=== PATIENT | female | born 1950 | race Caucasian/White ===

== ENCOUNTER 2023-06-07 11:29 | Inpatient (IN) ==
--- NOTE | 2023-06-07 12:04 | Emergency Department Note ---
History of Present Illness General Chief complaint: Hip Pain Stated complaint: FALL, R HIP PAIN Time Seen by Provider: 06/07/23 11:33 History of Present Illness 72-year-old female presents emergency department with a nonsyncopal trip and fall as she was trying to diana her cat so it would not go into her garage she fell landing on her right hip. Patient denies any loss of consciousness denies hitting her head; states that the pain is in the right hip increases with motion decreases with rest. Patient's had no prior hip injury she does follow with Dr. Aviles for back injections. Patient is not on blood thinners. Patient states the pain is moderate with motion of the hip and and decreases with rest. Patient denies any other complaints prior to his fall such as chest pain shortness of breath abdominal pain nausea vomiting. Home Medications Medication Instructions Recorded Confirmed Type alendronate 70 mg tablet (Fosamax) 70 mg PO WK 02/24/19 06/07/23 History aspirin 81 mg tablet,delayed 81 mg PO QAM 02/24/19 06/07/23 History release (Aspir-) [id number]-[id number]-[id number] 1 cap PO Q6H PRN Migraine Headache 02/24/19 06/07/23 History 50 mg-325 mg-40 mg capsule (Esgic) citalopram 40 mg tablet 40 mg PO PM 02/24/19 06/07/23 History diazepam 5 mg tablet 5 mg PO QID 02/24/19 06/07/23 History gabapentin 100 mg capsule 200 mg PO BID 02/24/19 06/07/23 History gabapentin 300 mg capsule 300 mg PO HS 02/24/19 06/07/23 History ibuprofen 800 mg tablet 800 mg PO UD PRN Pain 02/24/19 06/07/23 History primidone 50 mg tablet 100 mg PO BID 02/24/19 06/07/23 History simvastatin 40 mg tablet 40 mg PO HS 02/24/19 06/07/23 History vitamin E 268 mg (400 unit) capsule 400 unit PO PM 02/24/19 06/07/23 History primidone 50 mg tablet 150 mg PO HS 09/13/20 06/07/23 History dicyclomine 10 mg capsule 10 mg PO QID 09/25/20 06/07/23 History [facility], Cetrzn 10 mg PO QAM 01/30/21 06/07/23 History albuterol sulfate 90 mcg/actuation 1 inh inhalation UD PRN COPD 01/30/21 06/07/23 History aerosol inhaler fluticasone fur. 200 mcg-umeclid 1 inh inhalation DAILY 01/30/21 06/07/23 History 62.5 mcg-vilant 25 mcg inhalat.powder (Trelegy Ellipta) folic acid 400 mcg tablet 0.8 mg PO QAM 01/30/21 06/07/23 History topiramate 25 mg tablet (Topamax) 25 mg PO QAM 02/03/22 06/07/23 History topiramate 25 mg tablet (Topamax) 50 mg PO HS 02/03/22 06/07/23 History indomethacin 25 mg capsule 25 mg PO TID 06/07/23 06/07/23 History Allergies Allergy/AdvReac Type Severity Reaction Status Date / Time Milk Containing Products Allergy Intermediate Gastrointestinal Unverified 06/07/23 13:51 (Dairy) Upset ampicillin Allergy Mild RASH Verified 06/07/23 13:50 Bactrim Allergy Unknown UNKNOWN - Verified 10/22/15 08:03 CAN'T REMEMBER sulfamethoxazole Allergy Unknown UNKNOWN - Verified 06/07/23 13:50 CAN'T REMEMBER trimethoprim Allergy Unknown UNKNOWN - Verified 06/07/23 13:50 CAN'T REMEMBER Past Med/Surg History Medical History (Updated 06/07/23 @ 14:09 by Manish Valdovinos, ) Murmur Intertrochanteric fracture of right hip Asthma well controlled per pt, rare res inh use Depression Bilateral lumbar radiculopathy Essential tremor BILAT. HANDS History of diverticulitis Anxiety and depression History of skin cancer NOSE Unsteady gait RECENT, CANE/WALKER PRN Cirrhosis of liver COPD (chronic obstructive pulmonary disease) Sciatica Migraines Hernia Snores Spondylolisthesis, lumbar region IBS (irritable bowel syndrome) Osteoarthritis Spinal stenosis of lumbar region Chronic back pain Hypertension PT DENIES Hyperlipidemia Surgical History S/P epidural steroid injection H/O colonoscopy with polypectomy H/O oophorectomy History of arthroscopy of left knee History of endoscopy Hx of ovarian cystectomy History of cholecystectomy History of bilateral tubal ligation History of tonsillectomy Hx of cataract extraction BILAT Family History Mother Colon cancer Other Family history of diabetes mellitus No family history of adverse response to anesthesia Social History Smoking Status: Current every day smoker Tobacco Type: Cigarettes Cigarettes Per Day: 1 ppd; Second Hand Exposure: No; Do You Dip or Chew Tobacco: No; Hx Alcohol Use: No Hx Substance Use: No Preferred Language: Colombian Communication Ability: Effective Chief Cruiser Required: No Beliefs That Will Affect Care: None Current Living Situation: Alone Current Living Situation Comment: DAUGHTER AND GRANDSON Feels Safe at Home: Yes Assistive Devices: Cane, Denture - Upper, Denture - Lower, Glasses and Walker Review of Systems A total of 10 systems reviewed and were otherwise negative Musculoskeletal: + joint pain and + limited range of motion Physical Exam Vital Signs Vital Signs - 24 hr 06/07/23 12:00 06/07/23 12:01 06/07/23 12:30 Temperature 36.9 C 36.9 C Temperature Source Oral Oral Pulse Rate 97 H 79 Pulse Rate [Right Finger] 77 Pulse Rhythm Regular Pulse Rhythm [Right Finger] Regular Pulse Strength Normal Pulse Strength [Right Finger] Normal Respiratory Rate 20 20 Respiratory Effort / Characteristics Non-Labored Spontaneous Non-Labored Spontaneous Respiratory Depth Normal Normal Respiratory Pattern Regular Regular Blood Pressure 132/71 Blood Pressure [Right Arm] 132/71 Blood Pressure Mean 91 Blood Pressure Mean [Right Arm] 91 Blood Pressure Position Semi-fowlers Blood Pressure Position [Right Arm] Semi-fowlers Pulse Oximetry 98 98 Oxygen Delivery Method Room Air Room Air Sepsis Recent Fever Within 48 Hours No Sepsis New/Unexplained Change in Mental Status N/A Sepsis Action Taken by Nursing No Action Required 06/07/23 13:58 Temperature 36.8 C Temperature Source Oral Pulse Rate 79 Pulse Rate [Right Finger] Pulse Rhythm Pulse Rhythm [Right Finger] Pulse Strength Pulse Strength [Right Finger] Respiratory Rate 20 Respiratory Effort / Characteristics Respiratory Depth Respiratory Pattern Blood Pressure 145/77 H Blood Pressure [Right Arm] Blood Pressure Mean Blood Pressure Mean [Right Arm] Blood Pressure Position Blood Pressure Position [Right Arm] Pulse Oximetry 98 Oxygen Delivery Method Room Air Sepsis Recent Fever Within 48 Hours Sepsis New/Unexplained Change in Mental Status Sepsis Action Taken by Nursing GENERAL: Patient is awake alert in no acute distress patient is resting comfortably and showing no signs of anxiety EYES: The conjunctivae are clear. The pupils are round and reactive. HEAD: NC/AT EARS, NOSE, MOUTH AND THROAT: The nose is without any evidence of any deformity. Mucous membranes are moist. Tongue is midline. NECK: The neck is nontender and supple. RESPIRATORY: Normal respiratory effort is noted there is no evidence of wheezing rhonchi or rales CARDIOVASCULAR: Regular rate and rhythm noted there no murmurs rubs or gallops normal S1 normal S2. GASTROINTESTINAL: The abdomen is soft. Abdomen is nontender. PELVIS: The Pelvis is stable. Tenderness present in the right hip laterally, the right leg is to the left patient is neurovascularly intact distally BACK: No midline tenderness or or step-off noted range of motion in flexion extension as well as rotation no signs of muscle spasm noted MUSCULOSKELETAL/EXTREMITIES: Decreased range of motion of right hip with deformity present no obvious deformities to the right upper or left upper or left lower extremities SKIN: There is no obvious evidence of any rash. There are no petechiae, pallor or cyanosis noted. NEUROLOGIC: Patient is awake alert and oriented x3 strength is symmetric; GCS of 15 Course Reevaluation(s) Reevaluation #1: Patient resting in no distress on repeat examination. Patient was given IV fentanyl. Time: 14:07 Consultations Consultation #1: [facility] Time: 13:30 Administered Medications Discontinued Medications Fentanyl Citrate (Fentanyl Citrate Pf 100 Mcg/2 Ml Vial) 50 mcg IV NOW STA Stop: 06/07/23 11:41 Last Admin: 06/07/23 12:11 Dose: 50 mcg Documented By: AASHISH Ondansetron HCl (Ondansetron Inj 2 Mg/Ml 2 Ml Vial) 4 mg IV NOW STA Stop: 06/07/23 11:41 Last Admin: 06/07/23 12:11 Dose: 4 mg Documented By: AASHISH Medical Decision Making Medical Records Attestation: I reviewed the patient's medical records. Home Medications Current Medication List: was personally reviewed by me Laboratory Data Attestation: I reviewed the patient's lab results. Labs interpreted by me mild leukocytosis 06/07/23 11:50 06/07/23 11:50 Lab Results 06/07/23 06/07/23 Range/Units 11:50 13:00 WBC 13.65 H (4.8-10.8) K/ul RBC 4.48 (4.20-5.40) M/uL Hgb 12.7 (12.0-16.0) g/dl Hct 39.8 (37.0-47.0) % MCV 88.8 (80.0-100.0) fL MCH 28.3 (25.0-34.0) pg MCHC 31.9 L (32.0-36.0) g/dL RDW Std Deviation 42.9 (36.4-46.3) fL RDW Coeff of Jeannie 13.2 (11.5-14.5) % Plt Count 325 (130-400) K/uL MPV 10.7 (9.4-12.4) fL Immature Gran % (Auto) 0.4 % Neut % (Auto) 85.2 % Lymph % (Auto) 9.5 % [place] % (Auto) 4.2 % Eos % (Auto) 0.3 % Baso % (Auto) 0.4 % Neut # (Auto) 11.61 H (1.40-6.50) K/uL Lymph # (Auto) 1.30 (1.20-3.40) K/uL [place] # (Auto) 0.58 (0.11-0.59) K/uL Eos # (Auto) 0.04 (0.00-0.50) K/uL Baso # (Auto) 0.06 (0.00-0.20) K/uL Immature Gran # (Auto) 0.06 (0.01-0.20) K/uL PT 10.8 (9.0-12.0) Seconds INR 1.0 (0.9-1.1) APTT 27 (21-31) Seconds PTT Ratio 1.0 Sodium 140 (136-145) mmol/L Potassium 4.2 (3.5-5.1) mmol/L Chloride 108 H (98-107) mmol/L Carbon Dioxide 25 (21-32) mmol/L Anion Gap 7 (3-11) BUN 17 (6-23) mg/dl Creatinine 0.94 (0.6-1.2) mg/dl Est Cr Clr Drug Dosing 52.8 ml/min Est GFR ( Amer) 69.8 ml/min Est GFR (Non-Af Amer) 60.2 ml/min BUN/Creatinine Ratio 18.1 (10-20) Glucose 116 H (70-99(Fasting)) mg/dl Calcium 9.4 (8.6-10.3) mg/dl Total Bilirubin 0.4 (0.2-1.0) mg/dl AST 12 L (13-39) U/L ALT 12 (7-52) U/L Alkaline Phosphatase 44 (34-104) U/L Total Protein 6.9 (6.0-8.3) gm/dl Albumin 4.0 (3.4-5.0) gm/dl Globulin 2.9 (2.5-4.0) gm/dl Albumin/Globulin Ratio 1.4 (0.9-2) Blood Type A Positive Antibody Screen NEGATIVE Imaging Data Attestation: I personally reviewed and interpreted this imaging study as follows: My Impression: Right hip x-rays interpreted by me positive for intertrochanteric right hip fracture Radiologist's Impression: Hip X-Ray 06/07/23 11:40 RIGHT HIP 2 VIEWS CLINICAL HISTORY: Right hip injury. Pain. FINDINGS: AP and crosstable lateral views of the right hip are correlated with pelvic CT dated 06/17/2015. The skeletal structures are osteopenic. There is a comminuted and angulated intertrochanteric fracture of the right proximal femur with overlying soft tissue edema. There is medial displacement of the lesser trochanter. The visualized right hemipelvis appears intact. Mild to moderate arthritic change is noted in the right hip. Atherosclerotic calcification is seen in the right femoral artery. IMPRESSION: Intertrochanteric fracture of the right proximal femur as above. Electronically signed by: Camron Ackerman M.D. 06/07/2023 12:43 PM Chest X-Ray 06/07/23 11:42 SINGLE VIEW CHEST CLINICAL HISTORY: Fall. FINDINGS: 2 AP, portable, semierect chest radiographs are compared to chest x- ray and chest CT dated 06/17/2015. The the heart is enlarged and noting atherosclerotic calcification of the thoracic aorta. The pulmonary vasculature is noncongested. Emphysema and chronic interstitial thickening is similar to previous. Foci of scarring/atelectasis are seen throughout both lungs. No airspace consolidation or large pleural effusion is identified. There is an indeterminant nodular opacity projecting over the right lower lung. No pneumothorax is seen. The skeletal structures are osteopenic. The bony thorax is grossly intact. IMPRESSION: 1. Cardiomegaly and emphysema with no acute cardiopulmonary abnormality identified. 2. There is an indeterminate nodular opacity projecting over the right lower lung. A nonemergent chest CT is recommended and follow-up to exclude underlying pulmonary lesion. ACT 112: Positive. There are findings on this exam that require communication between the performing entity and the patient following Patient Test Result Information Act ([place] Act 112) guidelines. Electronically signed by: Camron Ackerman M.D. 06/07/2023 12:49 PM ECG Data Attestation: I personally reviewed and interpreted this ECG as follows: Additional Comments: EKG interpreted by me sinus rhythm rate of 80, first-degree AV block, poor R wave progression the precordium, no obvious ST segment elevation or depression, PVCs MDM Narrative Medical decision making differential diagnosis right hip sprain strain contusion fracture dislocation Plan is to check labs, EKG, right hip x-rays Patient was found to have a right hip fracture, patient was started on IV opiates, the [facility] I did discuss the findings with the patient the patient's family at bedside Plan is to admit for orthopedic surgical consultation Impression & Plan Closed intertrochanteric fracture of right hip Discharge Plan Visit Data Chief Complaint: Hip Pain Stated Complaint: FALL, R HIP PAIN ED Provider: Manish Valdovinos Discharge Problem: Closed intertrochanteric fracture of right hip Patient Disposition: Admitted As Inpatient Discharge Instructions Interventions: ED Discharge Assessment Last Done: 06/07/23 13:58 Forms Stand Alone Forms: My [facility] [employer] Prescriptions Prescriptions: No Action primidone 50 mg Tablet 100 mg PO BID [id number] [Esgic] 50-325-40 mg Capsule 1 cap PO Q6H PRN (Reason: Migraine Headache) citalopram 40 mg Tablet 40 mg PO PM ibuprofen 800 mg Tablet 800 mg PO UD PRN (Reason: Pain) alendronate [Fosamax] 70 mg Tablet 70 mg PO WK Rx Instructions: WEDNESDAY aspirin [Aspir-81] 81 mg Tablet,Delayed Release (Dr/Ec) 81 mg PO QAM simvastatin 40 mg Tablet 40 mg PO HS Patient Comments: PHARMACY REFILLED SIMVASTATIN , GOING TO FINISH SIMVISTATIN AND THEN START THE NEW PRESCRIPTION gabapentin 300 mg Capsule 300 mg PO HS gabapentin 100 mg Capsule 200 mg PO BID vitamin E 400 unit Capsule 400 unit PO PM Patient Comments: WITH DINNER diazepam 5 mg Tablet 5 mg PO QID Rx Instructions: FOR TREMORS primidone 50 mg Tablet 150 mg PO HS dicyclomine 10 mg Capsule 10 mg PO QID folic acid 400 mcg Tablet 0.8 mg PO QAM Patient Comments: WITH DINNER [facility] Allergy, Cetrzn 10 mg PO QAM albuterol sulfate 90 mcg/actuation Hfa Aerosol Inhaler 1 inh INHALATION UD PRN (Reason: COPD) Trelegy Ellipta 200-62.5-25 mcg Blister With Device 1 inh INHALATION DAILY topiramate [Topamax] 25 mg Tablet 25 mg PO QAM topiramate [Topamax] 25 mg Tablet 50 mg PO HS indomethacin 25 mg Capsule 25 mg PO TID Referrals Referrals: Christie Morris DO [Primary Care Provider] -
[2023-06-07 12:05] LABS: Basophils # (auto) 0.06 K/uL (0.00-0.20); Basophils % (auto) 0.4 %; Eosinophils # (auto) 0.04 K/uL (0.00-0.50); Eosinophils % (auto) 0.3 %; Hematocrit (blood only) 39.8 % (37.0-47.0); Hemoglobin 12.7 g/dl (12.0-16.0); Immature Granulocytes # (auto) 0.06 K/uL (0.01-0.20); Immature Granulocytes % (auto) 0.4 %; Lymphocytes % (auto) 9.5 %; Mean Corpuscular Hemoglobin 28.3 pg (25.0-34.0); Mean Corpuscular Hgb Conc 31.9 g/dL (32.0-36.0); Mean Corpuscular Volume 88.8 fL (80.0-100.0); Mean Platelet Volume 10.7 fL (9.4-12.4); Monocytes # (auto) 0.58 K/uL (0.11-0.59); Monocytes % (auto) 4.2 %; Neutrophils # (auto) 11.61 K/uL (1.40-6.50); Neutrophils % (auto) 85.2 %; Platelet Count 325 K/uL (130-400); RDW Coefficient of Variation 13.2 % (11.5-14.5); RDW Standard Deviation 42.9 fL (36.4-46.3); Red Blood Count 4.48 M/uL (4.20-5.40); White Blood Count 13.65 K/ul (4.8-10.8)
[2023-06-07] MEDS: fentaNYL citrate PF 100 MCG/2 ML VIAL IV STA (12:11)
[2023-06-07] MEDS: ONDANSETRON INJ 2 MG/ML 2 ML VIAL IV STA (12:11)
[2023-06-07 12:22] LABS: Albumin Globulin Ratio 1.4 (0.9-2); BUN Creatinine Ratio 18.1 (10-20); Bilirubin,Total 0.4 mg/dl (0.2-1.0); Calcium 9.4 mg/dl (8.6-10.3); Creatinine Clr Calc Pharmacy 52.8 ml/min; Est GFR (African American) 69.8 ml/min; Est GFR (Non-African American) 60.2 ml/min; Globulin 2.9 gm/dl (2.5-4.0); Potassium 4.2 mmol/L (3.5-5.1); Total Protein 6.9 gm/dl (6.0-8.3)
[2023-06-07 12:43] LABS: Partial Thromboplastin Time 27 Seconds (21-31); Prothrombin Time 10.8 Seconds (9.0-12.0)
--- NOTE | 2023-06-07 12:44 | XRay Report ---
RIGHT HIP 2 VIEWS CLINICAL HISTORY: Right hip injury. Pain. FINDINGS: AP and crosstable lateral views of the right hip are correlated with pelvic CT dated 06/17/19 16. The skeletal structures are osteopenic. There is a comminuted and angulated intertrochanteric fra cture of the right proximal femur with overlying soft tissue edema. There is medial displacement of t he lesser trochanter. The visualized right hemipelvis appears intact. Mild to moderate arthritic ledbetter ge is noted in the right hip. Atherosclerotic calcification is seen in the right femoral artery. IMPRESSION: Intertrochanteric fracture of the right proximal femur as above. Electronically signed by: Camron Ackerman M.D. 06/07/2023 12:43 PM
[2023-06-07] MEDS ORDERED: ACETAMINOPHEN 325 MG TAB PO PRN (12:47)
[2023-06-07] MEDS ORDERED: NALOXONE HCL 0.4 MG/1 ML VIAL/CARP IV PRN (12:47)
[2023-06-07] MEDS ORDERED: bisacodyL 10 MG SUPP PR PRN (12:47)
[2023-06-07] MEDS ORDERED: ALUMINUM/MAGNESIUM SUSP 30 ML UDC PO PRN (12:47)
[2023-06-07] MEDS ORDERED: ONDANSETRON INJ 2 MG/ML 2 ML VIAL IV PRN (12:47)
[2023-06-07] MEDS ORDERED: MAGNESIUM HYDROXIDE SUSP 30 ML UDC PO PRN (12:47)
--- NOTE | 2023-06-07 12:52 | XRay Report ---
SINGLE VIEW CHEST CLINICAL HISTORY: Fall. FINDINGS: 2 AP, portable, semierect chest radiographs are compared to chest x-ray and chest CT dated 06/17/2015. The the heart is enlarged and noting atherosclerotic calcification of the thoracic aorta. T he pulmonary vasculature is noncongested. Emphysema and chronic interstitial thickening is similar to previous. Foci of scarring/atelectasis are seen throughout both lungs. No airspace consolidation or large pleural effusion is identified. There is an indeterminant nodular opacity projecting over the r ight lower lung. No pneumothorax is seen. The skeletal structures are osteopenic. The bony thorax is grossly intact. IMPRESSION: 1. Cardiomegaly and emphysema with no acute cardiopulmonary abnormality identified. 2. There is an indeterminate nodular opacity projecting over the right lower lung. A nonemergent ches t CT is recommended and follow-up to exclude underlying pulmonary lesion. ACT 112: Positive. There are findings on this exam that require communication between the performing entity and the patient following Patient Test Result Information Act ([place] Act 112) guidelines. Electronically signed by: Camron Ackerman M.D. 06/07/2023 12:49 PM
--- NOTE | 2023-06-07 13:05 | History & Physical Report ---
Date of Service June 07, 2023 Assessment & Plan (1) Intertrochanteric fracture of right hip: (2) Dyslipidemia: (3) Tobacco use disorder: (4) COPD (chronic obstructive pulmonary disease): (5) Bilateral lumbar radiculopathy: (6) Murmur: Plan Ms. Cortez is a 72 year old female that presented to the ED today after experiencing a mechanical fall earlier today while she was chasing her cat out of the garage. She slipped and lost balance and she fell on her right hip in her kitchen. She was unable to sit up but was able to lean on cabinets 'eventually'. She denies LOC and states she did not hit her head. She was on the floor for approximately 2 hours from around [id number] today. She does not take any anticoagulation medications. PMH includes: COPD, spinal stenosis with radiculopathy (receives steroid injections), H/O opioid dependence, tobacco use, and HLD. Mild leukocytosis 13.65, otherwise labs unremarkable. Hgb 12.7. Normotensive and on RA. Pt denies OLVERA, fever, chills, SOB, chest pain, palpitations, N/V/D, abdominal pain or tenderness, dysuria, hematochezia, bowel or bladder changes, easy bruising, recent falls or other trauma. Patient will be admitted for further evaluation and management of her right hip fracture. Will keep NPO, order pain medications, obtain ECG and ECHO given audible cardiac murmur and ortho consult (pt requesting Delmer). Intertrochanteric fracture of right hip: Acute Loss of balance and had mechanical fall in her garage today Hip xray identified right intertrochanteric right proximal femur fracture Will keep on bedrest and n.p.o. until formal Ortho consultation (pt requesting Dr. Dowell) Leukocytosis 13.65; suspect refractory d/t fracture Does not appear toxic Will order scheduled Tylenol and as needed Oxy IR for pain control Will order ECG and echo for preop clearance Teds and SCDs for ; one dose Heparin now. Murmur: Grade III/ murmur left sternal border No ECHO as outpatient For pre-op clearance; will order ECHO ECG ordered COPD: Lung nodule: Chronic Takes Trelegy and follows with pulmonary as an outpatient Was to have repeat PFTs 2022 Most recent PFTs 07/26/2020 FEV1 1.71 CXR today: Cardiomegaly and emphysema, no acute cardiac or pulmonary infection identified. There is an indeterminate nodular opacity projecting over the right lower lung. A nonemergent chest CT is recommended and follow-up to exclude underlying pulmonary lesion. Tobacco use disorder: Chronic Smokes 1 PPD; declines Nicotine patch Recommended smoking cessation Bilateral lumbar radiculopathy: Chronic Receives lumbar steroid injections; last injection 01/2023. Takes Ibuprofen, Primidone, Topamax, Indocin for neuropathy pain Hold Ibuprofen and Indocin pre op Of note; during conversation, patient has had opioid addiction in past. No currently taking any opioids Disposition: PCP: Dr. Morris CODE STATUS: Full code VTE prophylaxis: Teds and SCDs for ; one dose Heparin now. I spent a total of 87 minutes coordinating, documenting, and providing care for this patient excluding time spent in the performance of separately billed services. All of the aforementioned completed while collaborating with the assigned attending physician for a full treatment plan. Please see their addendum for further details. History of Present Illness Chief Complaint: hip pain Primary Care Provider: Christie Morris DO Ms. Cortez is a 72 year old female that presented to the ED today after experiencing a mechanical fall earlier today while she was chasing her newly adopted cat out of the garage. She slipped and lost balance and she fell on her right hip. She was unable to sit up. She denies LOC and states she did not hit her head. She was on the floor for approximately 2 hours. She does not take any anticoagulation medications. PMH includes: COPD, spinal stenosis with radiculopathy (receives steroid injections), H/O opioid dependence, tobacco use, and HLD. Mild leukocytosis 13.65, otherwise labs unremarkable. Hgb 12.7. Normotensive and on RA. Hip Xray: Intertrochanteric fracture of the right proximal femur CXR today: Cardiomegaly and emphysema, no acute cardiac or pulmonary infection identified. There is an indeterminate nodular opacity projecting over the right lower lung. A nonemergent chest CT is recommended and follow-up to exclude underlying pulmonary lesion. Pt smokes 1 ppd tobacco. No alcohol or recreational drug use. Patient reportedly has had opioid dependence in the past. She normally lives alone and performs all of her own ADL's. S Pt denies OLVERA, fever, chills, SOB, chest pain, palpitations, N/V/D, abdominal pain or tenderness, dysuria, hematochezia, bowel or bladder changes, easy bruising, recent falls or other trauma. Patient will be admitted for further evaluation and management of her right hip fracture. Will keep NPO pending ortho consult (Dr. Limoff request), order pain medications, obtain ECG and ECHO given audible heart murmur. Allergies Allergy/AdvReac Type Severity Reaction Status Date / Time Milk Containing Products Allergy Intermediate Gastrointestinal Unverified 06/07/23 13:51 (Dairy) Upset ampicillin Allergy Mild RASH Verified 06/07/23 13:50 Bactrim Allergy Unknown UNKNOWN - Verified 10/22/15 08:03 CAN'T REMEMBER sulfamethoxazole Allergy Unknown UNKNOWN - Verified 06/07/23 13:50 CAN'T REMEMBER trimethoprim Allergy Unknown UNKNOWN - Verified 06/07/23 13:50 CAN'T REMEMBER Home Medications Medication Instructions Recorded Confirmed Type alendronate 70 mg tablet (Fosamax) 70 mg PO WK 02/24/19 06/07/23 History aspirin 81 mg tablet,delayed 81 mg PO QAM 02/24/19 06/07/23 History release (Aspir-) vbzhjvrbyw-wvfqrjzwpivum-lzdtsiwt 1 cap PO Q6H PRN Migraine Headache 02/24/19 06/07/23 History 50 mg-325 mg-40 mg capsule (Esgic) citalopram 40 mg tablet 40 mg PO PM 02/24/19 06/07/23 History diazepam 5 mg tablet 5 mg PO QID 02/24/19 06/07/23 History gabapentin 100 mg capsule 200 mg PO BID 02/24/19 06/07/23 History gabapentin 300 mg capsule 300 mg PO HS 02/24/19 06/07/23 History ibuprofen 800 mg tablet 800 mg PO UD PRN Pain 02/24/19 06/07/23 History primidone 50 mg tablet 100 mg PO BID 02/24/19 06/07/23 History simvastatin 40 mg tablet 40 mg PO HS 02/24/19 06/07/23 History vitamin E 268 mg (400 unit) capsule 400 unit PO PM 02/24/19 06/07/23 History primidone 50 mg tablet 150 mg PO HS 09/13/20 06/07/23 History dicyclomine 10 mg capsule 10 mg PO QID 09/25/20 06/07/23 History [facility] Allergy, Cetrzn 10 mg PO QAM 01/30/21 06/07/23 History albuterol sulfate 90 mcg/actuation 1 inh inhalation UD PRN COPD 01/30/21 06/07/23 History aerosol inhaler fluticasone fur. 200 mcg-umeclid 1 inh inhalation DAILY 01/30/21 06/07/23 History 62.5 mcg-vilant 25 mcg inhalat.powder (Trelegy Ellipta) folic acid 400 mcg tablet 0.8 mg PO QAM 01/30/21 06/07/23 History topiramate 25 mg tablet (Topamax) 25 mg PO QAM 02/03/22 06/07/23 History topiramate 25 mg tablet (Topamax) 50 mg PO HS 02/03/22 06/07/23 History indomethacin 25 mg capsule 25 mg PO TID 06/07/23 06/07/23 History Past Med/Surg History Medical History (Updated 06/07/23 @ 14:09 by Manish Valdovinos, DO) Murmur Intertrochanteric fracture of right hip Asthma well controlled per pt, rare res inh use Depression Bilateral lumbar radiculopathy Essential tremor BILAT. HANDS History of diverticulitis Anxiety and depression History of skin cancer NOSE Unsteady gait RECENT, CANE/WALKER PRN Cirrhosis of liver COPD (chronic obstructive pulmonary disease) Sciatica Migraines Hernia Snores Spondylolisthesis, lumbar region IBS (irritable bowel syndrome) Osteoarthritis Spinal stenosis of lumbar region Chronic back pain Hypertension PT DENIES Hyperlipidemia Surgical History S/P epidural steroid injection H/O colonoscopy with polypectomy H/O oophorectomy History of arthroscopy of left knee History of endoscopy Hx of ovarian cystectomy History of cholecystectomy History of bilateral tubal ligation History of tonsillectomy Hx of cataract extraction BILAT Family History Mother Colon cancer Other Family history of diabetes mellitus No family history of adverse response to anesthesia Social History Smoking Status: Current every day smoker Tobacco Type: Cigarettes Cigarettes Per Day: one pack per day; Second Hand Exposure: No; Do You Dip or Chew Tobacco: No; Hx Alcohol Use: No Hx Substance Use: No Preferred Language: Pashto Communication Ability: Effective [employer] Required: No Beliefs That Will Affect Care: None Current Living Situation: Alone Current Living Situation Comment: DAUGHTER AND GRANDSON Feels Safe at Home: Yes Safety Concerns: Feels Safe At This Time Assistive Devices: Cane, Denture - Upper and Denture - Lower Assistive Devices Comment: Pt uses cane when she leaves the house Review of Systems Review of Systems: Neuro: (-) Falls, trauma, slurred speech HEENT: (-) OLVERA, dizziness, dysphagia, visual or auditory changes CV: (-) CP, palpitations, swelling Resp: (-) SOB GI: (-) appetite changes, N/V/D, bowel changes : (-) urinary changes Skin: (-) rashes Psych: (-) anxiety, depression Physical Exam Physical Exam: Neuro: AAOx4, PERRLA, no aphagia, memory changes, CNII-XII grossly intact HEENT: head normocephalic, atraumatic, moist mucus membranes CV: S1/S2, Audible Murmur GIII/ left sternal border. (+) 2 bilateral lower extremity edema, cap refill < 3 seconds Resp: Lungs coarse posteriorly. On RA. GI: Abdomen S/NT/ND, Ax4 bowel sounds, (-) CVA tenderness Musculoskeletal: Normally walks independently. Skin: (-) rashes , (-) erythema. Psych: euthymic mood Results & Data Results & Data Vital Signs (Past 12 Hours) Vital Signs Temp Pulse Pulse Resp BP BP Pulse Ox 06/07/23 12:30 79 06/07/23 12:01 36.9 C 97 H 20 132/71 98 06/07/23 12:00 36.9 C 77 20 132/71 98 O2 Del Method 06/07/23 12:30 06/07/23 12:01 Room Air 06/07/23 12:00 Room Air Laboratory Results Short CBC 06/07/23 Range/Units 11:50 WBC 13.65 H (4.8-10.8) K/ul Hgb 12.7 (12.0-16.0) g/dl Hct 39.8 (37.0-47.0) % Plt Count 325 (130-400) K/uL BMP 06/07/23 11:50 Sodium 140 Potassium 4.2 Chloride 108 H Carbon Dioxide 25 BUN 17 Creatinine 0.94 Glucose 116 H Calcium 9.4 Liver Function 06/07/23 Range/Units 11:50 Total Bilirubin 0.4 (0.2-1.0) mg/dl AST 12 L (13-39) U/L ALT 12 (7-52) U/L Alkaline Phosphatase 44 (34-104) U/L Albumin 4.0 (3.4-5.0) gm/dl Diagnostic Findings Hip X-Ray 06/07/23 11:40 RIGHT HIP 2 VIEWS CLINICAL HISTORY: Right hip injury. Pain. FINDINGS: AP and crosstable lateral views of the right hip are correlated with pelvic CT dated 06/17/2015. The skeletal structures are osteopenic. There is a comminuted and angulated intertrochanteric fracture of the right proximal femur with overlying soft tissue edema. There is medial displacement of the lesser trochanter. The visualized right hemipelvis appears intact. Mild to moderate arthritic change is noted in the right hip. Atherosclerotic calcification is seen in the right femoral artery. IMPRESSION: Intertrochanteric fracture of the right proximal femur as above. Electronically signed by: Camron Ackerman M.D. 06/07/2023 12:43 PM Chest X-Ray 06/07/23 11:42 SINGLE VIEW CHEST CLINICAL HISTORY: Fall. FINDINGS: 2 AP, portable, semierect chest radiographs are compared to chest x- ray and chest CT dated 06/17/2015. The the heart is enlarged and noting atherosclerotic calcification of the thoracic aorta. The pulmonary vasculature is noncongested. Emphysema and chronic interstitial thickening is similar to previous. Foci of scarring/atelectasis are seen throughout both lungs. No airspace consolidation or large pleural effusion is identified. There is an indeterminant nodular opacity projecting over the right lower lung. No pneumothorax is seen. The skeletal structures are osteopenic. The bony thorax is grossly intact. IMPRESSION: 1. Cardiomegaly and emphysema with no acute cardiopulmonary abnormality identified. 2. There is an indeterminate nodular opacity projecting over the right lower lung. A nonemergent chest CT is recommended and follow-up to exclude underlying pulmonary lesion. ACT 112: Positive. There are findings on this exam that require communication between the performing entity and the patient following Patient Test Result Information Act ([place] Act 112) guidelines. Electronically signed by: Camron Ackerman M.D. 06/07/2023 12:49 PM Code Status & VTE Plan Code Status Full Code in the event of cardiac or respiratory arrest VTE Prophylaxis Plan VTE Prophylaxis will be ordered: Yes Supervising Physician Co-Signing Physician Notes Patient was seen and examined independently at bedside. Chart reviewed. Case discussed with Opal CHEN and agree with the documentation above. In summary, this is a 72 year old female who suffered a mechanical fall today sustaining right hip fracture. Complains of pain during my encounter. Other medical conditions stable. Independent with ADL, METS>4, no active cardiopulmonary symptoms. RCRI score of 0 with class I risk, 3.9% perioperative risk of MACE but currently optimized to go for surgery if EKG unremarkable. They would want Dr Galloway from Orthopedics to do the surgery and will be consulted. She does smoke 1 ppd but does not want nicotine patch. Will have it prn. Also discussed about pulmonary nodule in CXR and recommendation for CT chest for better evaluation and they are aware for close OP follow up with PCP. Alternatively, can get it done after surgery prior to discharge- will leave it to the rounding provider. Continue pain management, bowel regimen. PT OT eval after surgery. Rest as per the note above. On exam- General: Lying comfortably in bed, not in distress, on room air HEENT: EOMI, RORO, MMM Chest: Clear breath sounds anteriorly, no wheezes or crackles CVS: Regular rate and rhythm Abdomen: Soft, non tender, not distended, normal bowel sounds Neuro: Awake, alert, oriented, conversing well, non focal Extremities: No cyanosis, clubbing or edema
--- NOTE | 2023-06-07 14:43 | Electrocardiogram Report ---
Test Reason : Blood Pressure : / mmHG Vent. Rate : 080 BPM Atrial Rate : 080 BPM P-R Int : 210 ms QRS Dur : 068 ms QT Int : 350 ms P-R-T Axes : 077 016 074 degrees QTc Int : 403 ms Sinus rhythm with 1st degree A-V block with occasional Premature ventricular complexes Low voltage QRS Borderline ECG When compared with ECG of 17-JUN-2015 10:57, Premature ventricular complexes are now Present LA interval has increased Criteria for Anteroseptal infarct are no longer Present QT has shortened Confirmed by Brendon Church ([id number]) on 06/07/2023 2:43:41 PM Referred By: REFERRED SELF Confirmed By:Brendon Church
[2023-06-07] MEDS: ACETAMINOPHEN 1,000 MG/100 ML VIAL IV SCH (15:49)
[2023-06-07] MEDS: oxyCODONE HCL IR 5 MG TAB (IMMEDIATE RELEASE) PO PRN (16:28)
[2023-06-07] MEDS: HEPARIN SOD 5,000 UNIT/0.5 ML VIAL SQ STA (16:38)
--- NOTE | 2023-06-07 16:45 | Orthopedic Consultation ---
Date of Consultation June 07, 2023 Assessment & Plan (1) Closed intertrochanteric fracture of right hip: Patient, daughter, and I discussed imaging findings and exam findings. Patient has a closed intertrochanteric fracture of her right hip. We discussed treatment options for this including conservative measurements as well as surgical. We discussed risk and benefits of the procedure including but not limited to bleeding risk infection risk scarring, nerve and vascular damage, stiffness, wound issues, tendon or ligament injury, hardware failure, nonunion, embolism, DVT, stroke, or . Patient will be scheduled for a open reduction internal fixation right hip fracture with Dr. Iglesias on 06/08/2023. The consent was obtained. Patient and daughter had ample time to ask questions. Patient has a walker to use at home. Patient would prefer to go home when she is medically stable however if she would need to go to rehabilitation she would be open to this. Patient is inquiring if she would need to have a blood transfusion she would prefer to use her own blood. I will discuss this further with Dr. Iglesias. Patient had one-time dose of heparin. Recommend no further blood thinning/anticoagulation until after surgical intervention. Recommended she maintain nonweightbearing on the right lower extremity. Continue with pain medication per hospitalist recommendation. She may use ice to the right hip as needed. She will be n.p.o. at midnight. Antibiotic, Ancef was ordered in OR has been contacted by Korin castro. Hospitalist is ordering EKG and ECHO for medical clearance for surgery. Case will be discussed with Dr. Iglesias. Patient and daughter verbalized understanding and are in agreement plan. Present on Admission?: Yes History of Present Illness Reason for Consultation: Right hip fracture Attending Physician: Wander Dale MD History of Present Illness Patient is a 72-year-old female who was seen in [facility] and admitted by hospitalist. Consult was requested by hospitalist for a right hip fracture. Patient was seen bedside and daughter was present. Patient explains today she was at her home lives by herself in a one-story home when she was trying to avoid the cat getting out into the garage. She states she turned the wrong way and fell onto the right hip. She states she was in the kitchen and fell onto the linoleum floor. She denies hitting her head or any loss of consciousness. She states after she had fallen she was not able to get up. She states after multiple attempts were made to get up she realized that her cell phone was in reach and was able to get it and call 911. She was transported to [facility] via ambulance where she was examined and had imaging that revealed an intertrochanteric fracture of the right hip. She states she has no history of previous trauma or injury to the hip. She denies any open areas. She has pain into the hip groin on the right side and into the thigh. She denies any pain going down below the knee. She does has a history of lumbar radiculopathy and has seen Dr. Quinteros for injections. She denies any numbness in either legs. She does state she has been having an issue with retaining fluid in bilateral lower extremities. She states this has been ongoing previous to the fall. She does have a history of osteoporosis and per patient she is on Fosamax however she is not very compliant with this. She has a walker and multiple canes at home however is not using this currently. She states she takes an aspirin a day denies any other use of anticoagulation. She denies any skin infections or history of MRSA. She denies any latex allergies or metal allergies. She denies any problems with anesthesia. She has a history of COPD and a lung nodule. She does smoke approximately 1 pack of cigarettes a day. She denies any dizziness, chest pain, shortness of breath. Allergies Allergy/AdvReac Type Severity Reaction Status Date / Time Milk Containing Products Allergy Intermediate Gastrointestinal Unverified 06/07/23 13:51 (Dairy) Upset ampicillin Allergy Mild RASH Verified 06/07/23 13:50 Bactrim Allergy Unknown UNKNOWN - Verified 10/22/15 08:03 CAN'T REMEMBER sulfamethoxazole Allergy Unknown UNKNOWN - Verified 06/07/23 13:50 CAN'T REMEMBER trimethoprim Allergy Unknown UNKNOWN - Verified 06/07/23 13:50 CAN'T REMEMBER Home Medications Medication Instructions Recorded Confirmed Type alendronate 70 mg tablet (Fosamax) 70 mg PO WK 02/24/19 06/07/23 History aspirin 81 mg tablet,delayed 81 mg PO QAM 02/24/19 06/07/23 History release (Aspir-) aohzrcblfw-yrwssdbnicnfl-qxzmzgxq 1 cap PO Q6H PRN Migraine Headache 02/24/19 06/07/23 History 50 mg-325 mg-40 mg capsule (Esgic) citalopram 40 mg tablet 40 mg PO PM 02/24/19 06/07/23 History diazepam 5 mg tablet 5 mg PO QID 02/24/19 06/07/23 History gabapentin 100 mg capsule 200 mg PO BID 02/24/19 06/07/23 History gabapentin 300 mg capsule 300 mg PO HS 02/24/19 06/07/23 History ibuprofen 800 mg tablet 800 mg PO UD PRN Pain 02/24/19 06/07/23 History primidone 50 mg tablet 100 mg PO BID 02/24/19 06/07/23 History simvastatin 40 mg tablet 40 mg PO HS 02/24/19 06/07/23 History vitamin E 268 mg (400 unit) capsule 400 unit PO PM 02/24/19 06/07/23 History primidone 50 mg tablet 150 mg PO HS 09/13/20 06/07/23 History dicyclomine 10 mg capsule 10 mg PO QID 09/25/20 06/07/23 History [facility] Allergy, Cetrzn 10 mg PO QAM 01/30/21 06/07/23 History albuterol sulfate 90 mcg/actuation 1 inh inhalation UD PRN COPD 01/30/21 06/07/23 History aerosol inhaler fluticasone fur. 200 mcg-umeclid 1 inh inhalation DAILY 01/30/21 06/07/23 History 62.5 mcg-vilant 25 mcg inhalat.powder (Trelegy Ellipta) folic acid 400 mcg tablet 0.8 mg PO QAM 01/30/21 06/07/23 History topiramate 25 mg tablet (Topamax) 25 mg PO QAM 02/03/22 06/07/23 History topiramate 25 mg tablet (Topamax) 50 mg PO HS 02/03/22 06/07/23 History indomethacin 25 mg capsule 25 mg PO TID 06/07/23 06/07/23 History Patient History Medical History (Updated 06/07/23 @ 14:09 by Manish Valdovinos, ) Murmur Intertrochanteric fracture of right hip Asthma well controlled per pt, rare res inh use Depression Bilateral lumbar radiculopathy Essential tremor BILAT. HANDS History of diverticulitis Anxiety and depression History of skin cancer NOSE Unsteady gait RECENT, CANE/WALKER PRN Cirrhosis of liver COPD (chronic obstructive pulmonary disease) Sciatica Migraines Hernia Snores Spondylolisthesis, lumbar region IBS (irritable bowel syndrome) Osteoarthritis Spinal stenosis of lumbar region Chronic back pain Hypertension PT DENIES Hyperlipidemia Surgical History S/P epidural steroid injection H/O colonoscopy with polypectomy H/O oophorectomy History of arthroscopy of left knee History of endoscopy Hx of ovarian cystectomy History of cholecystectomy History of bilateral tubal ligation History of tonsillectomy Hx of cataract extraction BILAT Family History Mother Colon cancer Other Family history of diabetes mellitus No family history of adverse response to anesthesia Social History Smoking Status: Current every day smoker Tobacco Type: Cigarettes Cigarettes Per Day: one pack per day; Second Hand Exposure: No; Do You Dip or Chew Tobacco: No; Hx Alcohol Use: No Hx Substance Use: No Preferred Language: Ukrainian Communication Ability: Effective Liability Analyst Required: No Beliefs That Will Affect Care: None Current Living Situation: Alone Current Living Situation Comment: DAUGHTER AND GRANDSON Feels Safe at Home: Yes Safety Concerns: Feels Safe At This Time Assistive Devices: Cane, Denture - Upper and Denture - Lower Assistive Devices Comment: Pt uses cane when she leaves the house Review of Systems Review of Systems: Please refer to HPI Physical Exam Physical Exam: Exam was focused on right lower extremity. General: Patient is alert and oriented x 3 no acute distress lying supine. She is answering questions correctly. Integumentary/muscle skeletal: Right lower extremity is in normal position negative for any gross deformity. Negative for any ecchymosis or abrasions on the right lower extremity. Left lower extremity has erythematous area in a circular pattern that the size of a quarter over the hairston per patient this that this has been there for a few days. She has edema bilateral lower extremities nonpitting. She is able to actively dorsiflex and plantarflex bilateral ankles. She is limited with knee and hip range of motion on the right due to pain in the hip. She has pain with logroll on right lower extremity. She is unable to tolerate passive range of motion to the hip and knee on the right due to pain. She is unable to do a straight leg raise on the right. She tolerates hip range of motion and knee range of motion on the left lower extremity without any difficulty. Sensation is intact over all 4 L5 and S1 on the right. Dorsal pedis pulse is 1. Results & Data Vital Signs (Past 12 Hours) Vital Signs Temp Pulse Pulse Resp BP BP Pulse Ox 06/07/23 15:55 37.0 C 81 16 109/67 95 06/07/23 13:58 36.8 C 79 20 145/77 H 98 06/07/23 12:30 79 06/07/23 12:01 36.9 C 97 H 20 132/71 98 06/07/23 12:00 36.9 C 77 20 132/71 98 O2 Del Method 06/07/23 15:55 Room Air 06/07/23 13:58 Room Air 06/07/23 12:30 06/07/23 12:01 Room Air 06/07/23 12:00 Room Air Laboratory Results 06/07/23 06/07/23 Range/Units 13:00 11:50 WBC 13.65 H (4.8-10.8) K/ul RBC 4.48 (4.20-5.40) M/uL Hgb 12.7 (12.0-16.0) g/dl Hct 39.8 (37.0-47.0) % MCV 88.8 (80.0-100.0) fL MCH 28.3 (25.0-34.0) pg MCHC 31.9 L (32.0-36.0) g/dL RDW Std Deviation 42.9 (36.4-46.3) fL RDW Coeff of Jeannie 13.2 (11.5-14.5) % Plt Count 325 (130-400) K/uL MPV 10.7 (9.4-12.4) fL Immature Gran % (Auto) 0.4 % Neut % (Auto) 85.2 % Lymph % (Auto) 9.5 % [place] % (Auto) 4.2 % Eos % (Auto) 0.3 % Baso % (Auto) 0.4 % Neut # (Auto) 11.61 H (1.40-6.50) K/uL Lymph # (Auto) 1.30 (1.20-3.40) K/uL [place] # (Auto) 0.58 (0.11-0.59) K/uL Eos # (Auto) 0.04 (0.00-0.50) K/uL Baso # (Auto) 0.06 (0.00-0.20) K/uL Immature Gran # (Auto) 0.06 (0.01-0.20) K/uL PT 10.8 (9.0-12.0) Seconds INR 1.0 (0.9-1.1) APTT 27 (21-31) Seconds PTT Ratio 1.0 Sodium 140 (136-145) mmol/L Potassium 4.2 (3.5-5.1) mmol/L Chloride 108 H (98-107) mmol/L Carbon Dioxide 25 (21-32) mmol/L Anion Gap 7 (3-11) BUN 17 (6-23) mg/dl Creatinine 0.94 (0.6-1.2) mg/dl Est Cr Clr Drug Dosing 52.8 ml/min Est GFR ( Amer) 69.8 ml/min Est GFR (Non-Af Amer) 60.2 ml/min BUN/Creatinine Ratio 18.1 (10-20) Glucose 116 H (70-99(Fasting)) mg/dl Calcium 9.4 (8.6-10.3) mg/dl Total Bilirubin 0.4 (0.2-1.0) mg/dl AST 12 L (13-39) U/L ALT 12 (7-52) U/L Alkaline Phosphatase 44 (34-104) U/L Total Protein 6.9 (6.0-8.3) gm/dl Albumin 4.0 (3.4-5.0) gm/dl Globulin 2.9 (2.5-4.0) gm/dl Albumin/Globulin Ratio 1.4 (0.9-2) Blood Type A Positive Antibody Screen NEGATIVE Diagnostic Findings Hip X-Ray 06/07/23 11:40 RIGHT HIP 2 VIEWS CLINICAL HISTORY: Right hip injury. Pain. FINDINGS: AP and crosstable lateral views of the right hip are correlated with pelvic CT dated 06/17/2015. The skeletal structures are osteopenic. There is a comminuted and angulated intertrochanteric fracture of the right proximal femur with overlying soft tissue edema. There is medial displacement of the lesser trochanter. The visualized right hemipelvis appears intact. Mild to moderate arthritic change is noted in the right hip. Atherosclerotic calcification is seen in the right femoral artery. IMPRESSION: Intertrochanteric fracture of the right proximal femur as above. Electronically signed by: Camron Ackerman M.D. 06/07/2023 12:43 PM Chest X-Ray 06/07/23 11:42 SINGLE VIEW CHEST CLINICAL HISTORY: Fall. FINDINGS: 2 AP, portable, semierect chest radiographs are compared to chest x- ray and chest CT dated 06/17/2015. The the heart is enlarged and noting atherosclerotic calcification of the thoracic aorta. The pulmonary vasculature is noncongested. Emphysema and chronic interstitial thickening is similar to previous. Foci of scarring/atelectasis are seen throughout both lungs. No airspace consolidation or large pleural effusion is identified. There is an indeterminant nodular opacity projecting over the right lower lung. No pneumothorax is seen. The skeletal structures are osteopenic. The bony thorax is grossly intact. IMPRESSION: 1. Cardiomegaly and emphysema with no acute cardiopulmonary abnormality identified. 2. There is an indeterminate nodular opacity projecting over the right lower lung. A nonemergent chest CT is recommended and follow-up to exclude underlying pulmonary lesion. ACT 112: Positive. There are findings on this exam that require communication between the performing entity and the patient following Patient Test Result Information Act ([place] Act 112) guidelines. Electronically signed by: Camron Ackerman M.D. 06/07/2023 12:49 PM
[2023-06-07 17:29] LABS: Appearance Urine Clear (Clear); Bilirubin Urine Negative (Negative); Blood Urine Negative (Negative); Color Urine Yellow; Glucose Urine UA Negative (Negative); Ketones Urine 1+ (Negative); Leukocyte Esterase Urine Negative (Negative); Nitrite Urine Negative (Negative); Protein Urine Negative (Negative); Specific Gravity Urine 1.021 (1.000-1.030); Urobilinogen Urine Negative (Negative)
[2023-06-07] MEDS: diazePAM 5 MG TABLET PO SCH (17:52)
[2023-06-07] MEDS: DICYCLOMINE HCL 10 MG CAP PO SCH (17:52)
[2023-06-07] MEDS: PRIMIDONE 50 MG TAB PO SCH ×2 (21:46→21:48)
[2023-06-07] MEDS: GABAPENTIN 100 MG CAP PO SCH (21:46)
[2023-06-07] MEDS: GABAPENTIN 300 MG CAP PO SCH (21:47)
[2023-06-07] MEDS: CITALOPRAM 40 MG TAB PO SCH (21:47)
[2023-06-07] MEDS: TOPIRAMATE 50 MG TAB PO SCH (21:47)
[2023-06-07] MEDS: SIMVASTATIN 40 MG TAB PO SCH (21:47)
[2023-06-07] MEDS: ACETAMINOPHEN 500 MG TAB PO SCH (21:53)
[2023-06-08 06:47] LABS: Hematocrit (blood only) 38.7 % (37.0-47.0); Hemoglobin 12.6 g/dl (12.0-16.0); Mean Corpuscular Hemoglobin 28.7 pg (25.0-34.0); Mean Corpuscular Hgb Conc 32.6 g/dL (32.0-36.0); Mean Corpuscular Volume 88.2 fL (80.0-100.0); Mean Platelet Volume 10.7 fL (9.4-12.4); Platelet Count 263 K/uL (130-400); RDW Coefficient of Variation 13.2 % (11.5-14.5); RDW Standard Deviation 42.8 fL (36.4-46.3); Red Blood Count 4.39 M/uL (4.20-5.40); White Blood Count 9.56 K/ul (4.8-10.8)
[2023-06-08 07:35] LABS: Albumin Level 3.8 gm/dl (3.4-5.0); Bilirubin,Total 0.4 mg/dl (0.2-1.0); Calcium 9.3 mg/dl (8.6-10.3); Potassium 3.8 mmol/L (3.5-5.1)
[2023-06-08 07:41] LABS: Albumin Globulin Ratio 1.3 (0.9-2); BUN Creatinine Ratio 24.1 (10-20); Creatinine Clr Calc Pharmacy 62.8 ml/min; Est GFR (African American) 86.1 ml/min; Est GFR (Non-African American) 74.3 ml/min; Globulin 2.9 gm/dl (2.5-4.0); Total Protein 6.7 gm/dl (6.0-8.3)
[2023-06-08] MEDS ORDERED: NON-FORMULARY MEDICATION (Fluticasone-Umeclidin-Vilanter [Trelegy Ellipta] 200-62.5-25 mcg INH SCH (09:00)
[2023-06-08] MEDS ORDERED: MIDAZOLAM HCL 1 MG/ML 2ML VIAL ONE (09:16)
[2023-06-08] MEDS ORDERED: PROPOFOL IV EMULSION 10 MG/ML 20 ML VIAL IV ONE (09:16)
[2023-06-08] MEDS ORDERED: fentaNYL citrate PF 100 MCG/2 ML VIAL ONE ×2 (09:16→11:36)
--- NOTE | 2023-06-08 09:34 | Anesthesiology Consultation ---
Date of Service June 08, 2023 Assessment & Plan Chart Review Chart Review: Acceptable Risk for Surgery and Patient NOT seen in Pre Admission Testing History Surgery Operation Date: 06/08/23 07:00 Proposed Procedures p Right Hip Trochanteric Nail - Arnold Iglesias MD Height/Weight Height: 5 ft 5 in Weight: 71.3 kg Allergies Allergy/AdvReac Type Severity Reaction Status Date / Time Milk Containing Products Allergy Intermediate Gastrointestinal Unverified 06/07/23 13:51 (Dairy) Upset ampicillin Allergy Mild RASH Verified 06/07/23 13:50 Bactrim Allergy Unknown UNKNOWN - Verified 10/22/15 08:03 CAN'T REMEMBER sulfamethoxazole Allergy Unknown UNKNOWN - Verified 06/07/23 13:50 CAN'T REMEMBER trimethoprim Allergy Unknown UNKNOWN - Verified 06/07/23 13:50 CAN'T REMEMBER Medications Home Medications Medication Instructions Recorded Confirmed Last Taken alendronate 70 mg tablet (Fosamax) 70 mg PO WK 02/24/19 06/07/23 02/10/22 aspirin 81 mg tablet,delayed 81 mg PO QAM 02/24/19 06/07/23 02/04/22 release (Aspir-) kxyvzprgpf-lzvtejclinuzn-cfacklua 1 cap PO Q6H PRN Migraine Headache 02/24/19 06/07/23 09/24/20 50 mg-325 mg-40 mg capsule (Esgic) citalopram 40 mg tablet 40 mg PO PM 02/24/19 06/07/23 02/10/22 diazepam 5 mg tablet 5 mg PO QID 02/24/19 06/07/23 02/10/22 gabapentin 100 mg capsule 200 mg PO BID 02/24/19 06/07/23 02/10/22 gabapentin 300 mg capsule 300 mg PO HS 02/24/19 06/07/23 02/10/22 ibuprofen 800 mg tablet 800 mg PO UD PRN Pain 02/24/19 06/07/23 02/04/22 primidone 50 mg tablet 100 mg PO BID 02/24/19 06/07/23 02/10/22 simvastatin 40 mg tablet 40 mg PO HS 02/24/19 06/07/23 02/10/22 vitamin E 268 mg (400 unit) capsule 400 unit PO PM 02/24/19 06/07/23 06/03/21 primidone 50 mg tablet 150 mg PO HS 09/13/20 06/07/23 02/10/22 dicyclomine 10 mg capsule 10 mg PO QID 09/25/20 06/07/23 02/10/22 [facility] Allergy, Cetrzn 10 mg PO QAM 01/30/21 06/07/23 02/10/22 albuterol sulfate 90 mcg/actuation 1 inh inhalation UD PRN COPD 01/30/21 06/07/23 Unknown aerosol inhaler fluticasone fur. 200 mcg-umeclid 1 inh inhalation DAILY 01/30/21 06/07/23 02/10/22 62.5 mcg-vilant 25 mcg inhalat.powder (Trelegy Ellipta) folic acid 400 mcg tablet 0.8 mg PO QAM 01/30/21 06/07/23 02/10/22 topiramate 25 mg tablet (Topamax) 25 mg PO QAM 02/03/22 06/07/23 02/10/22 topiramate 25 mg tablet (Topamax) 50 mg PO HS 02/03/22 06/07/23 02/10/22 indomethacin 25 mg capsule 25 mg PO TID 06/07/23 06/07/23 Unknown Active Medications Generic Name Dose Route Start Last Admin Trade Name Freq PRN Reason Stop Dose Admin Acetaminophen 1,000 mg 06/07/23 22:00 06/08/23 06:26 Acetaminophen 500 Mg Tab PO 07/07/23 20:59 1,000 mg Q8H RANULFO Administration Citalopram Hydrobromide 40 mg 06/07/23 21:00 06/07/23 21:47 Citalopram 40 Mg Tab PO 07/07/23 20:59 40 mg PM RANULFO Administration Diazepam 5 mg 06/07/23 17:00 06/07/23 21:52 Diazepam 5 Mg Tablet PO 07/07/23 16:59 5 mg QID RANULFO Administration Dicyclomine HCl 10 mg 06/07/23 17:00 06/07/23 21:47 Dicyclomine Hcl 10 Mg Cap PO 07/07/23 16:59 10 mg QID RANULFO Administration Gabapentin 300 mg 06/07/23 21:00 06/07/23 21:47 Gabapentin 300 Mg Cap PO 07/07/23 20:59 300 mg HS RANULFO Administration Gabapentin 200 mg 06/07/23 21:00 06/07/23 21:46 Gabapentin 100 Mg Cap PO 07/07/23 20:59 Not Given BID RANULFO Oxycodone HCl 5 mg 06/07/23 13:44 06/08/23 02:56 Oxycodone Hcl Ir 5 Mg Tab (Immediate Release) PO 06/21/23 13:43 5 mg Q4H PRN Administration Pain Primidone 100 mg 06/07/23 21:00 06/07/23 21:46 Primidone 50 Mg Tab PO 07/07/23 20:59 Not Given BID RANULFO Primidone 150 mg 06/07/23 21:00 06/07/23 21:48 Primidone 50 Mg Tab PO 07/07/23 20:59 150 mg HS RANULFO Administration Simvastatin 40 mg 06/07/23 21:00 06/07/23 21:47 Simvastatin 40 Mg Tab PO 07/07/23 20:59 40 mg HS RANULFO Administration Topiramate 50 mg 06/07/23 21:00 06/07/23 21:47 Topiramate 50 Mg Tab PO 07/07/23 20:59 50 mg HS RANULFO Administration NPO Date Last Intake of Fluids: 06/07/23 Time Last Intake of Fluids: 18:00 Last Intake of Fluids Comment: sips w/ scheduled tylenol Date Last Intake of Solids: 06/07/23 Time Last Intake of Solids: 18:00 Past Medical History Medical History Murmur Intertrochanteric fracture of right hip Asthma well controlled per pt, rare res inh use Depression Bilateral lumbar radiculopathy Essential tremor BILAT. HANDS History of diverticulitis Anxiety and depression History of skin cancer NOSE Unsteady gait RECENT, CANE/WALKER PRN Cirrhosis of liver COPD (chronic obstructive pulmonary disease) Sciatica Migraines Hernia Snores Spondylolisthesis, lumbar region IBS (irritable bowel syndrome) Osteoarthritis Spinal stenosis of lumbar region Chronic back pain Hypertension PT DENIES Hyperlipidemia Past Family History Family History Mother Colon cancer Other Family history of diabetes mellitus No family history of adverse response to anesthesia Past Surgical History Surgical History S/P epidural steroid injection H/O colonoscopy with polypectomy H/O oophorectomy History of arthroscopy of left knee History of endoscopy Hx of ovarian cystectomy History of cholecystectomy History of bilateral tubal ligation History of tonsillectomy Hx of cataract extraction BILAT Social History Smoking Status: Current every day smoker tobacco type: cigarettes Smoking cigarettes per day: one pack per day Do You Dip or Chew Tobacco: No Hx Alcohol Use: No Hx Substance Use: No substance use type: does not use Physical Exam Vital Signs Last Vital Signs Temp 37.1 C 06/08/23 09:26 Pulse 68 06/08/23 09:26 Resp 20 06/08/23 09:26 BP 102/53 L 06/08/23 09:26 Pulse Ox 90 06/08/23 09:26 O2 Del Method Room Air 06/08/23 09:26 Testing Laboratory Results 06/08/23 06:25 06/08/23 06:25 PT 10.8 Seconds (9.0-12.0) 06/07/23 11:50 INR 1.0 (0.9-1.1) 06/07/23 11:50 APTT 27 Seconds (21-31) 06/07/23 11:50 Urine Color Yellow 06/07/23 17:05 Urine Appearance Clear (Clear) 06/07/23 17:05 Urine pH 7.0 (4.5-7.5) 06/07/23 17:05 Ur Specific [place] 1.021 (1.000-1.030) 06/07/23 17:05 Urine Protein Negative (Negative) 06/07/23 17:05 Urine Glucose (UA) Negative (Negative) 06/07/23 17:05 Urine Ketones 1+ (Negative) H 06/07/23 17:05 Urine Nitrite Negative (Negative) 06/07/23 17:05 Ur Leukocyte Esterase Negative (Negative) 06/07/23 17:05 Blood Type A Positive 06/07/23 13:00 Antibody Screen NEGATIVE 06/07/23 13:00
[2023-06-08] MEDS ORDERED: fentaNYL citrate PF 100 MCG/2 ML VIAL IV PRN (09:41)
[2023-06-08] MEDS ORDERED: ePHEDrine sulfate 50 MG/ML AMP IV PRN (09:41)
[2023-06-08] MEDS ORDERED: HYDROmorphone INJ 1 MG/ML SYRINGE IV PRN (09:41)
[2023-06-08] MEDS ORDERED: ATROPINE SULFATE 0.1 MG/ML 10ML SYR IV PRN (09:41)
[2023-06-08] MEDS ORDERED: ONDANSETRON INJ 2 MG/ML 2 ML VIAL IV PRN (09:41)
[2023-06-08] MEDS: ALBUT/IPRATROP 3MG/0.5MG NEB 3 ML VIAL NEB STA (09:44)
--- NOTE | 2023-06-08 09:44 | History & Physical Bridge Note ---
Date of Service June 08, 2023 History & Physical Bridge Note I have examined the patient, reviewed the History & Physical and in the interval since the performance of the History & Physical I have noted the following changes of clinical significance: no changes noted
[2023-06-08] MEDS: ceFAZolin 2000MG 2,000 MG/15 ML SYR IV ONE (10:56)
[2023-06-08] MEDS ORDERED: PHENYLEPHRINE HCL 10 MG/ML VIAL ONE (11:17)
[2023-06-08] MEDS ORDERED: ePHEDrine sulfate 50 MG/5 ML SYR ONE (11:17)
[2023-06-08] MEDS ORDERED: TRANEXAMIC ACID / 0.7% NACL 1000MG/100ML BAG IV ONE (11:18)
--- NOTE | 2023-06-08 12:22 | Hospitalist Progress Note ---
Date of Service June 08, 2023 Assessment & Plan (1) Intertrochanteric fracture of right hip: (2) Dyslipidemia: (3) Tobacco use disorder: (4) COPD (chronic obstructive pulmonary disease): (5) Bilateral lumbar radiculopathy: (6) Murmur: (7) Age-related osteopor w/curr pathol fx of right femur w/routine heal: Plan Ms. Cortez is a 72 year old female that presented to the ED today after experiencing a mechanical fall earlier today while she was chasing her cat out of the garage. She slipped and lost balance and she fell on her right hip in her kitchen. She was unable to sit up but was able to lean on cabinets 'eventually'. She denies LOC and states she did not hit her head. She was on the floor for approximately 2 hours from around [id number] today. She does not take any anticoagulation medications. PMH includes: COPD, spinal stenosis with radiculopathy (receives steroid injections), H/O opioid dependence, tobacco use, and HLD. Mild leukocytosis 13.65, otherwise labs unremarkable. Hgb 12.7. Normotensive and on RA. Pt denies OLVERA, fever, chills, SOB, chest pain, palpitations, N/V/D, abdominal pain or tenderness, dysuria, hematochezia, bowel or bladder changes, easy bruising, recent falls or other trauma. Patient will be admitted for further evaluation and management of her right hip fracture. Will keep NPO, order pain medications, obtain ECG and ECHO given audible cardiac murmur and ortho consult (pt requesting Herickoff). Intertrochanteric fracture of right hip: Age related osteoporotic fracture Acute Loss of balance and had mechanical fall in her garage today Hip xray identified right intertrochanteric right proximal femur fracture Will keep on bedrest and n.p.o. Leukocytosis 13.65; suspect refractory d/t fracture Does not appear toxic Will order scheduled Tylenol and as needed Oxy IR for pain control Plan for OR today will check vitamin d in a.m. Aortic Valve Stenosis pre op echo: EF 60-65%, grade I DD, mild to mod av stenosis EKG SR with first degree AVB with PVC prior to event pt able to do equiv of 4 METS of activity will need follow up as outpatient for routine monitoring of COPD: Lung nodule: Chronic Takes Trelegy and follows with pulmonary as an outpatient Was to have repeat PFTs 2022 Most recent PFTs 07/26/2020 FEV1 1.71 CXR today: Cardiomegaly and emphysema, no acute cardiac or pulmonary infection identified. There is an indeterminate nodular opacity projecting over the right lower lung. A nonemergent chest CT is recommended and follow-up to exclude underlying pulmonary lesion. Tobacco use disorder: Chronic Smokes 1 PPD; declines Nicotine patch Recommended smoking cessation Bilateral lumbar radiculopathy: Chronic Receives lumbar steroid injections; last injection 01/2023. Takes Ibuprofen, Primidone, Topamax, Indocin for neuropathy pain Hold Ibuprofen and Indocin pre op Of note; during conversation, patient has had opioid addiction in past. No currently taking any opioids Disposition: PCP: Dr. Morris CODE STATUS: Full code VTE prophylaxis: Teds and SCDs for ; one dose Heparin on 06/06, will defer to Ortho when to resume chemical prophylaxis post op A total of 45 minutes was spent coordinating, documenting, and providing care for this patient excluding time spent in the performance of separately billed services. This included personally viewing all current laboratories and imaging studies, medication reconciliation, outpatient chart review, and discussion with specialists. Admission and Anticipated Discharge Date Admission Date: June 07, 2023 Supervising Physician Co-Signing Physician Notes Patient was seen and examined at bedside as a follow-up of right hip fracture, patient underwent repair 06/07. Patient feeling cold at bedside exam, no shaking noted. Patient's daughter at bedside. Room temperature control shown to patient's daughter. Patient reports operative site pain fairly under control. On examination, patient alert and awake, systolic murmur heard, clear to auscultation on bilateral lungs. Rest of the examination as above. I have seen and examined the patient and have discussed the case with the provider above. I agree with the assessment and plan as stated.and Subjective Patient was seen and examined in room 387. Follow-up right hip fracture. Currently she is complaining of pain, 9 out of 10. She is requesting analgesia. Plan is for surgery today. She denies any chest pain, shortness breath, nausea, vomiting. Review of Systems Review of Systems: All systems reviewed & are unremarkable except as noted in HPI & below Physical Exam Physical Exam: Gen: WD/WN, appears in discomfort, A&O x3 HEENT: Normocephalic, atraumatic, conjunctivae moist, sclerae anicteric, mucous membranes moist. Lung: Clear to Auscultation bilaterally, no wheezes/rales/rhonchi Heart: Regular rate, regular rhythm, 2/6 BHARAT LUSB, rubs, or gallops Abdomen: Soft, NT, ND +BS x 4 Extremities: No edema Skin: Warm, no rash, negative turgor. : smith draining yellow urine Results & Data Results & Data Vital Signs (Past 12 Hours) Vital Signs Temp Pulse Resp BP Pulse Ox O2 Del Method 06/08/23 11:26 Room Air 06/08/23 09:45 68 16 91 Room Air 06/08/23 09:26 37.1 C 68 20 102/53 L 90 Room Air 06/08/23 07:50 37.4 C 75 16 95/57 L 90 Room Air Laboratory Results Short CBC 06/08/23 Range/Units 06:25 WBC 9.56 (4.8-10.8) K/ul Hgb 12.6 (12.0-16.0) g/dl Hct 38.7 (37.0-47.0) % Plt Count 263 (130-400) K/uL BMP 06/08/23 06:25 Sodium 139 Potassium 3.8 Chloride 109 H Carbon Dioxide 22 BUN 19 Creatinine 0.79 Glucose 87 Calcium 9.3 Liver Function 06/08/23 Range/Units 06:25 Total Bilirubin 0.4 (0.2-1.0) mg/dl AST 15 (13-39) U/L ALT 11 (7-52) U/L Alkaline Phosphatase 40 (34-104) U/L Albumin 3.8 (3.4-5.0) gm/dl Urine 06/07/23 Range/Units 17:05 Urine Color Yellow Urine Appearance Clear (Clear) Urine pH 7.0 (4.5-7.5) Ur Specific Britton 1.021 (1.000-1.030) Urine Protein Negative (Negative) Urine Glucose (UA) Negative (Negative) Diagnostic Findings Hip X-Ray 06/07/23 11:40 RIGHT HIP 2 VIEWS CLINICAL HISTORY: Right hip injury. Pain. FINDINGS: AP and crosstable lateral views of the right hip are correlated with pelvic CT dated 06/17/2015. The skeletal structures are osteopenic. There is a comminuted and angulated intertrochanteric fracture of the right proximal femur with overlying soft tissue edema. There is medial displacement of the lesser trochanter. The visualized right hemipelvis appears intact. Mild to moderate arthritic change is noted in the right hip. Atherosclerotic calcification is seen in the right femoral artery. IMPRESSION: Intertrochanteric fracture of the right proximal femur as above. Electronically signed by: Camron Ackerman M.D. 06/07/2023 12:43 PM Chest X-Ray 06/07/23 11:42 SINGLE VIEW CHEST CLINICAL HISTORY: Fall. FINDINGS: 2 AP, portable, semierect chest radiographs are compared to chest x- ray and chest CT dated 06/17/2015. The the heart is enlarged and noting atherosclerotic calcification of the thoracic aorta. The pulmonary vasculature is noncongested. Emphysema and chronic interstitial thickening is similar to previous. Foci of scarring/atelectasis are seen throughout both lungs. No airsp tammy consolidation or large pleural effusion is identified. There is an indeterminant nodular opacity projecting over the right lower lung. No pneumothorax is seen. The skeletal structures are osteopenic. The bony thorax is grossly intact. IMPRESSION: 1. Cardiomegaly and emphysema with no acute cardiopulmonary abnormality identified. 2. There is an indeterminate nodular opacity projecting over the right lower lung. A nonemergent chest CT is recommended and follow-up to exclude underlying pulmonary lesion. ACT 112: Positive. There are findings on this exam that require communication between the performing entity and the patient following Patient Test Result Information Act ([place] Act 112) guidelines. Electronically signed by: Camron Ackerman M.D. 06/07/2023 12:49 PM Medications Administered Current Inpatient Medications Acetaminophen (Acetaminophen 500 Mg Tab) 1,000 mg PO Q8H RANULFO Stop: 07/07/23 20:59 Last Admin: 06/08/23 06:26 Dose: 1,000 mg Al Hydrox/Mg Hydrox/Simethicone (Aluminum/Magnesium Susp 30 Ml Udc) 30 ml PO Q6H PRN PRN Reason: Dyspepsia Stop: 07/07/23 12:46 Aspirin (Aspirin 81 Mg Ectab) 81 mg PO QAM RANULFO Stop: 07/08/23 08:59 Atropine Sulfate (Atropine Sulfate 0.1 Mg/Ml 10ml Syr) 0.5 mg IV Q1M PRN PRN Reason: PACU Use-HR<40 &/or Bradycardi Stop: 06/08/23 17:41 Bisacodyl (Bisacodyl 10 Mg Supp) 10 mg SD DAILY PRN PRN Reason: Constipation Stop: 07/07/23 12:46 Citalopram Hydrobromide (Citalopram 40 Mg Tab) 40 mg PO PM RANULFO Stop: 07/07/23 20:59 Last Admin: 06/07/23 21:47 Dose: 40 mg Diazepam (Diazepam 5 Mg Tablet) 5 mg PO QID RANULFO Stop: 07/07/23 16:59 Last Admin: 06/08/23 11:17 Dose: Not Given Dicyclomine HCl (Dicyclomine Hcl 10 Mg Cap) 10 mg PO QID RANULFO Stop: 07/07/23 16:59 Last Admin: 06/08/23 11:17 Dose: Not Given Ephedrine Sulfate (Ephedrine Sulfate 50 Mg/Ml Amp) 5 mg IV Q5M PRN PRN Reason: PACU Use Only-SBP<90 mmHg Stop: 06/08/23 17:41 Fentanyl Citrate (Fentanyl Citrate Pf 100 Mcg/2 Ml Vial) 50 mcg IV Q5M PRN PRN Reason: PACU Use Only-Pain Stop: 06/08/23 17:41 Fluticasone Furoate (Fluticasone Furoate 200mcg 14 Puffs/Inhaler) 1 puffs INH DAILY RANULFO Stop: 07/08/23 08:59 Folic Acid (Folic Acid 400 Mcg Tab) 800 mcg PO QAM RANULFO Stop: 07/08/23 08:59 Gabapentin (Gabapentin 300 Mg Cap) 300 mg PO HS RANULFO Stop: 07/07/23 20:59 Last Admin: 06/07/23 21:47 Dose: 300 mg Gabapentin (Gabapentin 100 Mg Cap) 200 mg PO BID RANULFO Stop: 07/07/23 20:59 Last Admin: 06/07/23 21:46 Dose: Not Given Hydromorphone HCl (Hydromorphone Inj 1 Mg/Ml Syringe) 0.25 mg IV Q5M PRN PRN Reason: PACU Use Only-Pain Stop: 06/08/23 17:41 Lactated Ringer's (Lr) 1,000 mls @ 15 mls/hr IV .Q24H RANULFO Stop: 07/08/23 10:41 Magnesium Hydroxide (Magnesium Hydroxide Susp 30 Ml Udc) 30 ml PO Q6H PRN PRN Reason: Constipation Stop: 07/07/23 12:46 Magnesium Hydroxide (Magnesium Hydroxide Susp 30 Ml Udc) 30 ml PO DAILY PRN PRN Reason: Constipation Stop: 07/07/23 12:46 Naloxone HCl (Naloxone Hcl 0.4 Mg/1 Ml Vial/Carp) 0.1 mg IV UD PRN PRN Reason: Opiate Overdose Stop: 07/07/23 12:46 Ondansetron HCl (Ondansetron Inj 2 Mg/Ml 2 Ml Vial) 4 mg IV Q6H PRN PRN Reason: Nausea Stop: 07/07/23 12:46 Ondansetron HCl (Ondansetron Inj 2 Mg/Ml 2 Ml Vial) 4 mg IV ONCE PRN PRN Reason: PACU Use Only-Nausea/Vomiting Stop: 06/08/23 17:41 Oxycodone HCl (Oxycodone Hcl Ir 5 Mg Tab (Immediate Release)) 5 mg PO Q4H PRN PRN Reason: Pain Stop: 06/21/23 13:43 Last Admin: 06/08/23 02:56 Dose: 5 mg Polyethylene Glycol (Polyethylene (Miralax) 17 Gm Pack) 17 gm PO DAILY PRN PRN Reason: Constipation Stop: 07/07/23 12:46 Primidone (Primidone 50 Mg Tab) 100 mg PO BID [facility] Stop: 07/07/23 20:59 Last Admin: 06/07/23 21:46 Dose: Not Given Primidone (Primidone 50 Mg Tab) 150 mg PO HS RANULFO Stop: 07/07/23 20:59 Last Admin: 06/07/23 21:48 Dose: 150 mg Simvastatin (Simvastatin 40 Mg Tab) 40 mg PO HS RANULFO Stop: 07/07/23 20:59 Last Admin: 06/07/23 21:47 Dose: 40 mg Topiramate (Topiramate 25 Mg Tab) 25 mg PO QAM RANULFO Stop: 07/08/23 08:59 Topiramate (Topiramate 50 Mg Tab) 50 mg PO HS RANULFO Stop: 07/07/23 20:59 Last Admin: 06/07/23 21:47 Dose: 50 mg Umeclidinium/Vilanterol (Umeclidinium/Vilanterol 62.5/25mcg 7 Puffs/Inhaler) 1 puffs INH DAILY RANULFO Stop: 07/08/23 08:59
[2023-06-08] MEDS: BUPIVACAINE 0.5 % 5 MG/1 ML MPF 30ML VIAL ONE (12:26)
[2023-06-08] MEDS: LIDOCAINE 1%/EPINEPHRINE 1:100,000 20 ML VIAL ONE (12:26)
[2023-06-08] MEDS ORDERED: ONDANSETRON INJ 2 MG/ML 2 ML VIAL ONE (12:30)
--- NOTE | 2023-06-08 12:48 | Fluoroscopy Report ---
FL femur RT 2V CLINICAL HISTORY: Right hip troch nail COMPARISON STUDY: Right hip radiographs June 07, 2023. FLUOROSCOPY TIME: 1 minute and 59 seconds. Ka, r: 20.86 mGy FLUOROSCOPIC IMAGES: 6 FINDINGS: Fluoroscopy was provided during open reduction and internal fixation of the intertrochanter ic fracture of the right femur. Alignment has significantly improved and appears near anatomic. IMPRESSION: Fluoroscopy provided during open reduction and internal fixation of the intertrochanteri c fracture of the right femur. ACT 112: Negative or not required by law. Electronically signed by: Alexander Tavarez M.D. 06/08/2023 12:46 PM
--- NOTE | 2023-06-08 13:05 | Operative Report ---
Post Operative Report Pre & Post Diagnosis Operation Date: 06/08/23 07:00 Pre-Op Diagnosis: Right hip fracture Post-Op Diagnosis: Right hip fracture I identified the patient and participated in the time-out.: Yes Procedure Operation Date: 06/08/23 07:00 Actual Procedures p Right Hip Trochanteric Nail(Right) - Arnold Iglesias MD Surgeon Arnold Iglesias M.D. [employer] Korin Lehman PA-C Estimated Blood Loss 50 Findings Consistent with Post-Op Diagnosis Specimens None Anesthesia Type General Description of Procedure Patient was taken to the operating room, placed under general anesthesia. Time out performed, prepped and draped in routine sterile fashion. She was given 2gm IV Ancef for surgical prophylaxis preoperatively. She was given 1 gm IV TXA preoperatively for bleeding prophylaxis. I was present during the entire case, please see Dr. Iglesias's operative report for further detail regarding today's procedure. Patient was awakened and taken to the operating room in stable condition. I attest to the content of the Intraoperative Record and any orders documented therein. Any exceptions are noted below.
--- NOTE | 2023-06-08 13:13 | Operative Report ---
Post Operative Report Pre & Post Diagnosis Operation Date: 06/08/23 07:00 Pre-Op Diagnosis: Right intertrochanteric hip fracture, pathological secondary to osteoporosis. Post-Op Diagnosis: Same I identified the patient and participated in the time-out.: Yes Procedure Operation Date: 06/08/23 07:00 Actual Procedures p Right Hip Trochanteric Nail(Right) - Arnold Iglesias MD Surgeon Arnold Iglesias MD Radiation Control Worker Korin Lehman PA-C, Janelle glover std. No resident/fellow avail Estimated Blood Loss 50 Findings Consistent with Post-Op Diagnosis Specimens None Anesthesia Type General Regional Complications none Disposition Accompanied Patient To Recovery: No Disposition: Recovery Room Indications Mckayla is 72. She fell yesterday and sustained a simple right hip intertrochanteric fracture. Surgery was recommended and she agreed to proceed. She has been admitted and cleared by medicine. She has had an echocardiogram. She is a long-term smoker. Description of Procedure Informed consent. Patient identified. She identified the operative site as the right hip. I marked with my initials. Preoperative surgical timeout is performed. A preop dose of IV antibiotics and TXA was given. She was taken to the operating room positioned supine on the operating room table. The anesthetic was administered. She was positioned in balanced scissors traction. A well-padded perineal post. The arms were folded over the chest and the torso was secured to the table. The right leg was elevated the left leg was positioned downward. Bony prominences were inspected and padded. The leg was scrubbed and then prepped and draped in usual sterile fashion. DVT prophylaxis with SCDs. Postop DVT prophylaxis with mechanical devices early mobility and Eliquis. Reduction was performed with traction and gentle internal rotation as well as planing the table. There was anatomic alignment in both views prior to the start of the surgical procedure. The starting point was identified with fluoroscopy. A 6 cm incision was made just proximal to the tip of the trochanter. Electrocautery was utilized down to the subcutaneous tenuous tissues and through the fascia until the tip of the trochanter could be palpated. A guidewire was introduced and adjusted x 1. It went through the fracture site but was at the appropriate location for entry po int at the tip of the trochanter and in line with the shaft of the femur. The large reamer was utilized to gain access proximally. This was followed by the insertion of the intramedullary guide gordo which was confirmed to be in within the bone in multiplanar fluoroscopy. Gordo length determined to be 360 mm. Reaming began at 10 and proceeded up by 1 mm increments to 13. An 11 x 360 mm gordo was then inserted over the guidewire. Depth and rotation were adjusted as necessary and a guidepin was a introduced through a the guide and a percutaneous incision into the femoral head. Position was just inferior and posterior. Depth determined to be 100 mm. The lateral reamer and the triple reamer were utilized. The spiral blade was inserted and the setscrew was advanced proximally and backed off one half turn. Compression was applied. Traction was released. A distal interlocking screw was inserted through the dynamic hole using the perfect chitina technique and a radiolucent drill. Percutaneous. Vacuum Bottle Assembler images of the implant proximal and distal as well as the fracture site were performed. Irrigation performed. The distal 2 incisions the subcutaneous tissues were closed with 2-0 Vicryl and zeeshan on the skin. The proximal incision the gluteal fascia was closed with interrupted #1 Vicryl. The deep space with 0 Vicryl and 2-0 Vicryl in the dermal layer and zeeshan for the skin. Soft roll dressing was applied after cleaning the leg. Xeroform 4 x 4's ABD foam tape. Patient awakened from anesthesia without difficulty and taken to the recovery room in stable condition there were no specimens or complications counts were correct and blood loss is estimated to be 50 cc. At the conclusion the operation spoke to patient's family informed of my findings postop instruc tions were given. She may weight-bear as tolerated. Eliquis to begin the morning after surgery. Synthes trochanteric femoral nail was utilized. I attest to the content of the Intraoperative Record and any orders documented therein. Any exceptions are noted below.
[2023-06-08] MEDS: ceFAZolin 2,000 MG/15 ML IV PUSH IV ONE (14:46)
[2023-06-08] MEDS: LACTATED RINGER'S 1,000 ML IV SCH (14:47)
[2023-06-08] MEDS: TOPIRAMATE 25 MG TAB PO SCH (14:51)
[2023-06-08] MEDS: FOLIC ACID 400 MCG TAB PO SCH (14:51)
[2023-06-08] MEDS: ASPIRIN 81 MG ECTAB PO SCH (14:52)
[2023-06-08] MEDS: FLUTICASONE FUROATE 200MCG 14 PUFFS/INHALER INH SCH (14:52)
[2023-06-08] MEDS: UMECLIDINIUM/VILANTEROL 62.5/25MCG 7 PUFFS/INHALER INH SCH (14:52)
--- NOTE | 2023-06-08 15:35 | Anesthesiology Progress Note ---
Date of Service June 08, 2023 Anesthesia Post Procedure Vital Signs Vital Signs: Temp Pulse Pulse Pulse Resp BP Pulse Ox 06/08/23 14:54 80 16 123/67 92 06/08/23 14:22 81 16 124/77 93 06/08/23 14:00 36.8 C 81 18 103/60 92 06/08/23 13:45 36.8 C 73 15 124/68 92 06/08/23 13:35 36.8 C 77 17 120/64 97 06/08/23 13:25 79 19 131/51 L 97 06/08/23 13:15 78 20 134/68 90 06/08/23 13:05 80 18 133/67 97 06/08/23 12:55 36.6 C 80 21 125/61 95 06/08/23 11:26 06/08/23 09:45 68 16 91 06/08/23 09:26 37.1 C 68 20 102/53 L 90 06/08/23 07:50 37.4 C 75 16 95/57 L 90 06/07/23 21:33 36.9 C 77 16 106/62 94 06/07/23 16:39 06/07/23 15:55 37.0 C 81 16 109/67 95 O2 Del Method O2 Flow Rate 06/08/23 14:54 Room Air 06/08/23 14:22 Room Air 06/08/23 14:00 Room Air 06/08/23 13:45 Room Air 06/08/23 13:35 Nasal Cannula 2 06/08/23 13:25 Nasal Cannula 4 06/08/23 13:15 Nasal Cannula 4 06/08/23 13:05 Oxymask 4 06/08/23 12:55 Oxymask 6 06/08/23 11:26 Room Air 06/08/23 09:45 Room Air 06/08/23 09:26 Room Air 06/08/23 07:50 Room Air 06/07/23 21:33 Room Air 06/07/23 16:39 Room Air 06/07/23 15:55 Room Air Pain Intensity Right Hip: Pain Intensity: 9 Transfer of Care Handoff Completed per policy Notes Mental Status: alert / awake / arousable and participated in evaluation Patient Amnestic to Procedure: Yes Nausea / Vomiting: adequately controlled Pain: adequately controlled Airway Patency, RR, SpO2: stable & adequate BP & HR: stable & adequate Hydration State: stable & adequate Anesthetic Complications: no major complications apparent and Pt Satisfied with anesthetic care
[2023-06-08] MEDS: ceFAZolin 2000MG 2,000 MG/15 ML SYR IV SCH (17:51)
[2023-06-08] MEDS: TRANEXAMIC ACID / 0.7% NACL 1,000 MG/100 ML BAG IV SCH (17:51)
--- NOTE | 2023-06-08 18:41 | Orthopedic Progress Note ---
Date of Service June 08, 2023 Assessment & Plan (1) Age-related osteopor w/curr pathol fx of right femur w/routine heal: (2) Closed intertrochanteric fracture of right hip: Plan: Stable postoperatively. Postop antibiotics. DVT prophylaxis with Eliquis. Pain control. PT and OT. Surgical findings discussed. Admission and Anticipated Discharge Date Admission Date: June 07, 2023 Subjective No problems reported. Pain well-controlled. Physical Exam Physical Exam: DP and PT pulses are trace. Foot is warm with capillary refill less than 2 seconds. Sensation intact. She can dorsiflex plantarflex invert and mackenzie her foot and toes with 5- out of 5 strength. Results & Data Vital Signs (Past 12 Hours) Vital Signs Temp Pulse Pulse Pulse Resp BP Pulse Ox 06/08/23 16:58 37.3 C 85 16 102/61 91 06/08/23 15:56 86 16 100/64 92 06/08/23 14:54 80 16 123/67 92 06/08/23 14:22 81 16 124/77 93 06/08/23 14:00 36.8 C 81 18 103/60 92 06/08/23 13:45 36.8 C 73 15 124/68 92 06/08/23 13:35 36.8 C 77 17 120/64 97 06/08/23 13:25 79 19 131/51 L 97 06/08/23 13:15 78 20 134/68 90 06/08/23 13:05 80 18 133/67 97 06/08/23 12:55 36.6 C 80 21 125/61 95 06/08/23 11:26 06/08/23 09:45 68 16 91 06/08/23 09:26 37.1 C 68 20 102/53 L 90 06/08/23 07:50 37.4 C 75 16 95/57 L 90 O2 Del Method O2 Flow Rate 06/08/23 16:58 Room Air 06/08/23 15:56 Room Air 06/08/23 14:54 Room Air 06/08/23 14:22 Room Air 06/08/23 14:00 Room Air 06/08/23 13:45 Room Air 06/08/23 13:35 Nasal Cannula 2 06/08/23 13:25 Nasal Cannula 4 06/08/23 13:15 Nasal Cannula 4 06/08/23 13:05 Oxymask 4 06/08/23 12:55 Oxymask 6 06/08/23 11:26 Room Air 06/08/23 09:45 Room Air 06/08/23 09:26 Room Air 06/08/23 07:50 Room Air Laboratory Results 06/08/23 Range/Units 06:25 WBC 9.56 (4.8-10.8) K/ul RBC 4.39 (4.20-5.40) M/uL Hgb 12.6 (12.0-16.0) g/dl Hct 38.7 (37.0-47.0) % MCV 88.2 (80.0-100.0) fL MCH 28.7 (25.0-34.0) pg MCHC 32.6 (32.0-36.0) g/dL RDW Std Deviation 42.8 (36.4-46.3) fL RDW Coeff of Jeannie 13.2 (11.5-14.5) % Plt Count 263 (130-400) K/uL MPV 10.7 (9.4-12.4) fL Sodium 139 (136-145) mmol/L Potassium 3.8 (3.5-5.1) mmol/L Chloride 109 H (98-107) mmol/L Carbon Dioxide 22 (21-32) mmol/L Anion Gap 8 (3-11) BUN 19 (6-23) mg/dl Creatinine 0.79 (0.6-1.2) mg/dl Est Cr Clr Drug Dosing 62.8 ml/min Est GFR ( Amer) 86.1 ml/min Est GFR (Non-Af Amer) 74.3 ml/min BUN/Creatinine Ratio 24.1 H (10-20) Glucose 87 (70-99(Fasting)) mg/dl Calcium 9.3 (8.6-10.3) mg/dl Total Bilirubin 0.4 (0.2-1.0) mg/dl AST 15 (13-39) U/L ALT 11 (7-52) U/L Alkaline Phosphatase 40 (34-104) U/L Total Protein 6.7 (6.0-8.3) gm/dl Albumin 3.8 (3.4-5.0) gm/dl Globulin 2.9 (2.5-4.0) gm/dl Albumin/Globulin Ratio 1.3 (0.9-2)
[2023-06-09 06:16] LABS: Basophils # (auto) 0.02 K/uL (0.00-0.20); Basophils % (auto) 0.2 %; Eosinophils # (auto) 0.04 K/uL (0.00-0.50); Eosinophils % (auto) 0.4 %; Hemoglobin 10.4 g/dl (12.0-16.0); Immature Granulocytes # (auto) 0.04 K/uL (0.01-0.20); Immature Granulocytes % (auto) 0.4 %; Lymphocytes # (auto) 1.51 K/uL (1.20-3.40); Lymphocytes % (auto) 15.5 %; Mean Corpuscular Hgb Conc 32.5 g/dL (32.0-36.0); Mean Corpuscular Volume 89.1 fL (80.0-100.0); Mean Platelet Volume 11.1 fL (9.4-12.4); Monocytes # (auto) 1.01 K/uL (0.11-0.59); Monocytes % (auto) 10.4 %; Neutrophils % (auto) 73.1 %; Platelet Count 241 K/uL (130-400); RDW Coefficient of Variation 13.1 % (11.5-14.5); Red Blood Count 3.59 M/uL (4.20-5.40); White Blood Count 9.72 K/ul (4.8-10.8)
[2023-06-09 06:32] LABS: Albumin Globulin Ratio 1.1 (0.9-2); Albumin Level 3.3 gm/dl (3.4-5.0); Bilirubin,Total 0.3 mg/dl (0.2-1.0); Calcium 8.5 mg/dl (8.6-10.3); Creatinine Clr Calc Pharmacy 61.4 ml/min; Est GFR (African American) 82.3 ml/min; Globulin 2.9 gm/dl (2.5-4.0); Potassium 3.9 mmol/L (3.5-5.1); Total Protein 6.2 gm/dl (6.0-8.3)
[2023-06-09] MEDS: POLYETHYLENE (MIRALAX) 17 GM PACK PO PRN (08:57)
[2023-06-09] MEDS: GABAPENTIN 100 MG CAP PO SCH (08:59)
[2023-06-09] MEDS: PRIMIDONE 50 MG TAB PO SCH (09:00)
[2023-06-09] MEDS ORDERED: GABAPENTIN 100 MG CAP PO SCH (09:00)
[2023-06-09] MEDS: APIXABAN 2.5 MG TAB PO SCH (09:01)
--- NOTE | 2023-06-09 10:12 | Orthopedic Progress Note ---
Date of Service June 09, 2023 Assessment & Plan (1) Closed intertrochanteric fracture of right hip: Plan: Postop day 1-status post open reduction internal fixation right proximal femur fracture with Dr. Iglesias May be out of bed, weight-bear as tolerated with the assistance of a walker. No hip precautions necessary. PT and OT to start today. May continue regular diet. SCDs, bilateral CASSIDY stockings and Eliquis 2.5 mg p.o. twice daily for 2 to 4 weeks postoperative for DVT prophylaxis. Pain medication as prescribed. Plan for dressing change tomorrow. Case management for discharge planning. Will continue to follow. Admission and Anticipated Discharge Date Admission Date: June 07, 2023 Subjective Patient resting in bed. Family at bedside. She is having increased pain in her right hip and thigh today. Pain medication has been helping. She did okay through the night. Denies any numbness or tingling down her leg. She has not been out of bed with PT or OT as of yet. Denies any chest pain or shortness of any postoperative nausea or vomiting. Denies any lightheadedness or dizziness. Physical Exam Musculoskeletal: Exam of her right lower extremity: Postoperative dressings are clean, dry and intact. Mild edema throughout the right thigh. Does not really tolerate any movement of her right knee. Mild distal edema bilateral lower extremities. Dorsalis pedis pulses palpable. Toes move well. Normal strength with ankle dorsiflexion, plantarflexion, inversion and eversion. Calf is supple and nontender. SCD in place. Results & Data Vital Signs (Past 12 Hours) Vital Signs Temp Pulse Pulse Resp BP Pulse Ox O2 Del Method 06/09/23 07:55 Nasal Cannula 06/09/23 07:00 36.5 C 81 18 91/53 L 90 Nasal Cannula 06/09/23 03:00 36.8 C 75 16 91/54 L 94 Nasal Cannula 06/08/23 23:01 36.9 C 88 18 94/56 L 91 Nasal Cannula 06/08/23 22:39 92 Nasal Cannula O2 Flow Rate 06/09/23 07:55 1.5 06/09/23 07:00 1 06/09/23 03:00 1 06/08/23 23:01 1 06/08/23 22:39 1 Laboratory Results 06/09/23 Range/Units 05:22 WBC 9.72 (4.8-10.8) K/ul RBC 3.59 L (4.20-5.40) M/uL Hgb 10.4 L (12.0-16.0) g/dl Hct 32.0 L (37.0-47.0) % MCV 89.1 (80.0-100.0) fL MCH 29.0 (25.0-34.0) pg MCHC 32.5 (32.0-36.0) g/dL RDW Std Deviation 43.0 (36.4-46.3) fL RDW Coeff of Jeannie 13.1 (11.5-14.5) % Plt Count 241 (130-400) K/uL MPV 11.1 (9.4-12.4) fL Immature Gran % (Auto) 0.4 % Neut % (Auto) 73.1 % Lymph % (Auto) 15.5 % [place] % (Auto) 10.4 % Eos % (Auto) 0.4 % Baso % (Auto) 0.2 % Neut # (Auto) 7.10 H (1.40-6.50) K/uL Lymph # (Auto) 1.51 (1.20-3.40) K/uL [place] # (Auto) 1.01 H (0.11-0.59) K/uL Eos # (Auto) 0.04 (0.00-0.50) K/uL Baso # (Auto) 0.02 (0.00-0.20) K/uL Immature Gran # (Auto) 0.04 (0.01-0.20) K/uL Sodium 136 (136-145) mmol/L Potassium 3.9 (3.5-5.1) mmol/L Chloride 106 (98-107) mmol/L Carbon Dioxide 25 (21-32) mmol/L Anion Gap 5 (3-11) BUN 18 (6-23) mg/dl Creatinine 0.82 (0.6-1.2) mg/dl Est Cr Clr Drug Dosing 61.4 ml/min Est GFR ( Amer) 82.3 ml/min Est GFR (Non-Af Amer) 71.0 ml/min BUN/Creatinine Ratio 22.0 H (10-20) Glucose 85 (70-99(Fasting)) mg/dl Calcium 8.5 L (8.6-10.3) mg/dl Total Bilirubin 0.3 (0.2-1.0) mg/dl AST 35 (13-39) U/L ALT 19 (7-52) U/L Alkaline Phosphatase 35 (34-104) U/L Total Protein 6.2 (6.0-8.3) gm/dl Albumin 3.3 L (3.4-5.0) gm/dl Globulin 2.9 (2.5-4.0) gm/dl Albumin/Globulin Ratio 1.1 (0.9-2) 25-OH Vitamin D Total 35.7 (30-100) ng/ml
--- NOTE | 2023-06-09 14:02 | Hospitalist Progress Note ---
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 Cortez is a 72 year old female that presented to the ED today after experiencing a mechanical fall earlier today while she was chasing her cat out of the garage. She slipped and lost balance and she fell on her right hip in her kitchen. She was unable to sit up but was able to lean on cabinets 'eventually'. She denies LOC and states she did not hit her head. She was on the floor for approximately 2 hours from around [id number] today. She does not take any anticoagulation medications. PMH includes: COPD, spinal stenosis with radiculopathy (receives steroid injections), H/O opioid dependence, tobacco use, and HLD. Mild leukocytosis 13.65, otherwise labs unremarkable. Hgb 12.7. Normotensive and on RA. Pt denies OLVERA, fever, chills, SOB, chest pain, palpitations, N/V/D, abdominal pain or tenderness, dysuria, hematochezia, bowel or bladder changes, easy bruising, recent falls or other trauma. Patient will be admitted for further evaluation and management of her right hip fracture. Will keep NPO, order pain medications, obtain ECG and ECHO given audible cardiac murmur and ortho consult (pt requesting Herickoff). Intertrochanteric fracture of right hip: Age related osteoporotic fracture S/P ORIF of right proximal femur fracture, POD #[address] Iglesias She is WBAT PT/OT Eliquis for DVT ppx continue to encourage incentive spirometry and wean oxygen as able Will order scheduled Tylenol and as needed Oxy IR for pain control Vit D is normal add bowel regimen Hypoxia pt continues to require oxygen post operatively denies sx, will obtain CXR continue to encourage spirometry hx of COPD, Aortic valve stenosis Lower blood pressure pt states her BP tends to run on lower side she is asymptomatic, will continue to monitor Anemia, post operative suspect expected blood loss in setting of fracture and surgery as well as dilutional component follow h/h Aortic Valve Stenosis pre op echo: EF 60-65%, grade I DD, mild to mod av stenosis EKG SR with first degree AVB with PVC prior to event pt able to do equiv of 4 METS of activity will need follow up as outpatient for routine monitoring of COPD: Lung nodule: Chronic Takes Trelegy and follows with pulmonary as an outpatient Was to have repeat PFTs 2022 Most recent PFTs 07/26/2020 FEV1 1.71 CXR today: Cardiomegaly and emphysema, no acute cardiac or pulmonary infection identified. There is an indeterminate nodular opacity projecting over the right lower lung. A nonemergent chest CT is recommended and follow-up to exclude underlying pulmonary lesion. Tobacco use disorder: Chronic Smokes 1 PPD; declines Nicotine patch Recommended smoking cessation Bilateral lumbar radiculopathy: Chronic Receives lumbar steroid injections; last injection 01/2023. Takes Ibuprofen, Primidone, Topamax, Indocin for neuropathy pain Hold Ibuprofen and Indocin pre op Of note; during conversation, patient has had opioid addiction in past. No currently taking any opioids Disposition: PCP: Dr. Morris CODE STATUS: Full code VTE prophylaxis:Eliquis A total of 42 minutes was spent coordinating, documenting, and providing care for this patient excluding time spent in the performance of separately billed services. This included personally viewing all current laboratories and imaging studies, medication reconciliation, outpatient chart review, and discussion with specialists. Admission and Anticipated Discharge Date Admission Date: June 07, 2023 Supervising Physician Co-Signing Physician Notes Patient was seen and examined at bedside as a follow-up of right hip fracture, patient underwent repair 06/07. Patient w/ low normal BP in the morning, no symptoms. Patient reports operative site pain fairly under control. On examination, patient alert and awake, systolic murmur heard, clear to auscultation on bilateral lungs. Rest of the examination as above. I have seen and examined the patient and have discussed the case with the provider above. I agree with the assessment and plan as stated.and Subjective Patient was seen and examined in 387. Follow-up right femur fracture. Family member is at bedside. She is complaining of leg pain, 5 out of 10. She denies any fever, chills, sweats, lightheadedness, dizziness, chest pain, shortness breath, nausea, vomiting abdominal pain. She feels down/depressed that this happened. She just got a new cat, "pretty girl" and wishes to be home with her. She is upset at the situation she is in. Review of Systems Review of Systems: All systems reviewed & are unremarkable except as noted in HPI & below Physical Exam Physical Exam: Gen: WD/WN, flat affect, A&O x3 HEENT: Normocephalic, atraumatic, conjunctivae moist, sclerae anicteric, mucous membranes moist. Lung: Clear to Auscultation bilaterally, no wheezes/rales/rhonchi Heart: Regular rate, regular rhythm, 2/6 BHARAT LUSB, rubs, or gallops Abdomen: Soft, NT, ND +BS x 4 Extremities: No edema Skin: Warm, no rash, negative turgor. Dressing CDI : smith draining yellow urine Results & Data Results & Data Vital Signs (Past 12 Hours) Vital Signs Temp Pulse Pulse Resp BP Pulse Ox Pulse Ox 06/09/23 13:28 36.3 C L 77 18 98/58 L 91 06/09/23 11:49 92 06/09/23 11:09 92 06/09/23 08:00 06/09/23 07:55 06/09/23 07:00 36.5 C 81 18 91/53 L 90 06/09/23 03:00 36.8 C 75 16 91/54 L 94 Pulse Ox Pulse Ox Pulse Ox O2 Del Method O2 Del Method O2 Flow Rate O2 Flow Rate 06/09/23 13:28 Nasal Cannula 1.5 06/09/23 11:49 06/09/23 11:09 91 88 L 1 06/09/23 08:00 90 Nasal Cannula 06/09/23 07:55 Nasal Cannula 1.5 06/09/23 07:00 Nasal Cannula 1 06/09/23 03:00 Nasal Cannula 1 O2 Flow Rate O2 Flow Rate O2 Flow Rate 06/09/23 13:28 06/09/23 11:49 06/09/23 11:09 1 1 06/09/23 08:00 1.5 06/09/23 07:55 06/09/23 07:00 06/09/23 03:00 Laboratory Results Short CBC 06/09/23 Range/Units 05:22 WBC 9.72 (4.8-10.8) K/ul Hgb 10.4 L (12.0-16.0) g/dl Hct 32.0 L (37.0-47.0) % Plt Count 241 (130-400) K/uL BMP 06/09/23 05:22 Sodium 136 Potassium 3.9 Chloride 106 Carbon Dioxide 25 BUN 18 Creatinine 0.82 Glucose 85 Calcium 8.5 L Liver Function 06/09/23 Range/Units 05:22 Total Bilirubin 0.3 (0.2-1.0) mg/dl AST 35 (13-39) U/L ALT 19 (7-52) U/L Alkaline Phosphatase 35 (34-104) U/L Albumin 3.3 L (3.4-5.0) gm/dl Medications Administered Current Inpatient Medications Acetaminophen (Acetaminophen 500 Mg Tab) 1,000 mg PO Q8H RANULFO Stop: 07/07/23 20:59 Last Admin: 06/09/23 06:06 Dose: 1,000 mg Al Hydrox/Mg Hydrox/Simethicone (Aluminum/Magnesium Susp 30 Ml Udc) 30 ml PO Q6H PRN PRN Reason: Dyspepsia Stop: 07/07/23 12:46 Apixaban (Apixaban 2.5 Mg Tab) 2.5 mg PO BID RANULFO Stop: 07/09/23 08:59 Last Admin: 06/09/23 09:01 Dose: 2.5 mg Aspirin (Aspirin 81 Mg Ectab) 81 mg PO QAM RANULFO Stop: 07/08/23 08:59 Last Admin: 06/09/23 09:01 Dose: 81 mg Bisacodyl (Bisacodyl 10 Mg Supp) 10 mg LA DAILY PRN PRN Reason: Constipation Stop: 07/07/23 12:46 Citalopram Hydrobromide (Citalopram 40 Mg Tab) 40 mg PO PM RANULFO Stop: 07/07/23 20:59 Last Admin: 06/08/23 21:01 Dose: 40 mg Diazepam (Diazepam 5 Mg Tablet) 5 mg PO QID RANULFO Stop: 07/07/23 16:59 Last Admin: 06/09/23 12:54 Dose: 5 mg Dicyclomine HCl (Dicyclomine Hcl 10 Mg Cap) 10 mg PO QID RANULFO Stop: 07/07/23 16:59 Last Admin: 06/09/23 12:55 Dose: 10 mg Fluticasone Furoate (Fluticasone Furoate 200mcg 14 Puffs/Inhaler) 1 puffs INH DAILY RANULFO Stop: 07/08/23 08:59 Last Admin: 06/09/23 09:05 Dose: 1 puffs Folic Acid (Folic Acid 400 Mcg Tab) 800 mcg PO QAM RANULFO Stop: 07/08/23 08:59 Last Admin: 06/09/23 09:03 Dose: 800 mcg Gabapentin (Gabapentin 300 Mg Cap) 300 mg PO HS RANULFO Stop: 07/07/23 20:59 Last Admin: 06/08/23 20:59 Dose: 300 mg Gabapentin (Gabapentin 100 Mg Cap) 200 mg PO BID@0800,1400 [facility] Stop: 07/09/23 07:59 Last Admin: 06/09/23 08:59 Dose: 200 mg Lactated Ringer's (Lr) 1,000 mls @ 15 mls/hr IV .Q24H RANULFO Stop: 07/08/23 10:41 Last Admin: 06/09/23 09:57 Dose: Not Given Magnesium Hydroxide (Magnesium Hydroxide Susp 30 Ml Udc) 30 ml PO Q6H PRN PRN Reason: Constipation Stop: 07/07/23 12:46 Naloxone HCl (Naloxone Hcl 0.4 Mg/1 Ml Vial/Carp) 0.1 mg IV UD PRN PRN Reason: Opiate Overdose Stop: 07/07/23 12:46 Ondansetron HCl (Ondansetron Inj 2 Mg/Ml 2 Ml Vial) 4 mg IV Q6H PRN PRN Reason: Nausea Stop: 07/07/23 12:46 Oxycodone HCl (Oxycodone Hcl Ir 5 Mg Tab (Immediate Release)) 5 mg PO Q4H PRN PRN Reason: Pain Stop: 06/21/23 13:43 Last Admin: 06/09/23 12:56 Dose: 5 mg Polyethylene Glycol (Polyethylene (Miralax) 17 Gm Pack) 17 gm PO DAILY PRN PRN Reason: Constipation Stop: 07/07/23 12:46 Last Admin: 06/09/23 08:57 Dose: 17 gm Primidone (Primidone 50 Mg Tab) 150 mg PO HS RANULFO Stop: 07/07/23 20:59 Last Admin: 06/08/23 20:59 Dose: 150 mg Primidone (Primidone 50 Mg Tab) 100 mg PO BID@0800,1400 [facility] Stop: 07/09/23 07:59 Last Admin: 06/09/23 09:00 Dose: 100 mg Senna/Docusate Sodium (Docusate Sodium/Senna 50/8.6mg Tab) 1 tab PO QAM RANULFO Stop: 07/09/23 13:59 Simvastatin (Simvastatin 40 Mg Tab) 40 mg PO HS RANULFO Stop: 07/07/23 20:59 Last Admin: 06/08/23 21:00 Dose: 40 mg Topiramate (Topiramate 25 Mg Tab) 25 mg PO QAM RANULFO Stop: 07/08/23 08:59 Last Admin: 06/09/23 09:04 Dose: 25 mg Topiramate (Topiramate 50 Mg Tab) 50 mg PO HS RANULFO Stop: 07/07/23 20:59 Last Admin: 06/08/23 21:00 Dose: 50 mg Umeclidinium/Vilanterol (Umeclidinium/Vilanterol 62.5/25mcg 7 Puffs/Inhaler) 1 puffs INH DAILY RANULFO Stop: 07/08/23 08:59 Last Admin: 06/09/23 09:03 Dose: 1 puffs
--- NOTE | 2023-06-09 15:25 | XRay Report ---
SINGLE VIEW CHEST CLINICAL HISTORY: Hypoxia. FINDINGS: An AP, portable, upright chest radiograph is compared to study dated 06/07/2023. Correlation is made with chest CT dated 06/17/2015. The heart is enlarged noting atherosclerotic calcification of the thoracic aorta. The pulmonary vasculature is noncongested. Emphysema and chronic interstitial thi ckening is similar to previous. There are increasing bibasilar airspace opacities. No large pleural e ffusion or pneumothorax is seen. The skeletal structures are osteopenic. The bony thorax is grossly i ntact. IMPRESSION: 1. Cardiomegaly and emphysema without radiographic evidence of congestive failure. 2. There are increasing bibasilar airspace opacities which may represent progressive atelectasis. Cor relate clinically for evidence of a superimposed infectious/inflammatory pneumonitis. Radiographic fo llow-up to resolution is recommended ACT 112: Negative or not required by law. Electronically signed by: Camron Ackerman M.D. 06/09/2023 3:24 PM
[2023-06-09] MEDS: DOCUSATE SODIUM/SENNA 50/8.6MG TAB PO SCH (16:58)
[2023-06-10 07:15] LABS: Basophils # (auto) 0.03 K/uL (0.00-0.20); Basophils % (auto) 0.4 %; Eosinophils # (auto) 0.12 K/uL (0.00-0.50); Eosinophils % (auto) 1.4 %; Hemoglobin 9.5 g/dl (12.0-16.0); Immature Granulocytes # (auto) 0.03 K/uL (0.01-0.20); Immature Granulocytes % (auto) 0.4 %; Lymphocytes # (auto) 1.34 K/uL (1.20-3.40); Lymphocytes % (auto) 16.1 %; Mean Corpuscular Hemoglobin 28.4 pg (25.0-34.0); Mean Corpuscular Hgb Conc 32.8 g/dL (32.0-36.0); Mean Corpuscular Volume 86.8 fL (80.0-100.0); Mean Platelet Volume 11.2 fL (9.4-12.4); Monocytes # (auto) 0.85 K/uL (0.11-0.59); Monocytes % (auto) 10.2 %; Neutrophils # (auto) 5.95 K/uL (1.40-6.50); Neutrophils % (auto) 71.5 %; Platelet Count 233 K/uL (130-400); RDW Coefficient of Variation 12.8 % (11.5-14.5); RDW Standard Deviation 40.4 fL (36.4-46.3); Red Blood Count 3.34 M/uL (4.20-5.40); White Blood Count 8.32 K/ul (4.8-10.8)
[2023-06-10 07:42] LABS: BUN Creatinine Ratio 20.6 (10-20); Calcium 8.4 mg/dl (8.6-10.3); Creatinine Clr Calc Pharmacy 74.1 ml/min; Est GFR (African American) 100.6 ml/min; Est GFR (Non-African American) 86.8 ml/min
--- NOTE | 2023-06-10 10:09 | Orthopedic Progress Note ---
Date of Service June 10, 2023 Assessment & Plan (1) Closed intertrochanteric fracture of right hip: Plan: Postop day 2-status post open reduction internal fixation right proximal femur fracture with Dr. Iglesias May be out of bed, weight-bear as tolerated with the assistance of a walker. No hip precautions necessary. PT and OT to start today. May continue regular diet. SCDs, bilateral CASSIDY stockings and Eliquis 2.5 mg p.o. twice daily for 2 to 4 weeks postoperative for DVT prophylaxis. Pain medication as prescribed. Dressings changed today; redress as needed. Keep incision covered while in hospital. Case management for discharge planning. Working on [facility] authorization. Findings discussed with Dr. Iglesias Will continue to follow. Admission and Anticipated Discharge Date Admission Date: June 07, 2023 Subjective Patient doing well, pain mildly better today. Sat up in chair for an hour yesterday. States that no significant pain at rest, but increased pain with movement. Physical Exam Musculoskeletal: Exam of right lower extremity: Post op dressings removed, [place] retained, intact, no active drainage. Minimal drainage on dressings. Mild erythema and ecchymosis around right proximal hip incision. No underlying hematoma or seroma. No calf discomfort. Pain with any type of movement right leg. Dorsalis pedis pulse palpable today. Mild distal edema bilateral ankles, same bilaterally. SCD's in place. Able to dorsiflex, plantarflex, invert and mackenzie ankle actively, but weakness 4/5 throughout right ankle, limited due to pain. foot nontender, sensation intact. No ankle effusion. mild diffuse tenderness throughout right ankle suspect from positioning. No ecchymosis, erythema of right ankle Results & Data Vital Signs (Past 12 Hours) Vital Signs Temp Pulse Resp BP Pulse Ox Pulse Ox O2 Del Method 06/10/23 08:01 Nasal Cannula 06/10/23 08:00 92 06/10/23 07:10 36.9 C 82 16 96/56 L 92 Nasal Cannula O2 Del Method O2 Flow Rate O2 Flow Rate 06/10/23 08:01 1 06/10/23 08:00 Nasal Cannula 1 06/10/23 07:10 2 Laboratory Results 06/10/23 Range/Units 06:15 WBC 8.32 (4.8-10.8) K/ul RBC 3.34 L (4.20-5.40) M/uL Hgb 9.5 L (12.0-16.0) g/dl Hct 29.0 L (37.0-47.0) % MCV 86.8 (80.0-100.0) fL MCH 28.4 (25.0-34.0) pg MCHC 32.8 (32.0-36.0) g/dL RDW Std Deviation 40.4 (36.4-46.3) fL RDW Coeff of Jeannie 12.8 (11.5-14.5) % Plt Count 233 (130-400) K/uL MPV 11.2 (9.4-12.4) fL Immature Gran % (Auto) 0.4 % Neut % (Auto) 71.5 % Lymph % (Auto) 16.1 % [place] % (Auto) 10.2 % Eos % (Auto) 1.4 % Baso % (Auto) 0.4 % Neut # (Auto) 5.95 (1.40-6.50) K/uL Lymph # (Auto) 1.34 (1.20-3.40) K/uL [place] # (Auto) 0.85 H (0.11-0.59) K/uL Eos # (Auto) 0.12 (0.00-0.50) K/uL Baso # (Auto) 0.03 (0.00-0.20) K/uL Immature Gran # (Auto) 0.03 (0.01-0.20) K/uL Sodium 136 (136-145) mmol/L Potassium 4.0 (3.5-5.1) mmol/L Chloride 107 (98-107) mmol/L Carbon Dioxide 24 (21-32) mmol/L Anion Gap 5 (3-11) BUN 14 (6-23) mg/dl Creatinine 0.68 (0.6-1.2) mg/dl Est Cr Clr Drug Dosing 74.1 ml/min Est GFR ( Amer) 100.6 ml/min Est GFR (Non-Af Amer) 86.8 ml/min BUN/Creatinine Ratio 20.6 H (10-20) Glucose 109 H (70-99(Fasting)) mg/dl Calcium 8.4 L (8.6-10.3) mg/dl Procalcitonin 0.16 (0-0.5) ng/ml
--- NOTE | 2023-06-10 11:50 | XRay Report ---
XR ankle RT min 3V routine CLINICAL HISTORY: right ankle pain COMPARISON STUDY: None. FINDINGS: Soft tissue swelling within the right ankle. No acute fracture or dislocation. The ankle mo rtise is intact. No radiopaque foreign bodies. Tiny ossific density adjacent to the medial malleolus consistent with an old avulsion injury. The bones are slightly osteopenic. IMPRESSION: 1. Soft tissue swelling within the right ankle. 2. No acute fracture or dislocation. ACT 112: Negative or not required by law. Electronically signed by: Travis Davila M.D. 06/10/2023 11:48 AM
--- NOTE | 2023-06-10 13:29 | Hospitalist Progress Note ---
Date of Service June 10, 2023 Assessment & Plan (1) Intertrochanteric fracture of right hip: (2) Dyslipidemia: (3) Tobacco use disorder: (4) COPD (chronic obstructive pulmonary disease): (5) Bilateral lumbar radiculopathy: (6) Murmur: (7) Age-related osteopor w/curr pathol fx of right femur w/routine heal: Plan Ms. Cortez is a 72 year old female that presented to the ED today after experiencing a mechanical fall earlier today while she was chasing her cat out of the garage. She slipped and lost balance and she fell on her right hip in her kitchen. She was unable to sit up but was able to lean on cabinets 'eventually'. She denies LOC and states she did not hit her head. She was on the floor for approximately 2 hours from around [id number] today. She does not take any anticoagulation medications. PMH includes: COPD, spinal stenosis with radiculopathy (receives steroid injections), H/O opioid dependence, tobacco use, and HLD. Mild leukocytosis 13.65, otherwise labs unremarkable. Hgb 12.7. Normotensive and on RA. Pt denies OLVERA, fever, chills, SOB, chest pain, palpitations, N/V/D, abdominal pain or tenderness, dysuria, hematochezia, bowel or bladder changes, easy bruising, recent falls or other trauma. Patient will be admitted for further evaluation and management of her right hip fracture. Will keep NPO, order pain medications, obtain ECG and ECHO given audible cardiac murmur and ortho consult (pt requesting Herstephaniehoff). Intertrochanteric fracture of right hip: Age related osteoporotic fracture S/P ORIF of right proximal femur fracture, POD #[address] Iglesias She is WBAT PT/OT Eliquis for DVT ppx continue to encourage incentive spirometry and wean oxygen as able Will order scheduled Tylenol and as needed Oxy IR for pain control Vit D is normal Added bowel regimen Hypoxia -> resolved at rest Weaned off of O2 at rest, saturating at 91% on room air CXR consistent with atelectasis Continue to encourage spirometry hx of COPD, Aortic valve stenosis Refused ambulatory pulse ox today - not on O2 at rest any longer. May need supplemental O2 with exertion upon dc to [facility], goal O2 sat 90% given COPD Lower blood pressure pt states her BP tends to run on lower side she is asymptomatic, will continue to monitor Anemia, post operative suspect expected blood loss in setting of fracture and surgery as well as dilutional component follow h/h Aortic Valve Stenosis pre op echo: EF 60-65%, grade I DD, mild to mod av stenosis EKG SR with first degree AVB with PVC prior to event pt able to do equiv of 4 METS of activity will need follow up as outpatient for routine monitoring of COPD: Lung nodule: Chronic Takes Trelegy and follows with pulmonary as an outpatient Was to have repeat PFTs 2022 Most recent PFTs 07/26/2020 FEV1 1.71 CXR today:Cardiomegaly and emphysema, no acute cardiac or pulmonary infection identified. There is an indeterminate nodular opacity projecting over the right lower lung. A nonemergent chest CT is recommended and follow-up to exclude underlying pulmonary lesion. Tobacco use disorder: Chronic Smokes 1 PPD; declines Nicotine patch Recommended smoking cessation Bilateral lumbar radiculopathy: Chronic Receives lumbar steroid injections; last injection 01/2023. Takes Ibuprofen, Primidone, Topamax, Indocin for neuropathy pain Hold Ibuprofen and Indocin pre op Of note; during conversation, patient has had opioid addiction in past. No currently taking any opioids Disposition: PCP: Dr. Morris CODE STATUS: Full code VTE prophylaxis:Eliquis A total of 60 minutes was spent coordinating, documenting, and providing care for this patient excluding time spent in the performance of separately billed services. This included personally viewing all current laboratories and imaging studies, medication reconciliation, outpatient chart review, and discussion with specialists. Seen with Dr. Duncan. Please see addendum. Admission and Anticipated Discharge Date Admission Date: June 07, 2023 Supervising Physician Co-Signing Physician Notes Attending addendum: The patient was seen and examined in medical floor in presence of the . She denies any symptoms and has been feeling much better Did not do well with physical therapy and will need more physical therapy to continue before discharge Has been saturating normally on room air but required oxygen on admission Denies any significant pain in the right hip but did have some pain in the right ankle On examination Sitting on a chair without any acute distress Hemodynamically stable Chest-clear to auscultate bilaterally Heart-S1, S2 regular Abdomen-benign Extremities-trace edema bilaterally Her labs and imaging studies reviewed Status post repair of right intratrochanteric fracture of femur Noted to be hypoxic following surgery-has been saturating normally on room air Will continue with PT and OT evaluation Possible discharge tomorrow Agree with assessment and plan as outlined above by SAMINA Noble Dr Subjective Patient doing well, pain mildly better today. Sat up in chair for an hour yesterday. States that no significant pain at rest, but increased pain with movement. Was in too much pain to participate with therapy today. Oxygen has been weaned while sitting, saturating at 91% on room air. History of COPD. Encouraged participation with PT/OT tomorrow prior to discharge to [facility]. Review of Systems Review of Systems: At least ten systems reviewed and negative except as noted in the HPI. Physical Exam Physical Exam: Gen: WD/WN, flat affect, sitting in bedside chair, A&O x3 HEENT: Normocephalic, atraumatic, conjunctivae moist, sclerae anicteric, mucous membranes moist Lung: Clear to Auscultation bilaterally, scattered wheezes Heart: Regular rate, regular rhythm, + systolic murmur Abdomen: Soft, NT, ND +BS x 4 Extremities: No edema Skin: Warm, no rash, Dressing CDI : smith draining yellow urine Results & Data Results & Data Vital Signs (Past 12 Hours) Vital Signs Temp Pulse Resp BP Pulse Ox Pulse Ox O2 Del Method 06/10/23 13:20 91 06/10/23 08:01 Nasal Cannula 06/10/23 08:00 92 06/10/23 07:10 36.9 C 82 16 96/56 L 92 Nasal Cannula O2 Del Method O2 Flow Rate O2 Flow Rate 06/10/23 13:20 3 06/10/23 08:01 1 06/10/23 08:00 Nasal Cannula 1 06/10/23 07:10 2 Laboratory Results Short CBC 06/10/23 Range/Units 06:15 WBC 8.32 (4.8-10.8) K/ul Hgb 9.5 L (12.0-16.0) g/dl Hct 29.0 L (37.0-47.0) % Plt Count 233 (130-400) K/uL BMP 06/10/23 06:15 Sodium 136 Potassium 4.0 Chloride 107 Carbon Dioxide 24 BUN 14 Creatinine 0.68 Glucose 109 H Calcium 8.4 L Diagnostic Findings Hip X-Ray 06/07/23 11:40 RIGHT HIP 2 VIEWS CLINICAL HISTORY: Right hip injury. Pain. FINDINGS: AP and crosstable lateral views of the right hip are correlated with pelvic CT dated 06/17/2015. The skeletal structures are osteopenic. There is a comminuted and angulated intertrochanteric fracture of the right proximal femur with overlying soft tissue edema. There is medial displacement of the lesser trochanter. The visualized right hemipelvis appears intact. Mild to moderate arthritic change is noted in the right hip. Atherosclerotic calcification is seen in the right femoral artery. IMPRESSION: Intertrochanteric fracture of the right proximal femur as above. Electronically signed by: Camron Ackerman M.D. 06/07/2023 12:43 PM Chest X-Ray 06/07/23 11:42 SINGLE VIEW CHEST CLINICAL HISTORY: Fall. FINDINGS: 2 AP, portable, semierect chest radiographs are compared to chest x- ray and chest CT dated 06/17/2015. The the heart is enlarged and noting atherosclerotic calcification of the thoracic aorta. The pulmonary vasculature is noncongested. Emphysema and chronic interstitial thickening is similar to previous. Foci of scarring/atelectasis are seen throughout both lungs. No airspace consolidation or large pleural effusion is identified. There is an indeterminant nodular opacity projecting over the right lower lung. No pneumothorax is seen. The skeletal structures are osteopenic. The bony thorax is grossly intact. IMPRESSION: 1. Cardiomegaly and emphysema with no acute cardiopulmonary abnormality identified. 2. There is an indeterminate nodular opacity projecting over the right lower lung. A nonemergent chest CT is recommended and follow-up to exclude underlying pulmonary lesion. ACT 112: Positive. There are findings on this exam that require communication between the performing entity and the patient following Patient Test Result Information Act ([place] Act 112) guidelines. Electronically signed by: Camron Ackerman M.D. 06/07/2023 12:49 PM Femur X-Ray 06/08/23 07:00 FL femur RT 2V CLINICAL HISTORY: Right hip troch nail COMPARISON STUDY: Right hip radiographs June 07, 2023. FLUOROSCOPY TIME: 1 minute and 59 seconds. Ka, r: 20.86 mGy FLUOROSCOPIC IMAGES: 6 FINDINGS: Fluoroscopy was provided during open reduction and internal fixation of the intertrochanteric fracture of the right femur. Alignment has significantly improved and appears near anatomic. IMPRESSION: Fluoroscopy provided during open reduction and internal fixation of the intertrochanteric fracture of the right femur. ACT 112: Negative or not required by law. Electronically signed by: Alexander Tavarez M.D. 06/08/2023 12:46 PM Chest X-Ray 06/09/23 13:58 SINGLE VIEW CHEST CLINICAL HISTORY: Hypoxia. FINDINGS: An AP, portable, upright chest radiograph is compared to study dated 06/07/2023. Correlation is made with chest CT dated 06/17/2015. The heart is enlarged noting atherosclerotic calcification of the thoracic aorta. The pulmonary vasculature is noncongested. Emphysema and chronic interstitial thickening is similar to previous. There are increasing bibasilar airspace opacities. No large pleural effusion or pneumothorax is seen. The skeletal structures are osteopenic. The bony thorax is grossly intact. IMPRESSION: 1. Cardiomegaly and emphysema without radiographic evidence of congestive failure. 2. There are increasing bibasilar airspace opacities which may represent progressive atelectasis. Correlate clinically for evidence of a superimposed infectious/inflammatory pneumonitis. Radiographic follow-up to resolution is recommended ACT 112: Negative or not required by law. Electronically signed by: Camron Ackerman M.D. 06/09/2023 3:24 PM Ankle X-Ray 06/10/23 10:23 XR ankle RT min 3V routine CLINICAL HISTORY: right ankle pain COMPARISON STUDY: None. FINDINGS: Soft tissue swelling within the right ankle. No acute fracture or dislocation. The ankle mortise is intact. No radiopaque foreign bodies. Tiny ossific density adjacent to the medial malleolus consistent with an old avulsion injury. The bones are slightly osteopenic. IMPRESSION: 1. Soft tissue swelling within the right ankle. 2. No acute fracture or dislocation. ACT 112: Negative or not required by law. Electronically signed by: Travis Davila M.D. 06/10/2023 11:48 AM
[2023-06-11] MEDS: LACTATED RINGER'S 1,000 ML IV SCH (02:38)
[2023-06-11] MEDS: MAGNESIUM HYDROXIDE SUSP 30 ML UDC PO PRN (05:48)
[2023-06-11 06:17] LABS: Hemoglobin 9.5 g/dl (12.0-16.0); Mean Corpuscular Hemoglobin 28.7 pg (25.0-34.0); Mean Corpuscular Hgb Conc 32.8 g/dL (32.0-36.0); Mean Corpuscular Volume 87.6 fL (80.0-100.0); Platelet Count 242 K/uL (130-400); RDW Coefficient of Variation 12.9 % (11.5-14.5); RDW Standard Deviation 41.3 fL (36.4-46.3); Red Blood Count 3.31 M/uL (4.20-5.40); White Blood Count 8.54 K/ul (4.8-10.8)
[2023-06-11 06:33] LABS: BUN Creatinine Ratio 16.9 (10-20); Calcium 8.7 mg/dl (8.6-10.3); Creatinine Clr Calc Pharmacy 70.9 ml/min; Est GFR (African American) 97.9 ml/min; Est GFR (Non-African American) 84.5 ml/min
--- NOTE | 2023-06-11 10:31 | Orthopedic Progress Note ---
Date of Service June 11, 2023 Assessment & Plan (1) Closed intertrochanteric fracture of right hip: Plan: Postop day 3-status post open reduction internal fixation right proximal femur fracture with Dr. Iglesias May be out of bed, weight-bear as tolerated with the assistance of a walker. No hip precautions necessary. PT and OT May continue regular diet. SCDs, bilateral CASSIDY stockings and Eliquis 2.5 mg p.o. twice daily for 2 to 4 weeks postoperative for DVT prophylaxis. Pain medication as prescribed. Dressings changed yesterday. Today clean dry and intact left in place; redress as needed. Keep incision covered while in hospital. Case management for discharge planning. Working on [facility] authorization. Findings discussed with Dr. Iglesias Orthopedically patient is cleared for discharge. Follow-up with medicine orthopedics as previously scheduled. Admission and Anticipated Discharge Date Admission Date: June 07, 2023 Subjective This 72-year-old female is 3 days status post open reduction internal fixation of right proximal femur fracture with Dr. Iglesias. Patient states she is doing well fairly well. She states that her pain is well-controlled with p.o. pain medication she is using. She states that she still has difficulty raising her leg off of the bed or participating with physical therapy/Occupational Therapy. She states that she has talked with case management and is planning on going to either rehab or intermediate facility upon discharge. Currently she denies chest pain, shortness of breath, fever, chills, sweats, nausea, vomiting, diarrhea or difficulty voiding. She also has no complaint of numbness or tingling in her right lower extremity.. Review of Systems Review of Systems: Please refer to HPI Physical Exam Physical Exam: Right hip: Dressings are clean dry and intact left in place. Patient tolerates logroll testing. She is unable to perform active straight leg raise test but is able to actively dorsi and plantarflex her foot. Her quad strength is 3 out of 5. Passively I was able to flex her near 80 degrees without significant pain. She does not experience twinges of pain with light passive internal and external hip rotation. Patient was able to detect light sensation to touch over the pads of all digits. She was neurovascularly intact in the right lower extremity. Results & Data Vital Signs (Past 12 Hours) Vital Signs Temp Pulse Resp BP Pulse Ox Pulse Ox O2 Del Method 06/11/23 07:39 37.3 C 83 16 98/58 L 92 Nasal Cannula 06/11/23 05:46 91 O2 Del Method O2 Flow Rate O2 Flow Rate 06/11/23 07:39 1 06/11/23 05:46 Nasal Cannula 1 Diagnostic Findings Laboratory Results WBC 8.54 K/ul (4.8-10.8) 06/11/23 05:30 RBC 3.31 M/uL (4.20-5.40) L 06/11/23 05:30 Hgb 9.5 g/dl (12.0-16.0) L 06/11/23 05:30 Hct 29.0 % (37.0-47.0) L 06/11/23 05:30 MCV 87.6 fL (80.0-100.0) 06/11/23 05:30 MCH 28.7 pg (25.0-34.0) 06/11/23 05:30 MCHC 32.8 g/dL (32.0-36.0) 06/11/23 05:30 RDW Std Deviation 41.3 fL (36.4-46.3) 06/11/23 05:30 RDW Coeff of Jeannie 12.9 % (11.5-14.5) 06/11/23 05:30 Plt Count 242 K/uL (130-400) 06/11/23 05:30 MPV 11.0 fL (9.4-12.4) 06/11/23 05:30 Immature Gran % (Auto) 0.4 % 06/10/23 06:15 Neut % (Auto) 71.5 % 06/10/23 06:15 Lymph % (Auto) 16.1 % 06/10/23 06:15 [place] % (Auto) 10.2 % 06/10/23 06:15 Eos % (Auto) 1.4 % 06/10/23 06:15 Baso % (Auto) 0.4 % 06/10/23 06:15 Neut # (Auto) 5.95 K/uL (1.40-6.50) 06/10/23 06:15 Lymph # (Auto) 1.34 K/uL (1.20-3.40) 06/10/23 06:15 [place] # (Auto) 0.85 K/uL (0.11-0.59) H 06/10/23 06:15 Eos # (Auto) 0.12 K/uL (0.00-0.50) 06/10/23 06:15 Baso # (Auto) 0.03 K/uL (0.00-0.20) 06/10/23 06:15 Immature Gran # (Auto) 0.03 K/uL (0.01-0.20) 06/10/23 06:15 PT 10.8 Seconds (9.0-12.0) 06/07/23 11:50 INR 1.0 (0.9-1.1) 06/07/23 11:50 APTT 27 Seconds (21-31) 06/07/23 11:50 PTT Ratio 1.0 06/07/23 11:50 Sodium 136 mmol/L (136-145) 06/11/23 05:30 Potassium 4.0 mmol/L (3.5-5.1) 06/11/23 05:30 Chloride 106 mmol/L (98-107) 06/11/23 05:30 Carbon Dioxide 24 mmol/L (21-32) 06/11/23 05:30 Anion Gap 6 (3-11) 06/11/23 05:30 BUN 12 mg/dl (6-23) 06/11/23 05:30 Creatinine 0.71 mg/dl (0.6-1.2) 06/11/23 05:30 Est Cr Clr Drug Dosing 70.9 ml/min 06/11/23 05:30 Est GFR ( Amer) 97.9 ml/min 06/11/23 05:30 Est GFR (Non-Af Amer) 84.5 ml/min 06/11/23 05:30 BUN/Creatinine Ratio 16.9 (10-20) 06/11/23 05:30 Glucose 104 mg/dl (70-99(Fasting)) H 06/11/23 05:30 Calcium 8.7 mg/dl (8.6-10.3) 06/11/23 05:30 Total Bilirubin 0.3 mg/dl (0.2-1.0) 06/09/23 05:22 AST 35 U/L (13-39) 06/09/23 05:22 ALT 19 U/L (7-52) 06/09/23 05:22 Alkaline Phosphatase 35 U/L (34-104) 06/09/23 05:22 Total Protein 6.2 gm/dl (6.0-8.3) 06/09/23 05:22 Albumin 3.3 gm/dl (3.4-5.0) L 06/09/23 05:22 Globulin 2.9 gm/dl (2.5-4.0) 06/09/23 05:22 Albumin/Globulin Ratio 1.1 (0.9-2) 06/09/23 05:22 25-OH Vitamin D Total 35.7 ng/ml (30-100) 06/09/23 05:22 Procalcitonin 0.16 ng/ml (0-0.5) 06/10/23 06:15 Urine Color Yellow 06/07/23 17:05 Urine Appearance Clear (Clear) 06/07/23 17:05 Urine pH 7.0 (4.5-7.5) 06/07/23 17:05 Ur Specific [place] 1.021 (1.000-1.030) 06/07/23 17:05 Urine Protein Negative (Negative) 06/07/23 17:05 Urine Glucose (UA) Negative (Negative) 06/07/23 17:05 Urine Ketones 1+ (Negative) H 06/07/23 17:05 Urine Blood Negative (Negative) 06/07/23 17:05 Urine Nitrite Negative (Negative) 06/07/23 17:05 Urine Bilirubin Negative (Negative) 06/07/23 17:05 Urine Urobilinogen Negative (Negative) 06/07/23 17:05 Ur Leukocyte Esterase Negative (Negative) 06/07/23 17:05 Blood Type A Positive 06/07/23 13:00 Antibody Screen NEGATIVE 06/07/23 13:00 Impressions Hip X-Ray 06/07/23 11:40 RIGHT HIP 2 VIEWS CLINICAL HISTORY: Right hip injury. Pain. FINDINGS: AP and crosstable lateral views of the right hip are correlated with pelvic CT dated 06/17/2015. The skeletal structures are osteopenic. There is a comminuted and angulated intertrochanteric fracture of the right proximal femur with overlying soft tissue edema. There is medial displacement of the lesser trochanter. The visualized right hemipelvis appears intact. Mild to moderate arthritic change is noted in the right hip. Atherosclerotic calcification is seen in the right femoral artery. IMPRESSION: Intertrochanteric fracture of the right proximal femur as above. Electronically signed by: Camron Ackerman M.D. 06/07/2023 12:43 PM Femur X-Ray 06/08/23 07:00 FL femur RT 2V CLINICAL HISTORY: Right hip troch nail COMPARISON STUDY: Right hip radiographs June 07, 2023. FLUOROSCOPY TIME: 1 minute and 59 seconds. Ka, r: 20.86 mGy FLUOROSCOPIC IMAGES: 6 FINDINGS: Fluoroscopy was provided during open reduction and internal fixation of the intertrochanteric fracture of the right femur. Alignment has significantly improved and appears near anatomic. IMPRESSION: Fluoroscopy provided during open reduction and internal fixation of the intertrochanteric fracture of the right femur. ACT 112: Negative or not required by law. Electronically signed by: Alexander Tavarez M.D. 06/08/2023 12:46 PM Chest X-Ray 06/09/23 13:58 SINGLE VIEW CHEST CLINICAL HISTORY: Hypoxia. FINDINGS: An AP, portable, upright chest radiograph is compared to study dated 06/07/2023. Correlation is made with chest CT dated 06/17/2015. The heart is enlarged noting atherosclerotic calcification of the thoracic aorta. The pulmonary vasculature is noncongested. Emphysema and chronic interstitial thickening is similar to previous. There are increasing bibasilar airspace opacities. No large pleural effusion or pneumothorax is seen. The skeletal structures are osteopenic. The bony thorax is grossly intact. IMPRESSION: 1. Cardiomegaly and emphysema without radiographic evidence of congestive failure. 2. There are increasing bibasilar airspace opacities which may represent progressive atelectasis. Correlate clinically for evidence of a superimposed infectious/inflammatory pneumonitis. Radiographic follow-up to resolution is recommended ACT 112: Negative or not required by law. Electronically signed by: Camron Ackerman M.D. 06/09/2023 3:24 PM Ankle X-Ray 06/10/23 10:23 XR ankle RT min 3V routine CLINICAL HISTORY: right ankle pain COMPARISON STUDY: None. FINDINGS: Soft tissue swelling within the right ankle. No acute fracture or dislocation. The ankle mortise is intact. No radiopaque foreign bodies. Tiny ossific density adjacent to the medial malleolus consistent with an old avulsion injury. The bones are slightly osteopenic. IMPRESSION: 1. Soft tissue swelling within the right ankle. 2. No acute fracture or dislocation. ACT 112: Negative or not required by law. Electronically signed by: Travis Davila M.D. 06/10/2023 11:48 AM
[2023-06-11] MEDS: ALBUTEROL 0.083% NEBU SOLN 3 ML VIAL NEB STA (13:44)
--- NOTE | 2023-06-11 14:15 | Discharge Summary ---
Discharge Summary Date of Service June 11, 2023 Notes For Next Care Provider Fall with hip fracure s/p repair Medication Changes From Visit PRN pain control as below Admission HPI Per Admitting Provider Ms. Cortez is a 72 year old female that presented to the ED today after experiencing a mechanical fall earlier today while she was chasing her newly adopted cat out of the garage. She slipped and lost balance and she fell on her right hip. She was unable to sit up. She denies LOC and states she did not hit her head. She was on the floor for approximately 2 hours. She does not take any anticoagulation medications. PMH includes: COPD, spinal stenosis with radiculopathy (receives steroid injections), H/O opioid dependence, tobacco use, and HLD. Mild leukocytosis 13.65, otherwise labs unremarkable. Hgb 12.7. Normotensive and on RA. Hip Xray: Intertrochanteric fracture of the right proximal femur CXR today: Cardiomegaly and emphysema, no acute cardiac or pulmonary infection identified. There is an indeterminate nodular opacity projecting over the right lower lung. A nonemergent chest CT is recommended and follow-up to exclude underlying pulmonary lesion. Pt smokes 1 ppd tobacco. No alcohol or recreational drug use. Patient reportedly has had opioid dependence in the past. She normally lives alone and performs all of her own ADL's. S Pt denies OLVERA, fever, chills, SOB, chest pain, palpitations, N/V/D, abdominal pain or tenderness, dysuria, hematochezia, bowel or bladder changes, easy bruising, recent falls or other trauma. Patient will be admitted for further evaluation and management of her right hip fracture. Will keep NPO pending ortho consult (Dr. Limoff request), order pain medications, obtain ECG and ECHO given audible heart murmur. Admission Exam Per Admitting Provider Neuro: AAOx4, PERRLA, no aphagia, memory changes, CNII-XII grossly intact HEENT: head normocephalic, atraumatic, moist mucus membranes CV: S1/S2, Audible Murmur GIII/ left sternal border. (+) 2 bilateral lower extremity edema, cap refill < 3 seconds Resp: Lungs coarse posteriorly. On RA. GI: Abdomen S/NT/ND, Ax4 bowel sounds, (-) CVA tenderness Musculoskeletal: Normally walks independently. Skin: (-) rashes , (-) erythema. Psych: euthymic mood Principal Dx & Hospital Course #1 = Principal Diagnosis (1) Intertrochanteric fracture of right hip: (2) Dyslipidemia: (3) Tobacco use disorder: (4) COPD (chronic obstructive pulmonary disease): (5) Bilateral lumbar radiculopathy: (6) Murmur: (7) Age-related osteopor w/curr pathol fx of right femur w/routine heal: Plan Ms. Cortez is a 72 year old female that presented to the ED today after experiencing a mechanical fall earlier today while she was chasing her cat out of the garage and was found to have R proximal femur fracture. Intertrochanteric fracture of right hip: Age related osteoporotic fracture S/P ORIF of right proximal femur fracture 06/[address] Iglesias She is WBAT PT/OT 2.5 mg BID Eliquis for DVT ppx for 2-4 weeks per ortho Continue to encourage incentive spirometry and wean oxygen as able Continue scheduled Tylenol and as needed Oxy IR for breakthrough pain control Vit D level is normal Continue bowel regimen Hypoxia: Noted in post-op setting Baseline COPD, may be her baseline Currently 90% on room air Afebrile, no leukocytosis CXR consistent with atelectasis Continue to encourage spirometry Refused ambulatory pulse ox today - generally not requiring O2 at rest. May need supplemental O2 with exertion upon dc to [facility], goal O2 sat 90% given COPD Lower blood pressure Pt states her BP tends to run on lower side She is asymptomatic, will continue to monitor Anemia, post operative Suspect expected blood loss in setting of fracture and surgery as well as dilutional component Post op hgb stable at 9.5 Aortic Valve Stenosis pre op echo: EF 60-65%, grade I DD, mild to mod av stenosis EKG SR with first degree AVB with PVC prior to event pt able to do equiv of 4 METS of activity will need follow up as outpatient for routine monitoring of COPD: Lung nodule: Chronic Takes Trelegy and follows with pulmonary as an outpatient Was to have repeat PFTs 2022 Most recent PFTs 07/26/2020 FEV1 1.71 CXR today:Cardiomegaly and emphysema, no acute cardiac or pulmonary infection identified. There is an indeterminate nodular opacity projecting over the right lower lung. A nonemergent chest CT is recommended and follow-up to exclude underlying pulmonary lesion. Tobacco use disorder: Chronic Smokes 1 PPD; declines Nicotine patch Recommended smoking cessation Bilateral lumbar radiculopathy: Chronic Receives lumbar steroid injections; last injection 01/2023. Takes Ibuprofen, Primidone, Topamax, Indocin for neuropathy pain Of note; during conversation, patient has had opioid addiction in past. No currently taking any opioids Plan discussed with daughter over the phone, who will be transporting patient to [facility] for rehab. Discharge Exam Gen: WD/WN, flat affect, sitting in bedside chair, A&O x3 HEENT: Normocephalic, atraumatic, conjunctivae moist, sclerae anicteric, mucous membranes moist Lung: Clear to Auscultation bilaterally, scattered wheezes Heart: Regular rate, regular rhythm, + systolic murmur Abdomen: Soft, NT, ND +BS x 4 Extremities: No edema Skin: Warm, no rash, Dressing CDI : smith draining yellow urine Updated Medication List Medication Instructions Recorded Confirmed Type alendronate 70 mg tablet (Fosamax) 70 mg PO WK 02/24/19 06/07/23 History aspirin 81 mg tablet,delayed 81 mg PO QAM 02/24/19 06/07/23 History release (Aspir-) mvzdwhgech-rvuqrnncdxgcu-yattercu 1 cap PO Q6H PRN Migraine Headache 02/24/19 06/07/23 History 50 mg-325 mg-40 mg capsule (Esgic) citalopram 40 mg tablet 40 mg PO PM 02/24/19 06/07/23 History diazepam 5 mg tablet 5 mg PO QID 02/24/19 06/07/23 History gabapentin 100 mg capsule 200 mg PO BID 02/24/19 06/07/23 History gabapentin 300 mg capsule 300 mg PO HS 02/24/19 06/07/23 History ibuprofen 800 mg tablet 800 mg PO UD PRN Pain 02/24/19 06/07/23 History primidone 50 mg tablet 100 mg PO BID 02/24/19 06/07/23 History simvastatin 40 mg tablet 40 mg PO HS 02/24/19 06/07/23 History vitamin E 268 mg (400 unit) capsule 400 unit PO PM 02/24/19 06/07/23 History primidone 50 mg tablet 150 mg PO HS 09/13/20 06/07/23 History dicyclomine 10 mg capsule 10 mg PO QID 09/25/20 06/07/23 History [facility] Allergy, Cetrzn 10 mg PO QAM 01/30/21 06/07/23 History albuterol sulfate 90 mcg/actuation 1 inh inhalation UD PRN COPD 01/30/21 06/07/23 History aerosol inhaler fluticasone fur. 200 mcg-umeclid 1 inh inhalation DAILY 01/30/21 06/07/23 History 62.5 mcg-vilant 25 mcg inhalat.powder (Trelegy Ellipta) folic acid 400 mcg tablet 0.8 mg PO QAM 01/30/21 06/07/23 History topiramate 25 mg tablet (Topamax) 25 mg PO QAM 02/03/22 06/07/23 History topiramate 25 mg tablet (Topamax) 50 mg PO HS 02/03/22 06/07/23 History indomethacin 25 mg capsule 25 mg PO TID 06/07/23 06/07/23 History acetaminophen 500 mg tablet 1,000 mg (2 x 500 mg) PO Q8H #30 06/11/23 Rx (Tylenol Extra Strength) tabs apixaban 2.5 mg tablet (Eliquis) 2.5 mg PO BID 2 weeks #28 tabs 06/11/23 Rx oxycodone 5 mg tablet 5 mg PO Q12H PRN severe pain 06/11/23 Rx (scale score 7-10) #7 tabs Additional Medication Comments Try to avoid ibuprofen as long as you are on Eliquis. Hospital Stay Data Consultations 06/07/23 12:48 Consult Orthopedic Surgery Routine 06/07/23 12:50 ED Decision to Admit Stat Procedures Performed Operation Date: 06/08/23 07:00 Actual Procedures p Right Hip Trochanteric Nail(Right) - Arnold Iglesias MD Diagnostic Imagining Performed 06/08/23 07:00 FL femur RT 2V Routine Pending Results Patient Have Any Pending Studies at Discharge: No Discharge Instructions Given to Patient (Per Discharging Provider) MEDICATION CHANGES: Continue scheduled Tylenol 1,000mg Q8H for pain, ice. Oxycodone Q12H PRN for severe breakthrough pain. (Using sparingly given opioid dependence in past) Avoid NSAIDs while on Eliquis for PVT ppx (2.5mg BID x 2-4 weeks per ortho) SUMMARY OF TEST RESULTS: Hip XR (06/06): IMPRESSION: Intertrochanteric fracture of the right proximal femur as above. CXR (06/08): Cardiomegaly and emphysema without radiographic evidence of congestive failure. PENDING TEST RESULTS: None RECOMMENDATIONS FOR FOLLOW-UP: Follow up with PCP and ortho surgery as scheduled. Continue medication regimen as scheduled aside from changes noted above. Smith catheter in place due to limited mobility - will need trial of void at [facility] once more mobile. Post-op hypoxia, has been intermittently requiring 2L NC O2. With baseline COPD, goal O2 89-90%. Currently 90% on room air at rest. Encourage continued incentive spirometry. Post op CXR with atelectasis as above Refused ambulatory pulse ox test - continue supplemental O2 as needed at rehab, wean as tolerated. Borderline low BP at baseline, asymptomatic. A nonemergent chest CT is recommended and follow-up to exclude underlying pulmonary lesion given indeterminate nodular opacity projecting over the right lower lung. OTHER INSTRUCTIONS: Seek medical attention if you have: * temperature above 101 * chest pain or trouble breathing * abdominal pain, nausea, vomiting * diarrhea, dark stools or bloody stools * any unanswered questions or concerns Call 911 if symptoms are severe. Please take good care of yourself. Call if you have any questions or problems. You can reach a [facility] hospitalist on duty at [facility] 24 hours a day by calling [phone]. Queenie Kaur PA-C [facility] Hospitalist Total Time Total Time Spent Total Time Spent (In Minutes): 60 Supervising Physician Co-Signing Physician Notes Attending addendum: The patient was seen and examined in medical floor She has been feeling much better and denies any shortness of breath at rest Pain is well-controlled She wants to go to [facility] this afternoon Denies any chest pain, palpitation, any abdominal pain, nausea and or vomiting On examination Sitting on a chair without any acute distress Hemodynamically stable and the blood pressure on the lower side at 101/61 Chest-decreased breath sounds bibasilarly with minimal wheezing Heart-S1-S2 with a 2/6 ESM over precordium Abdomen-benign Extremities-trace edema bilaterally NEONATAL PEDIATRIC NURSE-alert, awake and oriented x 3 Her labs, medications and imaging studies reviewed Status post open reduction and internal fixation right proximal femur Remains medically stable with other medical conditions Will need oxygen as needed for now Agree with assessment and plan as outlined above by SAMINA Noble DR
== END 2023-06-11 15:21 | DRG 482 ==
LOC: ED 11:29 → 3N 12:47 → SUATTDRO 12:47 → 3N 14:00
DX: Z79.899 Other long term (current) drug therapy; Z88.1 Allergy status to other antibiotic agents; J43.9 Emphysema, unspecified; M54.16 Radiculopathy, lumbar region; M80.051A Age-related osteoporosis with current pathological fracture, right femur, initial encounter for fracture; Z88.2 Allergy status to sulfonamides; M48.061 Spinal stenosis, lumbar region without neurogenic claudication; Z79.82 Long term (current) use of aspirin; F17.210 Nicotine dependence, cigarettes, uncomplicated; Z88.8 Allergy status to other drugs, medicaments and biological substances; I10 Essential (primary) hypertension

== ENCOUNTER 2023-07-02 11:36 | Inpatient (IN) ==
[2023-07-02] MEDS: HYDROmorphone INJ 0.5 MG/0.5 ML SYR IV PRN (12:07)
[2023-07-02] MEDS: LACTATED RINGER'S 1,000 ML IV SCH (12:09)
[2023-07-02 12:22] LABS: Basophils # (auto) 0.03 K/uL (0.00-0.20); Basophils % (auto) 0.3 %; Eosinophils # (auto) 0.03 K/uL (0.00-0.50); Eosinophils % (auto) 0.3 %; Hematocrit (blood only) 30.9 % (37.0-47.0); Immature Granulocytes # (auto) 0.06 K/uL (0.01-0.20); Immature Granulocytes % (auto) 0.6 %; Lymphocytes # (auto) 0.99 K/uL (1.20-3.40); Lymphocytes % (auto) 9.8 %; Mean Corpuscular Hgb Conc 32.4 g/dL (32.0-36.0); Mean Corpuscular Volume 89.6 fL (80.0-100.0); Mean Platelet Volume 10.8 fL (9.4-12.4); Monocytes # (auto) 0.64 K/uL (0.11-0.59); Monocytes % (auto) 6.3 %; Neutrophils # (auto) 8.39 K/uL (1.40-6.50); Neutrophils % (auto) 82.7 %; Platelet Count 362 K/uL (130-400); RDW Coefficient of Variation 14.3 % (11.5-14.5); RDW Standard Deviation 46.5 fL (36.4-46.3); Red Blood Count 3.45 M/uL (4.20-5.40); White Blood Count 10.14 K/ul (4.8-10.8)
--- NOTE | 2023-07-02 12:22 | XRay Report ---
SINGLE VIEW CHEST CLINICAL HISTORY: Fall. Hip fracture. FINDINGS: 2 AP, portable, supine chest radiographs are compared to study dated 06/09/2023. Correlation is made with chest CT dated 06/17/2015. The examination is degraded by portable technique and apical l ordotic positioning appear The heart is enlarged noting atherosclerotic calcification of the thoracic aorta. The pulmonary vasculature is noncongested. Emphysema and chronic interstitial thickening is s imilar to previous. There is bibasilar scarring/atelectasis. No airspace consolidation or large pleur al effusion is identified. No pneumothorax is seen. The skeletal structures are osteopenic. The bony thorax is grossly intact. IMPRESSION: Cardiomegaly and emphysema with no acute cardiopulmonary abnormality identified. ACT 112: Negative or not required by law. Electronically signed by: Camron Ackerman M.D. 07/02/2023 12:21 PM
--- NOTE | 2023-07-02 12:31 | Emergency Department Note ---
Impression & Plan Closed fracture of left hip, Accidental fall, Acute confusion ED Provider Note NAME: AJAY SY AGE: 72 SEX: Female INFORMANT: Patient and family ED PROVIDER(S): Jim Haney MD CHIEF COMPLAINT: Fall PLAN: Disposition: Admitted Outpatient prescription management: none Referral: None MEDICAL DECISION MAKING: Patient presented because of an accidental fall and had left hip pain and her nonsurgical side. Family also noted that she had some mild confusion. Workup initiated. Patient's pain was treated with IV Dilaudid. She was also started on gentle fluid hydration. Sky catheter placed. CT imaging of the head was ordered. X-ray imaging of the chest and hips ordered as well. Head CT was negative. Blood work and urine was unremarkable. Patient does have a left hip fracture. No acute findings seen on imaging of the right hip. Family and patient updated. Consultation was made was orthopedics. I did request [facility] orthopedics however given the time of day [facility] was on- call. Discussed case with Dr. Hansen. I did send him the patient's imaging over secure messaging prior evaluation He will see the patient for management. [facility] was evaluated in the ER admitted for further management. Care/management discussed with: commercial credit portfolio manager Level of care consideration(s): After review of the information above and other included data, I feel the patient requires escalation of care to admission Triage Nursing notes: reviewed and agree them. Vital Signs: reviewed and remarkable for no significant abnormalities Additional History obtained from: Patient's family. They noted that she has been having some confusion in the recent days. Chronic Medical/Social Conditions affecting care: COPD Prior/ Outside/ External records reviewed: none Differential Diagnosis: Fracture, dislocation, neurovascular compromise, compartment syndrome, soft tissue injury, infection, electrolyte abnormality, cardiac sources, intracranial injury, neurologic, as well as other pathologies. Diagnostics, independently interpreted by me: ECG: Cardiac Monitoring: Cardiac monitoring ordered by me: The patient was placed on continuous cardiac monitoring and observed. It revealed a normal sinus rhythm at 75 beats per minute without ectopy or evidence of dysrhythmia. Medical decision rules: none Imaging studies: Head CT: A noncontrast CT scan of the head was performed and was negative for tumor, fracture, intracranial hemorrhage, or other acute pathology. X-ray imaging of the left hip is concerning for intertrochanteric fracture. X- ray imaging of the right hip reveals presurgical changes without periprosthetic fracture. HPI: 72 year old Female arrives for evaluation of a fall. This occurred just prior to arrival. Patient is at rehab for her right hip surgery. Patient states she was getting up and fell accidentally. She landed on her left side and has pain in the left hip. She notes some discomfort in the right side but that was there prior to the fall. Patient denies any head injury or other complaints. Patient states that she does have chronic lower leg edema. Family presents after her arrival and notes that she has had some mild confusion. Patient could not remember who performed her hip surgery. Daughter does note that it was [facility] orthopedics. Pt denies LOC, headache, fevers, chills, visual changes, neck pain, chest pain, breathing difficulties, nausea, vomiting, abdominal pain, back pain, melena, hematochezia, urinary symptoms, arm pain, lower leg pain, numbness, weakness, or other complaints. PAST MEDICAL HISTORY: See Below, COPD, Parkinson's, PAST SURGICAL HISTORY: See Below, cholecystectomy, ovarian cyst, right hip surgery SOCIAL HISTORY: See Below, smoker HOME MEDICATIONS: See Below ALLERGIES: See Below VITALS: See Below PHYSICAL EXAMINATION: GENERAL: Awake, uncomfortable-appearing, in no distress HENT: Normocephalic, atraumatic. Oropharynx unremarkable. EYES: Normal conjunctiva. Sclera non-icteric. NECK: Inspection normal. Non-tender. Supple. No nuchal rigidity. FROM. No masses. RESPIRATORY: Clear to auscultation. No wheezes. No rales. Normal respiratory effort. CARDIAC: Normal rate. Normal rhythm. No murmurs. No rubs. Extremities warm and well perfused. Pulses equal. No JVD. GI: Soft, non-distended. No tenderness to palpation. No rebound or guarding. No masses. RECTAL: Deferred. MUSCULOSKELETAL: Upper extremities are atraumatic. There is some minimal discomfort in the right hip but normal alignment clinically. Surgical incision is clean dry and intact without erythema or warmth. There are some minimal tenderness to the right hemipelvis. Moderate tenderness to the left hip and hemipelvis noted. The left leg is shortened and externally rotated. No visible signs of trauma or tenderness distally on the left lower extremity or right lower extremity. Chest examination reveals no tenderness. There is no CVA tenderness to palpation. No joint edema. LOWER EXTREMITIES: Calves are equal size bilaterally and non-tender. 1-2+ edema. No discoloration. NEURO: Normal sensorium. No sensory or motor deficits noted. SKIN: No rash or jaundice noted. PROCEDURES: none CRITICAL CARE: none OBSERVATION NOTE: none Past Med/Surg History Medical History (Updated 07/02/23 @ 19:18 by Karime Worthington PA-C) Aortic stenosis Murmur Intertrochanteric fracture of right hip Asthma well controlled per pt, rare res inh use Depression Bilateral lumbar radiculopathy Essential tremor BILAT. HANDS History of diverticulitis Anxiety and depression History of skin cancer NOSE Unsteady gait RECENT, CANE/WALKER PRN Cirrhosis of liver COPD (chronic obstructive pulmonary disease) Sciatica Migraines Hernia Snores Spondylolisthesis, lumbar region IBS (irritable bowel syndrome) Osteoarthritis Spinal stenosis of lumbar region Chronic back pain Hypertension PT DENIES Hyperlipidemia Surgical History S/P epidural steroid injection H/O colonoscopy with polypectomy H/O oophorectomy History of arthroscopy of left knee History of endoscopy Hx of ovarian cystectomy History of cholecystectomy History of bilateral tubal ligation History of tonsillectomy Hx of cataract extraction BILAT Family History Mother Colon cancer Other Family history of diabetes mellitus No family history of adverse response to anesthesia Social History Smoking Status: Current every day smoker Tobacco Type: Cigarettes Cigarettes Per Day: one pack per day; Second Hand Exposure: No; Do You Dip or Chew Tobacco: No; Hx Alcohol Use: No Hx Substance Use: No Preferred Language: Hungarian Communication Ability: Effective Running Specialist Required: No Beliefs That Will Affect Care: None Current Living Situation: Alone Current Living Situation Comment: DAUGHTER AND GRANDSON Feels Safe at Home: Yes Assistive Devices: Cane, Raised Toilet Seat, Walker and Other Allergies Allergies Allergy/AdvReac Type Severity Reaction Status Date / Time Milk Containing Products Allergy Intermediate Gastrointestinal Unverified 07/02/23 17:16 (Dairy) Upset ampicillin Allergy Mild RASH Verified 07/02/23 17:16 Bactrim Allergy Unknown UNKNOWN - Verified 10/22/15 08:03 CAN'T REMEMBER sulfamethoxazole Allergy Unknown UNKNOWN - Verified 07/02/23 17:16 CAN'T REMEMBER trimethoprim Allergy Unknown UNKNOWN - Verified 07/02/23 17:16 CAN'T REMEMBER Home Meds Home Medications Medication Instructions Recorded Confirmed alendronate 70 mg tablet (Fosamax) 70 mg PO WK 02/24/19 07/02/23 aspirin 81 mg tablet,delayed 81 mg PO QAM 02/24/19 07/02/23 release (Aspir-) citalopram 40 mg tablet 40 mg PO PM 02/24/19 07/02/23 diazepam 5 mg tablet 5 mg PO QID 02/24/19 07/02/23 gabapentin 100 mg capsule 100 mg PO BID 02/24/19 07/02/23 gabapentin 300 mg capsule 300 mg PO HS 02/24/19 07/02/23 primidone 50 mg tablet 100 mg PO BID 02/24/19 07/02/23 simvastatin 40 mg tablet 40 mg PO HS 02/24/19 07/02/23 vitamin E 268 mg (400 unit) capsule 400 unit PO PM 02/24/19 07/02/23 primidone 50 mg tablet 150 mg PO HS 09/13/20 07/02/23 dicyclomine 10 mg capsule 10 mg PO QID IBS 09/25/20 07/02/23 albuterol sulfate 90 mcg/actuation 1 inh inhalation Q4H PRN 01/30/21 07/02/23 aerosol inhaler SOB/WHEEZING fluticasone fur. 200 mcg-umeclid 1 inh inhalation DAILY 01/30/21 07/02/23 62.5 mcg-vilant 25 mcg inhalat.powder (Trelegy Ellipta) topiramate 25 mg tablet (Topamax) 25 mg PO QAM 02/03/22 07/02/23 Proheal 30 ml PO BID wound repair 07/02/23 07/02/23 acetaminophen 500 mg tablet 1,000 mg PO TID pain 07/02/23 07/02/23 (Tylenol Extra Strength) apixaban 2.5 mg tablet (Eliquis) 2.5 mg PO BID 07/02/23 07/02/23 bisacodyl 10 mg rectal suppository 10 mg IL DAILY PRN Constipation 07/02/23 07/02/23 (Dulcolax (bisacodyl)) cetirizine 10 mg tablet 10 mg PO QAM 07/02/23 07/02/23 folic acid 0.8 mg capsule 0.8 mg PO QAM 07/02/23 07/02/23 magnesium hydroxide 400 mg/5 mL See Rx Instructions .Route 07/02/23 07/02/23 oral suspension (Milk of Magnesia) .COMPLEX PRN Constipation naloxone 4 mg/actuation nasal spray 4 mg intranasal UD PRN Opioid 07/02/23 07/02/23 Overdose oxycodone 5 mg tablet 5 mg PO Q12H PRN Pain 07/02/23 07/02/23 sodium phosphates 19 gram-7 118 ml IL DAILY PRN Constipation 07/02/23 07/02/23 gram/118 mL enema (Fleet Enema) topiramate 50 mg tablet 50 mg PO HS 07/02/23 07/02/23 Results & Data (ED) Vital Signs Vital Signs - 24 hr 07/02/23 11:42 07/02/23 11:55 07/02/23 12:30 Temperature 36.9 C Temperature Source Oral Pulse Rate 71 71 Pulse Rate [Finger] 72 Pulse Rate from SpO2 Sensor Pulse Rhythm Regular Pulse Rhythm [Finger] Regular Pulse Strength Normal Pulse Strength [Finger] Normal Respiratory Rate 14 16 Respiratory Effort / Characteristics Non-Labored Non-Labored Respiratory Depth Normal Normal Respiratory Pattern Regular Regular Blood Pressure 111/59 L Blood Pressure [Left Arm] 103/59 L Blood Pressure Mean 76 Blood Pressure Mean [Left Arm] 73 Blood Pressure Position Lying Blood Pressure Position [Left Arm] Lying Pulse Oximetry 95 97 Oxygen Delivery Method Room Air Room Air Sepsis Recent Fever Within 48 Hours No Sepsis New/Unexplained Change in Mental Status No Sepsis Action Taken by Nursing No Action Required 07/02/23 13:00 07/02/23 14:30 07/02/23 16:00 Temperature Temperature Source Pulse Rate 78 Pulse Rate [Finger] 68 72 Pulse Rate from SpO2 Sensor 75 Pulse Rhythm Pulse Rhythm [Finger] Regular Pulse Strength Pulse Strength [Finger] Normal Respiratory Rate 16 18 17 Respiratory Effort / Characteristics Non-Labored Non-Labored Respiratory Depth Normal Normal Respiratory Pattern Regular Regular Blood Pressure 115/67 Blood Pressure [Left Arm] 92/45 L 84/55 L Blood Pressure Mean 83 Blood Pressure Mean [Left Arm] 60 64 Blood Pressure Position Blood Pressure Position [Left Arm] Lying Pulse Oximetry 89 L 96 93 Oxygen Delivery Method Room Air Room Air Sepsis Recent Fever Within 48 Hours Sepsis New/Unexplained Change in Mental Status Sepsis Action Taken by Nursing 07/02/23 16:30 07/02/23 16:49 Temperature Temperature Source Pulse Rate 78 81 Pulse Rate [Finger] Pulse Rate from SpO2 Sensor 78 Pulse Rhythm Pulse Rhythm [Finger] Pulse Strength Pulse Strength [Finger] Respiratory Rate 18 Respiratory Effort / Characteristics Respiratory Depth Respiratory Pattern Blood Pressure 114/62 Blood Pressure [Left Arm] Blood Pressure Mean 79 Blood Pressure Mean [Left Arm] Blood Pressure Position Blood Pressure Position [Left Arm] Pulse Oximetry 93 Oxygen Delivery Method Room Air Sepsis Recent Fever Within 48 Hours Sepsis New/Unexplained Change in Mental Status Sepsis Action Taken by Nursing Laboratory Data 07/02/23 11:50 07/02/23 11:50 Lab Results 07/02/23 07/02/23 Range/Units 11:50 12:30 WBC 10.14 (4.8-10.8) K/ul RBC 3.45 L (4.20-5.40) M/uL Hgb 10.0 L (12.0-16.0) g/dl Hct 30.9 L (37.0-47.0) % MCV 89.6 (80.0-100.0) fL MCH 29.0 (25.0-34.0) pg MCHC 32.4 (32.0-36.0) g/dL RDW Std Deviation 46.5 H (36.4-46.3) fL RDW Coeff of Jeannie 14.3 (11.5-14.5) % Plt Count 362 (130-400) K/uL MPV 10.8 (9.4-12.4) fL Immature Gran % (Auto) 0.6 % Neut % (Auto) 82.7 % Lymph % (Auto) 9.8 % Sullivan % (Auto) 6.3 % Eos % (Auto) 0.3 % Baso % (Auto) 0.3 % Neut # (Auto) 8.39 H (1.40-6.50) K/uL Lymph # (Auto) 0.99 L (1.20-3.40) K/uL Sullivan # (Auto) 0.64 H (0.11-0.59) K/uL Eos # (Auto) 0.03 (0.00-0.50) K/uL Baso # (Auto) 0.03 (0.00-0.20) K/uL Immature Gran # (Auto) 0.06 (0.01-0.20) K/uL PT 10.9 (9.0-12.0) Seconds INR 1.0 (0.9-1.1) APTT 29 (21-31) Seconds PTT Ratio 1.0 Sodium 139 (136-145) mmol/L Potassium 4.1 (3.5-5.1) mmol/L Chloride 108 H (98-107) mmol/L Carbon Dioxide 24 (21-32) mmol/L Anion Gap 7 (3-11) BUN 17 (6-23) mg/dl Creatinine 0.75 (0.6-1.2) mg/dl Est Cr Clr Drug Dosing 69.3 ml/min Est GFR ( Amer) 91.7 ml/min Est GFR (Non-Af Amer) 79.1 ml/min BUN/Creatinine Ratio 22.7 H (10-20) Glucose 101 H (70-99(Fasting)) mg/dl Calcium 9.2 (8.6-10.3) mg/dl Total Bilirubin 0.4 (0.2-1.0) mg/dl AST 12 L (13-39) U/L ALT 15 (7-52) U/L Alkaline Phosphatase 43 (34-104) U/L Total Protein 6.5 (6.0-8.3) gm/dl Albumin 3.6 (3.4-5.0) gm/dl Globulin 2.9 (2.5-4.0) gm/dl Albumin/Globulin Ratio 1.2 (0.9-2) Urine Color Yellow Urine Appearance Clear (Clear) Urine pH 7.0 (4.5-7.5) Ur Specific [place] 1.010 (1.000-1.030) Urine Protein Negative (Negative) Urine Glucose (UA) Negative (Negative) Urine Ketones Negative (Negative) Urine Blood Negative (Negative) Urine Nitrite Negative (Negative) Urine Bilirubin Negative (Negative) Urine Urobilinogen Negative (Negative) Ur Leukocyte Esterase Negative (Negative) Administered Medications Discontinued Medications Hydromorphone HCl (Hydromorphone Inj 0.5 Mg/0.5 Ml Syr) 0.5 mg IV Q20M PRN PRN Reason: Severe Pain (Rating 7,8,9,10) Stop: 07/16/23 11:55 Last Admin: 07/02/23 12:07 Dose: 0.5 mg Documented By: ANNE-MARIE Lactated Ringer's (Lr) 1,000 mls @ 75 mls/hr IV .[id number] RANULFO Stop: 08/01/23 11:59 Last Admin: 07/02/23 12:09 Dose: 75 mls/hr Documented By: ANNE-MARIE Acetaminophen (Ofirmev) 1,000 mg in 100 mls @ 400 mls/hr IV NOW STA Stop: 07/02/23 17:06 Last Infusion: 07/02/23 19:11 Dose: Infused Documented By: Admin: 07/02/23 17:32 Dose: 400 mls/hr Documented By: DANIEL Oxycodone HCl (Oxycodone Hcl Ir 5 Mg Tab (Immediate Release)) 5 mg PO NOW STA Stop: 07/02/23 17:23 Last Admin: 07/02/23 17:32 Dose: 5 mg Documented By: DANIEL Imaging Data Radiologist's Impression: Head CT 07/02/23 11:56 CT head/brain wo con CLINICAL HISTORY: 72 years-old Female with fall, confusion. Acute head trauma status post fall TECHNIQUE: Multiple axial CT images of the head were obtained without contrast. A dose lowering technique was utilized adhering to the principles of ALARA. CT DOSE: 625.8 mGy.cm COMPARISON: None. FINDINGS: No acute intracranial hemorrhage, midline shift, intracranial mass, hydrocephalus, territorial ischemia or abnormal extra-axial collection. Involutional changes with chronic microvascular ischemic disease. Cerebral vascular calcifications. The calvarium is intact. The paranasal sinuses, mastoid air cells, and middle ear cavities are generally clear. Prior bilateral repair. Mild subcutaneous edema of the lateral left cheek, likely posttraumatic. IMPRESSION: No acute intracranial abnormality or calvarial fracture. ACT 112: Negative or not required by law. The above report was generated using voice recognition software. It may contain grammatical, syntax or spelling errors. Electronically signed by: Evan Loving M.D. 07/02/2023 12:55 PM Hip X-Ray 07/02/23 11:56 LEFT HIP 2 VIEWS CLINICAL HISTORY: Fall. FINDINGS: AP and crosstable lateral views of the left hip are correlated with pelvic CT dated 06/17/2015. The skeletal structures are osteopenic. There is a comminuted intertrochanteric fracture of the left proximal femur with numerous displaced fragments and mild angulation. There is medial displacement of the lesser trochanter. Overlying soft tissue edema is noted. The visualized left hemipelvis appears intact. Mild to moderate arthritic change is noted in the left hip. IMPRESSION: Intertrochanteric fracture of the left proximal femur as above. Electronically signed by: Camron Ackerman M.D. 07/02/2023 2:10 PM Hip X-Ray 07/02/23 11:56 XR hip RT min 2V CLINICAL HISTORY: Fall. COMPARISON: Right femur radiographs June 23, 2023. FINDINGS: There are stable postoperative findings following internal fixation of the intertrochanteric fracture of the right femur. The appearance is unchanged since radiographs of June 23, 2023. Hardware is intact. No new fractures are present. IMPRESSION: 1. Stable postoperative findings following internal fixation of the intertrochanteric fracture of the right femur. Hardware intact. 2. No acute right femoral fractures. ACT 112: Negative or not required by law. Electronically signed by: Alexander Tavarez M.D. 07/02/2023 2:32 PM Chest X-Ray 07/02/23 11:57 SINGLE VIEW CHEST CLINICAL HISTORY: Fall. Hip fracture. FINDINGS: 2 AP, portable, supine chest radiographs are compared to study dated 06/09/2023. Correlation is made with chest CT dated 06/17/2015. The examination is degraded by portable technique and apical lordotic positioning appear The heart is enlarged noting atherosclerotic calcification of the thoracic aorta. The pulmonary vasculature is noncongested. Emphysema and chronic interstitial thickening is similar to previous. There is bibasilar scarring/atelectasis. No airspace consolidation or large pleural effusion is identified. No pneumothorax is seen. The skeletal structures are osteopenic. The bony thorax is grossly intact. IMPRESSION: Cardiomegaly and emphysema with no acute cardiopulmonary abnormality identified. ACT 112: Negative or not required by law. Electronically signed by: Camron Ackerman M.D. 07/02/2023 12:21 PM Discharge Plan Visit Data Chief Complaint: Fall ED Provider: Jim Haney Discharge Problem: Closed fracture of left hip, Accidental fall, Acute confusion Discharge Instructions Interventions: ED Discharge Assessment Last Done: 07/02/23 18:41
[2023-07-02 12:37] LABS: Albumin Globulin Ratio 1.2 (0.9-2); Albumin Level 3.6 gm/dl (3.4-5.0); BUN Creatinine Ratio 22.7 (10-20); Bilirubin,Total 0.4 mg/dl (0.2-1.0); Calcium 9.2 mg/dl (8.6-10.3); Creatinine Clr Calc Pharmacy 69.3 ml/min; Est GFR (African American) 91.7 ml/min; Est GFR (Non-African American) 79.1 ml/min; Globulin 2.9 gm/dl (2.5-4.0); Potassium 4.1 mmol/L (3.5-5.1); Total Protein 6.5 gm/dl (6.0-8.3)
[2023-07-02 12:48] LABS: Partial Thromboplastin Time 29 Seconds (21-31); Prothrombin Time 10.9 Seconds (9.0-12.0)
--- NOTE | 2023-07-02 12:57 | CT Scan Report ---
CT head/brain wo con CLINICAL HISTORY: 72 years-old Female with fall, confusion. Acute head trauma status post fall TECHNIQUE: Multiple axial CT images of the head were obtained without contrast. A dose lowering tech nique was utilized adhering to the principles of ALARA. CT DOSE: 625.8 mGy.cm COMPARISON: None. FINDINGS: No acute intracranial hemorrhage, midline shift, intracranial mass, hydrocephalus, territorial ischem ia or abnormal extra-axial collection. Involutional changes with chronic microvascular ischemic disea se. Cerebral vascular calcifications. The calvarium is intact. The paranasal sinuses, mastoid air cells, and middle ear cavities are gener ally clear. Prior bilateral repair. Mild subcutaneous edema of the lateral left cheek, likely posttra umatic. IMPRESSION: No acute intracranial abnormality or calvarial fracture. ACT 112: Negative or not required by law. The above report was generated using voice recognition software. It may contain grammatical, syntax o r spelling errors. Electronically signed by: Evan Loving M.D. 07/02/2023 12:55 PM
[2023-07-02 13:00] LABS: Appearance Urine Clear (Clear); Bilirubin Urine Negative (Negative); Blood Urine Negative (Negative); Color Urine Yellow; Glucose Urine UA Negative (Negative); Ketones Urine Negative (Negative); Leukocyte Esterase Urine Negative (Negative); Nitrite Urine Negative (Negative); Protein Urine Negative (Negative); Urobilinogen Urine Negative (Negative)
--- NOTE | 2023-07-02 14:12 | XRay Report ---
LEFT HIP 2 VIEWS CLINICAL HISTORY: Fall. FINDINGS: AP and crosstable lateral views of the left hip are correlated with pelvic CT dated 6. The skeletal structures are osteopenic. There is a comminuted intertrochanteric fracture of the le ft proximal femur with numerous displaced fragments and mild angulation. There is medial displacement of the lesser trochanter. Overlying soft tissue edema is noted. The visualized left hemipelvis appea rs intact. Mild to moderate arthritic change is noted in the left hip. IMPRESSION: Intertrochanteric fracture of the left proximal femur as above. Electronically signed by: Camron Ackerman M.D. 07/02/2023 2:10 PM
--- NOTE | 2023-07-02 14:34 | XRay Report ---
XR hip RT min 2V CLINICAL HISTORY: Fall. COMPARISON: Right femur radiographs June 23, 2023. FINDINGS: There are stable postoperative findings following internal fixation of the intertrochanter ic fracture of the right femur. The appearance is unchanged since radiographs of June 23, 2023. Hard vaca is intact. No new fractures are present. IMPRESSION: 1. Stable postoperative findings following internal fixation of the intertrochanteric fracture of the right femur. Hardware intact. 2. No acute right femoral fractures. ACT 112: Negative or not required by law. Electronically signed by: Alexander Tavarez M.D. 07/02/2023 2:32 PM
--- NOTE | 2023-07-02 16:08 | History & Physical Report ---
Date of Service July 02, 2023 Assessment & Plan (1) Fall: (2) Closed fracture of left hip: Plan: Osteoporosis Patient is 72-year-old female with PMH COPD, dyslipidemia, diastolic dysfunction, IBS, history migraine headache, history of lung nodule, chronic ba ck pain, history of tobacco use, tremor, aortic stenosis presented to ER from [facility] for fall and left hip pain. Recent admission 06/07/2023 for fall and right intertrochanteric hip fracture s/p ORIF on 06/08/[address] Iglesias. In ER vitals stable Left hip xray: Intertrochanteric fracture of the left proximal femur Right hip xray: Stable postoperative findings following internal fixation of the intertrochanteric fracture of the right femur. Hardware intact. No acute right femoral fractures. CT head: no acute intracranial abnormality In ER given hydromorphone. Patient states pain tolerable if lying still. Will give additional IV Tylenol now Scheduled Tylenol, oxycodone, morphine prn pain Continue gabapentin Bedrest NPO midnight Ortho consult. Dr Hansen aware and plans for OR in am CBC, BMP in am (3) Anemia: Plan: Hgb: 10. Was 9.5 on discharge on 06/11/23. Pre-op Hgb: 12 on 06/07/23 Monitor H&H (4) COPD (chronic obstructive pulmonary disease): Plan: No signs exacerbation Continue home inhalers, nebs as needed Supplemental oxygen as needed Prior admission 2-step requested but patient had denied prior to admission Monitor pulse ox (5) Dyslipidemia: Plan: Continue statin (6) Migraines: Plan: History migraines. Denies current OLVERA Continue topiramate (7) IBS (irritable bowel syndrome): Plan: Continue Bentyl (8) Depression: Plan: Continue citalopram (9) Essential tremor: Plan: On primidone Hold diazepam for now while on narcotics (10) Aortic stenosis: Plan: History echo 06/07/2023: EF: 60-65%, normal LV wall motion, grade 1 diastolic dysfunction, mild-moderate aortic stenosis, mild mitral annular calcification, trace mitral regurgitation (11) Diastolic dysfunction: Plan: Not currently on Lasix at rehab Monitor volume status closely DVT Prophylaxis SCDs DNR/DNI as per discussion with pt Follows with Dr Christie Morris for routine care Pt was seen and care coordinated with Dr Estrada. See addendum I spent a total of 78 minutes reviewing notes, outpatient records, labs, medication, coordinating, documenting and providing care for this patient excluding time spent in the performance of separately billed services. History of Present Illness Chief Complaint: Fall, left hip pain Primary Care Provider: Christie Morris DO Patient is 72-year-old female with PMH COPD, dyslipidemia, diastolic dysfunction, IBS, history migraine headache, history of lung nodule, chronic back pain, history of tobacco use, tremor, aortic stenosis presented to ER from [facility] for fall and left hip pain. History obtained from patient and inpatient and outpatient chart review. Patient with recent admission 06/07/2023- 06/11/2023 for fall and right intertrochanteric hip fracture s/p ORIF on 06/08/[address] Iglesias. Patient discharge to [facility] for rehab. Patient states was ambulating to bathroom today when she fell onto left hip, left side. Patient states instant left hip pain and was unable to get up. Patient denies any CP, SOB, dizziness prior to fall. She doesn't think he had LOC. States "I just fell". Was unwitnessed fall. Family thought patient had some confusion. In ER patient alert and oriented. Denies fever/chills, diaphoresis, N/V/D/C, OLVERA, vision changes, neck pain, CP, SOB, palpitations, cough, rhinorrhea, abdominal pain, paresthesias, increased extremity edema, rashes, urinary symptoms. History echo 06/07/2023: EF: 60-65%, normal LV wall motion, grade 1 diastolic dysfunction, mild-moderate aortic stenosis, mild mitral annular calcification, trace mitral regurgitation Allergies Allergy/AdvReac Type Severity Reaction Status Date / Time Milk Containing Products Allergy Intermediate Gastrointestinal Unverified 07/02/23 17:16 (Dairy) Upset ampicillin Allergy Mild RASH Verified 07/02/23 17:16 Bactrim Allergy Unknown UNKNOWN - Verified 10/22/15 08:03 CAN'T REMEMBER sulfamethoxazole Allergy Unknown UNKNOWN - Verified 07/02/23 17:16 CAN'T REMEMBER trimethoprim Allergy Unknown UNKNOWN - Verified 07/02/23 17:16 CAN'T REMEMBER Home Medications Medication Instructions Recorded Confirmed Type alendronate 70 mg tablet (Fosamax) 70 mg PO WK 02/24/19 07/02/23 History aspirin 81 mg tablet,delayed 81 mg PO QAM 02/24/19 07/02/23 History release (Aspir-) citalopram 40 mg tablet 40 mg PO PM 02/24/19 07/02/23 History diazepam 5 mg tablet 5 mg PO QID 02/24/19 07/02/23 History gabapentin 100 mg capsule 100 mg PO BID 02/24/19 07/02/23 History gabapentin 300 mg capsule 300 mg PO HS 02/24/19 07/02/23 History primidone 50 mg tablet 100 mg PO BID 02/24/19 07/02/23 History simvastatin 40 mg tablet 40 mg PO HS 02/24/19 07/02/23 History vitamin E 268 mg (400 unit) capsule 400 unit PO PM 02/24/19 07/02/23 History primidone 50 mg tablet 150 mg PO HS 09/13/20 07/02/23 History dicyclomine 10 mg capsule 10 mg PO QID IBS 09/25/20 07/02/23 History albuterol sulfate 90 mcg/actuation 1 inh inhalation Q4H PRN 01/30/21 07/02/23 History aerosol inhaler SOB/WHEEZING fluticasone fur. 200 mcg-umeclid 1 inh inhalation DAILY 01/30/21 07/02/23 History 62.5 mcg-vilant 25 mcg inhalat.powder (Trelegy Ellipta) topiramate 25 mg tablet (Topamax) 25 mg PO QAM 02/03/22 07/02/23 History Proheal 30 ml PO BID wound repair 07/02/23 07/02/23 History acetaminophen 500 mg tablet 1,000 mg PO TID pain 07/02/23 07/02/23 History (Tylenol Extra Strength) apixaban 2.5 mg tablet (Eliquis) 2.5 mg PO BID 07/02/23 07/02/23 History bisacodyl 10 mg rectal suppository 10 mg SC DAILY PRN Constipation 07/02/23 07/02/23 History (Dulcolax (bisacodyl)) cetirizine 10 mg tablet 10 mg PO QAM 07/02/23 07/02/23 History folic acid 0.8 mg capsule 0.8 mg PO QAM 07/02/23 07/02/23 History magnesium hydroxide 400 mg/5 mL See Rx Instructions .Route 07/02/23 07/02/23 History oral suspension (Milk of Magnesia) .COMPLEX PRN Constipation naloxone 4 mg/actuation nasal spray 4 mg intranasal UD PRN Opioid 07/02/23 07/02/23 History Overdose oxycodone 5 mg tablet 5 mg PO Q12H PRN Pain 07/02/23 07/02/23 History sodium phosphates 19 gram-7 118 ml [place] DAILY PRN Constipation 07/02/23 07/02/23 History gram/118 mL enema (Fleet Enema) topiramate 50 mg tablet 50 mg PO HS 07/02/23 07/02/23 History Past Med/Surg History Medical History (Updated 07/02/23 @ 19:18 by Karime Worthington PA-C) Aortic stenosis Murmur Intertrochanteric fracture of right hip Asthma well controlled per pt, rare res inh use Depression Bilateral lumbar radiculopathy Essential tremor BILAT. HANDS History of diverticulitis Anxiety and depression History of skin cancer NOSE Unsteady gait RECENT, CANE/WALKER PRN Cirrhosis of liver COPD (chronic obstructive pulmonary disease) Sciatica Migraines Hernia Snores Spondylolisthesis, lumbar region IBS (irritable bowel syndrome) Osteoarthritis Spinal stenosis of lumbar region Chronic back pain Hypertension PT DENIES Hyperlipidemia Surgical History S/P epidural steroid injection H/O colonoscopy with polypectomy H/O oophorectomy History of arthroscopy of left knee History of endoscopy Hx of ovarian cystectomy History of cholecystectomy History of bilateral tubal ligation History of tonsillectomy Hx of cataract extraction BILAT Family History Mother Colon cancer Other Family history of diabetes mellitus No family history of adverse response to anesthesia Social History Smoking Status: Current every day smoker Tobacco Type: Cigarettes Cigarettes Per Day: one pack per day; Second Hand Exposure: No; Do You Dip or Chew Tobacco: No; Hx Alcohol Use: No Hx Substance Use: No Preferred Language: Persian Communication Ability: Effective Automatic Presser Required: No Beliefs That Will Affect Care: None Current Living Situation: Alone Current Living Situation Comment: DAUGHTER AND GRANDSON Feels Safe at Home: Yes Assistive Devices: Cane, Raised Toilet Seat, Walker and Other Review of Systems Review of Systems: All systems reviewed & are unremarkable except as noted in HPI & below Physical Exam Physical Exam: General: no acute distress, WDWN Head: normocephalic, atraumatic Eyes: PERRL, EOM's intact, conjunctiva non-injected, anicteric ENT: normal inspection external ears, nose, mucous membranes moist Neck: supple, trachea midline Lungs: clear, no respiratory distress, no wheezing/rhonchi/rales CV: RRR, + murmur, trace pretibial edema Abd: normal BS, soft, non-tender Ext: LLE: +leg shortened and foot rotated, +tenderness to palpation entire left hip, no cyanosis, no erythema, dorsalis pedis pulse palpable, sensation to light touch intact, remaining extremities with normal appearance and non-tender Neuro: Alert, oriented to person, place, month, year, president. Said today was Wednesday (It is Wednesday), no focal deficits noted, normal affect Skin: warm, dry Results & Data Results & Data Vital Signs (Past 12 Hours) Vital Signs Temp Pulse Pulse Resp BP BP Pulse Ox 07/02/23 14:30 72 18 84/55 L 96 07/02/23 13:00 68 16 92/45 L 89 L 07/02/23 12:30 72 16 103/59 L 97 07/02/23 11:55 71 07/02/23 11:42 36.9 C 71 14 111/59 L 95 O2 Del Method 07/02/23 14:30 07/02/23 13:00 Room Air 07/02/23 12:30 Room Air 07/02/23 11:55 07/02/23 11:42 Room Air Laboratory Results Short CBC 07/02/23 Range/Units 11:50 WBC 10.14 (4.8-10.8) K/ul Hgb 10.0 L (12.0-16.0) g/dl Hct 30.9 L (37.0-47.0) % Plt Count 362 (130-400) K/uL BMP 07/02/23 11:50 Sodium 139 Potassium 4.1 Chloride 108 H Carbon Dioxide 24 BUN 17 Creatinine 0.75 Glucose 101 H Calcium 9.2 Liver Function 07/02/23 Range/Units 11:50 Total Bilirubin 0.4 (0.2-1.0) mg/dl AST 12 L (13-39) U/L ALT 15 (7-52) U/L Alkaline Phosphatase 43 (34-104) U/L Albumin 3.6 (3.4-5.0) gm/dl Urine 07/02/23 Range/Units 12:30 Urine Color Yellow Urine Appearance Clear (Clear) Urine pH 7.0 (4.5-7.5) Ur Specific [place] 1.010 (1.000-1.030) Urine Protein Negative (Negative) Urine Glucose (UA) Negative (Negative) Diagnostic Findings Head CT 07/02/23 11:56 CT head/brain wo con CLINICAL HISTORY: 72 years-old Female with fall, confusion. Acute head trauma status post fall TECHNIQUE: Multiple axial CT images of the head were obtained without contrast. A dose lowering technique was utilized adhering to the principles of ALARA. CT DOSE: 625.8 mGy.cm COMPARISON: None. FINDINGS: No acute intracranial hemorrhage, midline shift, intracranial mass, hydrocephalus, territorial ischemia or abnormal extra-axial collection. Involutional changes with chronic microvascular ischemic disease. Cerebral vascular calcifications. The calvarium is intact. The paranasal sinuses, mastoid air cells, and middle ear cavities are generally clear. Prior bilateral repair. Mild subcutaneous edema of the lateral left cheek, likely posttraumatic. IMPRESSION: No acute intracranial abnormality or calvarial fracture. ACT 112: Negative or not required by law. The above report was generated using voice recognition software. It may contain grammatical, syntax or spelling errors. Electronically signed by: Evan Loving M.D. 07/02/2023 12:55 PM Hip X-Ray 07/02/23 11:56 LEFT HIP 2 VIEWS CLINICAL HISTORY: Fall. FINDINGS: AP and crosstable lateral views of the left hip are correlated with pelvic CT dated 06/17/2015. The skeletal structures are osteopenic. There is a comminuted intertrochanteric fracture of the left proximal femur with numerous displaced fragments and mild angulation. There is medial displacement of the lesser trochanter. Overlying soft tissue edema is noted. The visualized left hemipelvis appears intact. Mild to moderate arthritic change is noted in the left hip. IMPRESSION: Intertrochanteric fracture of the left proximal femur as above. Electronically signed by: Camron Ackerman M.D. 07/02/2023 2:10 PM Hip X-Ray 07/02/23 11:56 XR hip RT min 2V CLINICAL HISTORY: Fall. COMPARISON: Right femur radiographs June 23, 2023. FINDINGS: There are stable postoperative findings following internal fixation of the intertrochanteric fracture of the right femur. The appearance is unchanged since radiographs of June 23, 2023. Hardware is intact. No new fractures are present. IMPRESSION: 1. Stable postoperative findings following internal fixation of the intertrochanteric fracture of the right femur. Hardware intact. 2. No acute right femoral fractures. ACT 112: Negative or not required by law. Electronically signed by: Alexander Tavarez M.D. 07/02/2023 2:32 PM Chest X-Ray 07/02/23 11:57 SINGLE VIEW CHEST CLINICAL HISTORY: Fall. Hip fracture. FINDINGS: 2 AP, portable, supine chest radiographs are compared to study dated 06/09/2023. Correlation is made with chest CT dated 06/17/2015. The examination is degraded by portable technique and apical lordotic positioning appear The heart is enlarged noting atherosclerotic calcification of the thoracic aorta. The pulmonary vasculature is noncongested. Emphysema and chronic interstitial thickening is similar to previous. There is bibasilar scarring/atelectasis. No airspace consolidation or large pleural effusion is identified. No pneumothorax is seen. The skeletal structures are osteopenic. The bony thorax is grossly intact. IMPRESSION: Cardiomegaly and emphysema with no acute cardiopulmonary abnormality identified. ACT 112: Negative or not required by law. Electronically signed by: Camron Ackerman M.D. 07/02/2023 12:21 PM Supervising Physician Co-Signing Physician Notes I have seen and examined the patient and have discussed the case with the sedricki cindy above. I have reviewed the advanced practitioner's documentation, and I agree with, and take responsibility for that plan of care. 72 yo F with recent fall and subsequent repair of R hip fracture one month ago, fell at rehab today. She is currently at [facility] and reported fell at 0600 when attempting to get up independently. She was on fall precautions per staff but didn't ring for help until after she fell. The patient reports not remembering the sequence of events this morning and cannot remember today. Staff reports that patient has been confused recently although didn't go into detail on this. Uncertain baseline mental status of patient as no family is present at bedside. The patient does report that yesterday she had three meals in the dining amezquita with "the ladies" and has been eating well and ambulating with a walker. She does report not liking the first rehab that she was in and had transferred to [facility]. She does report that her pain is not well controlled and is in agreement to try oxycodone. She denies any recent chest pain, shortness of breath or other new symptoms. Exam as noted above. She is oriented to person, place and time. Labs/meds/im aging studies reviewed. Left hip fracture, likely related to underlying osteoporosis. Plans for OR tomorrow with Dr. Hansen. Cont supportive care and adequate pain control. Monitor for an improvement in slight confusion with better pain control efforts. Sean,
--- NOTE | 2023-07-02 17:21 | Anesthesiology Consultation ---
Date of Service July 02, 2023 Assessment & Plan Chart Review Chart Review: Acceptable Risk for Surgery and Patient NOT seen in Pre Admission Testing Consults Requested none ASA ASA4 Proposed Anesthesia Anesthesia Type: General Anesthesia Line Insertion: Arterial line History Surgery Operation Date: 07/03/23 07:30 Proposed Procedures p Left Hip Trochanteric Femoral Nail - Evan Hansen, DO Height/Weight Height: 5 ft 5 in Weight: 78.7 kg Allergies Allergy/AdvReac Type Severity Reaction Status Date / Time Milk Containing Products Allergy Intermediate Gastrointestinal Unverified 07/02/23 17:16 (Dairy) Upset ampicillin Allergy Mild RASH Verified 07/02/23 17:16 Bactrim Allergy Unknown UNKNOWN - Verified 10/22/15 08:03 CAN'T REMEMBER sulfamethoxazole Allergy Unknown UNKNOWN - Verified 07/02/23 17:16 CAN'T REMEMBER trimethoprim Allergy Unknown UNKNOWN - Verified 07/02/23 17:16 CAN'T REMEMBER Medications Home Medications Medication Instructions Recorded Confirmed Last Taken alendronate 70 mg tablet (Fosamax) 70 mg PO WK 02/24/19 07/02/23 02/10/22 aspirin 81 mg tablet,delayed 81 mg PO QAM 02/24/19 07/02/23 07/02/23 release (Aspir-) citalopram 40 mg tablet 40 mg PO PM 02/24/19 07/02/23 07/01/23 diazepam 5 mg tablet 5 mg PO QID 02/24/19 07/02/23 07/02/23 gabapentin 100 mg capsule 100 mg PO BID 02/24/19 07/02/23 07/02/23 gabapentin 300 mg capsule 300 mg PO HS 02/24/19 07/02/23 07/01/23 primidone 50 mg tablet 100 mg PO BID 02/24/19 07/02/23 07/02/23 simvastatin 40 mg tablet 40 mg PO HS 02/24/19 07/02/23 07/01/23 vitamin E 268 mg (400 unit) capsule 400 unit PO PM 02/24/19 07/02/23 07/01/23 primidone 50 mg tablet 150 mg PO HS 09/13/20 07/02/23 07/01/23 dicyclomine 10 mg capsule 10 mg PO QID IBS 09/25/20 07/02/23 07/02/23 albuterol sulfate 90 mcg/actuation 1 inh inhalation Q4H PRN 01/30/21 07/02/23 Unknown aerosol inhaler SOB/WHEEZING fluticasone fur. 200 mcg-umeclid 1 inh inhalation DAILY 01/30/21 07/02/23 07/02/23 62.5 mcg-vilant 25 mcg inhalat.powder (Trelegy Ellipta) topiramate 25 mg tablet (Topamax) 25 mg PO QAM 02/03/22 07/02/23 07/02/23 Proheal 30 ml PO BID wound repair 07/02/23 07/02/23 07/02/23 acetaminophen 500 mg tablet 1,000 mg PO TID pain 07/02/23 07/02/23 07/02/23 (Tylenol Extra Strength) apixaban 2.5 mg tablet (Eliquis) 2.5 mg PO BID 07/02/23 07/02/23 07/02/23 bisacodyl 10 mg rectal suppository 10 mg KS DAILY PRN Constipation 07/02/23 07/02/23 Unknown (Dulcolax (bisacodyl)) cetirizine 10 mg tablet 10 mg PO QAM 07/02/23 07/02/23 07/02/23 folic acid 0.8 mg capsule 0.8 mg PO QAM 07/02/23 07/02/23 07/02/23 magnesium hydroxide 400 mg/5 mL See Rx Instructions .Route 07/02/23 07/02/23 Unknown oral suspension (Milk of Magnesia) .COMPLEX PRN Constipation naloxone 4 mg/actuation nasal spray 4 mg intranasal UD PRN Opioid 07/02/23 07/02/23 Unknown Overdose oxycodone 5 mg tablet 5 mg PO Q12H PRN Pain 07/02/23 07/02/23 07/02/23 sodium phosphates 19 gram-7 118 ml KS DAILY PRN Constipation 07/02/23 07/02/23 Unknown gram/118 mL enema (Fleet Enema) topiramate 50 mg tablet 50 mg PO HS 07/02/23 07/02/23 07/01/23 Active Medications Generic Name Dose Route Start Last Admin Trade Name Freq PRN Reason Stop Dose Admin Hydromorphone HCl 0.5 mg 07/02/23 11:56 07/02/23 12:07 Hydromorphone Inj 0.5 Mg/0.5 Ml Syr IV 07/16/23 11:55 0.5 mg Q20M PRN Administration Severe Pain (Rating 7,8,9,10) Lactated Ringer's 1,000 mls @ 75 mls/hr 07/02/23 12:00 07/02/23 12:09 Lr IV 08/01/23 11:59 75 mls/hr .[id number] RANULFO Administration Past Medical History Medical History Murmur Intertrochanteric fracture of right hip Asthma well controlled per pt, rare res inh use Depression Bilateral lumbar radiculopathy Essential tremor BILAT. HANDS History of diverticulitis Anxiety and depression History of skin cancer NOSE Unsteady gait RECENT, CANE/WALKER PRN Cirrhosis of liver COPD (chronic obstructive pulmonary disease) Sciatica Migraines Hernia Snores Spondylolisthesis, lumbar region IBS (irritable bowel syndrome) Osteoarthritis Spinal stenosis of lumbar region Chronic back pain Hypertension PT DENIES Hyperlipidemia Exercise / Class Metabolic Activity IV < 2 Limit ADL/Bedbound Past Family History Family History Mother Colon cancer Other Family history of diabetes mellitus No family history of adverse response to anesthesia Past Surgical History Surgical History S/P epidural steroid injection H/O colonoscopy with polypectomy H/O oophorectomy History of arthroscopy of left knee History of endoscopy Hx of ovarian cystectomy History of cholecystectomy History of bilateral tubal ligation History of tonsillectomy Hx of cataract extraction BILAT Past Anesthesia History No Hx of Anesthesia Complications and No Family Hx of Anesthesia Complications History of PONV No Hx of PONV and No Hx of Motion Sickness Social History Smoking Status: Current every day smoker tobacco type: cigarettes Smoking cigarettes per day: one pack per day Do You Dip or Chew Tobacco: No Hx Alcohol Use: No Hx Substance Use: No substance use type: does not use Physical Exam Vital Signs Last Vital Signs Temp 36.9 C 07/02/23 11:42 Pulse 81 07/02/23 16:49 Resp 18 07/02/23 16:30 BP 114/62 07/02/23 16:30 Pulse Ox 93 07/02/23 16:30 O2 Del Method Room Air 07/02/23 16:30 Testing Laboratory Results 07/02/23 11:50 07/02/23 11:50 PT 10.9 Seconds (9.0-12.0) 07/02/23 11:50 INR 1.0 (0.9-1.1) 07/02/23 11:50 APTT 29 Seconds (21-31) 07/02/23 11:50 Urine Color Yellow 07/02/23 12:30 Urine Appearance Clear (Clear) 07/02/23 12:30 Urine pH 7.0 (4.5-7.5) 07/02/23 12:30 Ur Specific [place] 1.010 (1.000-1.030) 07/02/23 12:30 Urine Protein Negative (Negative) 07/02/23 12:30 Urine Glucose (UA) Negative (Negative) 07/02/23 12:30 Urine Ketones Negative (Negative) 07/02/23 12:30 Urine Nitrite Negative (Negative) 07/02/23 12:30 Ur Leukocyte Esterase Negative (Negative) 07/02/23 12:30 Electrocardiogram Date: 07/02/23 Findings: + NSR @ (SR @ 76 w/ occas. PVC's and fusion complexes;low voltage QRS;? age of septal infarct) Chest X-Ray Date: 07/02/23 Findings: + cardiomegaly, + atherosclerosis of thoracic aorta and + other (c/w emphysema) Echocardiogram Date: 06/07/23 EF: 60% LV Function: normal RWMA: + none Other Findings: + LVH (mild) and + diastolic dysfunction (grade 1) Valvular Disease: + (moderate ;GRANT-1.4 cm2)
[2023-07-02] MEDS ORDERED: SODIUM CHLORIDE 0.9% 250 ML IV PRN (17:24)
[2023-07-02] MEDS: oxyCODONE HCL IR 5 MG TAB (IMMEDIATE RELEASE) PO STA (17:32)
[2023-07-02] MEDS: ACETAMINOPHEN 1,000 MG/100 ML VIAL IV STA (17:32)
[2023-07-02] MEDS ORDERED: ALBUTEROL 0.083% NEBU SOLN 3 ML VIAL NEB PRN (18:40)
[2023-07-02] MEDS ORDERED: MAGNESIUM HYDROXIDE SUSP 30 ML UDC PO PRN (18:40)
[2023-07-02] MEDS ORDERED: NALOXONE HCL 0.4 MG/1 ML VIAL/CARP IV PRN (18:40)
[2023-07-02] MEDS ORDERED: bisacodyL 10 MG SUPP PR PRN (18:40)
[2023-07-02] MEDS ORDERED: ONDANSETRON INJ 2 MG/ML 2 ML VIAL IV PRN (18:40)
[2023-07-02] MEDS ORDERED: POLYETHYLENE (MIRALAX) 17 GM PACK PO PRN (18:40)
[2023-07-02] MEDS: MoRPHine SULFATE 2 MG/ML CARP IV PRN (20:16)
[2023-07-02] MEDS: DOCUSATE SODIUM 100 MG CAP PO SCH (22:55)
[2023-07-02] MEDS: TOPIRAMATE 50 MG TAB PO SCH (23:05)
[2023-07-02] MEDS: CITALOPRAM 40 MG TAB PO SCH (23:05)
[2023-07-02] MEDS: GABAPENTIN 300 MG CAP PO SCH (23:06)
[2023-07-02] MEDS: PRIMIDONE 50 MG TAB PO SCH (23:06)
[2023-07-02] MEDS: DICYCLOMINE HCL 10 MG CAP PO SCH (23:06)
[2023-07-02] MEDS: SIMVASTATIN 40 MG TAB PO SCH (23:07)
[2023-07-02 23:10] LABS: Troponin I High Sensitivity 4.6 pg/ml (0-14)
[2023-07-02] MEDS: SODIUM CHLORIDE 0.9% 1,000 ML IV SCH (23:48)
[2023-07-03] MEDS: ACETAMINOPHEN 500 MG TAB PO SCH (00:55)
--- NOTE | 2023-07-03 06:04 | Electrocardiogram Report ---
Test Reason : Blood Pressure : / mmHG Vent. Rate : 077 BPM Atrial Rate : 077 BPM P-R Int : 200 ms QRS Dur : 062 ms QT Int : 390 ms P-R-T Axes : 081 018 069 degrees QTc Int : 441 ms Sinus rhythm with occasional Premature ventricular complexes Low voltage QRS Abnormal ECG Confirmed by Des Stewart ([id number]) on 07/03/2023 6:03:53 AM Referred By: Christie Morris Confirmed By:Janes Stewart
[2023-07-03 06:19] LABS: BUN Creatinine Ratio 21.7 (10-20); Calcium 8.8 mg/dl (8.6-10.3); Est GFR (African American) 104.8 ml/min; Est GFR (Non-African American) 90.4 ml/min; Potassium 3.8 mmol/L (3.5-5.1)
[2023-07-03 06:35] LABS: Hematocrit (blood only) 31.7 % (37.0-47.0); Hemoglobin 9.9 g/dl (12.0-16.0); Mean Corpuscular Hemoglobin 28.4 pg (25.0-34.0); Mean Corpuscular Hgb Conc 31.2 g/dL (32.0-36.0); Mean Corpuscular Volume 90.8 fL (80.0-100.0); Mean Platelet Volume 10.8 fL (9.4-12.4); Platelet Count 308 K/uL (130-400); RDW Coefficient of Variation 14.1 % (11.5-14.5); RDW Standard Deviation 46.5 fL (36.4-46.3); Red Blood Count 3.49 M/uL (4.20-5.40); White Blood Count 6.23 K/ul (4.8-10.8)
[2023-07-03] MEDS ORDERED: PROPOFOL IV EMULSION 10 MG/ML 20 ML VIAL IV ONE ×2 (07:23→07:24)
[2023-07-03] MEDS ORDERED: fentaNYL citrate PF 100 MCG/2 ML VIAL ONE ×2 (07:24→08:51)
[2023-07-03] MEDS ORDERED: MIDAZOLAM HCL 1 MG/ML 2ML VIAL ONE (07:24)
[2023-07-03] MEDS ORDERED: LIDOCAINE 2% 2 ML VIAL/AMP(20MG/ML) INFIL ONE (07:24)
[2023-07-03] MEDS ORDERED: ONDANSETRON INJ 2 MG/ML 2 ML VIAL ONE (07:24)
[2023-07-03] MEDS ORDERED: DEXAMETHASONE SOD INJ 4 MG/ML VIAL ONE (07:24)
--- NOTE | 2023-07-03 07:46 | History & Physical Bridge Note ---
Date of Service July 03, 2023 History & Physical Bridge Note I have examined the patient, reviewed the History & Physical and in the interval since the performance of the History & Physical I have noted the following changes of clinical significance: no changes noted. Met with the patient and her daughter. We had a lengthy discussion regarding risk benefits potential complications of left hip cephalomedullary nail for her displaced left intertrochanteric femur fracture. These include but are not limited to infection, neurovascular injury, DVT, nonunion, malunion, hardware failure and need for future surgery. After reviewing these they elected to proceed with surgical intervention and written consent was obtained
[2023-07-03] MEDS: BUPIVACAINE 0.5 % 5 MG/1 ML MPF 30ML VIAL ONE (07:49)
--- NOTE | 2023-07-03 07:49 | Orthopedic Consultation ---
Date of Consultation July 03, 2023 Assessment & Plan (1) Closed fracture of left hip: 72-year-old female with displaced left intertrochanteric femur fracture N.p.o. Antibiotics on-call the OR Pain control Bedrest Nonweightbearing left lower extremity Plan for left hip cephalomedullary nail History of Present Illness Reason for Consultation: Left intertrochanteric femur Attending Physician: Wander Dale MD History of Present Illness 72-year-old female presenting after sustaining ground-level fall onto her left side. Immediately afterwards she noted pain and inability to ambulate. Patient was taken to emergency department where radiographs were obtained demonstrating displaced left intertrochanteric femur fracture. She was admitted to medical service and orthopedics was consulted for operative management Allergies Allergy/AdvReac Type Severity Reaction Status Date / Time Milk Containing Products Allergy Intermediate Gastrointestinal Unverified 07/02/23 17:16 (Dairy) Upset ampicillin Allergy Mild RASH Verified 07/02/23 17:16 Bactrim Allergy Unknown UNKNOWN - Verified 10/22/15 08:03 CAN'T REMEMBER sulfamethoxazole Allergy Unknown UNKNOWN - Verified 07/02/23 17:16 CAN'T REMEMBER trimethoprim Allergy Unknown UNKNOWN - Verified 07/02/23 17:16 CAN'T REMEMBER Home Medications Medication Instructions Recorded Confirmed Type alendronate 70 mg tablet (Fosamax) 70 mg PO WK 02/24/19 07/02/23 History aspirin 81 mg tablet,delayed 81 mg PO QAM 02/24/19 07/02/23 History release (Aspir-) citalopram 40 mg tablet 40 mg PO PM 02/24/19 07/02/23 History diazepam 5 mg tablet 5 mg PO QID 02/24/19 07/02/23 History gabapentin 100 mg capsule 100 mg PO BID 02/24/19 07/02/23 History gabapentin 300 mg capsule 300 mg PO HS 02/24/19 07/02/23 History primidone 50 mg tablet 100 mg PO BID 02/24/19 07/02/23 History simvastatin 40 mg tablet 40 mg PO HS 02/24/19 07/02/23 History vitamin E 268 mg (400 unit) capsule 400 unit PO PM 02/24/19 07/02/23 History primidone 50 mg tablet 150 mg PO HS 09/13/20 07/02/23 History dicyclomine 10 mg capsule 10 mg PO QID IBS 09/25/20 07/02/23 History albuterol sulfate 90 mcg/actuation 1 inh inhalation Q4H PRN 01/30/21 07/02/23 History aerosol inhaler SOB/WHEEZING fluticasone fur. 200 mcg-umeclid 1 inh inhalation DAILY 01/30/21 07/02/23 History 62.5 mcg-vilant 25 mcg inhalat.powder (Trelegy Ellipta) topiramate 25 mg tablet (Topamax) 25 mg PO QAM 02/03/22 07/02/23 History Proheal 30 ml PO BID wound repair 07/02/23 07/02/23 History acetaminophen 500 mg tablet 1,000 mg PO TID pain 07/02/23 07/02/23 History (Tylenol Extra Strength) apixaban 2.5 mg tablet (Eliquis) 2.5 mg PO BID 07/02/23 07/02/23 History bisacodyl 10 mg rectal suppository 10 mg NM DAILY PRN Constipation 07/02/23 07/02/23 History (Dulcolax (bisacodyl)) cetirizine 10 mg tablet 10 mg PO QAM 07/02/23 07/02/23 History folic acid 0.8 mg capsule 0.8 mg PO QAM 07/02/23 07/02/23 History magnesium hydroxide 400 mg/5 mL See Rx Instructions .Route 07/02/23 07/02/23 History oral suspension (Milk of Magnesia) .COMPLEX PRN Constipation naloxone 4 mg/actuation nasal spray 4 mg intranasal UD PRN Opioid 07/02/23 07/02/23 History Overdose oxycodone 5 mg tablet 5 mg PO Q12H PRN Pain 07/02/23 07/02/23 History sodium phosphates 19 gram-7 118 ml NM DAILY PRN Constipation 07/02/23 07/02/23 History gram/118 mL enema (Fleet Enema) topiramate 50 mg tablet 50 mg PO HS 07/02/23 07/02/23 History Patient History Medical History (Updated 07/02/23 @ 19:18 by Karime Worthington PA-C) Aortic stenosis Murmur Intertrochanteric fracture of right hip Asthma well controlled per pt, rare res inh use Depression Bilateral lumbar radiculopathy Essential tremor BILAT. HANDS History of diverticulitis Anxiety and depression History of skin cancer NOSE Unsteady gait RECENT, CANE/WALKER PRN Cirrhosis of liver COPD (chronic obstructive pulmonary disease) Sciatica Migraines Hernia Snores Spondylolisthesis, lumbar region IBS (irritable bowel syndrome) Osteoarthritis Spinal stenosis of lumbar region Chronic back pain Hypertension PT DENIES Hyperlipidemia Surgical History S/P epidural steroid injection H/O colonoscopy with polypectomy H/O oophorectomy History of arthroscopy of left knee History of endoscopy Hx of ovarian cystectomy History of cholecystectomy History of bilateral tubal ligation History of tonsillectomy Hx of cataract extraction BILAT Family History Mother Colon cancer Other Family history of diabetes mellitus No family history of adverse response to anesthesia Social History Smoking Status: Former smoker Tobacco Type: Cigarettes Cigarettes Per Day: one pack per day; Second Hand Exposure: No; Do You Dip or Chew Tobacco: No; Tobacco Cessation Education Requested by Patient: No Hx Alcohol Use: No Hx Substance Use: No Preferred Language: Polish Communication Ability: Effective Pretzel Packer Required: No Beliefs That Will Affect Care: None Current Living Situation: Alone Current Living Situation Comment: [facility] Other Information That Helps Us Care for You: No Feels Safe at Home: Yes Safety Concerns: Feels Safe At This Time Assistive Devices: Cane, Denture - Upper, Denture - Lower, Raised Toilet Seat, Walker and Other Physical Exam Constitutional: NAD, resting in bed Musculoskeletal: LLE + logroll - silt s/spn/dpn/t/s - fires ta/ehl/gsc +dp/pt Results & Data Vital Signs (Past 12 Hours) Vital Signs Temp Pulse Pulse Resp BP BP Pulse Ox 07/03/23 04:02 37.1 C 80 18 93/53 L 92 07/03/23 00:17 07/03/23 00:17 36.8 C 83 16 113/69 92 07/02/23 22:56 79 07/02/23 21:30 74 18 98/62 L 94 07/02/23 21:00 75 16 99/53 L 96 07/02/23 20:00 108/66 94 07/02/23 19:52 Pulse Ox O2 Del Method O2 Del Method 07/03/23 04:02 Room Air 07/03/23 00:17 Room Air 07/03/23 00:17 Room Air 07/02/23 22:56 07/02/23 21:30 07/02/23 21:00 Room Air 07/02/23 20:00 Room Air 07/02/23 19:52 95 Room Air Diagnostic Findings Left hip radiographs demonstrate displaced left intertrochanteric femur fracture
[2023-07-03] MEDS ORDERED: ceFAZolin 330 MG/ML 1 GM VIAL ONE (08:15)
[2023-07-03] MEDS: ceFAZolin 2000MG 2,000 MG/15 ML SYR IV SCH ×2 (08:16→16:53)
[2023-07-03] MEDS ORDERED: NON-FORMULARY MEDICATION (Fluticasone-Umeclidin-Vilanter [Trelegy Ellipta] 200-62.5-25 mcg INH SCH (09:00)
[2023-07-03] MEDS ORDERED: NALOXONE HCL 0.4 MG/1 ML VIAL/CARP IV PRN (09:18)
[2023-07-03] MEDS ORDERED: PROMETHAZINE HCL 6.25 MG in SODIUM CHLORIDE 0.9% 50 ML IV PRN (09:18)
[2023-07-03] MEDS ORDERED: ePHEDrine sulfate 50 MG/ML AMP IV PRN (09:18)
[2023-07-03] MEDS ORDERED: FLUMAZENIL 0.1 MG/1 ML 10 ML VIAL IV PRN (09:18)
[2023-07-03] MEDS ORDERED: fentaNYL citrate PF 100 MCG/2 ML VIAL IV PRN (09:18)
[2023-07-03] MEDS ORDERED: ATROPINE SULFATE 0.1 MG/ML 10ML SYR IV PRN (09:18)
[2023-07-03] MEDS: BUPIVACAINE 0.25% PF 30 ML VIAL ONE (09:34)
--- OUTSIDE RECORDS SUMMARY | 2023-07-03 09:36 | External Medical Summary | Continuity of Care Document ---
Author Name Unknown Organization [id number] Address [address] [place] [id number] Care Team Providers Care Skid Adzer Name Role Phone Christie Morris Primary Care Physician [phone] [facility] [id number] Date(s): 06/23/23 - 06/23/23 [facility] [address] [id number] [facility] [address] [address] Encounter Diagnosis Ankle pain, right(Discharge Diagnosis) - 06/23/23 Hip fracture, right(Discharge Diagnosis) - 06/23/23 Discharge Disposition: Home or Self Care Attending Physician: MD Harris, Arnold George Allergies, Adverse Reactions, Alerts Substance Reaction Severity Status ampicillin unknown Moderate Active sulfa drugs unknown Moderate Active Medications albuterol CFC free 90 mcg/inh MDI Start: 09/05/20 8:33:00 EDT Start Date: 09/05/20 Status: Ordered alendronate 70 mg oral tablet TAKE ONE TABLET BY MOUTH ONCE A WEEK WITH 8 OUNCES OF WATER 30 MINUTES BEFORE FIRST MEAL OF THE DAY. REMAIN UPRIGHT FOR 30 MINUTES AFTER CHRISTOPHER Start Date: 01/06/19 Status: Ordered atorvastatin 40 mg oral tablet Start: 06/23/23 13:50:00 EDT Start Date: 06/23/23 Status: Ordered bisacodyl 10 mg rectal suppository Start: 06/23/23 13:55:00 EDT Start Date: 06/23/23 Status: Ordered Breo Ellipta Start: 06/23/23 13:56:00 EDT Start Date: 06/23/23 Status: Ordered calcium-vitamin D 250 mg-12.5 mcg (500 intl units) oral tablet, chewable Start: 06/23/23 13:57:00 EDT Start Date: 06/23/23 Status: Ordered citalopram 40 mg oral tablet TAKE 1 TABLET BY MOUTH ONCE DAILY Start Date: 01/06/19 Status: Ordered dextrose Start: 06/23/23 13:56:00 EDT Start Date: 06/23/23 Status: Ordered diazePAM 5 mg oral tablet TAKE 1 TABLET BY MOUTH 3 TIMES A DAY AND THEN 1 TABLET DAILY NEEDED Start Date: 01/06/19 Status: Ordered dicyclomine 10 mg oral capsule Start: 06/23/23 13:51:00 EDT Start Date: 06/23/23 Status: Ordered Eliquis 2.5 mg oral tablet Start: 06/23/23 13:52:00 EDT Start Date: 06/23/23 Status: Ordered Esgic oral tablet Start: 01/06/19 11:02:00 EDT Start Date: 01/06/19 Status: Ordered folic acid Start: 06/23/23 13:53:00 EDT Start Date: 06/23/23 Status: Ordered ibuprofen 800 mg oral tablet TAKE 1 TABLET BY MOUTH EVERY 12 HOURS NEEDED FOR PAIN Start Date: 01/06/19 Status: Ordered MiraLax Start: 06/23/23 13:56:00 EDT Start Date: 06/23/23 Status: Ordered naloxone Start: 06/23/23 13:56:00 EDT Start Date: 06/23/23 Status: Ordered Neurontin 400 mg oral capsule Start: 02/02/19 8:41:00 EST, 1 cap, PO, tid, Disp# 90 cap, Refills: 2, Pharmacy: [facility] [id number] Start Date: 02/02/19 Stop Date: 05/03/19 Status: Ordered oxyCODONE (capsule) 5 mg oral Start: 06/23/23 13:53:00 EDT, Refills: 0 Start Date: 06/23/23 Status: Ordered primidone 50 mg oral tablet TAKE 3 TABLETS BY MOUTH THREE TIMES DAILY Start Date: 01/06/19 Status: Ordered Senokot Start: 06/23/23 13:55:00 EDT Start Date: 06/23/23 Status: Ordered simvastatin 40 mg oral tablet Start: 02/02/19 8:03:00 EST Start Date: 02/02/19 Status: Ordered Spiriva Respimat 60 ACT 2.5 mcg/inh inhalation aerosol INHALE 2 PUFFS BY MOUTH EVERY DAY Start Date: 09/05/20 Status: Ordered topiramate Start: 06/23/23 13:53:00 EDT Start Date: 06/23/23 Status: Ordered vitamin E Start: 06/23/23 13:54:00 EDT Start Date: 06/23/23 Status: Ordered Voltaren Start: 06/23/23 13:58:00 EDT Start Date: 06/23/23 Status: Ordered Voltaren 1% topical gel Start: 09/16/20 7:53:00 EDT, 4 g =, topical, qid, Disp# 500 g, Refills: 3, PRN: Pain, Pharmacy: [id number] Start Date: 09/16/20 Status: Ordered zinc oxide 20% topical ointment Start: 06/23/23 13:57:00 EDT Start Date: 06/23/23 Status: Ordered Zofran Start: 06/23/23 13:54:00 EDT Start Date: 06/23/23 Status: Ordered Mental Status 06/23/23 Barriers to Learning one year None evide nt Mandatory Health Literacy Documentation Yes Health Literacy Communication Barriers N ever Primary Language [place]orese Problem List Condition Confirmation Course Effective Dates Status Health Status Informant Ankle pain, right Confirmed Active Depression Confirmed Active Hip fracture, right Confirmed Active H/O migraine Confirmed Active Hypercholesteremia Confirmed Active Lumbar radiculopathy Confirmed Active Spondylolisthesis of lumbar region Confirmed Active Diagnosis Diagnosis Type Effective Dates Health Status Cl inical Service Informant Ankle pain, right Discharge Diagnosis 06/23/23 Hip fracture, right Discharge Diagnosis 06/23/23 Social History Social History Type Response Smoking Status Former Smoker, quit in last 30 days Sex Female Patient Care team information Care Team Personnel Name: DO Morris Laura M Position: Referring DIRECT Member Role: Primary Care Provider Address: Address: [address] [place] [address]
--- NOTE | 2023-07-03 09:46 | Post Operative Brief Note ---
Immediate Post Op Note v1 Date of Surgery July 03, 2023 Pre & Post Diagnosis Operation Date: 07/03/23 07:30 Pre-Op Diagnosis: Closed fracture of left hip Post-Op Diagnosis: Closed fracture of left hip I identified the patient and participated in the time-out.: Yes Procedure Operation Date: 07/03/23 07:30 Actual Procedures p Left Hip Trochanteric Femoral Nail(Left) - Evan Hansen DO Surgeon Evan Hansen, Data Processing Systems Project Planner none Estimated Blood Loss 50 Findings Consistent with Post-Op Diagnosis see dictation Complications none
--- NOTE | 2023-07-03 09:47 | Fluoroscopy Report ---
INTRAOPERATIVE RADIOGRAPHS CLINICAL HISTORY: Open reduction and internal fixation of the left proximal femur. Fluoro time: 75 seconds Ka,r: 17.19 mGy FINDINGS: 4 spot fluoroscopic views of the left femur are correlated with radiographs dated 07/02/2023 . There has been intertrochanteric and intramedullary nail intramedullary of an intertrochanteric fra cture of the left proximal femur. Near anatomic alignment is restored. A single cortical lag screw tr ansfix the distal end of the intramedullary nail. There is persistent medial displacement of the less er trochanter. Overlying soft tissue edema is noted. IMPRESSION: Intraoperative images from open reduction and internal fixation of a left proximal femora l fracture as above. Electronically signed by: Camron Ackerman M.D. 07/03/2023 9:46 AM
--- NOTE | 2023-07-03 09:53 | Operative Report ---
Post Operative Report Pre & Post Diagnosis Operation Date: 07/03/23 07:30 Pre-Op Diagnosis: Closed fracture of left hip Post-Op Diagnosis: Closed fracture of left hip I identified the patient and participated in the time-out.: Yes Procedure Operation Date: 07/03/23 07:30 Actual Procedures p Left Hip Trochanteric Femoral Nail(Left) - Evan Hansen DO Surgeon Evan Hansen DO Electromechanical Technician none Estimated Blood Loss 50 Findings Consistent with Post-Op Diagnosis see dictation Specimens none Complications none Indications 72-year-old female who presented after sustaining ground-level fall onto her left hip with a chief complaint of left hip pain and inability to ambulate. Radiographs were obtained demonstrating displaced left intertrochanteric femur fracture. Patient was admitted to medical service and orthopedics was consulted for operative management. I met with the patient and her daughter preoperatively and we had a lengthy discussion regarding risk benefits potential complications of left hip cephalomedullary nail. After reviewing these they elected to proceed with surgical intervention and written consent was obtained Description of Procedure Implants: Synthes TFNA 10 mm x 235 mm left 130 degree, 100 mm TFNA fenestrated screw, 5 mm x 36 mm locking screw Patient was appropriate marked and identified in the preoperative holding area. They were then taken back to the operative suite where they received antibiotics per protocol as well as general anesthesia. There was positioned supine on the manual fracture table. Using the assistance of C-arm fluoroscopy the fracture was reduced to near-anatomic position. Patient was then prepped and draped in the standard orthopedic fashion a timeout was then performed. 3 cm incision just superior to the trochanter was made using a scalpel through the skin and subcutaneous tissue and gluteal fascia. A threaded guidewire was then advanced through the tip of the trochanter into the medullary canal. Position was confirmed on AP and lateral fluoroscopy. Canal opening reamer was then used to open the canal proximally. A 10 mm x 235 mm nail was then inserted over the guidewire and then the guidewire was then removed. Outrigger was then attached and incision was then made for the lag screw through the skin subcutaneous tissue and IT band fascia. Guide was then advanced down to bone. A threaded guidewire was then inserted through the lateral cortex and advanced into the femoral head and a center center position just beneath the subchondral bone. Length was measured and 100 mm fenestrated screw was selected. A tapered reamer was then set to 100 mm and the femoral head was then reamed. A single derotational pin was then placed. 100 mm fenestrated screw was then inserted the nail was then compressed and locked statically at the proximal aspect. Guidewires were then removed and attention was then turned to the distal interlock. Incision was then made through the skin subcutaneous tissue and IT band fascia. Guide was then inserted down to the bone and drill was used to drill bicortically. A 5 mm x 36 mm locking screw was then inserted. Proximal aiming arm was then removed. Final radiographs were then obtained demonstrating satisfactory position of the implant and near anatomic reduction of the fracture. Wounds were then copiously irrigated using normal saline solution. 30 cc of local anesthetic was then injected into the subcutaneous tissues surrounding the incisions. 0 Vicryl suture was then used to close the deep fascial layer followed by 2-0 Vicryl suture for subcutaneous tissue and zeeshan for the skin. Sterile Silverlon dressings were then placed. The patient tolerated the procedure well was taken to recovery room in hemodynamically stable condition. I attest to the content of the Intraoperative Record and any orders documented therein. Any exceptions are noted below.
--- NOTE | 2023-07-03 10:27 | Anesthesiology Progress Note ---
Date of Service July 03, 2023 Anesthesia Post Procedure Vital Signs Vital Signs: Temp Pulse Pulse Pulse Resp BP BP 07/03/23 10:15 81 18 07/03/23 10:05 84 21 07/03/23 09:55 81 19 07/03/23 09:48 37.3 C 83 19 07/03/23 07:20 37.0 C 76 16 07/03/23 04:02 37.1 C 80 18 07/03/23 00:17 07/03/23 00:17 36.8 C 83 16 07/02/23 22:56 79 07/02/23 21:30 74 18 98/62 L 07/02/23 21:00 75 16 99/53 L 07/02/23 20:00 108/66 07/02/23 19:52 07/02/23 19:00 80 95/55 L 07/02/23 18:30 83 15 91/52 L 07/02/23 18:00 83 22 100/55 L 07/02/23 17:30 80 13 113/67 07/02/23 17:28 80 17 111/57 L 07/02/23 16:49 81 07/02/23 16:30 78 18 114/62 07/02/23 16:00 78 17 115/67 07/02/23 14:30 72 18 84/55 L 07/02/23 13:00 68 16 92/45 L 07/02/23 12:30 72 16 103/59 L 07/02/23 11:55 71 07/02/23 11:42 36.9 C 71 14 111/59 L BP Pulse Ox Pulse Ox O2 Del Method O2 Del Method O2 Flow Rate 07/03/23 10:15 108/60 96 Nasal Cannula 2 07/03/23 10:05 107/57 L 94 Nasal Cannula 2 07/03/23 09:55 99/52 L 93 Nasal Cannula 2 07/03/23 09:48 121/65 99 Oxymask 6 07/03/23 07:20 115/70 93 Room Air 07/03/23 04:02 93/53 L 92 Room Air 07/03/23 00:17 Room Air 07/03/23 00:17 113/69 92 Room Air 07/02/23 22:56 07/02/23 21:30 94 07/02/23 21:00 96 Room Air 07/02/23 20:00 94 Room Air 07/02/23 19:52 95 Room Air 07/02/23 19:00 95 Room Air 07/02/23 18:30 96 Room Air 07/02/23 18:00 94 07/02/23 17:30 95 Room Air 07/02/23 17:28 95 Room Air 07/02/23 16:49 07/02/23 16:30 93 Room Air 07/02/23 16:00 93 Room Air 07/02/23 14:30 96 07/02/23 13:00 89 L Room Air 07/02/23 12:30 97 Room Air 07/02/23 11:55 07/02/23 11:42 95 Room Air Pain Intensity Left Hip: Pain Intensity: 8 Transfer of Care Handoff Completed per policy Notes Mental Status: alert / awake / arousable Patient Amnestic to Procedure: Yes Nausea / Vomiting: adequately controlled Pain: adequately controlled Airway Patency, RR, SpO2: stable & adequate BP & HR: stable & adequate Hydration State: stable & adequate Anesthetic Complications: no major complications apparent
[2023-07-03] MEDS: SODIUM CHLORIDE 0.9% 1,000 ML IV SCH (11:07)
--- NOTE | 2023-07-03 13:35 | Hospitalist Progress Note ---
Date of Service July 03, 2023 Assessment & Plan (1) Fall: (2) Closed fracture of left hip: (3) Anemia: (4) COPD (chronic obstructive pulmonary disease): (5) Dyslipidemia: (6) Migraines: (7) IBS (irritable bowel syndrome): (8) Depression: (9) Essential tremor: (10) Aortic stenosis: (11) Diastolic dysfunction: Plan 72-year-old female with h/o COPD, dyslipidemia, diastolic dysfunction, IBS, history migraine headache, history of lung nodule, chronic back pain, history of tobacco use, tremor, aortic stenosis who presented to the ED from [facility] 07/01 for fall and left hip pain. Recent admission 06/07/2023 for fall and right intertrochanteric hip fracture s/p ORIF on 06/08/[address] Iglesias. Closed fracture of left hip s/p Left Hip Trochanteric Femoral Nail by Dr Hansen today- further management per ortho. Continue pain management, DVT ppx, bowel regimen, PT OT eval. COPD (chronic obstructive pulmonary disease): No exacerbation. Continue inhalers H/o Migraines: On topiramate H/o IBS (irritable bowel syndrome): On Bentyl H/o Depression: On citalopram Essential tremor: On primidone, topiramate. resume home diazepam as indicated DVT ppx- Eliquis Dispo- OR today. PT OT eval for disposition Time spent- 35 mins Admission and Anticipated Discharge Date Admission Date: July 02, 2023 Subjective Patient was seen and examined at bedside after surgery. Complains soreness at surgical site. Denies other issues. No fever, chills, chest pain, shortness of breath, N/V. Review of Systems Review of Systems: All systems reviewed & are unremarkable except as noted in Subjective Physical Exam Physical Exam: General: Lying in bed, not in acute distress, on NC HEENT: ELIZABETH, MMM Chest: Fair breath sounds bilaterally CVS: Regular, normal heart sounds, + murmur Abdomen: Soft, non tender, not distended, normal bowel sounds Neuro: Awake, alert, oriented, conversing well, non focal Extremities: Trace edema Sky with manjit urine Incision site clean dry intact Results & Data Results & Data Vital Signs (Past 12 Hours) Vital Signs Temp Pulse Pulse Pulse Resp BP BP 07/03/23 12:10 81 07/03/23 12:05 07/03/23 11:22 36.9 C 84 16 96/60 L 07/03/23 10:35 81 21 103/55 L 07/03/23 10:25 37.2 C 80 17 106/54 L 07/03/23 10:15 81 18 108/60 07/03/23 10:05 84 21 107/57 L 07/03/23 09:55 81 19 99/52 L 07/03/23 09:48 37.3 C 83 19 121/65 07/03/23 07:20 37.0 C 76 16 115/70 07/03/23 04:02 37.1 C 80 18 93/53 L Pulse Ox Pulse Ox O2 Del Method O2 Del Method O2 Flow Rate O2 Flow Rate 07/03/23 12:10 07/03/23 12:05 97 Nasal Cannula 3 07/03/23 11:22 96 Nasal Cannula 3 07/03/23 10:35 94 Nasal Cannula 2 07/03/23 10:25 96 Nasal Cannula 2 07/03/23 10:15 96 Nasal Cannula 2 07/03/23 10:05 94 Nasal Cannula 2 07/03/23 09:55 93 Nasal Cannula 2 07/03/23 09:48 99 Oxymask 6 07/03/23 07:20 93 Room Air 07/03/23 04:02 92 Room Air Laboratory Results Short CBC 07/03/23 Range/Units 05:44 WBC 6.23 (4.8-10.8) K/ul Hgb 9.9 L (12.0-16.0) g/dl Hct 31.7 L (37.0-47.0) % Plt Count 308 (130-400) K/uL BMP 07/03/23 05:44 Sodium 138 Potassium 3.8 Chloride 110 H Carbon Dioxide 21 BUN 13 Creatinine 0.60 Glucose 91 Calcium 8.8
[2023-07-03] MEDS: PRIMIDONE 50 MG TAB PO SCH (13:46)
[2023-07-03] MEDS: UMECLIDINIUM/VILANTEROL 62.5/25MCG 7 PUFFS/INHALER INH SCH (13:47)
[2023-07-03] MEDS: FLUTICASONE FUROATE 200MCG 14 PUFFS/INHALER INH SCH (13:47)
[2023-07-03] MEDS: TOPIRAMATE 25 MG TAB PO SCH (13:48)
[2023-07-03] MEDS: GABAPENTIN 100 MG CAP PO SCH (13:49)
[2023-07-03] MEDS: oxyCODONE HCL IR 5 MG TAB (IMMEDIATE RELEASE) PO PRN (19:40)
[2023-07-03] MEDS: APIXABAN 2.5 MG TAB PO SCH (20:20)
[2023-07-03] MEDS: diazePAM 5 MG TABLET PO SCH (20:23)
--- NOTE | 2023-07-03 21:35 | Communication Note ---
Date of Service: July 03, 2023 Stroke alert called around 9:30 PM. Patient initially complained to RN of left foot feeling funny. Patient later noted by staff to have lethargy, right-sided weakness and possible right facial droop after receiving IV morphine. Patient later noted to be febrile. No cough symptoms as per RN. PPE Lethargic, hard of hearing No obvious facial asymmetry Unable to perform MMT testing due to lethargy CT head 1. Mild age-related findings. 2. No acute infarct, bleed, or acute intracranial abnormality. CTA head: 1. No aneurysm or large vessel occlusion. CTA neck: 1. Unremarkable CT angiogram of the neck. 2. Emphysema. AP Strokelike symptoms as per staff account Current neurologic exam limited due to patient lethargy following morphine administration Patient not a candidate for thrombolytic therapy given Eliquis Rx Rule out infectious cause for neurologic symptoms given fever Aspirin for secondary stroke prevention until stroke ruled out Neurochecks MRI brain Stroke workup contingent on MRI results Check UA and chest x-ray re: fever
[2023-07-03 21:46] LABS: Hematocrit (blood only) 28.9 % (37.0-47.0); Hemoglobin 9.1 g/dl (12.0-16.0)
[2023-07-03] MEDS: OPTIRAY 320 125ml IV ONE (21:50)
--- NOTE | 2023-07-03 22:10 | CT Scan Report ---
Exam(s): CT HEAD Without Contrast EXAM: CT Head Without Intravenous Contrast CLINICAL HISTORY: Reason for exam: cva. TECHNIQUE: Axial computed tomography images of the head/brain without intravenous contrast. CTDI is 45.18 mGy and DLP is 677.48 mGy-cm. Automated exposure control was utilized for the study. A dose lowering technique was utilized adhering to the principles of ALARA. Mild motion artifact. COMPARISON: None. FINDINGS: Brain: No mass effect or acute infarct. No acute hemorrhage. Mild atrophy and chronic white matter disease. Ventricles: No hydrocephalus or midline shift. Bones/joints: No acute bony lesion. Soft tissues: No scalp hematoma. Sinuses: Clear. Mastoid air cells: No mastoid effusion. IMPRESSION: 1. Mild age-related findings. 2. No acute infarct, bleed, or acute intracranial abnormality. Communications: Call Doctor Stroke Electronically signed by: Berta Allison M.D. 07/03/23 22:10 PM
--- NOTE | 2023-07-03 22:11 | CT Scan Report ---
Exam(s): CTA HEAD With Contrast IV Amt: 118 ml optiray 320 EXAM: CT Angiography Head With Intravenous Contrast CLINICAL HISTORY: Reason for exam: cva. TECHNIQUE: Axial computed tomographic angiography images of the head with intravenous contrast. CTDI is 73.14 mGy and DLP is 1203.19 mGy-cm. Automated exposure control was utilized for the study. A dose lowering technique was utilized adhering to the principles of ALARA. MIP reconstructed images were created and reviewed. CONTRAST: Patient received 118 ml optiray 320 of IV contrast COMPARISON: None. FINDINGS: Right internal carotid artery: Patent. Right anterior cerebral artery: Patent. Right middle cerebral artery: Patent. Right posterior cerebral artery: Patent. Right vertebral artery: Patent. Left internal carotid artery: Patent. Left anterior cerebral artery: Patent. Left middle cerebral artery: Patent. Left posterior cerebral artery: Patent. Left vertebral artery: Patent. Basilar artery: Patent. Other: Mild atherosclerosis bilateral cavernous ICA, without significant stenosis. IMPRESSION: 1. No aneurysm or large vessel occlusion. Communications: Call Doctor Stroke Electronically signed by: Berta Allison M.D. 07/03/23 22:10 PM
--- NOTE | 2023-07-03 22:13 | CT Scan Report ---
CT ANGIOGRAM OF THE NECK CLINICAL HISTORY: Strokelike symptoms. COMPARISON STUDY: No priors. TECHNIQUE: Following the IV administration of 118 of Optiray 320, CT angiogram of the neck was perfor med from the aortic arch to the skull base. Images are reviewed in the axial, sagittal, and coronal p lanes. 3-D MIPS images are created and assessed. IV contrast was administered without complication. A ll measurements were calculated based on NASCET criteria. A dose lowering technique was utilized adh ering to the principles of ALARA. CT DOSE: 1203.19 mGy.cm FINDINGS: Thoracic aorta: There is atherosclerotic calcification of the thoracic aorta. Visualized portions of the thoracic aorta are normal in caliber. The aortic arch demonstrates standard 3-vessel anatomy. Right carotid arterial system: The right common carotid artery is widely patent, as are the right int ernal and external carotid arteries. Calcified plaque is noted in the carotid bulb. Left carotid arterial system: The left common carotid artery is widely patent, as are the left editing internship al and external carotid arteries. Calcified plaque is seen in the carotid bulb. Vertebral arteries: The vertebral arteries are widely patent bilaterally and codominant. Subclavian arteries: Widely patent bilaterally. Intracranial vasculature: The visualized intracranial vessels at the skull base are patent. Jugular veins: Widely patent bilaterally. Brain parenchyma: The visualized brain parenchyma the skull base is within normal limits. Lung apices: Advanced emphysematous change is noted. Foci of parenchymal scarring are seen in the upp er lobes. No airspace consolidation or pleural effusion is identified. Soft tissues: The visualized pharyngeal soft tissues are normal in appearance noting angiographic pha se technique. The oropharyngeal airway appears widely patent. The salivary and thyroid glands are nor mal in appearance. No cervical lymphadenopathy is seen. Skeletal structures: The skeletal structures are osteopenic. The visualized calvarium at the skull ba se appears intact. The imaged cervical spine is maintained noting multilevel spondylosis. Sinuses and mastoids: There is trace mucosal thickening within the maxillary antra. The mastoid air c ells are well pneumatized. IMPRESSION: 1. Unremarkable CT angiogram of the neck. 2. Emphysema. ACT 112: Negative or not required by law. Electronically signed by: Camron Ackerman M.D. 07/03/2023 10:11 PM
[2023-07-03 22:14] LABS: BUN Creatinine Ratio 22.7 (10-20); Calcium 8.7 mg/dl (8.6-10.3); Creatinine Clr Calc Pharmacy 78.2 ml/min; Est GFR (African American) 101.6 ml/min; Est GFR (Non-African American) 87.6 ml/min; Magnesium 1.8 mg/dl (1.7-2.4); Potassium 3.9 mmol/L (3.5-5.1)
[2023-07-03] MEDS ORDERED: PHARMACIST DISCHARGE MED REC CONSULT PRN (22:16)
--- NOTE | 2023-07-03 22:44 | XRay Report ---
SINGLE VIEW CHEST CLINICAL HISTORY: Fever. FINDINGS: 2 AP, portable, supine chest radiographs are compared to study dated 07/02/2023. Correlation is made with chest CT dated 06/17/2015. The examination is degraded by portable technique and apical l ordotic positioning. The heart is enlarged noting atherosclerotic calcification of the thoracic aorta . The pulmonary vasculature is noncongested. Emphysema and chronic interstitial thickening is similar to previous. There is bibasilar scarring/atelectasis. No airspace consolidation or large pleural eff usion is identified. No pneumothorax is seen. The skeletal structures are osteopenic. The bony thorax is grossly intact. IMPRESSION: Cardiomegaly and emphysema with no acute cardiopulmonary abnormality identified. ACT 112: Negative or not required by law. Electronically signed by: Camron Ackerman M.D. 07/03/2023 10:43 PM
[2023-07-03] MEDS: ACETAMINOPHEN 1,000 MG/100 ML VIAL IV STA (23:04)
[2023-07-03] MEDS: MAGNESIUM SULFATE / D5W 1 GM/100 ML BAG IV ONE (23:08)
[2023-07-04] MEDS: ASPIRIN 81 MG CHEW PO STA (03:11)
[2023-07-04 03:52] LABS: Appearance Urine Clear (Clear); Bilirubin Urine Negative (Negative); Blood Urine 2+ (Negative); Color Urine Yellow; Glucose Urine UA Negative (Negative); Ketones Urine 1+ (Negative); Leukocyte Esterase Urine Negative (Negative); Nitrite Urine Negative (Negative); Protein Urine Trace (Negative); Specific Gravity Urine > 1.045 (1.000-1.030); Urobilinogen Urine Negative (Negative); pH Urine 5.5 (4.5-7.5)
[2023-07-04 04:01] LABS: Epithelial Cell Urine 0-2 /hpf (0-2); WBC Urine 21-50 /hpf (0-5)
[2023-07-04 04:02] LABS: Bacteria Urine 1+ (None Seen)
[2023-07-04 06:46] LABS: Hemoglobin 8.7 g/dl (12.0-16.0); Mean Corpuscular Hemoglobin 28.3 pg (25.0-34.0); Mean Corpuscular Hgb Conc 31.1 g/dL (32.0-36.0); Mean Corpuscular Volume 91.2 fL (80.0-100.0); Platelet Count 261 K/uL (130-400); RDW Coefficient of Variation 14.5 % (11.5-14.5); RDW Standard Deviation 48.1 fL (36.4-46.3); Red Blood Count 3.07 M/uL (4.20-5.40); White Blood Count 7.43 K/ul (4.8-10.8)
[2023-07-04 07:03] LABS: BUN Creatinine Ratio 18.7 (10-20); Calcium 8.8 mg/dl (8.6-10.3); Creatinine Clr Calc Pharmacy 68.8 ml/min; Est GFR (African American) 91.7 ml/min; Est GFR (Non-African American) 79.1 ml/min; Magnesium 2.2 mg/dl (1.7-2.4); Phosphorus 3.8 mg/dl (2.5-4.9); Potassium 3.8 mmol/L (3.5-5.1)
[2023-07-04] MEDS: CEFEPIME 2,000 MG in SYRINGE 0 ML IV SCH (07:45)
[2023-07-04] MEDS: diazePAM 2 MG TABLET PO SCH ×2 (09:02→20:58)
[2023-07-04] MEDS: CETIRIZINE HCL 10 MG TABLET PO SCH (09:03)
[2023-07-04] MEDS: FOLIC ACID 400 MCG TAB PO SCH (09:04)
--- NOTE | 2023-07-04 12:32 | Magnetic Resonance Report ---
MRI OF THE BRAIN WITHOUT CONTRAST CLINICAL HISTORY: ? R weakness COMPARISON STUDY: Head CT and CTA of the head July 03, 2023. TECHNIQUE: Utilizing a 1.5 Rach magnet and dedicated coil, multiplanar, multiecho imaging of the bra in was performed without IV contrast. FINDINGS: There are no foci of restricted diffusion to suggest acute infarct. No acute intracranial h emorrhage, midline shift or mass effect is present. Ventricular system is unremarkable. Basal cistern s are patent. Flow-voids for the major intracranial vessels are present. No intracranial masses are i dentified on unenhanced exam. White matter T2 hyperintense foci suggest moderate small vessel disease . T2 hyperintensity within the alix also suggests small vessel disease. No intracranial masses identi fied. Calvarial signal is normal. There is no evidence for sinusitis. There is no mastoid fluid. IMPRESSION: No acute intracranial findings. ACT 112: Negative or not required by law. Electronically signed by: Alexander Tavarez M.D. 07/04/2023 12:30 PM
--- NOTE | 2023-07-04 13:04 | Orthopedic Progress Note ---
Date of Service July 04, 2023 Assessment & Plan (1) Closed fracture of left hip: Plan: Postop day #1 status post left hip intramedullary nailing The patient may weight-bear as tolerated on the left lower extremity. If she is too painful, she will need to remain partial weightbearing until comfortable with full weightbearing. PT/OT. Silverlon dressing to remain in place for 7 days. Pain control as written. Discharge planningthe patient will benefit from a rehabilitation stay either at a rehab facility or halfway facility. Orthopedics to sign off at this time. She will follow-up approximately 2 weeks postop for staple removal. Admission and Anticipated Discharge Date Admission Date: July 02, 2023 Subjective The patient states the left hip is painful. She had worked with PT/OT earlier in the day. No new complaints today. Physical Exam Constitutional: WD/WN, vitals as above no acute distress (Lying comfortably in bed. Answering questions appropriately.) Musculoskeletal: Hip: + surgical incision (Left hip dressing C/D/I.); no deformity, no skin erythema, no ecchymosis and no surgical drain present Skin: no rashes, warm and dry Neurologic: normal touch/pain/proprioception (Some difficulty with dorsiflexion of the left ankle. Sensation to light to) and awake; not confused Psychiatric: A+Ox3, euthymic affect Speech: normal rate/rhythm/volume of speech Results & Data Vital Signs (Past 12 Hours) Vital Signs Temp Pulse Pulse Resp BP BP Pulse Ox 07/04/23 08:05 37.9 C H 107 H 16 97/60 L 95 07/04/23 07:53 89 07/04/23 03:22 37.2 C 85 16 90/53 L 95 O2 Del Method O2 Flow Rate 07/04/23 08:05 Nasal Cannula 3 07/04/23 07:53 07/04/23 03:22 Nasal Cannula 3 Laboratory Results Laboratory Tests 07/04/23 05:55 WBC 7.43 Hgb 8.7 L Hct 28.0 L Sodium 138 Potassium 3.8 BUN 14 Creatinine 0.75
--- NOTE | 2023-07-04 16:19 | Hospitalist Progress Note ---
Date of Service July 04, 2023 Assessment & Plan (1) Fall: (2) Closed fracture of left hip: (3) Anemia: (4) COPD (chronic obstructive pulmonary disease): (5) Dyslipidemia: (6) Migraines: (7) IBS (irritable bowel syndrome): (8) Depression: (9) Essential tremor: (10) Aortic stenosis: (11) Diastolic dysfunction: Plan 72-year-old female with h/o COPD, dyslipidemia, diastolic dysfunction, IBS, history migraine headache, history of lung nodule, chronic back pain, history of tobacco use, tremor, aortic stenosis who presented to the ED from [facility] 07/01 for fall and left hip pain. Recent admission 06/07/2023 for fall and right intertrochanteric hip fracture s/p ORIF on 06/08/[address] Iglesias. Closed fracture of left hip s/p Left Hip Trochanteric Femoral Nail by Dr Hansen 07/02- further management per ortho. Continue pain management, eliquis for DVT ppx, bowel regimen, PT OT eval. Hypoxia- continue nebs, IS, flutter valve. Wean down oxygen as tolerated COPD (chronic obstructive pulmonary disease): No exacerbation. Will continue nebs for now instead of inhalers H/o Migraines: On topiramate H/o IBS (irritable bowel syndrome): On Bentyl H/o Depression: On citalopram Essential tremor: On primidone, topiramate, valium. UTI- Allergic to ampicillin. Will continue cefepime pending final culture results. DVT ppx- Eliquis Dispo- Pending PT OT eval and medical stability Time spent- 50 mins Admission and Anticipated Discharge Date Admission Date: July 02, 2023 Subjective Patient was seen and examined at bedside. Overnight events reviewed- stroke alert was called but stroke work up negative with negative CT, CTA head and neck and MRI brain. Complains of pain at surgical site. Noted low grade temperature. No CP, N/V. Review of Systems Review of Systems: All systems reviewed & are unremarkable except as noted in Subjective Physical Exam Physical Exam: General: Lying in bed, not in acute distress, on NC HEENT: ELIZABETH, MMM Chest: Fair breath sounds bilaterally CVS: Regular, normal heart sounds, + murmur Abdomen: Soft, non tender, not distended, normal bowel sounds Neuro: Awake, alert, oriented, conversing well, non focal Extremities: Trace edema. Hand tremors noted. Sky with manjit urine Incision site clean dry intact Results & Data Results & Data Vital Signs (Past 12 Hours) Vital Signs Temp Pulse Pulse Resp BP Pulse Ox O2 Del Method 07/04/23 08:05 37.9 C H 107 H 16 97/60 L 95 Nasal Cannula 07/04/23 08:00 Nasal Cannula 07/04/23 07:53 89 O2 Flow Rate 07/04/23 08:05 3 07/04/23 08:00 3 07/04/23 07:53 Laboratory Results Short CBC 07/03/23 07/04/23 Range/Units 21:21 05:55 WBC 7.43 (4.8-10.8) K/ul Hgb 9.1 L 8.7 L (12.0-16.0) g/dl Hct 28.9 L 28.0 L (37.0-47.0) % Plt Count 261 (130-400) K/uL BMP 07/03/23 07/03/23 07/03/23 21:21 21:21 21:21 Sodium 137 Cancelled Potassium 3.9 Cancelled Chloride 109 H Carbon Dioxide BUN Creatinine Glucose Calcium 07/03/23 07/03/23 07/03/23 21:21 21:21 21:21 Sodium Potassium Chloride Cancelled Carbon Dioxide 19 L Cancelled BUN 15 Cancelled Creatinine 0.66 Glucose Calcium 07/03/23 07/03/23 07/03/23 21:21 21:21 21:21 Sodium Potassium Chloride Carbon Dioxide BUN Creatinine Cancelled Glucose 115 H Cancelled Calcium 8.7 Cancelled 07/04/23 05:55 Sodium 138 Potassium 3.8 Chloride 109 H Carbon Dioxide 24 BUN 14 Creatinine 0.75 Glucose 96 Calcium 8.8 Urine 07/04/23 Range/Units 02:40 Urine Color Yellow Urine Appearance Clear (Clear) Urine pH 5.5 (4.5-7.5) Ur Specific [place] > 1.045 H (1.000-1.030) Urine Protein Trace H (Negative) Urine Glucose (UA) Negative (Negative) Diagnostic Findings Brain MRI 07/04/23 09:36 MRI OF THE BRAIN WITHOUT CONTRAST CLINICAL HISTORY: ? R weakness COMPARISON STUDY: Head CT and CTA of the head July 03, 2023. TECHNIQUE: Utilizing a 1.5 Rach magnet and dedicated coil, multiplanar, multiecho imaging of the brain was performed without IV contrast. FINDINGS: There are no foci of restricted diffusion to suggest acute infarct. No acute intracranial hemorrhage, midline shift or mass effect is present. Ventricular system is unremarkable. Basal cisterns are patent. Flow-voids for the major intracranial vessels are present. No intracranial masses are identified on unenhanced exam. White matter T2 hyperintense foci suggest moderate small vessel disease. T2 hyperintensity within the alix also suggests small vessel disease. No intracranial masses identified. Calvarial signal is normal. There is no evidence for sinusitis. There is no mastoid fluid. IMPRESSION: No acute intracranial findings. ACT 112: Negative or not required by law. Electronically signed by: Alexander Tavarez M.D. 07/04/2023 12:30 PM
[2023-07-04] MEDS: BUDESONIDE 0.5 MG/2 ML VIAL (PULMICORT) NEB SCH (19:10)
[2023-07-04] MEDS: FORMOTEROL 20 MCG/2 ML VIAL NEB SCH (19:10)
[2023-07-04] MEDS: ALBUT/IPRATROP 3MG/0.5MG NEB 3 ML VIAL NEB SCH (19:11)
[2023-07-05 06:54] LABS: Hematocrit (blood only) 26.6 % (37.0-47.0); Hemoglobin 8.3 g/dl (12.0-16.0); Mean Corpuscular Hemoglobin 28.4 pg (25.0-34.0); Mean Corpuscular Hgb Conc 31.2 g/dL (32.0-36.0); Mean Corpuscular Volume 91.1 fL (80.0-100.0); Mean Platelet Volume 11.4 fL (9.4-12.4); Platelet Count 222 K/uL (130-400); RDW Coefficient of Variation 14.5 % (11.5-14.5); RDW Standard Deviation 48.1 fL (36.4-46.3); Red Blood Count 2.92 M/uL (4.20-5.40); White Blood Count 7.96 K/ul (4.8-10.8)
[2023-07-05 07:16] LABS: Albumin Level 2.9 gm/dl (3.4-5.0); Bilirubin,Total 0.4 mg/dl (0.2-1.0); Calcium 8.7 mg/dl (8.6-10.3); Magnesium 2.1 mg/dl (1.7-2.4); Potassium 3.8 mmol/L (3.5-5.1)
[2023-07-05 07:29] LABS: Albumin Globulin Ratio 1.1 (0.9-2); BUN Creatinine Ratio 27.5 (10-20); Creatinine Clr Calc Pharmacy 88.4 ml/min; Est GFR (African American) 110.6 ml/min; Est GFR (Non-African American) 95.4 ml/min; Globulin 2.7 gm/dl (2.5-4.0); Phosphorus 2.7 mg/dl (2.5-4.9); Total Protein 5.6 gm/dl (6.0-8.3)
--- NOTE | 2023-07-05 10:51 | Hospitalist Progress Note ---
Date of Service July 05, 2023 Assessment & Plan (1) Fall: (2) Closed fracture of left hip: (3) Anemia: (4) COPD (chronic obstructive pulmonary disease): (5) Dyslipidemia: (6) Migraines: (7) IBS (irritable bowel syndrome): (8) Depression: (9) Essential tremor: (10) Aortic stenosis: (11) Diastolic dysfunction: Plan 72-year-old female with h/o COPD, dyslipidemia, diastolic dysfunction, IBS, history migraine headache, history of lung nodule, chronic back pain, history of tobacco use, tremor, aortic stenosis who presented to the ED from [facility] 07/01 for fall and left hip pain. Recent admission 06/07/2023 for fall and right intertrochanteric hip fracture s/p ORIF on 06/08/[address] Iglesias. Closed fracture of left hip s/p Left Hip Trochanteric Femoral Nail by Dr Hansen 07/02- further management per ortho. Continue pain management, eliquis for DVT ppx, bowel regimen, PT OT eval. Hypoxia- continue nebs, IS, flutter valve. Wean down oxygen as tolerated COPD (chronic obstructive pulmonary disease): No exacerbation. Will continue nebs for now instead of inhalers H/o Migraines: On topiramate H/o IBS (irritable bowel syndrome): On Bentyl H/o Depression: On citalopram Essential tremor: On primidone, topiramate, valium. UTI- Allergic to ampicillin. Continue empiric ceftriaxone for 3-day course. DVT ppx- Eliquis Dispo- Pending PT OT eval and medical stability Time spent- 35 mins Admission and Anticipated Discharge Date Admission Date: July 02, 2023 Subjective Patient was seen and examined at bedside. She feels okay. Pain is controlled. States breathing is okay. No more fever. No nausea or vomiting. Appetite okay. Review of Systems Review of Systems: All systems reviewed & are unremarkable except as noted in Subjective Physical Exam Physical Exam: General: Lying in bed, not in acute distress, on NC HEENT: ELIZABETH, MMM Chest: Fair breath sounds bilaterally CVS: Regular, normal heart sounds, + murmur Abdomen: Soft, non tender, not distended, normal bowel sounds Neuro: Awake, alert, oriented, conversing well, non focal Extremities: Trace edema. Hand tremors noted. Sky with manjit urine Incision site clean dry intact Results & Data Results & Data Vital Signs (Past 12 Hours) Vital Signs Temp Pulse Pulse Resp BP BP Pulse Ox 07/05/23 07:47 88 20 96 07/05/23 07:46 37.0 C 75 16 97/57 L 96 07/05/23 07:30 07/05/23 07:13 74 07/05/23 03:29 37.5 C 82 16 92/58 L 97 07/05/23 02:00 16 07/05/23 01:24 82 O2 Del Method O2 Flow Rate 07/05/23 07:47 Nasal Cannula 4 07/05/23 07:46 Nasal Cannula 4 07/05/23 07:30 Nasal Cannula 4 07/05/23 07:13 07/05/23 03:29 Nasal Cannula 4 07/05/23 02:00 Nasal Cannula 3 07/05/23 01:24 Laboratory Results Short CBC 07/05/23 Range/Units 06:04 WBC 7.96 (4.8-10.8) K/ul Hgb 8.3 L (12.0-16.0) g/dl Hct 26.6 L (37.0-47.0) % Plt Count 222 (130-400) K/uL BMP 07/05/23 06:04 Sodium 138 Potassium 3.8 Chloride 110 H Carbon Dioxide 21 BUN 14 Creatinine 0.51 L Glucose 104 H Calcium 8.7 Liver Function 07/05/23 Range/Units 06:04 Total Bilirubin 0.4 (0.2-1.0) mg/dl AST 17 (13-39) U/L ALT 10 (7-52) U/L Alkaline Phosphatase 42 (34-104) U/L Albumin 2.9 L (3.4-5.0) gm/dl
[2023-07-05] MEDS: cefTRIAXone SODIUM 2,000 MG in DEXTROSE 5 % MINI-B 50 ML IV SCH (13:57)
[2023-07-05] MEDS ORDERED: ALBUT/IPRATROP 3MG/0.5MG NEB 3 ML VIAL NEB PRN (15:37)
[2023-07-06 07:09] LABS: Hematocrit (blood only) 24.4 % (37.0-47.0); Hemoglobin 7.7 g/dl (12.0-16.0); Mean Corpuscular Hemoglobin 28.5 pg (25.0-34.0); Mean Corpuscular Hgb Conc 31.6 g/dL (32.0-36.0); Mean Corpuscular Volume 90.4 fL (80.0-100.0); Mean Platelet Volume 10.9 fL (9.4-12.4); Platelet Count 241 K/uL (130-400); RDW Coefficient of Variation 13.9 % (11.5-14.5); RDW Standard Deviation 45.9 fL (36.4-46.3); White Blood Count 6.03 K/ul (4.8-10.8)
[2023-07-06 07:27] LABS: Calcium 8.6 mg/dl (8.6-10.3); Creatinine Clr Calc Pharmacy 105.1 ml/min; Est GFR (African American) 112.8 ml/min; Est GFR (Non-African American) 97.3 ml/min; Potassium 3.8 mmol/L (3.5-5.1)
--- NOTE | 2023-07-06 10:09 | Palliative Care Consultation ---
Date of Consultation July 06, 2023 Assessment & Plan (1) Weakness generalized: s/p right then left hip fx within a few weeks of each other; initial right hip fx from fall at home then ?unclear fall at [facility] while there for rehab and sustained left hip fx. repairs done bilaterally, awaiting return to SNF rehab (2) Hip pain, acute: see #1 continue prn pain regimen add bowel regiment and encourage better hydration (3) Counseling regarding advanced directives and goals of care: I met with Mckayla face to face for 25min and discussed goals fo care/adv care planning. She states "they say getting old is no fun but this has been downright aggressively bad." She feels she has not been able to make much progress. She is in a lot of pain from fracture, surgery and also notes her breathing seems to have worsened. She admits she is an active smoker, none since admission. She does not wear oxygen at home "most of the time but I have it in case I need it." She was tolerating rehab at [facility] and she is willing to go back, notes that she is happy with her caregiver team there. She recognizes rehab is needed to see how much of her strength and mobility she can regain but she is disheartened by the setbacks she's had so far and she worries that some of the changes/decline she's experienced may not be "fixable." We spoke about the nature of COPD, smoking/nicotine addiction and how it is a chronically progressive lung disease with multiple body system impacts. We spoke about the nature of COPD and how it is disease state characterized by airflow limitation that is not fully reversible. The airflow limitation is usually progressive and associated with a chronic inflammatory response of the lungs to noxious particles or gases. COPD is incurable and will worsen over time. Sometimes when patients stop smoking, the progression will slow down, but all COPD over time will get worse. Medications become less effective/not work as well and as a result, patients experience declining QOL. Patients with COPD constitute a large group of symptomatic patients with chronic/generally progressive respiratory disorder. Recent studies indicate that patients in this group, on the whole, receive less palliative care in their terminal phase than patients with lung cancer. We discussed that Palliative care can begin when a patient becomes symptomatic and is usually concurrent with restorative and life- prolonging care. Palliative care is titrated, analogous to curative/restorative care, to meet the needs of the patient and family in accord with their preferences. We will help manage their symptoms and assist with goals of care discussions. (4) Discussion about advance care planning held with family member: This second [id number] advance care planning meeting was held at the patient's bedside from 245 to 3:15 PM with patient and her daughter, Fela. Also present was Terry from care management with her social work internet sales associate. With patient and daughters consent and voluntary participation we discussed all of the advance care planning topics in #3 above as well as daughter's concerns regarding patient's pain management protocol and whether or not rehab would be covered. In earlier discussions with patient's porter sample case, her nursing facility confirmed they would be able to take her back tomorrow for continued rehab and it is likely anticipated this will be a new rehab stay given that this is a new fracture on the other side and 1 that was sustained at the [place] [facility]. Also advised that pain management during this time is a reasonable expectation given the nature of the fracture and its bilateral presence. Patient is bearing weight on the right side better than the left and is able to tolerate standing on her right. She had some pain and discomfort when that was attempted on the left today and could only tolerate it for a few minutes before needing to sit back down. She notes that the pain when standing was not in her hip or her knee but just along her thigh and in her muscle as if it was getting too weak. Anticipate that this will improve with continued rehab and conditioning exercises. I encouraged patient to speak with her rehab team at the [facility] to also discuss options for exercising while in the chair as well as in the bed. We discussed the potential what if scenarios if patient were not to improve with rehab. 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 I reviewed that we should see how she is doing in a couple of weeks after rehab starts and we can explore further options at this point. Considerations would be a discharge back to home from the [place] [facility] with either visiting nurse services, home PT, versus a home hospice discharge if she were to be worsening or no improvement was seen in a transition to a more comfort focused plan of care as desired. I advised him that at this time I do not see a clear indication for consideration of hospice. She is doing well with physical therapy. The fact that she has required some oxygen support is likely more a factor of the hospitalization, some acute exacerbation of COPD, prolonged bedrest and immobility, and the fact that COPD is a progressive lung disease that does worsen over time. There is always a potential that she may leave rehab still needing supplemental oxygen as a result of progressive COPD but this will need to be further evaluated in time. We agreed that we would have a follow-up outpatient palliative medicine visit in approximately 3 weeks from discharge. All questions were answered to their appa luist satisfaction. (5) Palliative care by specialist: Met with pt/family. Provided overview of Palliative Medicine, a subspecialty that provides specialized medical care for people living with a serious illness by offering a focus on quality of life. Palliative Medicine is often conflated with hospice: I advised patient/family that Palliative and hospice can be partners but we are not the same. It is important to understand the difference so that we may be informed, and not afraid. Palliative Medicine works to improve QOL through reduction of symptom burden/more control over their illness, for both the patient and family. Palliative medicine clinicians are board certified, specially-trained and another member of the patient's medical care team. We often provide an extra layer of support because our care is based on the needs of the patient, not the prognosis; as such, it's appropriate at any age/advancing stage of a serious illness and can be provided along with curative treatment. Palliative Medicine clinicians are also trained in advanced communication methodologies, to facilitate complex discussions about advanced illness planning, which are needed to help assure that the treatment choices match the patient's goals, aka delivering Goal Concordant care. Finally, we discussed that hospice is a visiting nurse service that focuses on care delivered at the very end of life for patients with terminal illness, with life expectancy less than 6 month. Plan * Advance care planning discussions as outlined above. * Patient plans to return to [facility] for a trial of rehab. * She will need to continue with as needed opioid regimen for pain management of her hip fractures. She should take a dose of pain medicine approximately 15 to 20 minutes before PT sessions to improve her ability to tolerate and participate in the sessions. I also recommended increasing her bowel regimen and hydration as she very openly admits she often does not drink enough. We discussed the risks of constipation in the setting of opioid therapy and immobility and she was more agreeable to increase dietary fiber, increase p.o. hydration, and improve her activity throughout the day. Thank you for allowing us to participate in the ongoing care of this patient. Please don't hesitate to call or page with any additional concerns. Dr. Gissel Jack DNP Director, Palliative Care History of Present Illness Reason for Consultation: [facility] Attending Physician: Wander Dale MD History of Present Illness Mckayla Cortez is a 72yo female PMH: COPD, dyslipidemia, diastolic dysfunction, IBS, history migraine headache, history of lung nodule, chronic back pain, history of tobacco use, tremor, aortic stenosis, who presented to our ED on 07/02/23 from [facility] as s/p fall with resultant left hip pain. She had a recent admission 06/07/2023 for fall and right intertrochanteric hip fracture s/p ORIF on 06/08/[address] Iglesias. This admission, she was found to have sustained a closed fracture of left hip s/p Left Hip Trochanteric Femoral Nail by Dr Hansen 07/03/23. ortho has signed off, pt is ok for rehab. Pain mgt remains an issue as does hypoxia - she has ACT underway and known hx COPD; her UTI was treated with empiric ceftriaxone for 3-day course. Mckayla is seen at bedside, there is no family present. She is awake and alert, had a recent visit with PT and tells me she was not able to tolerate weight bearing on LLE for very long, had signif pain in her left thigh. Denies more pain in left hip while standing and also denies pain into her left knee with weight bearing. Allergies Allergy/AdvReac Type Severity Reaction Status Date / Time Milk Containing Products Allergy Intermediate Gastrointestinal Unverified 07/02/23 17:16 (Dairy) Upset ampicillin Allergy Mild RASH Verified 07/02/23 17:16 Bactrim Allergy Unknown UNKNOWN - Verified 10/22/15 08:03 CAN'T REMEMBER sulfamethoxazole Allergy Unknown UNKNOWN - Verified 07/02/23 17:16 CAN'T REMEMBER trimethoprim Allergy Unknown UNKNOWN - Verified 07/02/23 17:16 CAN'T REMEMBER lactose AdvReac Verified 07/03/23 15:52 Home Medications Medication Instructions Recorded Confirmed Type alendronate 70 mg tablet (Fosamax) 70 mg PO WK 02/24/19 07/02/23 History aspirin 81 mg tablet,delayed 81 mg PO QAM 02/24/19 07/02/23 History release (Aspir-) citalopram 40 mg tablet 40 mg PO PM 02/24/19 07/02/23 History diazepam 5 mg tablet 5 mg PO QID 02/24/19 07/02/23 History gabapentin 100 mg capsule 100 mg PO BID 02/24/19 07/02/23 History gabapentin 300 mg capsule 300 mg PO HS 02/24/19 07/02/23 History primidone 50 mg tablet 100 mg PO BID 02/24/19 07/02/23 History simvastatin 40 mg tablet 40 mg PO HS 02/24/19 07/02/23 History vitamin E 268 mg (400 unit) capsule 400 unit PO PM 02/24/19 07/02/23 History primidone 50 mg tablet 150 mg PO HS 09/13/20 07/02/23 History dicyclomine 10 mg capsule 10 mg PO QID IBS 09/25/20 07/02/23 History albuterol sulfate 90 mcg/actuation 1 inh inhalation Q4H PRN 01/30/21 07/02/23 History aerosol inhaler SOB/WHEEZING fluticasone fur. 200 mcg-umeclid 1 inh inhalation DAILY 01/30/21 07/02/23 History 62.5 mcg-vilant 25 mcg inhalat.powder (Trelegy Ellipta) topiramate 25 mg tablet (Topamax) 25 mg PO QAM 02/03/22 07/02/23 History Proheal 30 ml PO BID wound repair 07/02/23 07/02/23 History acetaminophen 500 mg tablet 1,000 mg PO TID pain 07/02/23 07/02/23 History (Tylenol Extra Strength) apixaban 2.5 mg tablet (Eliquis) 2.5 mg PO BID 07/02/23 07/02/23 History bisacodyl 10 mg rectal suppository 10 mg MA DAILY PRN Constipation 07/02/23 07/02/23 History (Dulcolax (bisacodyl)) cetirizine 10 mg tablet 10 mg PO QAM 07/02/23 07/02/23 History folic acid 0.8 mg capsule 0.8 mg PO QAM 07/02/23 07/02/23 History magnesium hydroxide 400 mg/5 mL See Rx Instructions .Route 07/02/23 07/02/23 History oral suspension (Milk of Magnesia) .COMPLEX PRN Constipation naloxone 4 mg/actuation nasal spray 4 mg intranasal UD PRN Opioid 07/02/23 07/02/23 History Overdose oxycodone 5 mg tablet 5 mg PO Q12H PRN Pain 07/02/23 07/02/23 History sodium phosphates 19 gram-7 118 ml MA DAILY PRN Constipation 07/02/23 07/02/23 History gram/118 mL enema (Fleet Enema) topiramate 50 mg tablet 50 mg PO HS 07/02/23 07/02/23 History Patient History Medical History (Updated 07/06/23 @ 13:22 by Gissel Jack, LUCERO) Counseling regarding advanced directives and goals of care Palliative care by specialist Discussion about advance care planning held with family member Hip pain, acute Weakness generalized Aortic stenosis Murmur Intertrochanteric fracture of right hip Asthma well controlled per pt, rare res inh use Depression Bilateral lumbar radiculopathy Essential tremor BILAT. HANDS History of diverticulitis Anxiety and depression History of skin cancer NOSE Unsteady gait RECENT, CANE/WALKER PRN Cirrhosis of liver COPD (chronic obstructive pulmonary disease) Sciatica Migraines Hernia Snores Spondylolisthesis, lumbar region IBS (irritable bowel syndrome) Osteoarthritis Spinal stenosis of lumbar region Chronic back pain Hypertension PT DENIES Hyperlipidemia Surgical History S/P epidural steroid injection H/O colonoscopy with polypectomy H/O oophorectomy History of arthroscopy of left knee History of endoscopy Hx of ovarian cystectomy History of cholecystectomy History of bilateral tubal ligation History of tonsillectomy Hx of cataract extraction BILAT Family History Mother Colon cancer Other Family history of diabetes mellitus No family history of adverse response to anesthesia Social History Smoking Status: Former smoker Tobacco Type: Cigarettes Cigarettes Per Day: one pack per day; Second Hand Exposure: No; Do You Dip or Chew Tobacco: No; Tobacco Cessation Education Requested by Patient: No Hx Alcohol Use: No Hx Substance Use: No Preferred Language: Indian Communication Ability: Effective Real Time Analyst Required: No Beliefs That Will Affect Care: None Current Living Situation: Alone Current Living Situation Comment: [facility] Other Information That Helps Us Care for You: No Feels Safe at Home: Yes Safety Concerns: Feels Safe At This Time Assistive Devices: Cane, Denture - Upper, Denture - Lower, Raised Toilet Seat, Walker and Other Review of Systems Review of Systems: All systems reviewed & are unremarkable except as noted in Subjective Physical Exam Constitutional: average body habitus, + physical limitations (bilat hip fx s/p repairs) and + frail appearing; not combative Eyes: PERRL, conjunctivae normal, anicteric sclerae ENMT: external ear and nose normal, oropharynx normal dentition fair Neck: trachea midline, no thyromegaly no stridor Respiratory: normal respiratory effort, lungs clear to auscultation (diminished overall, no wheezing or crackles) Cardiovascular: RRR, no murmur, no edema Gastrointestinal (Abdomen): normal bowel sounds, soft, nontender, no hepatosplenomegaly Musculoskeletal: bilat hip fx s/p repair, surgical sites clean and dry. range of motion and strength is better on right than left Skin: no rashes, warm and dry (pale, few scattered ecchymoses) Neurologic: PERRL, EOMI, accommodation nl, no face palsy, no dysarthria (AAOx3) Psychiatric: A+Ox3, euthymic affect Results & Data Vital Signs (Past 12 Hours) Vital Signs Temp Pulse Pulse Resp BP Pulse Ox O2 Del Method 07/06/23 07:39 77 16 94 Nasal Cannula 07/06/23 07:24 79 07/06/23 07:22 36.8 C 78 14 93/54 L 94 Nasal Cannula 07/06/23 04:05 37.1 C 72 16 96/57 L 96 Nasal Cannula 07/06/23 02:00 18 07/05/23 23:59 85 07/05/23 22:47 37.3 C 84 18 96/54 L 95 Nasal Cannula O2 Flow Rate 07/06/23 07:39 3 07/06/23 07:24 07/06/23 07:22 3 07/06/23 04:05 3 07/06/23 02:00 07/05/23 23:59 07/05/23 22:47 3 Laboratory Results 07/06/23 07/05/23 07/04/23 Range/Units 06:26 06:04 05:55 WBC 6.03 7.96 7.43 (4.8-10.8) K/ul RBC 2.70 L 2.92 L 3.07 L (4.20-5.40) M/uL Hgb 7.7 L 8.3 L 8.7 L (12.0-16.0) g/dl Hct 24.4 L 26.6 L 28.0 L (37.0-47.0) % MCV 90.4 91.1 91.2 (80.0-100.0) fL MCH 28.5 28.4 28.3 (25.0-34.0) pg MCHC 31.6 L 31.2 L 31.1 L (32.0-36.0) g/dL RDW Std Deviation 45.9 48.1 H 48.1 H (36.4-46.3) fL RDW Coeff of Jeannie 13.9 14.5 14.5 (11.5-14.5) % Plt Count 241 222 261 (130-400) K/uL MPV 10.9 11.4 11.0 (9.4-12.4) fL Immature Gran % (Auto) % Neut % (Auto) % Lymph % (Auto) % Garza % (Auto) % Eos % (Auto) % Baso % (Auto) % Neut # (Auto) (1.40-6.50) K/uL Lymph # (Auto) (1.20-3.40) K/uL Garza # (Auto) (0.11-0.59) K/uL Eos # (Auto) (0.00-0.50) K/uL Baso # (Auto) (0.00-0.20) K/uL Immature Gran # (Auto) (0.01-0.20) K/uL PT (9.0-12.0) Seconds INR (0.9-1.1) APTT (21-31) Seconds PTT Ratio Sodium 137 138 138 (136-145) mmol/L Potassium 3.8 3.8 3.8 (3.5-5.1) mmol/L Chloride 109 H 110 H 109 H (98-107) mmol/L Carbon Dioxide 23 21 24 (21-32) mmol/L Anion Gap 5 7 5 (3-11) BUN 12 14 14 (6-23) mg/dl Creatinine 0.48 L 0.51 L 0.75 (0.6-1.2) mg/dl Est Cr Clr Drug Dosing 105.1 88.4 68.8 ml/min Est GFR ( Amer) 112.8 110.6 91.7 ml/min Est GFR (Non-Af Amer) 97.3 95.4 79.1 ml/min BUN/Creatinine Ratio 25.0 H 27.5 H 18.7 (10-20) Glucose 91 104 H 96 (70-99(Fasting)) mg/dl POC Glucose (70-99) mg/dl Lactate (0.4-2.0) mmol/L Calcium 8.6 8.7 8.8 (8.6-10.3) mg/dl Phosphorus 2.7 D 3.8 (2.5-4.9) mg/dl Magnesium 2.1 2.2 (1.7-2.4) mg/dl Total Bilirubin 0.4 (0.2-1.0) mg/dl AST 17 (13-39) U/L ALT 10 (7-52) U/L Alkaline Phosphatase 42 (34-104) U/L Troponin I High Sens (0-14) pg/ml B-Natriuretic Peptide 125 H (0-100) pg/ml Total Protein 5.6 L (6.0-8.3) gm/dl Albumin 2.9 L (3.4-5.0) gm/dl Globulin 2.7 (2.5-4.0) gm/dl Albumin/Globulin Ratio 1.1 (0.9-2) 25-OH Vitamin D Total 30.4 (30-100) ng/ml Urine Color Urine Appearance (Clear) Urine pH (4.5-7.5) Ur Specific [place] (1.000-1.030) Urine Protein (Negative) Urine Glucose (UA) (Negative) Urine Ketones (Negative) Urine Blood (Negative) Urine Nitrite (Negative) Urine Bilirubin (Negative) Urine Urobilinogen (Negative) Ur Leukocyte Esterase (Negative) Urine RBC (0-2) /hpf Urine WBC (0-5) /hpf Ur Epithelial Cells (0-2) /hpf Urine Bacteria (None Seen) Nasal Screen MRSA (PCR) (Negative) Blood Type Antibody Screen Crossmatch 07/04/23 07/03/23 07/03/23 Range/Units 02:40 Unknown 21:37 WBC (4.8-10.8) K/ul RBC (4.20-5.40) M/uL Hgb (12.0-16.0) g/dl Hct (37.0-47.0) % MCV (80.0-100.0) fL MCH (25.0-34.0) pg MCHC (32.0-36.0) g/dL RDW Std Deviation (36.4-46.3) fL RDW Coeff of Jeannie (11.5-14.5) % Plt Count (130-400) K/uL MPV (9.4-12.4) fL Immature Gran % (Auto) % Neut % (Auto) % Lymph % (Auto) % Garza % (Auto) % Eos % (Auto) % Baso % (Auto) % Neut # (Auto) (1.40-6.50) K/uL Lymph # (Auto) (1.20-3.40) K/uL Garza # (Auto) (0.11-0.59) K/uL Eos # (Auto) (0.00-0.50) K/uL Baso # (Auto) (0.00-0.20) K/uL Immature Gran # (Auto) (0.01-0.20) K/uL PT (9.0-12.0) Seconds INR (0.9-1.1) APTT (21-31) Seconds PTT Ratio Sodium (136-145) mmol/L Potassium (3.5-5.1) mmol/L Chloride (98-107) mmol/L Carbon Dioxide (21-32) mmol/L Anion Gap (3-11) BUN (6-23) mg/dl Creatinine (0.6-1.2) mg/dl Est Cr Clr Drug Dosing ml/min Est GFR ( Amer) ml/min Est GFR (Non-Af Amer) ml/min BUN/Creatinine Ratio (10-20) Glucose (70-99(Fasting)) mg/dl POC Glucose 117 H (70-99) mg/dl Lactate (0.4-2.0) mmol/L Calcium (8.6-10.3) mg/dl Phosphorus (2.5-4.9) mg/dl Magnesium (1.7-2.4) mg/dl Total Bilirubin (0.2-1.0) mg/dl AST (13-39) U/L ALT (7-52) U/L Alkaline Phosphatase (34-104) U/L Troponin I High Sens (0-14) pg/ml B-Natriuretic Peptide (0-100) pg/ml Total Protein (6.0-8.3) gm/dl Albumin (3.4-5.0) gm/dl Globulin (2.5-4.0) gm/dl Albumin/Globulin Ratio (0.9-2) 25-OH Vitamin D Total (30-100) ng/ml Urine Color Yellow Urine Appearance Clear (Clear) Urine pH 5.5 (4.5-7.5) Ur Specific [place] > 1.045 H (1.000-1.030) Urine Protein Trace H (Negative) Urine Glucose (UA) Negative (Negative) Urine Ketones 1+ H (Negative) Urine Blood 2+ H (Negative) Urine Nitrite Negative (Negative) Urine Bilirubin Negative (Negative) Urine Urobilinogen Negative (Negative) Ur Leukocyte Esterase Negative (Negative) Urine RBC 6-10 H (0-2) /hpf Urine WBC 21-50 H (0-5) /hpf Ur Epithelial Cells 0-2 (0-2) /hpf Urine Bacteria 1+ H (None Seen) Nasal Screen MRSA (PCR) Negative (Negative) Blood Type Antibody Screen Crossmatch 07/03/23 07/03/23 07/03/23 Range/Units 21:21 21:21 21:21 WBC (4.8-10.8) K/ul RBC (4.20-5.40) M/uL Hgb (12.0-16.0) g/dl Hct (37.0-47.0) % MCV (80.0-100.0) fL MCH (25.0-34.0) pg MCHC (32.0-36.0) g/dL RDW Std Deviation (36.4-46.3) fL RDW Coeff of Jeannie (11.5-14.5) % Plt Count (130-400) K/uL MPV (9.4-12.4) fL Immature Gran % (Auto) % Neut % (Auto) % Lymph % (Auto) % Garza % (Auto) % Eos % (Auto) % Baso % (Auto) % Neut # (Auto) (1.40-6.50) K/uL Lymph # (Auto) (1.20-3.40) K/uL Garza # (Auto) (0.11-0.59) K/uL Eos # (Auto) (0.00-0.50) K/uL Baso # (Auto) (0.00-0.20) K/uL Immature Gran # (Auto) (0.01-0.20) K/uL PT (9.0-12.0) Seconds INR (0.9-1.1) APTT (21-31) Seconds PTT Ratio Sodium (136-145) mmol/L Potassium (3.5-5.1) mmol/L Chloride (98-107) mmol/L Carbon Dioxide (21-32) mmol/L Anion Gap (3-11) BUN (6-23) mg/dl Creatinine (0.6-1.2) mg/dl Est Cr Clr Drug Dosing ml/min Est GFR ( Amer) ml/min Est GFR (Non-Af Amer) ml/min BUN/Creatinine Ratio Cancelled (10-20) Glucose Cancelled 115 H (70-99(Fasting)) mg/dl POC Glucose (70-99) mg/dl Lactate 0.7 (0.4-2.0) mmol/L Calcium Cancelled 8.7 (8.6-10.3) mg/dl Phosphorus (2.5-4.9) mg/dl Magnesium 1.8 (1.7-2.4) mg/dl Total Bilirubin (0.2-1.0) mg/dl AST (13-39) U/L ALT (7-52) U/L Alkaline Phosphatase (34-104) U/L Troponin I High Sens (0-14) pg/ml B-Natriuretic Peptide (0-100) pg/ml Total Protein (6.0-8.3) gm/dl Albumin (3.4-5.0) gm/dl Globulin (2.5-4.0) gm/dl Albumin/Globulin Ratio (0.9-2) 25-OH Vitamin D Total (30-100) ng/ml Urine Color Urine Appearance (Clear) Urine pH (4.5-7.5) Ur Specific [place] (1.000-1.030) Urine Protein (Negative) Urine Glucose (UA) (Negative) Urine Ketones (Negative) Urine Blood (Negative) Urine Nitrite (Negative) Urine Bilirubin (Negative) Urine Urobilinogen (Negative) Ur Leukocyte Esterase (Negative) Urine RBC (0-2) /hpf Urine WBC (0-5) /hpf Ur Epithelial Cells (0-2) /hpf Urine Bacteria (None Seen) Nasal Screen MRSA (PCR) (Negative) Blood Type Antibody Screen Crossmatch 07/03/23 07/03/23 07/03/23 Range/Units 21:21 21:21 21:21 WBC (4.8-10.8) K/ul RBC (4.20-5.40) M/uL Hgb (12.0-16.0) g/dl Hct (37.0-47.0) % MCV (80.0-100.0) fL MCH (25.0-34.0) pg MCHC (32.0-36.0) g/dL RDW Std Deviation (36.4-46.3) fL RDW Coeff of Jeannie (11.5-14.5) % Plt Count (130-400) K/uL MPV (9.4-12.4) fL Immature Gran % (Auto) % Neut % (Auto) % Lymph % (Auto) % Garza % (Auto) % Eos % (Auto) % Baso % (Auto) % Neut # (Auto) (1.40-6.50) K/uL Lymph # (Auto) (1.20-3.40) K/uL Garza # (Auto) (0.11-0.59) K/uL Eos # (Auto) (0.00-0.50) K/uL Baso # (Auto) (0.00-0.20) K/uL Immature Gran # (Auto) (0.01-0.20) K/uL PT (9.0-12.0) Seconds INR (0.9-1.1) APTT (21-31) Seconds PTT Ratio Sodium (136-145) mmol/L Potassium (3.5-5.1) mmol/L Chloride (98-107) mmol/L Carbon Dioxide (21-32) mmol/L Anion Gap (3-11) BUN (6-23) mg/dl Creatinine (0.6-1.2) mg/dl Est Cr Clr Drug Dosing Cancelled ml/min Est GFR ( Amer) Cancelled 101.6 ml/min Est GFR (Non-Af Amer) Cancelled 87.6 ml/min BUN/Creatinine Ratio 22.7 H (10-20) Glucose (70-99(Fasting)) mg/dl POC Glucose (70-99) mg/dl Lactate (0.4-2.0) mmol/L Calcium (8.6-10.3) mg/dl Phosphorus (2.5-4.9) mg/dl Magnesium (1.7-2.4) mg/dl Total Bilirubin (0.2-1.0) mg/dl AST (13-39) U/L ALT (7-52) U/L Alkaline Phosphatase (34-104) U/L Troponin I High Sens (0-14) pg/ml B-Natriuretic Peptide (0-100) pg/ml Total Protein (6.0-8.3) gm/dl Albumin (3.4-5.0) gm/dl Globulin (2.5-4.0) gm/dl Albumin/Globulin Ratio (0.9-2) 25-OH Vitamin D Total (30-100) ng/ml Urine Color Urine Appearance (Clear) Urine pH (4.5-7.5) Ur Specific [place] (1.000-1.030) Urine Protein (Negative) Urine Glucose (UA) (Negative) Urine Ketones (Negative) Urine Blood (Negative) Urine Nitrite (Negative) Urine Bilirubin (Negative) Urine Urobilinogen (Negative) Ur Leukocyte Esterase (Negative) Urine RBC (0-2) /hpf Urine WBC (0-5) /hpf Ur Epithelial Cells (0-2) /hpf Urine Bacteria (None Seen) Nasal Screen MRSA (PCR) (Negative) Blood Type Antibody Screen Crossmatch 07/03/23 07/03/23 07/03/23 Range/Units 21:21 21:21 21:21 WBC (4.8-10.8) K/ul RBC (4.20-5.40) M/uL Hgb (12.0-16.0) g/dl Hct (37.0-47.0) % MCV (80.0-100.0) fL MCH (25.0-34.0) pg MCHC (32.0-36.0) g/dL RDW Std Deviation (36.4-46.3) fL RDW Coeff of Jeannie (11.5-14.5) % Plt Count (130-400) K/uL MPV (9.4-12.4) fL Immature Gran % (Auto) % Neut % (Auto) % Lymph % (Auto) % Garza % (Auto) % Eos % (Auto) % Baso % (Auto) % Neut # (Auto) (1.40-6.50) K/uL Lymph # (Auto) (1.20-3.40) K/uL Garza # (Auto) (0.11-0.59) K/uL Eos # (Auto) (0.00-0.50) K/uL Baso # (Auto) (0.00-0.20) K/uL Immature Gran # (Auto) (0.01-0.20) K/uL PT (9.0-12.0) Seconds INR (0.9-1.1) APTT (21-31) Seconds PTT Ratio Sodium (136-145) mmol/L Potassium (3.5-5.1) mmol/L Chloride (98-107) mmol/L Carbon Dioxide (21-32) mmol/L Anion Gap Cancelled (3-11) BUN Cancelled 15 (6-23) mg/dl Creatinine Cancelled 0.66 (0.6-1.2) mg/dl Est Cr Clr Drug Dosing 78.2 ml/min Est GFR ( Amer) ml/min Est GFR (Non-Af Amer) ml/min BUN/Creatinine Ratio (10-20) Glucose (70-99(Fasting)) mg/dl POC Glucose (70-99) mg/dl Lactate (0.4-2.0) mmol/L Calcium (8.6-10.3) mg/dl Phosphorus (2.5-4.9) mg/dl Magnesium (1.7-2.4) mg/dl Total Bilirubin (0.2-1.0) mg/dl AST (13-39) U/L ALT (7-52) U/L Alkaline Phosphatase (34-104) U/L Troponin I High Sens (0-14) pg/ml B-Natriuretic Peptide (0-100) pg/ml Total Protein (6.0-8.3) gm/dl Albumin (3.4-5.0) gm/dl Globulin (2.5-4.0) gm/dl Albumin/Globulin Ratio (0.9-2) 25-OH Vitamin D Total (30-100) ng/ml Urine Color Urine Appearance (Clear) Urine pH (4.5-7.5) Ur Specific [place] (1.000-1.030) Urine Protein (Negative) Urine Glucose (UA) (Negative) Urine Ketones (Negative) Urine Blood (Negative) Urine Nitrite (Negative) Urine Bilirubin (Negative) Urine Urobilinogen (Negative) Ur Leukocyte Esterase (Negative) Urine RBC (0-2) /hpf Urine WBC (0-5) /hpf Ur Epithelial Cells (0-2) /hpf Urine Bacteria (None Seen) Nasal Screen MRSA (PCR) (Negative) Blood Type Antibody Screen Crossmatch 07/03/23 07/03/23 07/03/23 Range/Units 21:21 21:21 21:21 WBC (4.8-10.8) K/ul RBC (4.20-5.40) M/uL Hgb (12.0-16.0) g/dl Hct (37.0-47.0) % MCV (80.0-100.0) fL MCH (25.0-34.0) pg MCHC (32.0-36.0) g/dL RDW Std Deviation (36.4-46.3) fL RDW Coeff of Jeannie (11.5-14.5) % Plt Count (130-400) K/uL MPV (9.4-12.4) fL Immature Gran % (Auto) % Neut % (Auto) % Lymph % (Auto) % Garza % (Auto) % Eos % (Auto) % Baso % (Auto) % Neut # (Auto) (1.40-6.50) K/uL Lymph # (Auto) (1.20-3.40) K/uL Garza # (Auto) (0.11-0.59) K/uL Eos # (Auto) (0.00-0.50) K/uL Baso # (Auto) (0.00-0.20) K/uL Immature Gran # (Auto) (0.01-0.20) K/uL PT (9.0-12.0) Seconds INR (0.9-1.1) APTT (21-31) Seconds PTT Ratio Sodium (136-145) mmol/L Potassium Cancelled (3.5-5.1) mmol/L Chloride Cancelled 109 H (98-107) mmol/L Carbon Dioxide Cancelled 19 L (21-32) mmol/L Anion Gap 9 (3-11) BUN (6-23) mg/dl Creatinine (0.6-1.2) mg/dl Est Cr Clr Drug Dosing ml/min Est GFR ( Amer) ml/min Est GFR (Non-Af Amer) ml/min BUN/Creatinine Ratio (10-20) Glucose (70-99(Fasting)) mg/dl POC Glucose (70-99) mg/dl Lactate (0.4-2.0) mmol/L Calcium (8.6-10.3) mg/dl Phosphorus (2.5-4.9) mg/dl Magnesium (1.7-2.4) mg/dl Total Bilirubin (0.2-1.0) mg/dl AST (13-39) U/L ALT (7-52) U/L Alkaline Phosphatase (34-104) U/L Troponin I High Sens (0-14) pg/ml B-Natriuretic Peptide (0-100) pg/ml Total Protein (6.0-8.3) gm/dl Albumin (3.4-5.0) gm/dl Globulin (2.5-4.0) gm/dl Albumin/Globulin Ratio (0.9-2) 25-OH Vitamin D Total (30-100) ng/ml Urine Color Urine Appearance (Clear) Urine pH (4.5-7.5) Ur Specific [place] (1.000-1.030) Urine Protein (Negative) Urine Glucose (UA) (Negative) Urine Ketones (Negative) Urine Blood (Negative) Urine Nitrite (Negative) Urine Bilirubin (Negative) Urine Urobilinogen (Negative) Ur Leukocyte Esterase (Negative) Urine RBC (0-2) /hpf Urine WBC (0-5) /hpf Ur Epithelial Cells (0-2) /hpf Urine Bacteria (None Seen) Nasal Screen MRSA (PCR) (Negative) Blood Type Antibody Screen Crossmatch 07/03/23 07/03/23 07/03/23 Range/Units 21:21 21:21 05:44 WBC 6.23 (4.8-10.8) K/ul RBC 3.49 L (4.20-5.40) M/uL Hgb 9.1 L 9.9 L (12.0-16.0) g/dl Hct 28.9 L 31.7 L (37.0-47.0) % MCV 90.8 (80.0-100.0) fL MCH 28.4 (25.0-34.0) pg MCHC 31.2 L (32.0-36.0) g/dL RDW Std Deviation 46.5 H (36.4-46.3) fL RDW Coeff of Jeannie 14.1 (11.5-14.5) % Plt Count 308 (130-400) K/uL MPV 10.8 (9.4-12.4) fL Immature Gran % (Auto) % Neut % (Auto) % Lymph % (Auto) % Garza % (Auto) % Eos % (Auto) % Baso % (Auto) % Neut # (Auto) (1.40-6.50) K/uL Lymph # (Auto) (1.20-3.40) K/uL Garza # (Auto) (0.11-0.59) K/uL Eos # (Auto) (0.00-0.50) K/uL Baso # (Auto) (0.00-0.20) K/uL Immature Gran # (Auto) (0.01-0.20) K/uL PT (9.0-12.0) Seconds INR (0.9-1.1) APTT (21-31) Seconds PTT Ratio Sodium Cancelled 137 138 (136-145) mmol/L Potassium 3.9 3.8 (3.5-5.1) mmol/L Chloride 110 H (98-107) mmol/L Carbon Dioxide 21 (21-32) mmol/L Anion Gap 7 (3-11) BUN 13 (6-23) mg/dl Creatinine 0.60 (0.6-1.2) mg/dl Est Cr Clr Drug Dosing 86.0 ml/min Est GFR ( Amer) 104.8 ml/min Est GFR (Non-Af Amer) 90.4 ml/min BUN/Creatinine Ratio 21.7 H (10-20) Glucose 91 (70-99(Fasting)) mg/dl POC Glucose (70-99) mg/dl Lactate (0.4-2.0) mmol/L Calcium 8.8 (8.6-10.3) mg/dl Phosphorus (2.5-4.9) mg/dl Magnesium (1.7-2.4) mg/dl Total Bilirubin (0.2-1.0) mg/dl AST (13-39) U/L ALT (7-52) U/L Alkaline Phosphatase (34-104) U/L Troponin I High Sens (0-14) pg/ml B-Natriuretic Peptide (0-100) pg/ml Total Protein (6.0-8.3) gm/dl Albumin (3.4-5.0) gm/dl Globulin (2.5-4.0) gm/dl Albumin/Globulin Ratio (0.9-2) 25-OH Vitamin D Total (30-100) ng/ml Urine Color Urine Appearance (Clear) Urine pH (4.5-7.5) Ur Specific [place] (1.000-1.030) Urine Protein (Negative) Urine Glucose (UA) (Negative) Urine Ketones (Negative) Urine Blood (Negative) Urine Nitrite (Negative) Urine Bilirubin (Negative) Urine Urobilinogen (Negative) Ur Leukocyte Esterase (Negative) Urine RBC (0-2) /hpf Urine WBC (0-5) /hpf Ur Epithelial Cells (0-2) /hpf Urine Bacteria (None Seen) Nasal Screen MRSA (PCR) (Negative) Blood Type Antibody Screen Crossmatch 07/02/23 07/02/23 07/02/23 Range/Units 17:58 12:30 11:50 WBC 10.14 (4.8-10.8) K/ul RBC 3.45 L (4.20-5.40) M/uL Hgb 10.0 L (12.0-16.0) g/dl Hct 30.9 L (37.0-47.0) % MCV 89.6 (80.0-100.0) fL MCH 29.0 (25.0-34.0) pg MCHC 32.4 (32.0-36.0) g/dL RDW Std Deviation 46.5 H (36.4-46.3) fL RDW Coeff of Jeannie 14.3 (11.5-14.5) % Plt Count 362 (130-400) K/uL MPV 10.8 (9.4-12.4) fL Immature Gran % (Auto) 0.6 % Neut % (Auto) 82.7 % Lymph % (Auto) 9.8 % Garza % (Auto) 6.3 % Eos % (Auto) 0.3 % Baso % (Auto) 0.3 % Neut # (Auto) 8.39 H (1.40-6.50) K/uL Lymph # (Auto) 0.99 L (1.20-3.40) K/uL Garza # (Auto) 0.64 H (0.11-0.59) K/uL Eos # (Auto) 0.03 (0.00-0.50) K/uL Baso # (Auto) 0.03 (0.00-0.20) K/uL Immature Gran # (Auto) 0.06 (0.01-0.20) K/uL PT 10.9 (9.0-12.0) Seconds INR 1.0 (0.9-1.1) APTT 29 (21-31) Seconds PTT Ratio 1.0 Sodium 139 (136-145) mmol/L Potassium 4.1 (3.5-5.1) mmol/L Chloride 108 H (98-107) mmol/L Carbon Dioxide 24 (21-32) mmol/L Anion Gap 7 (3-11) BUN 17 (6-23) mg/dl Creatinine 0.75 (0.6-1.2) mg/dl Est Cr Clr Drug Dosing 69.3 ml/min Est GFR ( Amer) 91.7 ml/min Est GFR (Non-Af Amer) 79.1 ml/min BUN/Creatinine Ratio 22.7 H (10-20) Glucose 101 H (70-99(Fasting)) mg/dl POC Glucose (70-99) mg/dl Lactate (0.4-2.0) mmol/L Calcium 9.2 (8.6-10.3) mg/dl Phosphorus (2.5-4.9) mg/dl Magnesium (1.7-2.4) mg/dl Total Bilirubin 0.4 (0.2-1.0) mg/dl AST 12 L (13-39) U/L ALT 15 (7-52) U/L Alkaline Phosphatase 43 (34-104) U/L Troponin I High Sens 4.6 (0-14) pg/ml B-Natriuretic Peptide (0-100) pg/ml Total Protein 6.5 (6.0-8.3) gm/dl Albumin 3.6 (3.4-5.0) gm/dl Globulin 2.9 (2.5-4.0) gm/dl Albumin/Globulin Ratio 1.2 (0.9-2) 25-OH Vitamin D Total (30-100) ng/ml Urine Color Yellow Urine Appearance Clear (Clear) Urine pH 7.0 (4.5-7.5) Ur Specific [place] 1.010 (1.000-1.030) Urine Protein Negative (Negative) Urine Glucose (UA) Negative (Negative) Urine Ketones Negative (Negative) Urine Blood Negative (Negative) Urine Nitrite Negative (Negative) Urine Bilirubin Negative (Negative) Urine Urobilinogen Negative (Negative) Ur Leukocyte Esterase Negative (Negative) Urine RBC (0-2) /hpf Urine WBC (0-5) /hpf Ur Epithelial Cells (0-2) /hpf Urine Bacteria (None Seen) Nasal Screen MRSA (PCR) (Negative) Blood Type A Positive Antibody Screen NEGATIVE Crossmatch See Detail Diagnostic Findings Hip X-Ray 07/03/23 00:00 INTRAOPERATIVE RADIOGRAPHS CLINICAL HISTORY: Open reduction and internal fixation of the left proximal femur. Fluoro time: 75 seconds Ka,r: 17.19 mGy FINDINGS: 4 spot fluoroscopic views of the left femur are correlated with radiographs dated 07/02/2023. There has been intertrochanteric and intramedullary nail intramedullary of an intertrochanteric fracture of the left proximal femur. Near anatomic alignment is restored. A single cortical lag screw transfix the distal end of the intramedullary nail. There is persistent medial displacement of the lesser trochanter. Overlying soft tissue edema is noted. IMPRESSION: Intraoperative images from open reduction and internal fixation of a left proximal femoral fracture as above. Electronically signed by: Camron Ackerman M.D. 07/03/2023 9:[address] 07/03/23 21:34 CR Exam(s): CT HEAD Without Contrast EXAM: CT Head Without Intravenous Contrast CLINICAL HISTORY: Reason for exam: cva. TECHNIQUE: Axial computed tomography images of the head/brain without intravenous contrast. CTDI is 45.18 mGy and DLP is 677.48 mGy-cm. Automated exposure control was utilized for the study. A dose lowering technique was utilized adhering to the principles of ALARA. Mild motion artifact. COMPARISON: None. FINDINGS: Brain: No mass effect or acute infarct. No acute hemorrhage. Mild atrophy and chronic white matter disease. Ventricles: No hydrocephalus or midline shift. Bones/joints: No acute bony lesion. Soft tissues: No scalp hematoma. Sinuses: Clear. Mastoid air cells: No mastoid effusion. IMPRESSION: 1. Mild age-related findings. 2. No acute infarct, bleed, or acute intracranial abnormality. Communications: Call Doctor Stroke Electronically signed by: Berta Allison M.D. 07/03/23 22:10 PM Head CTA 07/03/23 21:34 CR Exam(s): CTA HEAD With Contrast IV Amt: 118 ml optiray 320 EXAM: CT Angiography Head With Intravenous Contrast CLINICAL HISTORY: Reason for exam: cva. TECHNIQUE: Axial computed tomographic angiography images of the head with intravenous contrast. CTDI is 73.14 mGy and DLP is 1203.19 mGy-cm. Automated exposure control was utilized for the study. A dose lowering technique was utilized adhering to the principles of ALARA. MIP reconstructed images were created and reviewed. CONTRAST: Patient received 118 ml optiray 320 of IV contrast COMPARISON: None. FINDINGS: Right internal carotid artery: Patent. Right anterior cerebral artery: Patent. Right middle cerebral artery: Patent. Right posterior cerebral artery: Patent. Right vertebral artery: Patent. Left internal carotid artery: Patent. Left anterior cerebral artery: Patent. Left middle cerebral artery: Patent. Left posterior cerebral artery: Patent. Left vertebral artery: Patent. Basilar artery: Patent. Other: Mild atherosclerosis bilateral cavernous ICA, without significant stenosis. IMPRESSION: 1. No aneurysm or large vessel occlusion. Communications: Call Doctor Stroke Electronically signed by: Berta Allison M.D. 07/03/23 22:10 PM Neck CTA 07/03/23 21:34 CT ANGIOGRAM OF THE NECK CLINICAL HISTORY: Strokelike symptoms. COMPARISON STUDY: No priors. TECHNIQUE: Following the IV administration of 118 of Optiray 320, CT angiogram of the neck was performed from the aortic arch to the skull base. Images are reviewed in the axial, sagittal, and coronal planes. 3-D MIPS images are created and assessed. IV contrast was administered without complication. All measurements were calculated based on NASCET criteria. A dose lowering technique was utilized adhering to the principles of ALARA. CT DOSE: 1203.19 mGy.cm FINDINGS: Thoracic aorta: There is atherosclerotic calcification of the thoracic aorta. Visualized portions of the thoracic aorta are normal in caliber. The aortic arch demonstrates standard 3-vessel anatomy. Right carotid arterial system: The right common carotid artery is widely patent, as are the right internal and external carotid arteries. Calcified plaque is noted in the carotid bulb. Left carotid arterial system: The left common carotid artery is widely patent, as are the left internal and external carotid arteries. Calcified plaque is seen in the carotid bulb. Vertebral arteries: The vertebral arteries are widely patent bilaterally and codominant. Subclavian arteries: Widely patent bilaterally. Intracranial vasculature: The visualized intracranial vessels at the skull base are patent. Jugular veins: Widely patent bilaterally. Brain parenchyma: The visualized brain parenchyma the skull base is within normal limits. Lung apices: Advanced emphysematous change is noted. Foci of parenchymal scarring are seen in the upper lobes. No airspace consolidation or pleural effusion is identified. Soft tissues: The visualized pharyngeal soft tissues are normal in appearance noting angiographic phase technique. The oropharyngeal airway appears widely patent. The salivary and thyroid glands are normal in appearance. No cervical lymphadenopathy is seen. Skeletal structures: The skeletal structures are osteopenic. The visualized calvarium at the skull base appears intact. The imaged cervical spine is maintained noting multilevel spondylosis. Sinuses and mastoids: There is trace mucosal thickening within the maxillary antra. The mastoid air cells are well pneumatized. IMPRESSION: 1. Unremarkable CT angiogram of the neck. 2. Emphysema. ACT 112: Negative or not required by law. Electronically signed by: Camron Ackerman M.D. 07/03/2023 10:11 PM Chest X-Ray 07/03/23 22:12 SINGLE VIEW CHEST CLINICAL HISTORY: Fever. FINDINGS: 2 AP, portable, supine chest radiographs are compared to study dated 07/02/2023. Correlation is made with chest CT dated 06/17/2015. The examination is degraded by portable technique and apical lordotic positioning. The heart is enlarged noting atherosclerotic calcification of the thoracic aorta. The pulmonary vasculature is noncongested. Emphysema and chronic interstitial thickening is similar to previous. There is bibasilar scarring/atelectasis. No airspace consolidation or large pleural effusion is identified. No pneumothorax is seen. The skeletal structures are osteopenic. The bony thorax is grossly intact. IMPRESSION: Cardiomegaly and emphysema with no acute cardiopulmonary abnormality identified. ACT 112: Negative or not required by law. Electronically signed by: Camron Ackerman M.D. 07/03/2023 10:43 PM Brain MRI 07/04/23 09:36 MRI OF THE BRAIN WITHOUT CONTRAST CLINICAL HISTORY: ? R weakness COMPARISON STUDY: Head CT and CTA of the head July 03, 2023. TECHNIQUE: Utilizing a 1.5 Rach magnet and dedicated coil, multiplanar, multiecho imaging of the brain was performed without IV contrast. FINDINGS: There are no foci of restricted diffusion to suggest acute infarct. No acute intracranial hemorrhage, midline shift or mass effect is present. Ventricular system is unremarkable. Basal cisterns are patent. Flow-voids for the major intracranial vessels are present. No intracranial masses are identified on unenhanced exam. White matter T2 hyperintense foci suggest moderate small vessel disease. T2 hyperintensity within the alix also suggests small vessel disease. No intracranial masses identified. Calvarial signal is normal. There is no evidence for sinusitis. There is no mastoid fluid. IMPRESSION: No acute intracranial findings. ACT 112: Negative or not required by law. Electronically signed by: Alexander Tavarez M.D. 07/04/2023 12:30 PM PG Care Time/CCT Total # of Minutes Spent Total Time Spent with Patient: Total time spent is greater than 50% in coordination of care (as documented) at patient's floor/unit and/or counseling patient: I spent 145 minutes overall addressing this very complex case: 20 min in medical data review/discussion with referring provider(s) and/or preparation for the visit 20 min in direct interaction with the patient/exam 25 + 45 = 70 min in Advance Care Planning/Goals of Care discussions as detailed above in note (must be >16min) -there were 2 separate advance care planning meetings held over the course the day, the first was with the patient in the second, longer meeting was held with patient and her daughter/POA at the bedside. All of these are outlined in the advance care planning discussion above. 15 min in subsequent review and synthesis of assessment and plan 20 min communicating with other providers regarding the patient's case: Care management, primary team, nursing. Prolonged Care Time Prolonged Care Time: Yes Advanced Care Planning 41783 Advanced Care Planning 30 Min [id number] Advanced Care Planning Additional 30 Min Coding Patient Type New History Comprehensive Exam Comprehensive Medical Decision Making High Complexity Diagnoses Weakness generalized R53.1 Hip pain, acute M25.559 Counseling regarding advanced directives and goals of care Z71.89 Discussion about advance care planning held with family member Z71.0 Palliative care by specialist Z51.5 Additional Codes Advanced Care Planning - 90183 Advanced Care Planning 30 Min: [id number] Advanced Care Planning 30 Min ([id number]) Advanced Care Planning - 00031 Advanced Care Planning Additional 30 Min: 81486 Advanced Care Planning Additional 30 Min ([id number]) Prolonged Care Time - Prolonged Care Time: Yes ([id number])
--- NOTE | 2023-07-06 11:04 | Hospitalist Progress Note ---
Date of Service July 06, 2023 Assessment & Plan (1) Fall: (2) Closed fracture of left hip: (3) Anemia: (4) COPD (chronic obstructive pulmonary disease): (5) Dyslipidemia: (6) Migraines: (7) IBS (irritable bowel syndrome): (8) Depression: (9) Essential tremor: (10) Aortic stenosis: (11) Diastolic dysfunction: Plan 72-year-old female with h/o COPD, dyslipidemia, diastolic dysfunction, IBS, history migraine headache, history of lung nodule, chronic back pain, history of tobacco use, tremor, aortic stenosis who presented to the ED from [facility] 07/01 for fall and left hip pain. Recent admission 06/07/2023 for fall and right intertrochanteric hip fracture s/p ORIF on 06/08/[address] Iglesias. Closed fracture of left hip s/p Left Hip Trochanteric Femoral Nail by Dr Hansen 07/02- further management per ortho. Continue pain management, eliquis for DVT ppx, bowel regimen, PT OT eval. Hypoxia- continue nebs, IS, flutter valve. Wean down oxygen as tolerated COPD (chronic obstructive pulmonary disease): No exacerbation. Will continue nebs H/o Migraines: On topiramate H/o IBS (irritable bowel syndrome): On Bentyl H/o Depression: On citalopram Essential tremor: On primidone, topiramate, valium. UTI- Allergic to ampicillin. Continue empiric ceftriaxone for 3-day course. Post op blood loss anemia- Hb trending down. Hb down to 7.7 today. Started on oral iron. Recheck in am. DVT ppx- Eliquis Dispo- PT OT recommended SNF. Palliative discussion with family pending. Time spent- 35 mins Admission and Anticipated Discharge Date Admission Date: July 02, 2023 Subjective Patient was seen and examined at bedside. Feels better today. Pain is controlled. Breathing improved. No more fever. No N/V, chest pain, shortness of breath. Review of Systems Review of Systems: All systems reviewed & are unremarkable except as noted in Subjective Physical Exam Physical Exam: General: Lying in bed, not in acute distress, on NC HEENT: ELIZABETH, MMM Chest: Fair breath sounds bilaterally CVS: Regular, normal heart sounds, + murmur Abdomen: Soft, non tender, not distended, normal bowel sounds Neuro: Awake, alert, oriented, conversing well, non focal Extremities: Trace edema. Hand tremors noted. Sky with manjit urine Incision site clean dry intact Results & Data Results & Data Vital Signs (Past 12 Hours) Vital Signs Temp Pulse Pulse Resp BP Pulse Ox O2 Del Method 07/06/23 10:20 Nasal Cannula 07/06/23 07:39 77 16 94 Nasal Cannula 07/06/23 07:24 79 07/06/23 07:22 36.8 C 78 14 93/54 L 94 Nasal Cannula 07/06/23 04:05 37.1 C 72 16 96/57 L 96 Nasal Cannula 07/06/23 02:00 18 07/05/23 23:59 85 O2 Flow Rate 07/06/23 10:20 3 07/06/23 07:39 3 07/06/23 07:24 07/06/23 07:22 3 07/06/23 04:05 3 07/06/23 02:00 07/05/23 23:59 Laboratory Results Short CBC 07/06/23 Range/Units 06:26 WBC 6.03 (4.8-10.8) K/ul Hgb 7.7 L (12.0-16.0) g/dl Hct 24.4 L (37.0-47.0) % Plt Count 241 (130-400) K/uL BMP 07/06/23 06:26 Sodium 137 Potassium 3.8 Chloride 109 H Carbon Dioxide 23 BUN 12 Creatinine 0.48 L Glucose 91 Calcium 8.6
[2023-07-06] MEDS: MIDODRINE HCL 2.5 MG TAB PO SCH (12:16)
[2023-07-06] MEDS: FERROUS SULFATE 325 MG TAB PO SCH (12:16)
[2023-07-06] MEDS: LACTATED RINGER'S 250 ML IV ONE (12:17)
[2023-07-07 08:37] LABS: Hematocrit (blood only) 26.8 % (37.0-47.0); Hemoglobin 8.6 g/dl (12.0-16.0); Mean Corpuscular Hemoglobin 28.7 pg (25.0-34.0); Mean Corpuscular Hgb Conc 32.1 g/dL (32.0-36.0); Mean Corpuscular Volume 89.3 fL (80.0-100.0); Mean Platelet Volume 10.5 fL (9.4-12.4); Platelet Count 296 K/uL (130-400); RDW Standard Deviation 45.6 fL (36.4-46.3); White Blood Count 5.82 K/ul (4.8-10.8)
[2023-07-07 09:11] LABS: Calcium 8.8 mg/dl (8.6-10.3); Potassium 3.9 mmol/L (3.5-5.1)
[2023-07-07 09:17] LABS: Creatinine Clr Calc Pharmacy 102.3 ml/min; Est GFR (African American) 112.8 ml/min; Est GFR (Non-African American) 97.3 ml/min
--- NOTE | 2023-07-07 10:17 | Discharge Summary ---
Discharge Summary Date of Service July 07, 2023 Notes For Next Care Provider Medication Changes From Visit Midodrine 2.5mg TID for hypotension Bowel regimen Oxycodone 5mg prn, plan to titrate down as able Admission HPI Per Admitting Provider Patient is 72-year-old female with PMH COPD, dyslipidemia, diastolic dysfunction, IBS, history migraine headache, history of lung nodule, chronic back pain, history of tobacco use, tremor, aortic stenosis presented to ER from [facility] for fall and left hip pain. History obtained from patient and inpatient and outpatient chart review. Patient with recent admission 06/07/2023- 06/11/2023 for fall and right intertrochanteric hip fracture s/p ORIF on 06/08/[address] Iglesias. Patient discharge to [facility] for rehab. Patient states was ambulating to bathroom today when she fell onto left hip, left side. Patient states instant left hip pain and was unable to get up. Patient denies any CP, SOB, dizziness prior to fall. She doesn't think he had LOC. States "I just fell". Was unwitnessed fall. Family thought patient had some confusion. In ER patient alert and oriented. Denies fever/chills, diaphoresis, N/V/D/C, OLVERA, vision changes, neck pain, CP, SOB, palpitations, cough, rhinorrhea, abdominal pain, paresthesias, increased extremity edema, rashes, urinary symptoms. History echo 06/07/2023: EF: 60-65%, normal LV wall motion, grade 1 diastolic dysfunction, mild-moderate aortic stenosis, mild mitral annular calcification, trace mitral regurgitation Admission Exam Per Admitting Provider General: no acute distress, WDWN Head: normocephalic, atraumatic Eyes: PERRL, EOM's intact, conjunctiva non-injected, anicteric ENT: normal inspection external ears, nose, mucous membranes moist Neck: supple, trachea midline Lungs: clear, no respiratory distress, no wheezing/rhonchi/rales CV: RRR, + murmur, trace pretibial edema Abd: normal BS, soft, non-tender Ext: LLE: +leg shortened and foot rotated, +tenderness to palpation entire left hip, no cyanosis, no erythema, dorsalis pedis pulse palpable, sensation to light touch intact, remaining extremities with normal appearance and non-tender Neuro: Alert, oriented to person, place, month, year, president. Said today was Wednesday (It is Wednesday), no focal deficits noted, normal affect Skin: warm, dry Principal Dx & Hospital Course #1 = Principal Diagnosis (1) Fall: (2) Closed fracture of left hip: (3) Anemia: (4) COPD (chronic obstructive pulmonary disease): (5) Dyslipidemia: (6) Migraines: (7) IBS (irritable bowel syndrome): (8) Depression: (9) Essential tremor: (10) Aortic stenosis: (11) Diastolic dysfunction: Plan Ms. Cortez is a 72-year-old female with h/o COPD, dyslipidemia, diastolic dysfunction, IBS, history migraine headache, history of lung nodule, chronic back pain, history of tobacco use, tremor, aortic stenosis who presented to the ED from [facility] 07/01 for fall and left hip pain. Recent admission 06/07/2023 for fall and right intertrochanteric hip fracture s/p ORIF on 06/08/[address] Iglesias. She was found to have close left hip fracture and underwent trochanteric nail on 07/02. Palliative consulted to discuss goals given poor progress at rehab. It was determined that patient would like trial of rehab and to touch base with Palliative care in a couple weeks to assess if she is doing well, or if hospice would be a preferred option to help support a transition to comfort and home. On day of discharge, patient was eating well and reporting that she would like to go to rehab and "see how it goes" and "now or never" is the time leave. Patient reports hesitancy and mistrust with movements given two traumatic falls in a short time. #Closed fracture of left hip s/p Left Hip Trochanteric Femoral Nail by Dr Hansen 07/02- further management per ortho. Continue pain management Plan for 2 more weeks of 2.5mgeliquis (EOT 07/20) for dvt ppx. then resume home asa. #Hypoxia- continue nebs, IS, flutter valve. Wean down oxygen as tolerated #COPD (chronic obstructive pulmonary disease): No exacerbation. #H/o Migraines: On topiramate #H/o IBS (irritable bowel syndrome): On Bentyl #H/o Depression: On citalopram Essential tremor: On primidone, topiramate, valium. #UTI- Allergic to ampicillin. Completed empiric ceftriaxone for 3-day course. smith removed #Post op blood loss anemia- Hb trending down. Hb down to 7.7 today. Started on oral iron. stable 8.6 on discharge Discharge Exam Constitutional WD/WN, vitals as above Respiratory normal respiratory effort, lungs clear to auscultation Cardiovascular RRR, no murmur, no edema Musculoskeletal left hip surgical incision with clean bandage in place, no signs of superimposed infection or wound drainage Updated Medication List Medication Instructions Recorded Confirmed Type alendronate 70 mg tablet (Fosamax) 70 mg PO WK 02/24/19 07/02/23 History aspirin 81 mg tablet,delayed 81 mg PO QAM 02/24/19 07/02/23 History release (Aspir-) citalopram 40 mg tablet 40 mg PO PM 02/24/19 07/02/23 History diazepam 5 mg tablet 5 mg PO QID 02/24/19 07/02/23 History gabapentin 100 mg capsule 100 mg PO BID 02/24/19 07/02/23 History gabapentin 300 mg capsule 300 mg PO HS 02/24/19 07/02/23 History primidone 50 mg tablet 100 mg PO BID 02/24/19 07/02/23 History simvastatin 40 mg tablet 40 mg PO HS 02/24/19 07/02/23 History vitamin E 268 mg (400 unit) capsule 400 unit PO PM 02/24/19 07/02/23 History primidone 50 mg tablet 150 mg PO HS 09/13/20 07/02/23 History dicyclomine 10 mg capsule 10 mg PO QID IBS 09/25/20 07/02/23 History albuterol sulfate 90 mcg/actuation 1 inh inhalation Q4H PRN 01/30/21 07/02/23 History aerosol inhaler SOB/WHEEZING fluticasone fur. 200 mcg-umeclid 1 inh inhalation DAILY 01/30/21 07/02/23 History 62.5 mcg-vilant 25 mcg inhalat.powder (Trelegy Ellipta) topiramate 25 mg tablet (Topamax) 25 mg PO QAM 02/03/22 07/02/23 History Proheal 30 ml PO BID wound repair 07/02/23 07/02/23 History acetaminophen 500 mg tablet 1,000 mg PO TID pain 07/02/23 07/02/23 History (Tylenol Extra Strength) bisacodyl 10 mg rectal suppository 10 mg ID DAILY PRN Constipation 07/02/23 07/02/23 History (Dulcolax (bisacodyl)) cetirizine 10 mg tablet 10 mg PO QAM 07/02/23 07/02/23 History folic acid 0.8 mg capsule 0.8 mg PO QAM 07/02/23 07/02/23 History magnesium hydroxide 400 mg/5 mL See Rx Instructions .Route 07/02/23 07/02/23 History oral suspension (Milk of Magnesia) .COMPLEX PRN Constipation naloxone 4 mg/actuation nasal spray 4 mg intranasal UD PRN Opioid 07/02/23 07/02/23 History Overdose sodium phosphates 19 gram-7 118 ml ID DAILY PRN Constipation 07/02/23 07/02/23 History gram/118 mL enema (Fleet Enema) topiramate 50 mg tablet 50 mg PO HS 07/02/23 07/02/23 History apixaban 2.5 mg tablet (Eliquis) 2.5 mg PO BID 14 days #0 tabs 07/07/23 07/02/23 Rx docusate sodium 100 mg capsule 100 mg PO BID #60 caps 07/07/23 Rx ferrous sulfate 325 mg (65 mg 325 mg PO QAM #30 tabs 07/07/23 Rx iron) tablet,delayed release midodrine 2.5 mg tablet 2.5 mg PO TID@0800,1200,1700 #90 07/07/23 Rx tabs oxycodone 5 mg tablet 5 mg PO Q6H PRN pain #20 tabs 07/07/23 Rx Hospital Stay Data Consultations 07/02/23 18:40 Consult Anesthesiology Routine Consult Orthopedic Surgery Routine 07/05/23 15:43 Consult Palliative Care Routine Procedures Performed Operation Date: 07/03/23 07:30 Actual Procedures p Left Hip Trochanteric Femoral Nail(Left) - Evan Hansen DO Diagnostic Imagining Performed 07/02/23 11:56 CT head/brain wo con Stat 07/03/23 FL hip LT 2-3V Routine 07/03/23 21:34 CT angio head w con Stat CT angio neck with con Stat CT head/brain wo con Stat 07/04/23 09:36 MR brain wo con Routine Pending Results Patient Have Any Pending Studies at Discharge: No Discharge Instructions Given to Patient (Per Discharging Provider) You were admitted for fall and found to have a closed fracture of left hip. You underwent Left Hip Trochanteric Femoral Nail by Dr Hansen 07/02. -Please continue 14 days of eliquis 2.5mg two times a day to prevent blood clots (end of treatment 07/21/2023) -You can resume aspirin 81 mg daily once complete with above eliquis -Continue bowel regimen and encourage a bowel movement every 1-2 days You were started on oral iron to help with anemia, or low blood counts. You were also started on Midodrine 2.5mg three times a day to help with low blood pressures. Please continue all other home medications. Please follow up with Orthopedics as directed and your Primary Care Physician Total Time Total Time Spent Total Time Spent (In Minutes): 45
[2023-07-07] MEDS: bisacodyL 10 MG SUPP PR STA (11:10)
[2023-07-07] MEDS: bisacodyL 5 MG TABEC PO ONE (11:10)
== END 2023-07-07 13:35 | DRG 481 ==
LOC: ED 11:36 → EDINP 16:52 → SUATTDRO 16:52 → 2N 18:41

== ENCOUNTER 2023-07-17 18:46 | Inpatient (IN) ==
[2023-07-17] MEDS: SODIUM CHLORIDE 0.9% 1,000 ML IV SCH (19:12)
[2023-07-17 19:34] LABS: Basophils # (auto) 0.02 K/uL (0.00-0.20); Basophils % (auto) 0.4 %; Eosinophils # (auto) 0.02 K/uL (0.00-0.50); Eosinophils % (auto) 0.4 %; Hematocrit (blood only) 28.1 % (37.0-47.0); Hemoglobin 8.5 g/dl (12.0-16.0); Immature Granulocytes # (auto) 0.03 K/uL (0.01-0.20); Immature Granulocytes % (auto) 0.6 %; Lymphocytes # (auto) 0.52 K/uL (1.20-3.40); Lymphocytes % (auto) 9.8 %; Mean Corpuscular Hemoglobin 27.2 pg (25.0-34.0); Mean Corpuscular Hgb Conc 30.2 g/dL (32.0-36.0); Mean Corpuscular Volume 90.1 fL (80.0-100.0); Mean Platelet Volume 9.9 fL (9.4-12.4); Monocytes # (auto) 0.39 K/uL (0.11-0.59); Monocytes % (auto) 7.4 %; Neutrophils # (auto) 4.32 K/uL (1.40-6.50); Neutrophils % (auto) 81.4 %; Platelet Count 482 K/uL (130-400); RDW Coefficient of Variation 14.3 % (11.5-14.5); RDW Standard Deviation 46.5 fL (36.4-46.3); Red Blood Count 3.12 M/uL (4.20-5.40)
[2023-07-17] MEDS ORDERED: VANCOMYCIN CONSULT ACTIVE PRN (19:42)
[2023-07-17 19:56] LABS: BUN Creatinine Ratio 26.4 (10-20); Bilirubin Direct 0.1 mg/dl (0-0.2); Bilirubin,Total 0.2 mg/dl (0.2-1.0); Calcium 8.6 mg/dl (8.6-10.3); Creatinine Clr Calc Pharmacy 111.1 ml/min; Est GFR (African American) 96.3 ml/min; Est GFR (Non-African American) 83.1 ml/min; Magnesium 2.1 mg/dl (1.7-2.4); Total Protein 5.9 gm/dl (6.0-8.3)
--- NOTE | 2023-07-17 19:59 | XRay Report ---
SINGLE VIEW CHEST CLINICAL HISTORY: Sepsis. FINDINGS: 2 AP, portable, upright chest radiographs are compared to study dated 07/03/2023. Correlatio n is made with chest CT dated 06/17/2015. The examination is degraded by portable technique and apical lordotic positioning. The heart is enlarged noting atherosclerotic calcification of the thoracic aort a. The pulmonary vasculature is noncongested. Emphysema and chronic interstitial thickening is simila r to previous. There is bibasilar scarring/atelectasis. No airspace consolidation or large pleural ef fusion is identified. No pneumothorax is seen. The skeletal structures are osteopenic. The bony thora x is grossly intact. IMPRESSION: Cardiomegaly and emphysema with no acute cardiopulmonary abnormality identified. ACT 112: Negative or not required by law. Electronically signed by: Camron Ackerman M.D. 07/17/2023 7:57 PM
[2023-07-17 20:03] LABS: Troponin I High Sensitivity 8.3 pg/ml (0-14)
[2023-07-17 20:16] LABS: Amorphous Sediment Urine Present (None Prsent); Appearance Urine Turbid (Clear); Bacteria Urine Automated 4+ (None Seen); Bilirubin Urine Negative (Negative); Blood Urine 3+ (Negative); Cast Urine Automated 0-2 /lpf (0-2); Color Urine Yellow; Epithelial Cell Urine Auto 0-2 /hpf (0-2); Glucose Urine UA Negative (Negative); Ketones Urine Negative (Negative); Leukocyte Esterase Urine 3+ (Negative); Nitrite Urine Positive (Negative); Protein Urine 1+ (Negative); RBC Urine Automated >20 /hpf (0-2); Specific Gravity Urine 1.021 (1.000-1.030); Urobilinogen Urine Negative (Negative); WBC Urine Automated >50 /hpf (0-5)
[2023-07-17] MEDS: SODIUM CHLORIDE 0.9% 500 ML IV ONE ×2 (20:21→21:26)
[2023-07-17] MEDS: ACETAMINOPHEN 500 MG TAB PO STA (20:21)
[2023-07-17] MEDS: CEFEPIME 2,000 MG/20 ML VIAL IV STA (20:21)
[2023-07-17] MEDS: VANCOMYCIN HCL 2,750 MG in SODIUM CHLORIDE 0.9% 500 ML IV ONE (20:24)
[2023-07-17 20:37] LABS: Adenovirus PCR Not Detected (NotDetected); Bordetella parapertussis PCR Not Detected (NotDetected); Bordetella pertussis PCR Not Detected (NotDetected); Chlamydia pneumoniae PCR Not Detected (NotDetected); Coronavirus 229E PCR Not Detected (NotDetected); Coronavirus CoV-2 (COVID19)PCR Not Detected (NotDetected); Coronavirus HKU1 PCR Not Detected (NotDetected); Coronavirus NL63 PCR Not Detected (NotDetected); Coronavirus OC43PCR Not Detected (NotDetected); Human Metapneumovirus PCR Not Detected (NotDetected); Influenza A PCR Not Detected (NotDetected); Influenza B PCR Not Detected (NotDetected); Mycoplasma pneumoniae PCR Not Detected (NotDetected); Parainfluenza Virus 1 PCR Not Detected (NotDetected); Parainfluenza Virus 2 PCR Not Detected (NotDetected); Parainfluenza Virus 3 PCR Not Detected (NotDetected); Parainfluenza Virus 4 PCR Not Detected (NotDetected); Respiratory Syncytial VirusPCR Not Detected (NotDetected); Rhinovirus/Enterovirus PCR Not Detected (NotDetected)
--- NOTE | 2023-07-17 20:42 | CT Scan Report ---
Exam(s): CT ABDOMEN + PELVIS Without Contrast EXAM: CT Abdomen and Pelvis Without Intravenous Contrast CLINICAL HISTORY: Reason for exam: sepsis, lower abd pain. TECHNIQUE: Axial computed tomography images of the abdomen and pelvis without intravenous contrast. CTDI is 19.78 mGy and DLP is 925.4 mGy-cm. Automated exposure control was utilized for the study. A dose lowering technique was utilized adhering to the principles of ALARA. COMPARISON: No relevant prior studies available. FINDINGS: Lung bases: Atelectasis at the lung bases. ABDOMEN: Liver: Unremarkable. Gallbladder and bile ducts: Cholecystectomy. No ductal dilation. Pancreas: Unremarkable. No ductal dilation. Spleen: Unremarkable. No splenomegaly. Adrenals: Unremarkable. No mass. Kidneys and ureters: Unremarkable. No obstructing stones. No hydronephrosis. Stomach and bowel: Moderate fecal retention, correlate with constipation. No small bowel obstruction. No mucosal thickening. PELVIS: Appendix: No findings to suggest acute appendicitis. Bladder: Unremarkable. No stones. Reproductive: Unremarkable as visualized. ABDOMEN and PELVIS: Intraperitoneal space: Unremarkable. No free air. No significant fluid collection. Bones/joints: Degenerative changes of the spine. Bilateral hip ORIF. No acute fracture. No dislocation. Soft tissues: Unremarkable. Vasculature: Atherosclerotic changes of the aorta. No abdominal aortic aneurysm. Lymph nodes: Unremarkable. No enlarged lymph nodes. IMPRESSION: Moderate fecal retention, correlate with constipation. No small bowel obstruction. Electronically signed by: Matthew Lopez MD 07/17/23 20:41 PM
[2023-07-17 21:30] LABS: Base Excess VBG -2.3 mEq/L; HCO3 VBG 21 mmol/L; Oxygen Saturation VBG 94.4 %; PCO2 VBG 33 mmHg (38-50); PO2 VBG 65 mmHg; pH VBG 7.42 (7.36-7.41)
--- NOTE | 2023-07-17 22:11 | Emergency Department Note ---
Impression & Plan Sepsis, Acute UTI (urinary tract infection), Acute constipation ED Provider Note NAME: JAAY SY AGE: 72 SEX: Female INFORMANT: Patient ED PROVIDER(S): Jim Haney MD CHIEF COMPLAINT: Fever and confusion PLAN: Disposition: Admitted Outpatient prescription management: none Referral: None MEDICAL DECISION MAKING: Patient presented because of fever and confusion. Workup was initiated. She had blood cultures obtained. Her CBC was unremarkable. Chemistry panel did not reveal any significant abnormalities. BNP is minimally elevated but consistent with prior. Troponin was negative. Urinalysis is very concerning for infection. Lactate was normal. Patient had an unremarkable BioFire test. Due to the low blood pressure patient was given fluid boluses based upon ideal body weight. Patient was empirically treated with cefepime and vancomycin. She was also given Tylenol. Patient was sent for CT imaging. Significant constipation noted but no evidence of perforation, obstruction, or other acute pathology. Chest x-ray did not reveal any pneumonia. Consultation was made with Dr. Chay Pemberton, [facility] hospitalist service. Case discussed and diagnostics were reviewed. He will see the patient for admission. We did discuss the patient's low blood pressure. It appears that she has chronic hypotension and is similar to her baseline. No vasopressors added. 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 Vital Signs: reviewed and remarkable for fever and hypotension Additional History obtained from: none Chronic Medical/Social Conditions affecting care: COPD, rehab status for recent hip fracture Prior/ Outside/ External records reviewed: none Differential Diagnosis: Viral syndrome, pneumonia, influenza, urinary tract infection, sepsis, bacteremia, as well as other pathologies. Diagnostics, independently interpreted by me: ECG: Twelve-lead ECG reveals a normal sinus rhythm at 87 bpm. Low voltage QRS. No ST elevation or depression. No PACs or PVCs Cardiac Monitoring: Cardiac monitoring ordered by me: The patient was placed on continuous cardiac monitoring and observed. It revealed a normal sinus rhythm at 69 beats per minute without ectopy or evidence of dysrhythmia. Medical decision rules: none Imaging studies: Chest x-ray. Findings: A chest x-ray was performed and revealed no pneumothorax, effusion, infiltrate, pulmonary edema, free air under the diaphragm, or wide mediastinum. Impression: No acute disease. I refer you to the EMR for further details. HPI: 72 year old Female arrives for evaluation of fever and confusion. Patient is residing at [place] care due to recent hip surgery. She developed a fever and had mildly low oxygen level. Patient had noted she has been dealing with constipation recently since her recent hip surgery. No reported problems with her incision and wound. Patient does note generalized weakness. Pt denies LOC, headache, visual changes, neck pain, chest pain, breathing difficulties, nausea, vomiting, abdominal pain, back pain, urinary symptoms, numbness, lymphadenopathy, rash, or other complaints. PAST MEDICAL HISTORY: See Below, COPD PAST SURGICAL HISTORY: See Below, ORIF of the right and left hip. SOCIAL HISTORY: See Below, smoker HOME MEDICATIONS: See Below ALLERGIES: See Below VITALS: See Below PHYSICAL EXAMINATION: GENERAL: Awake, tired-appearing, in no distress HENT: Normocephalic, atraumatic. Oropharynx unremarkable. EYES: Normal conjunctiva. Sclera non-icteric. NECK: Inspection normal. Non-tender. Supple. No nuchal rigidity. FROM. No masses. RESPIRATORY: Clear to auscultation. No wheezes. No rales. Normal respiratory effort. CARDIAC: Normal rate. Normal rhythm. No murmurs. No rubs. Extremities warm and well perfused. Pulses equal. No JVD. GI: Soft, non-distended. Suprapubic tenderness to palpation. No rebound or guarding. No masses. RECTAL: Deferred. MUSCULOSKELETAL: Atraumatic. Chest examination reveals no tenderness. The left hip incisions look clean, dry and intact. No erythema. No joint edema. LOWER EXTREMITIES: Calves are equal size bilaterally and non-tender. No edema. No discoloration. NEURO: Mildly confused but otherwise normal sensorium. Generally weak but no focal no sensory or motor deficits noted. SKIN: No rash or jaundice noted. PROCEDURES: none CRITICAL CARE: I have personally spent 32 minutes of critical care time in the direct management of this patient. This includes bedside care, interpretation of diagnostic studies, and testing, discussion with consultants, patient, and other required patient management activities. These minutes are in excess of all separately billable procedures. OBSERVATION NOTE: none Past Med/Surg History Medical History (Updated 07/17/23 @ 22:11 by Jim Haney MD) Counseling regarding advanced directives and goals of care Palliative care by specialist Discussion about advance care planning held with family member Hip pain, acute Weakness generalized Aortic stenosis Murmur Intertrochanteric fracture of right hip Asthma well controlled per pt, rare res inh use Depression Bilateral lumbar radiculopathy Essential tremor BILAT. HANDS History of diverticulitis Anxiety and depression History of skin cancer NOSE Unsteady gait RECENT, CANE/WALKER PRN Cirrhosis of liver COPD (chronic obstructive pulmonary disease) Sciatica Migraines Hernia Snores Spondylolisthesis, lumbar region IBS (irritable bowel syndrome) Osteoarthritis Spinal stenosis of lumbar region Chronic back pain Hypertension PT DENIES Hyperlipidemia Surgical History (Updated 07/12/23 @ 00:07 by Ramon Oneill) S/P epidural steroid injection H/O colonoscopy with polypectomy H/O oophorectomy History of arthroscopy of left knee History of endoscopy Hx of ovarian cystectomy History of cholecystectomy History of bilateral tubal ligation History of tonsillectomy Hx of cataract extraction BILAT Family History Mother Colon cancer Other Family history of diabetes mellitus No family history of adverse response to anesthesia Social History Smoking Status: Current every day smoker Tobacco Type: Cigarettes Cigarettes Per Day: one pack per day; Second Hand Exposure: No; Do You Dip or Chew Tobacco: No; Hx Alcohol Use: No Hx Substance Use: No Preferred Language: Slovak Communication Ability: Effective Continuous Process Rotary Drum Tanner Required: No Beliefs That Will Affect Care: None Current Living Situation: Alone Current Living Situation Comment: [facility] Feels Safe at Home: Yes Assistive Devices: Cane, Denture - Upper, Denture - Lower, Raised Toilet Seat, Walker and Other Allergies Allergies Allergy/AdvReac Type Severity Reaction Status Date / Time Milk Containing Products Allergy Intermediate Gastrointestinal Unverified 07/02/23 17:16 (Dairy) Upset ampicillin Allergy Mild RASH Verified 07/02/23 17:16 Bactrim Allergy Unknown UNKNOWN - Verified 10/22/15 08:03 CAN'T REMEMBER sulfamethoxazole Allergy Unknown UNKNOWN - Verified 07/02/23 17:16 CAN'T REMEMBER trimethoprim Allergy Unknown UNKNOWN - Verified 07/02/23 17:16 CAN'T REMEMBER lactose AdvReac Verified 07/03/23 15:52 Home Meds Home Medications Medication Instructions Recorded Confirmed alendronate 70 mg tablet (Fosamax) 70 mg PO WK 02/24/19 07/17/23 aspirin 81 mg tablet,delayed 81 mg PO QAM 02/24/19 07/17/23 release (Aspir-) citalopram 40 mg tablet 40 mg PO PM 02/24/19 07/17/23 diazepam 5 mg tablet 5 mg PO QID 02/24/19 07/17/23 gabapentin 100 mg capsule 100 mg PO BID 02/24/19 07/17/23 gabapentin 300 mg capsule 300 mg PO HS 02/24/19 07/17/23 primidone 50 mg tablet 100 mg PO BID 02/24/19 07/17/23 simvastatin 40 mg tablet 40 mg PO HS 02/24/19 07/17/23 vitamin E 268 mg (400 unit) capsule 400 unit PO PM 02/24/19 07/17/23 primidone 50 mg tablet 150 mg PO HS 09/13/20 07/17/23 dicyclomine 10 mg capsule 10 mg PO QID IBS 09/25/20 07/17/23 albuterol sulfate 90 mcg/actuation 1 inh inhalation Q4H PRN 01/30/21 07/17/23 aerosol inhaler SOB/WHEEZING fluticasone fur. 200 mcg-umeclid 1 inh inhalation DAILY 01/30/21 07/17/23 62.5 mcg-vilant 25 mcg inhalat.powder (Trelegy Ellipta) topiramate 25 mg tablet (Topamax) 25 mg PO QAM 02/03/22 07/17/23 acetaminophen 500 mg tablet 1,000 mg PO TID pain 07/02/23 07/17/23 (Tylenol Extra Strength) bisacodyl 10 mg rectal suppository 10 mg AZ DAILY PRN Constipation 07/02/23 07/17/23 (Dulcolax (bisacodyl)) cetirizine 10 mg tablet 10 mg PO QAM 07/02/23 07/17/23 folic acid 0.8 mg capsule 0.8 mg PO QAM 07/02/23 07/17/23 magnesium hydroxide 400 mg/5 mL See Rx Instructions .Route 07/02/23 07/17/23 oral suspension (Milk of Magnesia) .COMPLEX PRN Constipation sodium phosphates 19 gram-7 118 ml [place] DAILY PRN Constipation 07/02/23 07/17/23 gram/118 mL enema (Fleet Enema) topiramate 50 mg tablet 50 mg PO HS 07/02/23 07/17/23 calcium carbonate (Calcium 600) 600 mg PO AMHS 07/17/23 07/17/23 cholecalciferol (vitamin D3) 1,250 1,250 mcg PO UD 07/17/23 07/17/23 mcg (50,000 unit) tablet menthol 0.44 %-zinc oxide 20.6 % 1 applic topical BID 07/17/23 07/17/23 topical ointment (Calmoseptine) Previous Rx's Medication Instructions Recorded apixaban 2.5 mg tablet (Eliquis) 2.5 mg PO BID 14 days #0 tabs 07/07/23 docusate sodium 100 mg capsule 100 mg PO BID #60 caps 07/07/23 ferrous sulfate 325 mg (65 mg 325 mg PO QAM #30 tabs 07/07/23 iron) tablet,delayed release midodrine 2.5 mg tablet 2.5 mg PO TID@0800,1200,1700 #90 07/07/23 tabs oxycodone 5 mg tablet 5 mg PO Q6H PRN pain #20 tabs 07/07/23 Results & Data (ED) Vital Signs Vital Signs - 24 hr 07/17/23 18:53 07/17/23 18:54 07/17/23 19:00 Temperature 38.7 C H Temperature Source Oral Pulse Rate 87 86 86 Pulse Rate from SpO2 Sensor 86 Pulse Rhythm Regular Pulse Strength Normal Respiratory Rate 18 25 H Respiratory Effort / Characteristics Non-Labored Respiratory Depth Normal Respiratory Pattern Regular Blood Pressure 105/52 L 106/57 L Blood Pressure Mean 69 73 Blood Pressure Position Sitting Pulse Oximetry 91 92 Oxygen Delivery Method Room Air Room Air Oxygen Flow Rate Sepsis Recent Fever Within 48 Hours Yes Sepsis New/Unexplained Change in Mental Status Yes Sepsis Action Taken by Nursing Physician Notified 07/17/23 19:21 07/17/23 19:21 07/17/23 19:32 Temperature Temperature Source Pulse Rate 81 76 Pulse Rate from SpO2 Sensor 82 76 Pulse Rhythm Pulse Strength Respiratory Rate 22 23 Respiratory Effort / Characteristics Respiratory Depth Respiratory Pattern Blood Pressure 93/52 L 93/52 L 95/52 L Blood Pressure Mean 69 65 66 Blood Pressure Position Pulse Oximetry 88 L 92 96 Oxygen Delivery Method Room Air Nasal Cannula Nasal Cannula Oxygen Flow Rate 2 2 Sepsis Recent Fever Within 48 Hours Sepsis New/Unexplained Change in Mental Status Sepsis Action Taken by Nursing Laboratory Data 07/17/23 19:10 07/17/23 19:10 Lab Results 07/17/23 07/17/23 07/17/23 Range/Units 19:08 19:10 19:21 WBC 5.30 (4.8-10.8) K/ul RBC 3.12 L (4.20-5.40) M/uL Hgb 8.5 L (12.0-16.0) g/dl Hct 28.1 L (37.0-47.0) % MCV 90.1 (80.0-100.0) fL MCH 27.2 (25.0-34.0) pg MCHC 30.2 L (32.0-36.0) g/dL RDW Std Deviation 46.5 H (36.4-46.3) fL RDW Coeff of Jeannie 14.3 (11.5-14.5) % Plt Count 482 H (130-400) K/uL MPV 9.9 (9.4-12.4) fL Immature Gran % (Auto) 0.6 % Neut % (Auto) 81.4 % Lymph % (Auto) 9.8 % [place] % (Auto) 7.4 % Eos % (Auto) 0.4 % Baso % (Auto) 0.4 % Neut # (Auto) 4.32 (1.40-6.50) K/uL Lymph # (Auto) 0.52 L (1.20-3.40) K/uL [place] # (Auto) 0.39 (0.11-0.59) K/uL Eos # (Auto) 0.02 (0.00-0.50) K/uL Baso # (Auto) 0.02 (0.00-0.20) K/uL Immature Gran # (Auto) 0.03 (0.01-0.20) K/uL VBG pH (7.36-7.41) VBG pCO2 (38-50) mmHg VBG pO2 mmHg VBG HCO3 mmol/L VBG O2 Saturation % VBG Base Excess mEq/L Sodium 142 (136-145) mmol/L Potassium 4.0 (3.5-5.1) mmol/L Chloride 111 H (98-107) mmol/L Carbon Dioxide 23 (21-32) mmol/L Anion Gap 8 (3-11) BUN 19 (6-23) mg/dl Creatinine 0.72 (0.6-1.2) mg/dl Est Cr Clr Drug Dosing 111.1 ml/min Est GFR ( Amer) 96.3 ml/min Est GFR (Non-Af Amer) 83.1 ml/min BUN/Creatinine Ratio 26.4 H (10-20) Glucose 130 H (70-99(Fasting)) mg/dl Lactate 1.4 (0.4-2.0) mmol/L Calcium 8.6 (8.6-10.3) mg/dl Magnesium 2.1 (1.7-2.4) mg/dl Total Bilirubin 0.2 (0.2-1.0) mg/dl Direct Bilirubin 0.1 (0-0.2) mg/dl AST 19 (13-39) U/L ALT 15 (7-52) U/L Alkaline Phosphatase 57 (34-104) U/L Ammonia (18-72) umol/L Troponin I High Sens 8.3 (0-14) pg/ml B-Natriuretic Peptide 164 H (0-100) pg/ml Total Protein 5.9 L (6.0-8.3) gm/dl Albumin 3.0 L (3.4-5.0) gm/dl Procalcitonin 0.28 (0-0.5) ng/ml Urine Color Yellow Urine Appearance Turbid A (Clear) Urine pH 8.0 H (4.5-7.5) Ur Specific [place] [employer] 1.021 (1.000-1.030) Urine Protein 1+ H (Negative) Urine Glucose (UA) Negative (Negative) Urine Ketones Negative (Negative) Urine Blood 3+ H (Negative) Urine Nitrite Positive A (Negative) Urine Bilirubin Negative (Negative) Urine Urobilinogen Negative (Negative) Ur Leukocyte Esterase 3+ H (Negative) Urine WBC (Auto) >50 H (0-5) /hpf Urine RBC (Auto) >20 H (0-2) /hpf U Hyaline Cast (Auto) 0-2 (0-2) /lpf U Epithel Cells (Auto) 0-2 (0-2) /hpf Urine Bacteria (Auto) 4+ H (None Seen) Amorphous Sediment Present A (None Prsent) Adenovirus (PCR) Not Detected (NotDetected) B. pertussis DNA (PCR) Not Detected (NotDetected) B.parapertussis DNA PCR Not Detected (NotDetected) C. pneumoniae DNA (PCR) Not Detected (NotDetected) Coronavirus OC43 (PCR) Not Detected (NotDetected) Coronavirus HKU1 (PCR) Not Detected (NotDetected) Coronavirus 229E (PCR) Not Detected (NotDetected) SARS-CoV-2 (PCR) Not Detected (NotDetected) Coronavirus NL63 (PCR) Not Detected (NotDetected) Human Metapneumovir PCR Not Detected (NotDetected) Influenza Type A (PCR) Not Detected (NotDetected) Influenza Type B (PCR) Not Detected (NotDetected) M. pneumoniae (PCR) Not Detected (NotDetected) Parainfluenza 1 (PCR) Not Detected (NotDetected) Parainfluenza 2 (PCR) Not Detected (NotDetected) Parainfluenza 3 (PCR) Not Detected (NotDetected) Parainfluenza 4 (PCR) Not Detected (NotDetected) RSV (PCR) Not Detected (NotDetected) Entero/Rhino (PCR) Not Detected (NotDetected) 07/17/23 Range/Units 21:22 WBC (4.8-10.8) K/ul RBC (4.20-5.40) M/uL Hgb (12.0-16.0) g/dl Hct (37.0-47.0) % MCV (80.0-100.0) fL MCH (25.0-34.0) pg MCHC (32.0-36.0) g/dL RDW Std Deviation (36.4-46.3) fL RDW Coeff of Jeannie (11.5-14.5) % Plt Count (130-400) K/uL MPV (9.4-12.4) fL Immature Gran % (Auto) % Neut % (Auto) % Lymph % (Auto) % [place] % (Auto) % Eos % (Auto) % Baso % (Auto) % Neut # (Auto) (1.40-6.50) K/uL Lymph # (Auto) (1.20-3.40) K/uL [place] # (Auto) (0.11-0.59) K/uL Eos # (Auto) (0.00-0.50) K/uL Baso # (Auto) (0.00-0.20) K/uL Immature Gran # (Auto) (0.01-0.20) K/uL VBG pH 7.42 H (7.36-7.41) VBG pCO2 33 L (38-50) mmHg VBG pO2 65 mmHg VBG HCO3 21 mmol/L VBG O2 Saturation 94.4 % VBG Base Excess -2.3 mEq/L Sodium (136-145) mmol/L Potassium (3.5-5.1) mmol/L Chloride (98-107) mmol/L Carbon Dioxide (21-32) mmol/L Anion Gap (3-11) BUN (6-23) mg/dl Creatinine (0.6-1.2) mg/dl Est Cr Clr Drug Dosing ml/min Est GFR ( Amer) ml/min Est GFR (Non-Af Amer) ml/min BUN/Creatinine Ratio (10-20) Glucose (70-99(Fasting)) mg/dl Lactate (0.4-2.0) mmol/L Calcium (8.6-10.3) mg/dl Magnesium (1.7-2.4) mg/dl Total Bilirubin (0.2-1.0) mg/dl Direct Bilirubin (0-0.2) mg/dl AST (13-39) U/L ALT (7-52) U/L Alkaline Phosphatase (34-104) U/L Ammonia 20.0 (18-72) umol/L Troponin I High Sens (0-14) pg/ml B-Natriuretic Peptide (0-100) pg/ml Total Protein (6.0-8.3) gm/dl Albumin (3.4-5.0) gm/dl Procalcitonin (0-0.5) ng/ml Urine Color Urine Appearance (Clear) Urine pH (4.5-7.5) Ur Specific [place] [employer] (1.000-1.030) Urine Protein (Negative) Urine Glucose (UA) (Negative) Urine Ketones (Negative) Urine Blood (Negative) Urine Nitrite (Negative) Urine Bilirubin (Negative) Urine Urobilinogen (Negative) Ur Leukocyte Esterase (Negative) Urine WBC (Auto) (0-5) /hpf Urine RBC (Auto) (0-2) /hpf U Hyaline Cast (Auto) (0-2) /lpf U Epithel Cells (Auto) (0-2) /hpf Urine Bacteria (Auto) (None Seen) Amorphous Sediment (None Prsent) Adenovirus (PCR) (NotDetected) B. pertussis DNA (PCR) (NotDetected) B.parapertussis DNA PCR (NotDetected) C. pneumoniae DNA (PCR) (NotDetected) Coronavirus OC43 (PCR) (NotDetected) Coronavirus HKU1 (PCR) (NotDetected) Coronavirus 229E (PCR) (NotDetected) SARS-CoV-2 (PCR) (NotDetected) Coronavirus NL63 (PCR) (NotDetected) Human Metapneumovir PCR (NotDetected) Influenza Type A (PCR) (NotDetected) Influenza Type B (PCR) (NotDetected) M. pneumoniae (PCR) (NotDetected) Parainfluenza 1 (PCR) (NotDetected) Parainfluenza 2 (PCR) (NotDetected) Parainfluenza 3 (PCR) (NotDetected) Parainfluenza 4 (PCR) (NotDetected) RSV (PCR) (NotDetected) Entero/Rhino (PCR) (NotDetected) Administered Medications Vancomycin HCl 2,750 mg/ (Sodium Chloride) 555 mls @ 200 mls/hr IV NOW ONE Stop: 07/17/23 22:28 Last Admin: 07/17/23 20:24 Dose: 200 mls/hr Documented By: GRACIELA Discontinued Medications Acetaminophen (Acetaminophen 500 Mg Tab) 1,000 mg PO NOW STA Stop: 07/17/23 19:43 Last Admin: 07/17/23 20:21 Dose: 1,000 mg Documented By: GRACIELA Sodium Chloride (Nss) 1,000 mls @ 999 mls/hr IV .Q1H1M RANULFO Stop: 07/17/23 20:15 Last Infusion: 07/17/23 21:22 Dose: Infused Documented By: [facility] Admin: 07/17/23 19:12 Dose: 999 mls/hr Documented By: [facility] Sodium Chloride (Nss) 500 mls @ 999 mls/hr IV .Q31M ONE Stop: 07/17/23 20:12 Last Infusion: 07/17/23 21:22 Dose: Infused Documented By: [facility] Admin: 07/17/23 20:21 Dose: 999 mls/hr Documented By: GRACIELA Cefepime HCl (Maxipime) 2,000 mg in 20 mls @ 5 mls/min IV NOW STA; Protocol Stop: 07/17/23 19:45 Last Admin: 07/17/23 20:21 Dose: 5 mls/min Documented By: GRACIELA Sodium Chloride (Nss) 500 mls @ 999 mls/hr IV .Q31M ONE Stop: 07/17/23 21:18 Last Admin: 07/17/23 21:26 Dose: 999 mls/hr Documented By: [facility] Imaging Data Radiologist's Impression: Abdomen/Pelvis CT 07/17/23 19:45 Exam(s): CT ABDOMEN + PELVIS Without Contrast EXAM: CT Abdomen and Pelvis Without Intravenous Contrast CLINICAL HISTORY: Reason for exam: sepsis, lower abd pain. TECHNIQUE: Axial computed tomography images of the abdomen and pelvis without intravenous contrast. CTDI is 19.78 mGy and DLP is 925.4 mGy-cm. Automated exposure control was utilized for the study. A dose lowering technique was utilized adhering to the principles of ALARA. COMPARISON: No relevant prior studies available. FINDINGS: Lung bases: Atelectasis at the lung bases. ABDOMEN: Liver: Unremarkable. Gallbladder and bile ducts: Cholecystectomy. No ductal dilation. Pancreas: Unremarkable. No ductal dilation. Spleen: Unremarkable. No splenomegaly. Adrenals: Unremarkable. No mass. Kidneys and ureters: Unremarkable. No obstructing stones. No hydronephrosis. Stomach and bowel: Moderate fecal retention, correlate with constipation. No small bowel obstruction. No mucosal thickening. PELVIS: Appendix: No findings to suggest acute appendicitis. Bladder: Unremarkable. No stones. Reproductive: Unremarkable as visualized. ABDOMEN and PELVIS: Intraperitoneal space: Unremarkable. No free air. No significant fluid collection. Bones/joints: Degenerative changes of the spine. Bilateral hip ORIF. No acute fracture. No dislocation. Soft tissues: Unremarkable. Vasculature: Atherosclerotic changes of the aorta. No abdominal aortic aneurysm. Lymph nodes: Unremarkable. No enlarged lymph nodes. IMPRESSION: Moderate fecal retention, correlate with constipation. No small bowel obstruction. Electronically signed by: Matthew Lopez MD 07/17/23 20:41 PM Chest X-Ray 07/17/23 19:45 SINGLE VIEW CHEST CLINICAL HISTORY: Sepsis. FINDINGS: 2 AP, portable, upright chest radiographs are compared to study dated 07/03/2023. Correlation is made with chest CT dated 06/17/2015. The examination is degraded by portable technique and apical lordotic positioning. The heart is enlarged noting atherosclerotic calcification of the thoracic aorta. The pulmonary vasculature is noncongested. Emphysema and chronic interstitial thickening is similar to previous. There is bibasilar scarring/atelectasis. No airspace consolidation or large pleural effusion is identified. No pneumothorax is seen. The skeletal structures are osteopenic. The bony thorax is grossly intact. IMPRESSION: Cardiomegaly and emphysema with no acute cardiopulmonary abnormality identified. ACT 112: Negative or not required by law. Electronically signed by: Camron Ackerman M.D. 07/17/2023 7:57 PM Discharge Plan Visit Data Chief Complaint: Altered Mental Status ED Provider: Jim Haney Discharge Problem: Sepsis, Acute UTI (urinary tract infection), Acute constipation Forms Stand Alone Forms: My [facility] [employer] Prescriptions Prescriptions: No Action primidone 50 mg Tablet 100 mg PO BID Rx Instructions: 2 tabs morning and noon citalopram 40 mg Tablet 40 mg PO PM alendronate [Fosamax] 70 mg Tablet 70 mg PO WK Rx Instructions: WEDNESDAY aspirin [Aspir-81] 81 mg Tablet,Delayed Release (Dr/Ec) 81 mg PO QAM Hold Instructions: until completed with Eliquis simvastatin 40 mg Tablet 40 mg PO HS Patient Comments: PHARMACY REFILLED SIMVASTATIN , GOING TO FINISH SIMVISTATIN AND THEN START THE NEW PRESCRIPTION gabapentin 300 mg Capsule 300 mg PO HS gabapentin 100 mg Capsule 100 mg PO BID vitamin E 400 unit Capsule 400 unit PO PM Patient Comments: WITH DINNER diazepam 5 mg Tablet 5 mg PO QID primidone 50 mg Tablet 150 mg PO HS dicyclomine 10 mg Capsule 10 mg PO QID albuterol sulfate 90 mcg/actuation Hfa Aerosol Inhaler 1 inh INHALATION Q4H PRN (Reason: SOB/WHEEZING) Trelegy Ellipta 200-62.5-25 mcg Blister With Device 1 inh INHALATION DAILY topiramate [Topamax] 25 mg Tablet 25 mg PO QAM cholecalciferol (vitamin D3) 1,250 mcg (50,000 unit) Tablet 1,250 mcg PO UD Rx Instructions: take in the morning every WEDNESDAY FOR 8 WEEKS...END DATE 09/03/23 calcium carbonate [Calcium 600] 600 mg calcium (1,500 mg) Tablet 600 mg PO AMHS menthol-zinc oxide [Calmoseptine] 0.44-20.6 % Ointment 1 applic TOPICAL BID Rx Instructions: apply to buttocks and sacrum every shift for wound care for 2 weeks...end 07/29/23 cetirizine 10 mg tablet 10 mg PO QAM magnesium hydroxide [Milk of Magnesia] 400 mg/5 mL Suspension See Rx Instructions .ROUTE .COMPLEX PRN (Reason: Constipation) Rx Instructions: No strength given on MAY from [facility]. Original Directions: Give 30ml by mouth as needed for constipation if no BM after 3 days. Administer on 7-3 shift. bisacodyl [Dulcolax (bisacodyl)] 10 mg Suppository 10 mg [place] DAILY PRN (Reason: Constipation) Rx Instructions: Give on 05-23 shift on day 3 of no BM after MOM Fleet Enema 19-7 gram/118 mL Enema 118 ml [place] DAILY PRN (Reason: Constipation) Rx Instructions: Give on 7-3 shift on day 4 if no BM after Dulcolax topiramate 50 mg tablet 50 mg PO HS folic acid 0.8 mg Capsule 0.8 mg PO QAM acetaminophen [Tylenol Extra Strength] 500 mg tablet 1,000 mg PO TID MDD 3gm/24hr docusate sodium 100 mg Capsule 100 mg PO BID Qty: 60 0RF midodrine 2.5 mg Tablet 2.5 mg PO TID@0800,1200,1700 Qty: 90 0RF ferrous sulfate 325 mg (65 mg iron) Tablet,Delayed Release (Dr/Ec) 325 mg PO QAM Qty: 30 0RF oxycodone 5 mg Tablet 5 mg PO Q6H PRN (Reason: pain) Qty: 20 0RF Eliquis 2.5 mg Tablet 2.5 mg PO BID 14 Days Qty: 0 0RF Rx Instructions: take until 08/04/23 [id number] Referrals Referrals: Christie Morris DO [Primary Care Provider] -
[2023-07-17] MEDS: MIDODRINE HCL 2.5 MG TAB PO STA ×2 (22:32→23:31)
[2023-07-17 22:48] LABS: Thyroid Stimulating Hormone 0.983 uIu/ml (0.300-4.500)
[2023-07-17] MEDS ORDERED: POLYETHYLENE (MIRALAX) 17 GM PACK PO PRN (23:18)
[2023-07-17] MEDS ORDERED: PROMETHAZINE HCL 6.25 MG in SODIUM CHLORIDE 0.9% 50 ML IV PRN (23:19)
--- NOTE | 2023-07-17 23:20 | History & Physical Report ---
Date of Service July 17, 2023 Assessment & Plan (1) Sepsis: Plan: Multifactorial: Complicated UTI Infected sacral decubitus wound Hypotension on midodrine, possibly related to Parkinson's disease Transient encephalopathy secondary to illness, narcotics and multiple neuropsychotropic medications for chronic pain contributory chronic diastolic dysfunction (60 to 65%, TTE 2023), patient on dry side valvular heart disease (moderate , trace MR) hyperlipidemia, on statin Rx Hypoxemia without SOB symptoms likely from COPD NAFLD cirrhosis, no overt decompensation IBS constipation predominant chronic anemia, hemoglobin at baseline cognitive impairment as per records anxiety/mood disorder, at baseline hx malignant melanoma as per records recent hip fracture surgery currently on Eliquis anticoagulation ambulatory dysfunction past tobacco abuse PCU given hypotension Titrate midodrine CS, cefepime and doxycycline Wound care nurse consult Bowel regimen Hold parameters for sedation/confusion for multiple neuropsychotropic medications and narcotics. Decrease Ativan RTC dose DVT prophylaxis. Eliquis DNR Patient daughter requesting DAILY updates from hospitalist provider. Ms. Fela Clarke, contact #[phone]. Text document was generated using [employer] voice recognition software. It may contain grammatical or spelling errors. Kindly contact undersigned for clarification of any documentation item in question. History of Present Illness Chief Complaint: Fever Primary Care Provider: Christie Morris, History obtained from patient, family, and records. Medical history significant for chronic diastolic dysfunction (60 to 65%, TTE 2023), valvular heart disease (moderate , trace MR), hypotension on midodrine, hyperlipidemia, COPD, pulmonary nodule as per records, NAFLD cirrhosis, IBS constipation predominant, chronic anemia (baseline hemoglobin of 8), Parkinson d isease as per records, cognitive impairment as per records, chronic pain, anxiety/mood disorder, malignant melanoma as per records, recent hip fracture surgery currently on Eliquis anticoagulation, ambulatory dysfunction, sacral decubitus wound, past tobacco abuse. Monthly admissions since May 2023. 06/06-06/10 Patient admitted for right hip fracture status post surgery. Patient discharged to rehab. 07/11-07/05 Patient readmitted for traumatic left hip fracture status post surgery. Palliative care consulted to discuss goals of care given poor progress at rehab. Patient/family elected rehab trial and to touch base with specialist after 2 weeks. Consideration for hospice if no improvement as per patient. Midodrine started for hypotension during confinement. Patient noted to be febrile at rehab facility today. Denies abdominal pain. Patient cannot recall last bowel movement. No unusual chest pain, SOB symptoms, cough. Sacral wound getting worse as per daughter. Patient somewhat sleepy, blood pressure 80s, oxygen 80s as per report. Cefepime administered at the ER. Medical History as above Surgical History : Ex lap for endometriosis, cholecystectomy, ovarian cyst removal, tonsillectomy/adenectomy Family History : Colon cancer, heart disease, stomach cancer, depression, breast cancer, vaginal cancer, hip fracture surgery Personal/Social history : Past tobacco/alcohol abuse, disabled Allergies Allergy/AdvReac Type Severity Reaction Status Date / Time Milk Containing Products Allergy Intermediate Gastrointestinal Unverified 07/02/23 17:16 (Dairy) Upset ampicillin Allergy Mild RASH Verified 07/02/23 17:16 Bactrim Allergy Unknown UNKNOWN - Verified 10/22/15 08:03 CAN'T REMEMBER sulfamethoxazole Allergy Unknown UNKNOWN - Verified 07/02/23 17:16 CAN'T REMEMBER trimethoprim Allergy Unknown UNKNOWN - Verified 07/02/23 17:16 CAN'T REMEMBER lactose AdvReac Verified 07/03/23 15:52 Home Medications Medication Instructions Recorded Confirmed Type alendronate 70 mg tablet (Fosamax) 70 mg PO WK 02/24/19 07/17/23 History aspirin 81 mg tablet,delayed 81 mg PO QAM 02/24/19 07/17/23 History release (Aspir-) citalopram 40 mg tablet 40 mg PO PM 02/24/19 07/17/23 History diazepam 5 mg tablet 5 mg PO QID 02/24/19 07/17/23 History gabapentin 100 mg capsule 100 mg PO BID 02/24/19 07/17/23 History gabapentin 300 mg capsule 300 mg PO HS 02/24/19 07/17/23 History primidone 50 mg tablet 100 mg PO BID 02/24/19 07/17/23 History simvastatin 40 mg tablet 40 mg PO HS 02/24/19 07/17/23 History vitamin E 268 mg (400 unit) capsule 400 unit PO PM 02/24/19 07/17/23 History primidone 50 mg tablet 150 mg PO HS 09/13/20 07/17/23 History dicyclomine 10 mg capsule 10 mg PO QID IBS 09/25/20 07/17/23 History albuterol sulfate 90 mcg/actuation 1 inh inhalation Q4H PRN 01/30/21 07/17/23 History aerosol inhaler SOB/WHEEZING fluticasone fur. 200 mcg-umeclid 1 inh inhalation DAILY 01/30/21 07/17/23 History 62.5 mcg-vilant 25 mcg inhalat.powder (Trelegy Ellipta) topiramate 25 mg tablet (Topamax) 25 mg PO QAM 02/03/22 07/17/23 History acetaminophen 500 mg tablet 1,000 mg PO TID pain 07/02/23 07/17/23 History (Tylenol Extra Strength) bisacodyl 10 mg rectal suppository 10 mg NJ DAILY PRN Constipation 07/02/23 07/17/23 History (Dulcolax (bisacodyl)) cetirizine 10 mg tablet 10 mg PO QAM 07/02/23 07/17/23 History folic acid 0.8 mg capsule 0.8 mg PO QAM 07/02/23 07/17/23 History magnesium hydroxide 400 mg/5 mL See Rx Instructions .Route 07/02/23 07/17/23 History oral suspension (Milk of Magnesia) .COMPLEX PRN Constipation sodium phosphates 19 gram-7 118 ml NJ DAILY PRN Constipation 07/02/23 07/17/23 History gram/118 mL enema (Fleet Enema) topiramate 50 mg tablet 50 mg PO HS 07/02/23 07/17/23 History apixaban 2.5 mg tablet (Eliquis) 2.5 mg PO BID 14 days #0 tabs 07/07/23 07/17/23 Rx docusate sodium 100 mg capsule 100 mg PO BID #60 caps 07/07/23 07/17/23 Rx ferrous sulfate 325 mg (65 mg 325 mg PO QAM #30 tabs 07/07/23 07/17/23 Rx iron) tablet,delayed release midodrine 2.5 mg tablet 2.5 mg PO TID@0800,1200,1700 #90 07/07/23 07/17/23 Rx tabs oxycodone 5 mg tablet 5 mg PO Q6H PRN pain #20 tabs 07/07/23 07/17/23 Rx calcium carbonate (Calcium 600) 600 mg PO AMHS 07/17/23 07/17/23 History cholecalciferol (vitamin D3) 1,250 1,250 mcg PO UD 07/17/23 07/17/23 History mcg (50,000 unit) tablet menthol 0.44 %-zinc oxide 20.6 % 1 applic topical BID 07/17/23 07/17/23 History topical ointment (Calmoseptine) Past Med/Surg History Medical History (Updated 07/17/23 @ 22:11 by Jim Haney MD) Counseling regarding advanced directives and goals of care Palliative care by specialist Discussion about advance care planning held with family member Hip pain, acute Weakness generalized Aortic stenosis Murmur Intertrochanteric fracture of right hip Asthma well controlled per pt, rare res inh use Depression Bilateral lumbar radiculopathy Essential tremor BILAT. HANDS History of diverticulitis Anxiety and depression History of skin cancer NOSE Unsteady gait RECENT, CANE/WALKER PRN Cirrhosis of liver COPD (chronic obstructive pulmonary disease) Sciatica Migraines Hernia Snores Spondylolisthesis, lumbar region IBS (irritable bowel syndrome) Osteoarthritis Spinal stenosis of lumbar region Chronic back pain Hypertension PT DENIES Hyperlipidemia Surgical History (Updated 07/12/23 @ 00:07 by Ramon Oneill) S/P epidural steroid injection H/O colonoscopy with polypectomy H/O oophorectomy History of arthroscopy of left knee History of endoscopy Hx of ovarian cystectomy History of cholecystectomy History of bilateral tubal ligation History of tonsillectomy Hx of cataract extraction BILAT Family History Mother Colon cancer Other Family history of diabetes mellitus No family history of adverse response to anesthesia Social History Smoking Status: Former smoker Tobacco Type: Cigarettes Cigarettes Per Day: 1 ppd; Second Hand Exposure: No; Do You Dip or Chew Tobacco: No; Hx Alcohol Use: No Hx Substance Use: No Preferred Language: Macedonian Communication Ability: Effective Knot Tier Required: No Beliefs That Will Affect Care: None Current Living Situation: [facility] Current Living Situation Comment: [facility] Other Information That Helps Us Care for You: No Feels Safe at Home: Yes Safety Concerns: Feels Safe At This Time Assistive Devices: Cane and Walker Review of Systems Review of Systems: As per HPI, all other systems reviewed and negative Physical Exam Physical Exam: GENERAL: Comfortable, chronically ill, no respiratory distress SKIN: Pallor, warm HEENT: Pale palpebral conjunctivae, no ptosis, dry buccal mucosa, nasal cannula in place NECK : Supple, no tenderness CHEST : Decreased breath sounds, no tenderness HEART : RRR, systolic murmur ABDOMEN: Some distention, nontender BACK : Decubiti wound not examined EXTREMITIES : Bilateral LE swelling, hip tenderness, no other conspicuous deformities noted NEUROLOGIC : Coherent, no facial asymmetry, chronic RUE tremors Results & Data Results & Data Vital Signs (Past 12 Hours) Vital Signs Temp Pulse Pulse Resp BP BP Pulse Ox 07/17/23 23:02 70 07/17/23 23:00 69 22 85/53 L 97 07/17/23 22:28 73 24 88/45 L 98 07/17/23 20:50 71 25 H 93/50 L 96 07/17/23 20:45 75 26 H 99/55 L 97 07/17/23 19:32 76 23 95/52 L 96 07/17/23 19:21 81 22 93/52 L 92 07/17/23 19:21 93/52 L 88 L 07/17/23 19:00 86 25 H 106/57 L 92 07/17/23 18:54 86 07/17/23 18:53 38.7 C H 87 18 105/52 L 91 O2 Del Method O2 Flow Rate 07/17/23 23:02 07/17/23 23:00 Nasal Cannula 2 07/17/23 22:28 Room Air 07/17/23 20:50 Room Air 07/17/23 20:45 Room Air 07/17/23 19:32 Nasal Cannula 2 07/17/23 19:21 Nasal Cannula 2 07/17/23 19:21 Room Air 07/17/23 19:00 Room Air 07/17/23 18:54 07/17/23 18:53 Room Air Laboratory Results Laboratory Results WBC 5.30 K/ul (4.8-10.8) 07/17/23 19:10 RBC 3.12 M/uL (4.20-5.40) L 07/17/23 19:10 Hgb 8.5 g/dl (12.0-16.0) L 07/17/23 19:10 Hct 28.1 % (37.0-47.0) L 07/17/23 19:10 MCV 90.1 fL (80.0-100.0) 07/17/23 19:10 MCH 27.2 pg (25.0-34.0) 07/17/23 19:10 MCHC 30.2 g/dL (32.0-36.0) L 07/17/23 19:10 RDW Std Deviation 46.5 fL (36.4-46.3) H 07/17/23 19:10 RDW Coeff of Jeannie 14.3 % (11.5-14.5) 07/17/23 19:10 Plt Count 482 K/uL (130-400) H 07/17/23 19:10 MPV 9.9 fL (9.4-12.4) 07/17/23 19:10 Immature Gran % (Auto) 0.6 % 07/17/23 19:10 Neut % (Auto) 81.4 % 07/17/23 19:10 Lymph % (Auto) 9.8 % 07/17/23 19:10 [place] % (Auto) 7.4 % 07/17/23 19:10 Eos % (Auto) 0.4 % 07/17/23 19:10 Baso % (Auto) 0.4 % 07/17/23 19:10 Neut # (Auto) 4.32 K/uL (1.40-6.50) 07/17/23 19:10 Lymph # (Auto) 0.52 K/uL (1.20-3.40) L 07/17/23 19:10 [place] # (Auto) 0.39 K/uL (0.11-0.59) 07/17/23 19:10 Eos # (Auto) 0.02 K/uL (0.00-0.50) 07/17/23 19:10 Baso # (Auto) 0.02 K/uL (0.00-0.20) 07/17/23 19:10 Immature Gran # (Auto) 0.03 K/uL (0.01-0.20) 07/17/23 19:10 VBG pH 7.42 (7.36-7.41) H 07/17/23 21:22 VBG pCO2 33 mmHg (38-50) L 07/17/23 21:22 VBG pO2 65 mmHg 07/17/23 21:22 VBG HCO3 21 mmol/L 07/17/23 21:22 VBG O2 Saturation 94.4 % 07/17/23 21:22 VBG Base Excess -2.3 mEq/L 07/17/23 21:22 Sodium 142 mmol/L (136-145) 07/17/23 19:10 Potassium 4.0 mmol/L (3.5-5.1) 07/17/23 19:10 Chloride 111 mmol/L (98-107) H 07/17/23 19:10 Carbon Dioxide 23 mmol/L (21-32) 07/17/23 19:10 Anion Gap 8 (3-11) 07/17/23 19:10 BUN 19 mg/dl (6-23) 07/17/23 19:10 Creatinine 0.72 mg/dl (0.6-1.2) 07/17/23 19:10 Est Cr Clr Drug Dosing 111.1 ml/min 07/17/23 19:10 Est GFR ( Amer) 96.3 ml/min 07/17/23 19:10 Est GFR (Non-Af Amer) 83.1 ml/min 07/17/23 19:10 BUN/Creatinine Ratio 26.4 (10-20) H 07/17/23 19:10 Glucose 130 mg/dl (70-99(Fasting)) H 07/17/23 19:10 Lactate 1.4 mmol/L (0.4-2.0) 07/17/23 19:10 Calcium 8.6 mg/dl (8.6-10.3) 07/17/23 19:10 Magnesium 2.1 mg/dl (1.7-2.4) 07/17/23 19:10 Total Bilirubin 0.2 mg/dl (0.2-1.0) 07/17/23 19:10 Direct Bilirubin 0.1 mg/dl (0-0.2) 07/17/23 19:10 AST 19 U/L (13-39) 07/17/23 19:10 ALT 15 U/L (7-52) 07/17/23 19:10 Alkaline Phosphatase 57 U/L (34-104) 07/17/23 19:10 Ammonia 20.0 umol/L (18-72) 07/17/23 21:22 Troponin I High Sens 8.3 pg/ml (0-14) 07/17/23 19:10 B-Natriuretic Peptide 164 pg/ml (0-100) H 07/17/23 19:10 Total Protein 5.9 gm/dl (6.0-8.3) L 07/17/23 19:10 Albumin 3.0 gm/dl (3.4-5.0) L 07/17/23 19:10 Procalcitonin 0.28 ng/ml (0-0.5) 07/17/23 19:10 TSH 0.983 uIu/ml (0.300-4.500) 07/17/23 19:10 Urine Color Yellow 07/17/23 19:21 Urine Appearance Turbid (Clear) A 07/17/23 19:21 Urine pH 8.0 (4.5-7.5) H 07/17/23 19:21 Ur Specific [place] 1.021 (1.000-1.030) 07/17/23 19:21 Urine Protein 1+ (Negative) H 07/17/23 19:21 Urine Glucose (UA) Negative (Negative) 07/17/23 19: Urine Ketones Negative (Negative) 07/17/23 19: Urine Blood 3+ (Negative) H 07/17/23 19: Urine Nitrite Positive (Negative) A 07/17/23 19: Urine Bilirubin Negative (Negative) 07/17/23 19: Urine Urobilinogen Negative (Negative) 07/17/23 19:21 Ur Leukocyte Esterase 3+ (Negative) H 07/17/23 19:21 Urine WBC (Auto) >50 /hpf (0-5) H 07/17/23 19:21 Urine RBC (Auto) >20 /hpf (0-2) H 07/17/23 19:21 U Hyaline Cast (Auto) 0-2 /lpf (0-2) 07/17/23 19:21 U Epithel Cells (Auto) 0-2 /hpf (0-2) 07/17/23 19:21 Urine Bacteria (Auto) 4+ (None Seen) H 07/17/23 19:21 Amorphous Sediment Present (None Prsent) A 07/17/23 19:21 Adenovirus (PCR) Not Detected (NotDetected) 07/17/23 19:08 B. pertussis DNA (PCR) Not Detected (NotDetected) 07/17/23 19:08 B.parapertussis DNA PCR Not Detected (NotDetected) 07/17/23 19:08 C. pneumoniae DNA (PCR) Not Detected (NotDetected) 07/17/23 19:08 Coronavirus OC43 (PCR) Not Detected (NotDetected) 07/17/23 19:08 Coronavirus HKU1 (PCR) Not Detected (NotDetected) 07/17/23 19:08 Coronavirus 229E (PCR) Not Detected (NotDetected) 07/17/23 19:08 SARS-CoV-2 (PCR) Not Detected (NotDetected) 07/17/23 19:08 Coronavirus NL63 (PCR) Not Detected (NotDetected) 07/17/23 19:08 Human Metapneumovir PCR Not Detected (NotDetected) 07/17/23 19:08 Influenza Type A (PCR) Not Detected (NotDetected) 07/17/23 19:08 Influenza Type B (PCR) Not Detected (NotDetected) 07/17/23 19:08 M. pneumoniae (PCR) Not Detected (NotDetected) 07/17/23 19:08 Parainfluenza 1 (PCR) Not Detected (NotDetected) 07/17/23 19:08 Parainfluenza 2 (PCR) Not Detected (NotDetected) 07/17/23 19:08 Parainfluenza 3 (PCR) Not Detected (NotDetected) 07/17/23 19:08 Parainfluenza 4 (PCR) Not Detected (NotDetected) 07/17/23 19:08 RSV (PCR) Not Detected (NotDetected) 07/17/23 19:08 Entero/Rhino (PCR) Not Detected (NotDetected) 07/17/23 19:08 Impressions Abdomen/Pelvis CT 07/17/23 19:45 Exam(s): CT ABDOMEN + PELVIS Without Contrast EXAM: CT Abdomen and Pelvis Without Intravenous Contrast CLINICAL HISTORY: Reason for exam: sepsis, lower abd pain. TECHNIQUE: Axial computed tomography images of the abdomen and pelvis without intravenous contrast. CTDI is 19.78 mGy and DLP is 925.4 mGy-cm. Automated exposure control was utilized for the study. A dose lowering technique was utilized adhering to the principles of ALARA. COMPARISON: No relevant prior studies available. FINDINGS: Lung bases: Atelectasis at the lung bases. ABDOMEN: Liver: Unremarkable. Gallbladder and bile ducts: Cholecystectomy. No ductal dilation. Pancreas: Unremarkable. No ductal dilation. Spleen: Unremarkable. No splenomegaly. Adrenals: Unremarkable. No mass. Kidneys and ureters: Unremarkable. No obstructing stones. No hydronephrosis. Stomach and bowel: Moderate fecal retention, correlate with constipation. No small bowel obstruction. No mucosal thickening. PELVIS: Appendix: No findings to suggest acute appendicitis. Bladder: Unremarkable. No stones. Reproductive: Unremarkable as visualized. ABDOMEN and PELVIS: Intraperitoneal space: Unremarkable. No free air. No significant fluid collection. Bones/joints: Degenerative changes of the spine. Bilateral hip ORIF. No acute fracture. No dislocation. Soft tissues: Unremarkable. Vasculature: Atherosclerotic changes of the aorta. No abdominal aortic aneurysm. Lymph nodes: Unremarkable. No enlarged lymph nodes. IMPRESSION: Moderate fecal retention, correlate with constipation. No small bowel obstruction. Electronically signed by: Matthew Lopez MD 07/17/23 20:41 PM Chest X-Ray 07/17/23 19:45 SINGLE VIEW CHEST CLINICAL HISTORY: Sepsis. FINDINGS: 2 AP, portable, upright chest radiographs are compared to study dated 07/03/2023. Correlation is made with chest CT dated 06/17/2015. The examination is degraded by portable technique and apical lordotic positioning. The heart is enlarged noting atherosclerotic calcification of the thoracic aorta. The pulmonary vasculature is noncongested. Emphysema and chronic interstitial thickening is similar to previous. There is bibasilar scarring/atelectasis. No airspace consolidation or large pleural effusion is identified. No pneumothorax is seen. The skeletal structures are osteopenic. The bony thorax is grossly intact. IMPRESSION: Cardiomegaly and emphysema with no acute cardiopulmonary abnormality identified. ACT 112: Negative or not required by law. Electronically signed by: Camron Ackerman M.D. 07/17/2023 7:57 PM Diagnostic Findings EKG as per my interpretation : Rate 90, NSR, LAD, LAFB, no ischemia, low voltage Code Status & VTE Plan VTE Prophylaxis Plan VTE Prophylaxis will be ordered: Yes
[2023-07-18] MEDS: bisacodyL 10 MG SUPP PR STA (00:43)
[2023-07-18] MEDS: POLYETHYLENE (MIRALAX) 17 GM PACK PO STA (00:43)
[2023-07-18] MEDS: DOCUSATE SODIUM/SENNA 50/8.6MG TAB PO SCH (00:43)
[2023-07-18] MEDS: APIXABAN 2.5 MG TAB PO SCH (02:10)
[2023-07-18] MEDS: DOXYCYCLINE HYCLATE 100 MG in DEXTROSE 5% MINI-B 100 ML IV STA (02:10)
[2023-07-18 05:04] LABS: Basophils # (auto) 0.03 K/uL (0.00-0.20); Basophils % (auto) 0.5 %; Eosinophils # (auto) 0.03 K/uL (0.00-0.50); Eosinophils % (auto) 0.5 %; Hematocrit (blood only) 29.3 % (37.0-47.0); Hemoglobin 8.8 g/dl (12.0-16.0); Immature Granulocytes # (auto) 0.04 K/uL (0.01-0.20); Immature Granulocytes % (auto) 0.6 %; Lymphocytes # (auto) 0.84 K/uL (1.20-3.40); Lymphocytes % (auto) 13.1 %; Mean Corpuscular Hemoglobin 27.6 pg (25.0-34.0); Mean Corpuscular Volume 91.8 fL (80.0-100.0); Mean Platelet Volume 9.5 fL (9.4-12.4); Monocytes # (auto) 0.41 K/uL (0.11-0.59); Monocytes % (auto) 6.4 %; Neutrophils # (auto) 5.05 K/uL (1.40-6.50); Neutrophils % (auto) 78.9 %; Platelet Count 489 K/uL (130-400); RDW Coefficient of Variation 14.5 % (11.5-14.5); RDW Standard Deviation 48.9 fL (36.4-46.3); Red Blood Count 3.19 M/uL (4.20-5.40)
[2023-07-18 05:27] LABS: BUN Creatinine Ratio 25.8 (10-20); Calcium 8.4 mg/dl (8.6-10.3); Creatinine Clr Calc Pharmacy 77.8 ml/min; Est GFR (African American) 101.6 ml/min; Est GFR (Non-African American) 87.6 ml/min; Potassium 3.6 mmol/L (3.5-5.1)
[2023-07-18] MEDS: CALCIUM CARBONATE 1250MG TAB PO SCH (05:38)
[2023-07-18] MEDS: CEFEPIME 2,000 MG in SYRINGE 0 ML IV SCH (05:39)
[2023-07-18] MEDS: LACTULOSE SYRUP 30 GM/45 ML UDP PO STA (06:26)
[2023-07-18 07:19] LABS: Estimated Average Glucose 100 mg/dl; Hemoglobin A1C 5.1 % (4.5-5.6)
[2023-07-18] MEDS ORDERED: NON-FORMULARY MEDICATION (Fluticasone-Umeclidin-Vilanter [Trelegy Ellipta] 200-62.5-25 mcg INH SCH (09:00)
[2023-07-18] MEDS ORDERED: PRIMIDONE 50 MG TAB PO SCH (09:00)
[2023-07-18 09:29] LABS: A calco-baum cmplx NotReported Not Detected (NotDetected); Bact fragilis Not Reported Not Detected (NotDetected); Blood Culture Id Panel See PCR Comment (NotDetected); C auris Not Reported Not Detected (NotDetected); Calbicans Not Reported Not Detected (NotDetected); Candida glabrata Not Reported Not Detected (NotDetected); Candida krusei Not Reported Not Detected (NotDetected); Cneoformans/gatti Not Reported Not Detected (NotDetected); Cparapsilosis Not Reported Not Detected (NotDetected); E cloacae compx Not Reported Not Detected (NotDetected); Efaecalis Not Reported DETECTED (NotDetected); Efaecium Not Reported Not Detected (NotDetected); Enterobacterales Not Reported Not Detected (NotDetected); Escherichia coli Not Reported Not Detected (NotDetected); H influenzae Not Reported Not Detected (NotDetected); K aerogenes Not Reported Not Detected (NotDetected); Koxytoca Not Reported Not Detected (NotDetected); Kpneumoniae grp Not Reported Not Detected (NotDetected); Lmonocyt Not Reported Not Detected (NotDetected); N meningitidis Not Reported Not Detected (NotDetected); P aeruginosa Not Reported Not Detected (NotDetected); Proteus spp Not Reported Not Detected (NotDetected); Salmonella spp Not Reported Not Detected (NotDetected); Smarcescens Not Reported Not Detected (NotDetected); Staph lugdunensis Not Reported Not Detected (NotDetected); Staph spp. Not Reported Not Detected (NotDetected); Staphaureus Not Reported Not Detected (NotDetected); Staphepi Not Reported Not Detected (NotDetected); Stenmaltophilia Not Reported Not Detected (NotDetected); Strep agal(GrpB) Not Reported Not Detected (NotDetected); Strep pneum Not Reported Not Detected (NotDetected); Strep pyog (GrpA) Not Reported Not Detected (NotDetected); Strep spp Not Reported Not Detected (NotDetected); VanAB Resistant Gene VRE Not Detected (NotDetected)
[2023-07-18 09:40] LABS: Enterococcus faecalis DETECTED (NotDetected)
[2023-07-18] MEDS: PRIMIDONE 50 MG TAB PO SCH ×2 (09:56→20:23)
[2023-07-18] MEDS: TOPIRAMATE 25 MG TAB PO SCH (09:56)
[2023-07-18] MEDS: FOLIC ACID 400 MCG TAB PO SCH (09:57)
[2023-07-18] MEDS: MIDODRINE HCL 2.5 MG TAB PO SCH (09:57)
[2023-07-18] MEDS: FERROUS SULFATE 325 MG TAB PO SCH (09:57)
[2023-07-18] MEDS: GABAPENTIN 100 MG CAP PO SCH (09:57)
[2023-07-18] MEDS: CETIRIZINE HCL 10 MG TABLET PO SCH (09:57)
[2023-07-18] MEDS: ACETAMINOPHEN 325 MG TAB PO SCH (09:57)
[2023-07-18] MEDS: UMECLIDINIUM/VILANTEROL 62.5/25MCG 7 PUFFS/INHALER INH SCH (09:57)
[2023-07-18] MEDS: FLUTICASONE FUROATE 200MCG 14 PUFFS/INHALER INH SCH (09:58)
[2023-07-18] MEDS: diazePAM 5 MG TABLET PO SCH (10:03)
--- NOTE | 2023-07-18 14:16 | Hospitalist Progress Note ---
Date of Service July 18, 2023 Assessment & Plan (1) Sepsis: Plan: 72-year-old lady with PMH of chronic diastolic dysfunction [2023 TTE with EF of 60 to 65%], hypotension on midodrine, HLD, COPD, pulmonary nodule, NAFLD cirrhosis, IBS constipation predominant, chronic anemia [baseline hemoglobin of 8], Parkinson disease, cognitive impairment, chronic pain, anxiety/mood disorder, malignant melanoma, recent hip fracture surgery currently on Eliquis anticoagulation, ambulatory dysfunction, sacral decubitus wound, past tobacco abuse had following significant recent admissions: 06/06 - 06/10: Traumatic right hip fracture status post repair. Discharged to rehab. 07/01 - 07/05: Traumatic left hip fracture status post repair. Palliative care evaluated given poor progress at rehab. Patient/family elected rehab trial with a plan to touch base with specialist after 2 weeks. Consideration for hospice if no improvement as per patient. Midodrine started for hypotension during confinement. This time, patient was noted to be febrile at rehab facility/no abdominal pain or shortness of breath or cough or chest pain. Sacral wound was noted to be getting worse per daughter. Hence she was sent to the ED for evaluation. She is being managed for the following: Complicated UTI: Admitting urine culture positive for GPC, follow final. Infected sacral decubitus wound: Sacral wound was noted to be getting worse per daughter prior to arrival. Get wound culture Sepsis POA: Temperature and respiratory rate elevated at presentation. Likely secondary to above. Procalcitonin and lactate WNL at presentation. Bacteremia: Likely secondary to UTI. Admitting blood culture positive for GPC, follow final. Patient was noted to be febrile at rehab facility and also was noted to have worsening sacral wound. Patient febrile at presentation with increased respiratory rate. Admitting CTAP and CXR with no acute finding. Admitting urine culture positive for GPC cocci, admitting blood culture positive for GPC Follow final culture results. Patient started on cefepime and Doxy -->BCID2 panel w/ Enterococcus PCR +ve --> DC cefepime, add vanco 5/5. Air mattress, WOCN consult. c/w pain control w/ hold parameters if sedation/increased confusion. Get repeat blood culture, get wound culture. 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 secondary to illness, narcotics and multiple neuropsychotropic medications for chronic pain contributory. Now oriented. Hold parameters for sedation/confusion for multiple neuropsychotropic medications and narcotics. Decrease diazepam RTC dose. Hypoxemia without SOB symptoms likely from COPD IBS constipation predominant, maintain bowel regimen given need for opiates pain meds. Other chronic medical conditions: Continue with/resume home meds as and when able Hypotension on midodrine, possibly related to Parkinson's disease chronic diastolic dysfunction (60 to 65%, TTE 2023), patient on dry side valvular heart disease (moderate , trace MR) hyperlipidemia, on statin Rx NAFLD cirrhosis, no overt decompensation chronic anemia, hemoglobin at baseline cognitive impairment as per records anxiety/mood disorder, at baseline hx malignant melanoma as per records recent hip fracture surgery currently on Eliquis anticoagulation ambulatory dysfunction past tobacco abuse DVT prophylaxis. Eliquis DNR Patient daughter Ms. Fela Clarke, contact #[phone]. Text document was generated using [employer] voice recognition software. It may contain grammatical or spelling errors. Kindly contact undersigned for clarification of any documentation item in question. Admission and Anticipated Discharge Date Admission Date: July 17, 2023 Subjective Patient was seen and examined at bedside. Patient was on the phone with her daughter Fela who was also updated on plan of care at bedside exam. Patient was lying in bed, on 1 L oxygen via nasal cannula, not in any acute distress. Patient reports pain at lower back, appears frustrated with her back to back illness. Patient was updated on bacteremia and plan of care, she appeared tired and frustrated with this new update. Physical Exam Physical Exam: GENERAL: Comfortable, chronically ill, no respiratory distress SKIN: Pallor, warm HEENT: Pale palpebral conjunctivae, no ptosis, moist buccal mucosa, nasal cannula in place NECK : Supple, no tenderness CHEST : Decreased breath sounds, no tenderness HEART : RRR, systolic murmur ABDOMEN: no distention, nontender, BACK : Decubiti wound not examined EXTREMITIES : Bilateral LE swelling, hip tenderness, no other conspicuous deformities noted NEUROLOGIC : Coherent, no facial asymmetry, chronic RUE tremors Results & Data Results & Data Vital Signs (Past 12 Hours) Vital Signs Temp Pulse Pulse Resp BP Pulse Ox O2 Del Method 07/18/23 12:35 79 07/18/23 07:31 Nasal Cannula 07/18/23 07:27 37.9 C H 80 19 101/59 L 93 Nasal Cannula 07/18/23 03:00 37.0 C 75 18 93/59 L 96 Room Air O2 Flow Rate 07/18/23 12:35 07/18/23 07:31 2 07/18/23 07:27 1 07/18/23 03:00
[2023-07-18] MEDS ORDERED: VANCOMYCIN CONSULT ACTIVE PRN (14:27)
[2023-07-18] MEDS ORDERED: SOD PHOSPHATE/SOD BIPHOSPHATE ENEMA 132 ML BTL PR PRN (14:38)
[2023-07-18] MEDS ORDERED: bisacodyL 10 MG SUPP PR PRN (14:38)
[2023-07-18] MEDS: oxyCODONE HCL IR 5 MG TAB (IMMEDIATE RELEASE) PO PRN (15:49)
--- NOTE | 2023-07-18 16:41 | Pharmacy Report ---
Pharmacy PK ABX Note - Date of Service July 18, 2023 - Assessment and Plan Assessment * 72 year old F receiving vancomycin for treatment of E. faecalis bacteremia. Ampicillin allergy noted (rash) * Pertinent microbiologic data includes: 06/16 blood cultures w GPC in chains. BCID2 w E. faecalis w/o vanco resistance gene noted * Vancomycin 35 mg/kg ordered and administered yesterday. Etiology 2nd incorrect weight in computer. Dr. Sampson notified and event report entered. * SCr is stable at this time Plan Vancomycin * Loading dose: 2750 mg IV x 1 ordered and administered yesterday * Stat random level ordered to assess effect of yesterday's vancomycin 35 mg/kg dose, which was 11.0 mcg/mL. OK to continue vancomycin dosing. * Will start maintenance dose of 1000 mg IV q12h * Trough level ordered for 07/19 @ 0530 Pharmacy will continue to follow and will adjust dose/frequency as necessary. Thank you. Pharmacy has transitioned to AUC monitoring for vancomycin. AUC/SANDY is the preferred PK/PD target and is associated with decreased risk of nephrotoxicity compared to traditional trough targets.
[2023-07-18] MEDS: VANCOMYCIN HCL 1,000 MG in SODIUM CHLORIDE 0.9% 250 ML IV SCH (19:50)
[2023-07-18] MEDS: GABAPENTIN 300 MG CAP PO SCH (20:22)
[2023-07-18] MEDS: CITALOPRAM 40 MG TAB PO SCH (20:22)
[2023-07-18] MEDS: TOPIRAMATE 50 MG TAB PO SCH (20:23)
[2023-07-18] MEDS: DOXYCYCLINE HYCLATE 100 MG CAP PO SCH (20:23)
[2023-07-18] MEDS: SIMVASTATIN 40 MG TAB PO SCH (20:23)
[2023-07-18] MEDS: DOCUSATE SODIUM 100 MG CAP PO SCH (20:27)
--- NOTE | 2023-07-18 22:46 | Electrocardiogram Report ---
Test Reason : Blood Pressure : / mmHG Vent. Rate : 087 BPM Atrial Rate : 087 BPM P-R Int : 146 ms QRS Dur : 076 ms QT Int : 382 ms P-R-T Axes : -27 002 045 degrees QTc Int : 459 ms Normal sinus rhythm Low voltage QRS Borderline ECG When compared with ECG of 02-JUL-2023 12:41, Premature ventricular complexes are no longer Present Criteria for Septal infarct are no longer Present Confirmed by Tahir Ricardo ([id number]) on 07/18/2023 10:45:59 PM Referred By: REFERRED SELF Confirmed By:Tahir Ricardo
[2023-07-19 06:56] LABS: Hematocrit (blood only) 26.8 % (37.0-47.0); Hemoglobin 8.2 g/dl (12.0-16.0); Mean Corpuscular Hemoglobin 27.4 pg (25.0-34.0); Mean Corpuscular Hgb Conc 30.6 g/dL (32.0-36.0); Mean Corpuscular Volume 89.6 fL (80.0-100.0); Mean Platelet Volume 9.8 fL (9.4-12.4); Platelet Count 399 K/uL (130-400); RDW Coefficient of Variation 14.4 % (11.5-14.5); RDW Standard Deviation 47.5 fL (36.4-46.3); Red Blood Count 2.99 M/uL (4.20-5.40); White Blood Count 4.77 K/ul (4.8-10.8)
[2023-07-19 07:10] LABS: BUN Creatinine Ratio 30.2 (10-20); Calcium 7.9 mg/dl (8.6-10.3); Creatinine Clr Calc Pharmacy 97.1 ml/min; Est GFR (African American) 109.2 ml/min; Est GFR (Non-African American) 94.2 ml/min; Phosphorus 3.2 mg/dl (2.5-4.9); Potassium 3.7 mmol/L (3.5-5.1)
[2023-07-19] MEDS: oxyCODONE HCL IR 5 MG TAB (IMMEDIATE RELEASE) PO PRN (12:45)
--- NOTE | 2023-07-19 16:27 | Hospitalist Progress Note ---
Date of Service July 19, 2023 Assessment & Plan (1) Sepsis: Plan: 72-year-old lady with PMH of chronic diastolic dysfunction [2023 TTE with EF of 60 to 65%], hypotension on midodrine, HLD, COPD, pulmonary nodule, NAFLD cirrhosis, IBS constipation predominant, chronic anemia [baseline hemoglobin of 8], Parkinson disease, cognitive impairment, chronic pain, anxiety/mood disorder, malignant melanoma, recent hip fracture surgery currently on Eliquis anticoagulation, ambulatory dysfunction, sacral decubitus wound, past tobacco abuse had following significant recent admissions: 06/06 - 06/10: Traumatic right hip fracture status post repair. Discharged to rehab. 07/01 - 07/05: Traumatic left hip fracture status post repair. Palliative care evaluated given poor progress at rehab. Patient/family elected rehab trial with a plan to touch base with specialist after 2 weeks. Consideration for hospice if no improvement as per patient. Midodrine started for hypotension during confinement. This time, patient was noted to be febrile at rehab facility/no abdominal pain or shortness of breath or cough or chest pain. Sacral wound was noted to be getting worse per daughter. Hence she was sent to the ED for evaluation. She is being managed for the following: Complicated UTI: Admitting urine culture positive for GPC, follow final. Infected sacral decubitus wound: Sacral wound was noted to be getting worse per daughter prior to arrival. Get wound culture Sepsis POA: Temperature and respiratory rate elevated at presentation. Likely secondary to above. Procalcitonin and lactate WNL at presentation. Bacteremia: Likely secondary to UTI. Admitting blood culture positive for GPC, follow final. Patient was noted to be febrile at rehab facility and also was noted to have worsening sacral wound. Patient febrile at presentation with increased respiratory rate. Admitting CTAP and CXR with no acute finding. Admitting urine culture positive for GPC cocci, admitting blood culture positive for GPC Follow final culture results. Patient started on cefepime and Doxy -->BCID2 panel w/ Enterococcus PCR +ve --> DC cefepime, add vanco 07/17. continue Air mattress, WOCN consult. c/w pain control w/ hold parameters if sedation/increased confusion. Follow wound culture 07/17, follow repeat blood culture 07/17. 07/17 echo with no vegetation. ID consulted, await recommendation. Labs in AM. 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 secondary to illness, narcotics and multiple neuropsychotropic medications for chronic pain contributory. Now oriented. Hold parameters for sedation/confusion for multiple neuropsychotropic medications and narcotics. Decrease diazepam RTC dose. Hypoxemia without SOB symptoms likely from COPD IBS constipation predominant, maintain bowel regimen given need for opiates pain meds. Goals of Care Discussion: Patient's Dtr Fela was met at bedside later in the day. We discussed about palliative care and possible hospice. She was interested in speaking with palliative care. Hence palliative care consult placed. Discussed with palliative care, patient and her daughter wants to go back to [facility] and try rehab again, if it does not help or she worsens she wants comfort care and hospice. She does not want to return to hospital and also does not want hospice right now because she feels rehab was helping. She would like to give rehab a try again. Other chronic medical conditions: Continue with/resume home meds as and when able Hypotension on midodrine, possibly related to Parkinson's disease chronic diastolic dysfunction (60 to 65%, TTE 2023), patient on dry side valvular heart disease (moderate , trace MR) hyperlipidemia, on statin Rx NAFLD cirrhosis, no overt decompensation chronic anemia, hemoglobin at baseline cognitive impairment as per records anxiety/mood disorder, at baseline hx malignant melanoma as per records recent hip fracture surgery currently on Eliquis anticoagulation ambulatory dysfunction past tobacco abuse DVT prophylaxis. Eliquis DNR Patient daughter Ms. Fela Clarke, contact #[phone]. Text document was generated using [employer] voice recognition software. It may contain grammatical or spelling errors. Kindly contact undersigned for clarification of any documentation item in question. Admission and Anticipated Discharge Date Admission Date: July 17, 2023 Subjective Patient was seen and examined at bedside. Patient was lying in bed, on room air, reports painful lower back with repositioning/movement in bed Patient looks tired and lethargic, continue pain management with hold parameters. Per RN, patient with poor appetite, has more bowel yesterday. No new acute event overnight. Patient's Dtr Fela was met at bedside later in the day. We discussed about palliative care and possible hospice. She was interested in speaking with palliative care. Hence palliative care consult placed. Discussed with palliative care, patient and her daughter wants to go back to [facility] and try rehab again, if it does not help or she worsens she wants comfort care and hospice. She does not want to return to hospital and also does not want hospice right now because she feels rehab was helping. She would like to give rehab a try again. Physical Exam Physical Exam: GENERAL: Comfortable, chronically ill, no respiratory distress SKIN: Pallor, warm HEENT: Pale palpebral conjunctivae, no ptosis, moist buccal mucosa, on RA NECK : Supple, no tenderness CHEST : Decreased breath sounds, no tenderness HEART : RRR, systolic murmur ABDOMEN: no distention, nontender, BACK : Decubiti wound not examined EXTREMITIES : Bilateral LE swelling, hip tenderness, no other conspicuous deformities noted NEUROLOGIC : Coherent, no facial asymmetry, chronic RUE tremors Results & Data Results & Data Vital Signs (Past 12 Hours) Vital Signs Temp Pulse Pulse Resp BP Pulse Ox O2 Del Method 07/19/23 15:42 36.9 C 63 17 95/55 L 93 Room Air 07/19/23 15:00 67 07/19/23 10:43 36.9 C 67 17 100/54 L 96 Room Air 07/19/23 08:25 37.1 C 69 18 96/60 L 96 Room Air 07/19/23 08:00 68 07/19/23 08:00 Nasal Cannula O2 Flow Rate 07/19/23 15:42 07/19/23 15:00 07/19/23 10:43 07/19/23 08:25 07/19/23 08:00 07/19/23 08:00 2
[2023-07-19] MEDS: VANCOMYCIN HCL 1,250 MG in SODIUM CHLORIDE 0.9% 250 ML IV SCH (17:25)
--- NOTE | 2023-07-19 20:29 | Palliative Care Consultation ---
Date of Consultation July 19, 2023 Assessment & Plan (1) Weakness generalized: (2) Hip pain, acute: (3) Palliative care by specialist: (4) Counseling regarding advanced directives and goals of care: (5) Acute constipation: (6) Acute confusion: Plan * Met with Mckayla and dtr Fela at bedside for 30min ACP face to face * Mckayla is dismayed hospice was brought up earlier this admission without offer to continue rehab. She feels she was making progress and wants a chance to resume this rehab and see how much improvement is possible for her. * Discussed what ifs of not improving. She indicates if she worsens/does not improve then would agree to move to comfrt with hospice at SNF * She does not want to return to hospital at all so the plan for dc will be dc to rehab with continued therapy, if she worsens then move to comfort. * she notes her left hip stitches are due to be out weds, can this be done here before dc * now agreeable to personal care/bathing and asking if hair can be washed * does not want anti emetic med but willing to try kathie gita Thank you for allowing us to participate in the ongoing care of this patient. Please don't hesitate to call or page with any additional concerns. Gissel Jack DNP History of Present Illness Reason for Consultation: family and pt requesting Attending Physician: Dat Sampson MD History of Present Illness Mckayla is well known to me from recent prior admission readmitted with sepsis and uti, presented with confusion, fever and weakness now improved, more alert, taking PO reports fatigue persists but is feeling more awake nausea at times even with her favorite foods, ? abtx related wants to return to [facility], states her caregivers there are like family, feels most comfortable and secure there able to tolerate right side lying , has been bearing some weight on right leg with PT wound not healing much per reports but pt feels it has not worsened Allergies Allergy/AdvReac Type Severity Reaction Status Date / Time ampicillin Allergy Mild RASH Verified 07/02/23 17:16 Bactrim Allergy Unknown UNKNOWN - Verified 10/22/15 08:03 CAN'T REMEMBER sulfamethoxazole Allergy Unknown UNKNOWN - Verified 07/02/23 17:16 CAN'T REMEMBER trimethoprim Allergy Unknown UNKNOWN - Verified 07/02/23 17:16 CAN'T REMEMBER lactose AdvReac Verified 07/03/23 15:52 Home Medications Medication Instructions Recorded Confirmed Type alendronate 70 mg tablet (Fosamax) 70 mg PO WK 02/24/19 07/17/23 History aspirin 81 mg tablet,delayed 81 mg PO QAM 02/24/19 07/17/23 History release (Aspir-) citalopram 40 mg tablet 40 mg PO PM 02/24/19 07/17/23 History diazepam 5 mg tablet 5 mg PO QID 02/24/19 07/17/23 History gabapentin 100 mg capsule 100 mg PO BID 02/24/19 07/17/23 History gabapentin 300 mg capsule 300 mg PO HS 02/24/19 07/17/23 History primidone 50 mg tablet 100 mg PO BID 02/24/19 07/17/23 History simvastatin 40 mg tablet 40 mg PO HS 02/24/19 07/17/23 History vitamin E 268 mg (400 unit) capsule 400 unit PO PM 02/24/19 07/17/23 History primidone 50 mg tablet 150 mg PO HS 09/13/20 07/17/23 History dicyclomine 10 mg capsule 10 mg PO QID IBS 09/25/20 07/17/23 History albuterol sulfate 90 mcg/actuation 1 inh inhalation Q4H PRN 01/30/21 07/17/23 History aerosol inhaler SOB/WHEEZING fluticasone fur. 200 mcg-umeclid 1 inh inhalation DAILY 01/30/21 07/17/23 History 62.5 mcg-vilant 25 mcg inhalat.powder (Trelegy Ellipta) topiramate 25 mg tablet (Topamax) 25 mg PO QAM 02/03/22 07/17/23 History acetaminophen 500 mg tablet 1,000 mg PO TID pain 07/02/23 07/17/23 History (Tylenol Extra Strength) bisacodyl 10 mg rectal suppository 10 mg RI DAILY PRN Constipation 07/02/23 07/17/23 History (Dulcolax (bisacodyl)) cetirizine 10 mg tablet 10 mg PO QAM 07/02/23 07/17/23 History folic acid 0.8 mg capsule 0.8 mg PO QAM 07/02/23 07/17/23 History magnesium hydroxide 400 mg/5 mL See Rx Instructions .Route 04/19/24 05/04/24 History oral suspension (Milk of Magnesia) .COMPLEX PRN Constipation sodium phosphates 19 gram-7 118 ml RI DAILY PRN Constipation 07/02/23 07/17/23 History gram/118 mL enema (Fleet Enema) topiramate 50 mg tablet 50 mg PO HS 07/02/23 07/17/23 History apixaban 2.5 mg tablet (Eliquis) 2.5 mg PO BID 14 days #0 tabs 07/07/23 07/17/23 Rx docusate sodium 100 mg capsule 100 mg PO BID #60 caps 07/07/23 07/17/23 Rx ferrous sulfate 325 mg (65 mg 325 mg PO QAM #30 tabs 07/07/23 07/17/23 Rx iron) tablet,delayed release midodrine 2.5 mg tablet 2.5 mg PO TID@0800,1200,1700 #90 07/07/23 07/17/23 Rx tabs oxycodone 5 mg tablet 5 mg PO Q6H PRN pain #20 tabs 07/07/23 07/17/23 Rx calcium carbonate (Calcium 600) 600 mg PO AMHS 07/17/23 07/17/23 History cholecalciferol (vitamin D3) 1,250 1,250 mcg PO UD 07/17/23 07/17/23 History mcg (50,000 unit) tablet menthol 0.44 %-zinc oxide 20.6 % 1 applic topical BID 07/17/23 07/17/23 History topical ointment (Calmoseptine) Patient History Medical History (Updated 07/17/23 @ 22:11 by Jim Haney MD) Counseling regarding advanced directives and goals of care Palliative care by specialist Discussion about advance care planning held with family member Hip pain, acute Weakness generalized Aortic stenosis Murmur Intertrochanteric fracture of right hip Asthma well controlled per pt, rare res inh use Depression Bilateral lumbar radiculopathy Essential tremor BILAT. HANDS History of diverticulitis Anxiety and depression History of skin cancer NOSE Unsteady gait RECENT, CANE/WALKER PRN Cirrhosis of liver COPD (chronic obstructive pulmonary disease) Sciatica Migraines Hernia Snores Spondylolisthesis, lumbar region IBS (irritable bowel syndrome) Osteoarthritis Spinal stenosis of lumbar region Chronic back pain Hypertension PT DENIES Hyperlipidemia Surgical History (Updated 07/12/23 @ 00:07 by Ramon Oneill) S/P epidural steroid injection H/O colonoscopy with polypectomy H/O oophorectomy History of arthroscopy of left knee History of endoscopy Hx of ovarian cystectomy History of cholecystectomy History of bilateral tubal ligation History of tonsillectomy Hx of cataract extraction BILAT Family History Mother Colon cancer Other Family history of diabetes mellitus No family history of adverse response to anesthesia Social History Smoking Status: Former smoker Tobacco Type: Cigarettes Cigarettes Per Day: 1 ppd; Second Hand Exposure: No; Do You Dip or Chew Tobacco: No; Hx Alcohol Use: No Hx Substance Use: No Preferred Language: [place] Islander Communication Ability: Effective Newspaper Library Manager Required: No Beliefs That Will Affect Care: None Current Living Situation: Skilled Nursing Current Living Situation Comment: [facility] Other Information That Helps Us Care for You: No Feels Safe at Home: Yes Safety Concerns: Feels Safe At This Time Assistive Devices: Cane and Walker Review of Systems Review of Systems: All systems reviewed & are unremarkable except as noted in Subjective Physical Exam Physical Exam: chronically ill supine in bed bitemp wasting perrla, eomi no resp distress speaking in shorter than average sentences no jvd mild abd distension sutures left hip skin diaphoretic, flushed at times gen weakness [id number] Results & Data Vital Signs (Past 12 Hours) Vital Signs Temp Pulse Pulse Resp BP Pulse Ox O2 Del Method 07/19/23 19:34 Room Air 07/19/23 15:42 36.9 C 63 17 95/55 L 93 Room Air 07/19/23 15:00 67 07/19/23 10:43 36.9 C 67 17 100/54 L 96 Room Air Laboratory Results data reviewed 07/19/23 07/18/23 07/18/23 Range/Units 06:08 16:18 05:34 WBC 4.77 L (4.8-10.8) K/ul RBC 2.99 L (4.20-5.40) M/uL Hgb 8.2 L (12.0-16.0) g/dl Hct 26.8 L (37.0-47.0) % MCV 89.6 (80.0-100.0) fL MCH 27.4 (25.0-34.0) pg MCHC 30.6 L (32.0-36.0) g/dL RDW Std Deviation 47.5 H (36.4-46.3) fL RDW Coeff of Jeannie 14.4 (11.5-14.5) % Plt Count 399 (130-400) K/uL MPV 9.8 (9.4-12.4) fL Immature Gran % (Auto) % Neut % (Auto) % Lymph % (Auto) % [place] % (Auto) % Eos % (Auto) % Baso % (Auto) % Neut # (Auto) (1.40-6.50) K/uL Lymph # (Auto) (1.20-3.40) K/uL [place] # (Auto) (0.11-0.59) K/uL Eos # (Auto) (0.00-0.50) K/uL Baso # (Auto) (0.00-0.20) K/uL Immature Gran # (Auto) (0.01-0.20) K/uL VBG pH (7.36-7.41) VBG pCO2 (38-50) mmHg VBG pO2 mmHg VBG HCO3 mmol/L VBG O2 Saturation % VBG Base Excess mEq/L Sodium 138 (136-145) mmol/L Potassium 3.7 (3.5-5.1) mmol/L Chloride 110 H (98-107) mmol/L Carbon Dioxide 22 (21-32) mmol/L Anion Gap 6 (3-11) BUN 16 (6-23) mg/dl Creatinine 0.53 L (0.6-1.2) mg/dl Est Cr Clr Drug Dosing 97.1 ml/min Est GFR ( Amer) 109.2 ml/min Est GFR (Non-Af Amer) 94.2 ml/min BUN/Creatinine Ratio 30.2 H (10-20) Glucose 91 (70-99(Fasting)) mg/dl Estimat Average Glucose mg/dl Hemoglobin A1c (4.5-5.6) % Lactate (0.4-2.0) mmol/L Calcium 7.9 L (8.6-10.3) mg/dl Phosphorus 3.2 (2.5-4.9) mg/dl Magnesium 2.0 (1.7-2.4) mg/dl Total Bilirubin (0.2-1.0) mg/dl Direct Bilirubin (0-0.2) mg/dl AST (13-39) U/L ALT (7-52) U/L Alkaline Phosphatase (34-104) U/L Ammonia (18-72) umol/L Troponin I High Sens (0-14) pg/ml B-Natriuretic Peptide (0-100) pg/ml Total Protein (6.0-8.3) gm/dl Albumin (3.4-5.0) gm/dl Procalcitonin (0-0.5) ng/ml TSH (0.300-4.500) uIu/ml Urine Color Urine Appearance (Clear) Urine pH (4.5-7.5) Ur Specific Dora (1.000-1.030) Urine Protein (Negative) Urine Glucose (UA) (Negative) Urine Ketones (Negative) Urine Blood (Negative) Urine Nitrite (Negative) Urine Bilirubin (Negative) Urine Urobilinogen (Negative) Ur Leukocyte Esterase (Negative) Urine WBC (Auto) (0-5) /hpf Urine RBC (Auto) (0-2) /hpf U Hyaline Cast (Auto) (0-2) /lpf U Epithel Cells (Auto) (0-2) /hpf Urine Bacteria (Auto) (None Seen) Amorphous Sediment (None Prsent) Nasal Screen MRSA (PCR) Negative (Negative) Random Vancomycin 11.0 (10-20) mcg/ml Adenovirus (PCR) (NotDetected) B. pertussis DNA (PCR) (NotDetected) B.parapertussis DNA PCR (NotDetected) C. pneumoniae DNA (PCR) (NotDetected) Coronavirus OC43 (PCR) (NotDetected) Coronavirus HKU1 (PCR) (NotDetected) Coronavirus 229E (PCR) (NotDetected) SARS-CoV-2 (PCR) (NotDetected) Coronavirus NL63 (PCR) (NotDetected) Enterococc faecalis PCR (NotDetected) Human Metapneumovir PCR (NotDetected) Influenza Type A (PCR) (NotDetected) Influenza Type B (PCR) (NotDetected) M. pneumoniae (PCR) (NotDetected) Parainfluenza 1 (PCR) (NotDetected) Parainfluenza 2 (PCR) (NotDetected) Parainfluenza 3 (PCR) (NotDetected) Parainfluenza 4 (PCR) (NotDetected) RSV (PCR) (NotDetected) Entero/Rhino (PCR) (NotDetected) Sri/B-Vanco Res Genes (NotDetected) Bld Cult ID Panel PCR (NotDetected) 07/18/23 07/17/23 07/17/23 Range/Units 04:28 21:22 19:21 WBC 6.40 (4.8-10.8) K/ul RBC 3.19 L (4.20-5.40) M/uL Hgb 8.8 L (12.0-16.0) g/dl Hct 29.3 L (37.0-47.0) % MCV 91.8 (80.0-100.0) fL MCH 27.6 (25.0-34.0) pg MCHC 30.0 L (32.0-36.0) g/dL RDW Std Deviation 48.9 H (36.4-46.3) fL RDW Coeff of Jeannie 14.5 (11.5-14.5) % Plt Count 489 H (130-400) K/uL MPV 9.5 (9.4-12.4) fL Immature Gran % (Auto) 0.6 % Neut % (Auto) 78.9 % Lymph % (Auto) 13.1 % [place] % (Auto) 6.4 % Eos % (Auto) 0.5 % Baso % (Auto) 0.5 % Neut # (Auto) 5.05 (1.40-6.50) K/uL Lymph # (Auto) 0.84 L (1.20-3.40) K/uL [place] # (Auto) 0.41 (0.11-0.59) K/uL Eos # (Auto) 0.03 (0.00-0.50) K/uL Baso # (Auto) 0.03 (0.00-0.20) K/uL Immature Gran # (Auto) 0.04 (0.01-0.20) K/uL VBG pH 7.42 H (7.36-7.41) VBG pCO2 33 L (38-50) mmHg VBG pO2 65 mmHg VBG HCO3 21 mmol/L VBG O2 Saturation 94.4 % VBG Base Excess -2.3 mEq/L Sodium 140 (136-145) mmol/L Potassium 3.6 (3.5-5.1) mmol/L Chloride 111 H (98-107) mmol/L Carbon Dioxide 21 (21-32) mmol/L Anion Gap 8 (3-11) BUN 17 (6-23) mg/dl Creatinine 0.66 (0.6-1.2) mg/dl Est Cr Clr Drug Dosing 77.8 ml/min Est GFR ( Amer) 101.6 ml/min Est GFR (Non-Af Amer) 87.6 ml/min BUN/Creatinine Ratio 25.8 H (10-20) Glucose 107 H (70-99(Fasting)) mg/dl Estimat Average Glucose 100 mg/dl Hemoglobin A1c 5.1 (4.5-5.6) % Lactate (0.4-2.0) mmol/L Calcium 8.4 L (8.6-10.3) mg/dl Phosphorus (2.5-4.9) mg/dl Magnesium (1.7-2.4) mg/dl Total Bilirubin (0.2-1.0) mg/dl Direct Bilirubin (0-0.2) mg/dl AST (13-39) U/L ALT (7-52) U/L Alkaline Phosphatase (34-104) U/L Ammonia 20.0 (18-72) umol/L Troponin I High Sens (0-14) pg/ml B-Natriuretic Peptide (0-100) pg/ml Total Protein (6.0-8.3) gm/dl Albumin (3.4-5.0) gm/dl Procalcitonin (0-0.5) ng/ml TSH (0.300-4.500) uIu/ml Urine Color Yellow Urine Appearance Turbid A (Clear) Urine pH 8.0 H (4.5-7.5) Ur Specific Dora 1.021 (1.000-1.030) Urine Protein 1+ H (Negative) Urine Glucose (UA) Negative (Negative) Urine Ketones Negative (Negative) Urine Blood 3+ H (Negative) Urine Nitrite Positive A (Negative) Urine Bilirubin Negative (Negative) Urine Urobilinogen Negative (Negative) Ur Leukocyte Esterase 3+ H (Negative) Urine WBC (Auto) >50 H (0-5) /hpf Urine RBC (Auto) >20 H (0-2) /hpf U Hyaline Cast (Auto) 0-2 (0-2) /lpf U Epithel Cells (Auto) 0-2 (0-2) /hpf Urine Bacteria (Auto) 4+ H (None Seen) Amorphous Sediment Present A (None Prsent) Nasal Screen MRSA (PCR) (Negative) Random Vancomycin (10-20) mcg/ml Adenovirus (PCR) (NotDetected) B. pertussis DNA (PCR) (NotDetected) B.parapertussis DNA PCR (NotDetected) C. pneumoniae DNA (PCR) (NotDetected) Coronavirus OC43 (PCR) (NotDetected) Coronavirus HKU1 (PCR) (NotDetected) Coronavirus 229E (PCR) (NotDetected) SARS-CoV-2 (PCR) (NotDetected) Coronavirus NL63 (PCR) (NotDetected) Enterococc faecalis PCR (NotDetected) Human Metapneumovir PCR (NotDetected) Influenza Type A (PCR) (NotDetected) Influenza Type B (PCR) (NotDetected) M. pneumoniae (PCR) (NotDetected) Parainfluenza 1 (PCR) (NotDetected) Parainfluenza 2 (PCR) (NotDetected) Parainfluenza 3 (PCR) (NotDetected) Parainfluenza 4 (PCR) (NotDetected) RSV (PCR) (NotDetected) Entero/Rhino (PCR) (NotDetected) Sri/B-Vanco Res Genes (NotDetected) Bld Cult ID Panel PCR (NotDetected) 07/17/23 07/17/23 Range/Units 19:10 19:08 WBC 5.30 (4.8-10.8) K/ul RBC 3.12 L (4.20-5.40) M/uL Hgb 8.5 L (12.0-16.0) g/dl Hct 28.1 L (37.0-47.0) % MCV 90.1 (80.0-100.0) fL MCH 27.2 (25.0-34.0) pg MCHC 30.2 L (32.0-36.0) g/dL RDW Std Deviation 46.5 H (36.4-46.3) fL RDW Coeff of Jeannie 14.3 (11.5-14.5) % Plt Count 482 H (130-400) K/uL MPV 9.9 (9.4-12.4) fL Immature Gran % (Auto) 0.6 % Neut % (Auto) 81.4 % Lymph % (Auto) 9.8 % [place] % (Auto) 7.4 % Eos % (Auto) 0.4 % Baso % (Auto) 0.4 % Neut # (Auto) 4.32 (1.40-6.50) K/uL Lymph # (Auto) 0.52 L (1.20-3.40) K/uL [place] # (Auto) 0.39 (0.11-0.59) K/uL Eos # (Auto) 0.02 (0.00-0.50) K/uL Baso # (Auto) 0.02 (0.00-0.20) K/uL Immature Gran # (Auto) 0.03 (0.01-0.20) K/uL VBG pH (7.36-7.41) VBG pCO2 (38-50) mmHg VBG pO2 mmHg VBG HCO3 mmol/L VBG O2 Saturation % VBG Base Excess mEq/L Sodium 142 (136-145) mmol/L Potassium 4.0 (3.5-5.1) mmol/L Chloride 111 H (98-107) mmol/L Carbon Dioxide 23 (21-32) mmol/L Anion Gap 8 (3-11) BUN 19 (6-23) mg/dl Creatinine 0.72 (0.6-1.2) mg/dl Est Cr Clr Drug Dosing 111.1 ml/min Est GFR ( Amer) 96.3 ml/min Est GFR (Non-Af Amer) 83.1 ml/min BUN/Creatinine Ratio 26.4 H (10-20) Glucose 130 H (70-99(Fasting)) mg/dl Estimat Average Glucose mg/dl Hemoglobin A1c (4.5-5.6) % Lactate 1.4 (0.4-2.0) mmol/L Calcium 8.6 (8.6-10.3) mg/dl Phosphorus (2.5-4.9) mg/dl Magnesium 2.1 (1.7-2.4) mg/dl Total Bilirubin 0.2 (0.2-1.0) mg/dl Direct Bilirubin 0.1 (0-0.2) mg/dl AST 19 (13-39) U/L ALT 15 (7-52) U/L Alkaline Phosphatase 57 (34-104) U/L Ammonia (18-72) umol/L Troponin I High Sens 8.3 (0-14) pg/ml B-Natriuretic Peptide 164 H (0-100) pg/ml Total Protein 5.9 L (6.0-8.3) gm/dl Albumin 3.0 L (3.4-5.0) gm/dl Procalcitonin 0.28 (0-0.5) ng/ml TSH 0.983 (0.300-4.500) uIu/ml Urine Color Urine Appearance (Clear) Urine pH (4.5-7.5) Ur Specific Dora (1.000-1.030) Urine Protein (Negative) Urine Glucose (UA) (Negative) Urine Ketones (Negative) Urine Blood (Negative) Urine Nitrite (Negative) Urine Bilirubin (Negative) Urine Urobilinogen (Negative) Ur Leukocyte Esterase (Negative) Urine WBC (Auto) (0-5) /hpf Urine RBC (Auto) (0-2) /hpf U Hyaline Cast (Auto) (0-2) /lpf U Epithel Cells (Auto) (0-2) /hpf Urine Bacteria (Auto) (None Seen) Amorphous Sediment (None Prsent) Nasal Screen MRSA (PCR) (Negative) Random Vancomycin (10-20) mcg/ml Adenovirus (PCR) Not Detected (NotDetected) B. pertussis DNA (PCR) Not Detected (NotDetected) B.parapertussis DNA PCR Not Detected (NotDetected) C. pneumoniae DNA (PCR) Not Detected (NotDetected) Coronavirus OC43 (PCR) Not Detected (NotDetected) Coronavirus HKU1 (PCR) Not Detected (NotDetected) Coronavirus 229E (PCR) Not Detected (NotDetected) SARS-CoV-2 (PCR) Not Detected (NotDetected) Coronavirus NL63 (PCR) Not Detected (NotDetected) Enterococc faecalis PCR DETECTED A (NotDetected) Human Metapneumovir PCR Not Detected (NotDetected) Influenza Type A (PCR) Not Detected (NotDetected) Influenza Type B (PCR) Not Detected (NotDetected) M. pneumoniae (PCR) Not Detected (NotDetected) Parainfluenza 1 (PCR) Not Detected (NotDetected) Parainfluenza 2 (PCR) Not Detected (NotDetected) Parainfluenza 3 (PCR) Not Detected (NotDetected) Parainfluenza 4 (PCR) Not Detected (NotDetected) RSV (PCR) Not Detected (NotDetected) Entero/Rhino (PCR) Not Detected (NotDetected) Sri/B-Vanco Res Genes VRE Not Detected (NotDetected) Bld Cult ID Panel PCR See PCR Comment (NotDetected) Diagnostic Findings data reviewed PG Care Time/CCT Total # of Minutes Spent Total Time Spent: 75 Total Time Spent with Patient: Total time spent is greater than 50% in coordination of care (as documented) at patient's floor/unit and/or counseling patient: Advanced Care Planning 30943 Advanced Care Planning 30 [place] [address] IN/OBS CONSULT LVL 5,80M Patient Type New History Comprehensive Exam Comprehensive Medical Decision Making High Complexity Diagnoses Weakness generalized R53.1 Hip pain, acute M25.559 Palliative care by specialist Z51.5 Counseling regarding advanced directives and goals of care Z71.89 Acute constipation K59.00 Acute confusion R41.0 Additional Codes Advanced Care Planning - 31747 Advanced Care Planning 30 Min: 85422 Advanced Care Planning 30 Min ([id number])
[2023-07-20] MEDS: VANCOMYCIN LEVEL ONE (06:00)
[2023-07-20 06:17] LABS: Hematocrit (blood only) 27.5 % (37.0-47.0); Hemoglobin 8.5 g/dl (12.0-16.0); Mean Corpuscular Hemoglobin 27.5 pg (25.0-34.0); Mean Corpuscular Hgb Conc 30.9 g/dL (32.0-36.0); Mean Platelet Volume 10.3 fL (9.4-12.4); Platelet Count 421 K/uL (130-400); RDW Coefficient of Variation 14.2 % (11.5-14.5); RDW Standard Deviation 45.8 fL (36.4-46.3); Red Blood Count 3.09 M/uL (4.20-5.40); White Blood Count 4.69 K/ul (4.8-10.8)
[2023-07-20 06:41] LABS: BUN Creatinine Ratio 24.2 (10-20); Calcium 7.9 mg/dl (8.6-10.3); Est GFR (African American) 103.7 ml/min; Est GFR (Non-African American) 89.5 ml/min; Magnesium 2.1 mg/dl (1.7-2.4); Phosphorus 3.2 mg/dl (2.5-4.9); Potassium 3.6 mmol/L (3.5-5.1)
[2023-07-20] MEDS: diazePAM 2 MG TABLET PO SCH (12:37)
--- NOTE | 2023-07-20 13:43 | Pharmacy Report ---
Pharmacy PK ABX Note - Date of Service July 20, 2023 - Assessment and Plan Assessment 07/19: * Vancomycin level obtained this morning (15.9 mcg/mL), indicating that Vanc 1gm IV q12h remains the appropriate dose. * Renal function has been stable. * ID consult pending. 07/17: * 72 year old F receiving vancomycin for treatment of E. faecalis bacteremia. Ampicillin allergy noted (rash) * Pertinent microbiologic data includes: 06/16 blood cultures w GPC in chains. BCID2 w E. faecalis w/o vanco resistance gene noted * Vancomycin 35 mg/kg ordered and administered yesterday. Etiology 2nd incorrect weight in computer. Dr. Sampson notified and event report entered. * SCr is stable at this time Plan Vancomycin * Continue vanc 1000 mg IV q12h * Regimen is predicted to achieve/maintain target AUC/SANDY of 400-600 mg/L.hr * Will consider drawing another vanc level in the next couple of days if pt remains hospitalized. Pharmacy will continue to follow and will adjust dose/frequency as necessary. Thank you. Pharmacy has transitioned to AUC monitoring for vancomycin. AUC/SANDY is the preferred PK/PD target and is associated with decreased risk of nephrotoxicity compared to traditional trough targets.
--- NOTE | 2023-07-20 14:14 | Infectious Disease Consult ---
Date of Service July 20, 2023 Telehealth Information I performed this visit using a real-time telehealth connection between my location and the patients location ([facility]). 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 I informed the patient (or authorized healthcare truck sales representative) that I reviewed their record and presented the opportunity for them to ask any questions regarding the visit today. The patient agreed to participate. Assessment & Plan (1) Acute UTI (urinary tract infection): (2) Enterococcal bacteremia: Plan Recommend continuing vancomycin as he has an allergy to PCN .If his blood cultures remain negative for 48 hrs would recommend treating with vancomycin for a total of 2 weeks as the source of his enterococcus bacteremia is most likely his UTI with the same organism .Recommend discontinuing doxycycline and since he has had mitral and tricuspid valve repair consider repeating the TTE in 2-4 weeks to definietively rule out endocarditis thank you for allowing us to participate in the care of this patient ID will sign off History of Present Illness History of Present Illness 72 y/o F PMHx chronic diastolic dysfunction (60 to 65%, TTE 2023), valvular heart disease (moderate , trace MR), hypotension on midodrine, hyperlipidemia, COPD, pulmonary nodule as per records, NAFLD cirrhosis, IBS constipation predominant, chronic anemia (baseline hemoglobin of 8), Parkinson disease as per records, cognitive impairment as per records, chronic pain, anxiety/mood disorder, malignant melanoma as per records, recent hip fracture surgery currently on Eliquis anticoagulation, ambulatory dysfunction, sacral decubitus wound, past tobacco abuse.Patient presented with fever from rehab and as per daughter worsening sacral decubitus .His blood and urine culture have grown enterooccus faecalis and he is on vancomycin and doxycycline .TTE was done and did not reveal any vegetations and wound cultures from sacrum have grown jonah albicans Allergies Allergy/AdvReac Type Severity Reaction Status Date / Time ampicillin Allergy Mild RASH Verified 07/02/23 17:16 Bactrim Allergy Unknown UNKNOWN - Verified 10/22/15 08:03 CAN'T REMEMBER sulfamethoxazole Allergy Unknown UNKNOWN - Verified 07/02/23 17:16 CAN'T REMEMBER trimethoprim Allergy Unknown UNKNOWN - Verified 07/02/23 17:16 CAN'T REMEMBER lactose AdvReac Verified 07/03/23 15:52 Home Medications Medication Instructions Recorded Confirmed Type alendronate 70 mg tablet (Fosamax) 70 mg PO WK 02/24/19 07/17/23 History aspirin 81 mg tablet,delayed 81 mg PO QAM 02/24/19 07/17/23 History release (Aspir-) citalopram 40 mg tablet 40 mg PO PM 02/24/19 07/17/23 History diazepam 5 mg tablet 5 mg PO QID 02/24/19 07/17/23 History gabapentin 100 mg capsule 100 mg PO BID 02/24/19 07/17/23 History gabapentin 300 mg capsule 300 mg PO HS 02/24/19 07/17/23 History primidone 50 mg tablet 100 mg PO BID 02/24/19 07/17/23 History simvastatin 40 mg tablet 40 mg PO HS 02/24/19 07/17/23 History vitamin E 268 mg (400 unit) capsule 400 unit PO PM 02/24/19 07/17/23 History primidone 50 mg tablet 150 mg PO HS 09/13/20 07/17/23 History dicyclomine 10 mg capsule 10 mg PO QID IBS 09/25/20 07/17/23 History albuterol sulfate 90 mcg/actuation 1 inh inhalation Q4H PRN 01/30/21 07/17/23 History aerosol inhaler SOB/WHEEZING fluticasone fur. 200 mcg-umeclid 1 inh inhalation DAILY 01/30/21 07/17/23 History 62.5 mcg-vilant 25 mcg inhalat.powder (Trelegy Ellipta) topiramate 25 mg tablet (Topamax) 25 mg PO QAM 02/03/22 07/17/23 History acetaminophen 500 mg tablet 1,000 mg PO TID pain 07/02/23 07/17/23 History (Tylenol Extra Strength) bisacodyl 10 mg rectal suppository 10 mg IL DAILY PRN Constipation 07/02/23 07/17/23 History (Dulcolax (bisacodyl)) cetirizine 10 mg tablet 10 mg PO QAM 07/02/23 07/17/23 History folic acid 0.8 mg capsule 0.8 mg PO QAM 07/02/23 07/17/23 History magnesium hydroxide 400 mg/5 mL See Rx Instructions .Route 07/02/23 07/17/23 History oral suspension (Milk of Magnesia) .COMPLEX PRN Constipation sodium phosphates 19 gram-7 118 ml IL DAILY PRN Constipation 07/02/23 07/17/23 History gram/118 mL enema (Fleet Enema) topiramate 50 mg tablet 50 mg PO HS 07/02/23 07/17/23 History apixaban 2.5 mg tablet (Eliquis) 2.5 mg PO BID 14 days #0 tabs 07/07/23 07/17/23 Rx docusate sodium 100 mg capsule 100 mg PO BID #60 caps 07/07/23 07/17/23 Rx ferrous sulfate 325 mg (65 mg 325 mg PO QAM #30 tabs 07/07/23 07/17/23 Rx iron) tablet,delayed release midodrine 2.5 mg tablet 2.5 mg PO TID@0800,1200,1700 #90 07/07/23 07/17/23 Rx tabs oxycodone 5 mg tablet 5 mg PO Q6H PRN pain #20 tabs 07/07/23 07/17/23 Rx calcium carbonate (Calcium 600) 600 mg PO AMHS 07/17/23 07/17/23 History cholecalciferol (vitamin D3) 1,250 1,250 mcg PO UD 07/17/23 07/17/23 History mcg (50,000 unit) tablet menthol 0.44 %-zinc oxide 20.6 % 1 applic topical BID 07/17/23 07/17/23 History topical ointment (Calmoseptine) Patient History Medical History (Updated 07/20/23 @ 17:24 by Leti Boggs MD) Counseling regarding advanced directives and goals of care Palliative care by specialist Discussion about advance care planning held with family member Hip pain, acute Weakness generalized Aortic stenosis Murmur Intertrochanteric fracture of right hip Asthma well controlled per pt, rare res inh use Depression Bilateral lumbar radiculopathy Essential tremor BILAT. HANDS History of diverticulitis Anxiety and depression History of skin cancer NOSE Unsteady gait RECENT, CANE/WALKER PRN Cirrhosis of liver COPD (chronic obstructive pulmonary disease) Sciatica Migraines Hernia Snores Spondylolisthesis, lumbar region IBS (irritable bowel syndrome) Osteoarthritis Spinal stenosis of lumbar region Chronic back pain Hypertension PT DENIES Hyperlipidemia Surgical History (Updated 07/12/23 @ 00:07 by Ramon Oneill) S/P epidural steroid injection H/O colonoscopy with polypectomy H/O oophorectomy History of arthroscopy of left knee History of endoscopy Hx of ovarian cystectomy History of cholecystectomy History of bilateral tubal ligation History of tonsillectomy Hx of cataract extraction BILAT Family History Mother Colon cancer Other Family history of diabetes mellitus No family history of adverse response to anesthesia Social History Smoking Status: Former smoker Tobacco Type: Cigarettes Cigarettes Per Day: 1 ppd; Second Hand Exposure: No; Do You Dip or Chew Tobacco: No; Hx Alcohol Use: No Hx Substance Use: No Preferred Language: Kinyarwanda Communication Ability: Effective Cobol Engineer Required: No Beliefs That Will Affect Care: None Current [facility]uation[facility] Current Living Situation Comment: [facility] Other Information That Helps Us Care for You: No Feels Safe at Home: Yes Safety Concerns: Feels Safe At This Time Assistive Devices: Cane and Walker Review of Systems Patient awake alert oriented no respiratory distress afebrile Physical Exam Patient in no respiratory distress head normocephalic PERRLA Results & Data Vital Signs (Past 12 Hours) Vital Signs Temp Pulse Pulse Resp BP Pulse Ox O2 Del Method 07/20/23 11:31 37.2 C 70 17 106/63 96 Room Air 07/20/23 07:49 37.1 C 89 19 113/65 94 Room Air 07/20/23 07:37 67 07/20/23 03:27 36.8 C 63 17 110/64 97 Room Air Laboratory Results E faecalis RX M.I.C. --- --------- Ampicillin S <=2 Ciprofloxacin S <=1 Daptomycin S 1 Gent Synergy S <=500 Levofloxacin S <=1 E faecalis RX M.I.C. --- --------- Ampicillin S <=2 Daptomycin S 1 Gent Synergy S <=500 Penicillin S 2 Strep Synergy R >1000 Vancomycin S 2 Nitrofurantoin S <=32 Penicillin S 2 Strep Synergy R >1000 Tetracycline R >8 Vancomycin S 2 Diagnostic Findings TTE did not reveal any vegetations
--- NOTE | 2023-07-20 16:32 | Hospitalist Progress Note ---
Date of Service July 20, 2023 Assessment & Plan (1) Sepsis: Plan: 72-year-old lady with PMH of chronic diastolic dysfunction [2023 TTE with EF of 60 to 65%], hypotension on midodrine, HLD, COPD, pulmonary nodule, NAFLD cirrhosis, IBS constipation predominant, chronic anemia [baseline hemoglobin of 8], Parkinson disease, cognitive impairment, chronic pain, anxiety/mood disorder, malignant melanoma, recent hip fracture surgery currently on Eliquis anticoagulation, ambulatory dysfunction, sacral decubitus wound, past tobacco abuse had following significant recent admissions: 06/06 - 06/10: Traumatic right hip fracture status post repair. Discharged to rehab. 07/01 - 07/05: Traumatic left hip fracture status post repair. Palliative care evaluated given poor progress at rehab. Patient/family elected rehab trial with a plan to touch base with specialist after 2 weeks. Consideration for hospice if no improvement as per patient. Midodrine started for hypotension during confinement. This time, patient was noted to be febrile at rehab facility/no abdominal pain or shortness of breath or cough or chest pain. Sacral wound was noted to be getting worse per daughter. Hence she was sent to the ED for evaluation. She is being managed for the following: Complicated UTI: Admitting urine culture positive for GPC, follow final. Infected sacral decubitus wound: Sacral wound was noted to be getting worse per daughter prior to arrival. Get wound culture Sepsis POA: Temperature and respiratory rate elevated at presentation. Likely secondary to Cx UTI. Procalcitonin and lactate WNL at presentation. Bacteremia: Likely secondary to UTI. Admitting blood culture positive for GPC, follow final. Patient was noted to be febrile at rehab facility and also was noted to have worsening sacral wound. Patient febrile at presentation with increased respiratory rate. Admitting CTAP and CXR with no acute finding. Admitting urine culture and blood culture sensitivity are final, continue with vancomycin 07/17, DC doxycycline. Air mattress, WOCN consult. c/w pain control w/ hold parameters if sedation/increased confusion. Follow wound culture 07/17, follow repeat blood culture 07/17. 07/17 echo with no vegetation. ID consulted, await recommendation. Labs in AM. 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 secondary to illness, narcotics and multiple neuropsychotropic medications for chronic pain contributory. Now oriented. Hold parameters for sedation/confusion for multiple neuropsychotropic medications and narcotics. Decrease diazepam RTC dose. Hypoxemia without SOB symptoms likely from COPD IBS constipation predominant, maintain bowel regimen given need for opiates pain meds. Goals of Care Discussion: Discussed with palliative care 07/18, patient and her daughter wants to go back to [facility] and try rehab, if it does not help or she worsens she wants comfort care and hospice. She does not want to return to hospital and also does not want hospice right now because she feels rehab was helping. She would like to give rehab a try again. Other chronic medical conditions: Continue with/resume home meds as and when able Hypotension on midodrine, possibly related to Parkinson's disease chronic diastolic dysfunction (60 to 65%, TTE 2023), patient on dry side valvular heart disease (moderate , trace MR) hyperlipidemia, on statin Rx NAFLD cirrhosis, no overt decompensation chronic anemia, hemoglobin at baseline cognitive impairment as per records anxiety/mood disorder, at baseline hx malignant melanoma as per records recent hip fracture surgery currently on Eliquis anticoagulation ambulatory dysfunction past tobacco abuse DVT prophylaxis. Eliquis DNR Patient daughter Ms. Fela Clarke, contact #[phone]. Text document was generated using [employer] voice recognition software. It may contain grammatical or spelling errors. Kindly contact undersigned for clarification of any documentation item in question. Admission and Anticipated Discharge Date Admission Date: July 17, 2023 Subjective Patient was seen and examined at bedside. Patient was lying in bed, on room air, states "i am tired". Appears lethargic but moving all 4 extremities symmetrically/articulating clear though minimally verbal/no facial and tongue deviation noted during the exam. Patient looks tired and lethargic, continue pain management with hold paramet ers. Per RN, patient with poor appetite, refusing food today. No new acute event overnight. Physical Exam Physical Exam: GENERAL: Comfortable, chronically ill, no respiratory distress SKIN: Pallor, warm HEENT: Pale palpebral conjunctivae, no ptosis, moist buccal mucosa, on RA NECK : Supple, no tenderness CHEST : Decreased breath sounds, no tenderness HEART : RRR, systolic murmur ABDOMEN: no distention, nontender, BACK : Decubiti wound not examined EXTREMITIES : Bilateral LE swelling, hip tenderness, no other conspicuous deformities noted NEUROLOGIC : Coherent, no facial asymmetry, chronic RUE tremors Results & Data Results & Data Vital Signs (Past 12 Hours) Vital Signs Temp Pulse Pulse Resp BP Pulse Ox O2 Del Method 07/20/23 16:00 67 07/20/23 11:31 37.2 C 70 17 106/63 96 Room Air 07/20/23 07:49 37.1 C 89 19 113/65 94 Room Air 07/20/23 07:37 67
[2023-07-20] MEDS: VANCOMYCIN HCL 1,000 MG in SODIUM CHLORIDE 0.9% 250 ML IV SCH (18:15)
--- NOTE | 2023-07-21 09:27 | Palliative Care Progress Note ---
Date of Service July 21, 2023 Assessment & Plan (1) Acute constipation: (2) Palliative care by specialist: (3) Hip pain, acute: (4) Weakness generalized: (5) Essential tremor: (6) Acute confusion: Plan Constipation tx underway Delirium work up may be needed but will see if this improves after she adjust to less BZD in system, may be acute reaction to valium dose change vs sepsis vs dementia like changes She asked if she will ever walk again and said that of she is not going to walk freely again then she would want to shift her plan of care to be more about comfort and would be more willing to think about hospice though she again stated "I just don't think I'm ready to accept hospice yet/ I really don't feel I'm there." ortho has been asked to see pt for her suture removal/due tomorrow and I would ask them her mobility prognosis. I did tell her I was not sure the wound would ever fully heal and in the setting of her other chronically progressive medical issues, this could become a major complication/limiting prognostic factor. Thank you for allowing us to participate in the ongoing care of this patient. Please don't hesitate to call or page with any additional concerns. Dr. Gissel Jack DNP Director, Palliative Care Admission and Anticipated Discharge Date Admission Date: July 17, 2023 Subjective Late entry note for visit of 07/20/23 pt seen/chart reviewed she is awake and alert but fabricates and may be hallucinating: "I hear voices through the wall, I know they're talking about me, I know they're coming through the jones and just want to hurt me." no family present at time of this visit nursing reports intermittent confusion, slightly more anxious but had valium dose reduced as well for sedation concerns Review of Systems Review of Systems: Unobtainable due to cognitive status Physical Exam Physical Exam: chronically ill side lying in bed bitemp wasting perrla, eomi no resp distress speaking in shorter than average sentences no jvd mild abd distension sutures left hip skin diaphoretic, flushed at times gen weakness awake, alert to self, somewhat confused, anxious Results & Data Vital Signs (Past 12 Hours) Vital Signs Temp Pulse Pulse Resp BP BP Pulse Ox 07/21/23 08:41 66 07/21/23 08:05 36.8 C 70 17 111/61 97 07/21/23 07:50 07/21/23 03:14 36.8 C 75 17 104/61 96 07/20/23 23:08 69 07/20/23 23:00 36.8 C 65 18 103/61 97 O2 Del Method 07/21/23 08:41 07/21/23 08:05 Room Air 07/21/23 07:50 Room Air 07/21/23 03:14 Room Air 07/20/23 23:08 07/20/23 23:00 Room Air Laboratory Results data reviewed Diagnostic Findings data reviewed PG Care Time/CCT Total # of Minutes Spent Total Time Spent: 55 Total Time Spent with Patient: Total time spent is greater than 50% in coordination of care (as documented) at patient's floor/unit and/or counseling patient: Coding [place] [address] SUB INP/OBS CARE 3/50MIN Patient Type Established History Comprehensive Exam Comprehensive Medical Decision Making High Complexity Diagnoses Acute constipation K59.00 Palliative care by specialist Z51.5 Hip pain, acute M25.559 Weakness generalized R53.1 Essential tremor G25.0 Acute confusion R41.0
[2023-07-21 10:25] LABS: Hematocrit (blood only) 30.5 % (37.0-47.0); Hemoglobin 9.4 g/dl (12.0-16.0); Mean Corpuscular Hemoglobin 26.9 pg (25.0-34.0); Mean Corpuscular Hgb Conc 30.8 g/dL (32.0-36.0); Mean Corpuscular Volume 87.4 fL (80.0-100.0); Mean Platelet Volume 10.2 fL (9.4-12.4); Platelet Count 484 K/uL (130-400); RDW Standard Deviation 44.7 fL (36.4-46.3); Red Blood Count 3.49 M/uL (4.20-5.40); White Blood Count 5.48 K/ul (4.8-10.8)
[2023-07-21 10:53] LABS: BUN Creatinine Ratio 20.8 (10-20); Creatinine Clr Calc Pharmacy 93.9 ml/min; Est GFR (African American) 112.8 ml/min; Est GFR (Non-African American) 97.3 ml/min; Magnesium 2.1 mg/dl (1.7-2.4); Phosphorus 3.2 mg/dl (2.5-4.9); Potassium 3.5 mmol/L (3.5-5.1)
--- NOTE | 2023-07-21 17:27 | Hospitalist Progress Note ---
Date of Service July 21, 2023 Assessment & Plan (1) Sepsis: Plan: 72-year-old lady with PMH of chronic diastolic dysfunction [2023 TTE with EF of 60 to 65%], hypotension on midodrine, HLD, COPD, pulmonary nodule, NAFLD cirrhosis, IBS constipation predominant, chronic anemia [baseline hemoglobin of 8], Parkinson disease, cognitive impairment, chronic pain, anxiety/mood disorder, malignant melanoma, recent hip fracture surgery currently on Eliquis anticoagulation, ambulatory dysfunction, sacral decubitus wound, past tobacco abuse had following significant recent admissions: 06/06 - 06/10: Traumatic right hip fracture status post repair. Discharged to rehab. 07/01 - 07/05: Traumatic left hip fracture status post repair. Palliative care evaluated given poor progress at rehab. Patient/family elected rehab trial with a plan to touch base with specialist after 2 weeks. Consideration for hospice if no improvement as per patient. Midodrine started for hypotension during confinement. This time, patient was noted to be febrile at rehab facility/no abdominal pain or shortness of breath or cough or chest pain. Sacral wound was noted to be getting worse per daughter. Hence she was sent to the ED for evaluation. She is being managed for the following: Complicated UTI: Admitting urine culture positive for Enterococcus faecalis Infected sacral decubitus wound: Sacral wound was noted to be getting worse per daughter prior to arrival. Wound care nurse consulted Sepsis POA: Temperature and respiratory rate elevated at presentation. Likely secondary to Cx UTI. Procalcitonin and lactate WNL at presentation. Bacteremia: Likely secondary to UTI. Admitting blood culture positive for Enterococcus faecalis Patient was noted to be febrile at rehab facility and also was noted to have worsening sacral wound. Patient febrile at presentation with increased respiratory rate. Urine culture growing gram urine culture from 07/16 growing Enterococcus faecalis Blood culture 4 out of 4 from July 16 growing Enterococcus faecalis as well Repeat blood culture negative so far Evaluated by infectious disease; recommend vancomycin for total of 2 weeks. PICC line Consent taken over the phone with patient's daughter. 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 secondary to illness, narcotics and multiple neuropsychotropic medications for chronic pain contributory. Now oriented. Hold parameters for sedation/confusion for multiple neuropsychotropic medications and narcotics. Decrease diazepam RTC dose. Hypoxemia without SOB symptoms likely from COPD IBS constipation predominant, maintain bowel regimen given need for opiates pain meds. Goals of Care Discussion: Discussed with palliative care 07/18, patient and her daughter wants to go back to [facility] and try rehab, if it does not help or she worsens she wants comfort care and hospice. She does not want to return to hospital and also does not want hospice right now because she feels rehab was helping. She would like to give rehab a try again. Other chronic medical conditions: Continue with/resume home meds as and when able Hypotension on midodrine, possibly related to Parkinson's disease chronic diastolic dysfunction (60 to 65%, TTE 2023), compensated valvular heart disease (moderate , trace MR) hyperlipidemia, on statin Rx NAFLD cirrhosis, no overt decompensation chronic anemia, hemoglobin at baseline cognitive impairment as per records anxiety/mood disorder, at baseline hx malignant melanoma as per records recent hip fracture surgery currently on Eliquis anticoagulation ambulatory dysfunction past tobacco abuse DVT prophylaxis. Eliquis DNR Patient daughter Ms. Fela Clarke, contact #[phone]. Time spent evaluating patient, direct bedside care, chart review, placing orders, interpretation of diagnostic studies, discussion with consultants, patient, and family members, as well as other required patient management activities is 55 minutes Text document was generated using [employer] voice recognition software. It may contain grammatical or spelling errors. Kindly contact undersigned for clarification of any documentation item in question. Admission and Anticipated Discharge Date Admission Date: July 17, 2023 Subjective Patient seen and examined at bedside. She is comfortably lying in the bed; not in distress. Afebrile and hemodynamically stable Review of Systems Review of Systems: All systems reviewed & are unremarkable except as noted in Subjective Physical Exam Physical Exam: GENERAL: Comfortable, chronically ill, no respiratory distress CHEST : Decreased breath sounds, no tenderness HEART : RRR, systolic murmur ABDOMEN: no distention, nontender, EXTREMITIES : Bilateral LE swelling, hip tenderness, no other conspicuous deformities noted NEUROLOGIC : Coherent, no facial asymmetry, chronic RUE tremors Results & Data Results & Data Vital Signs (Past 12 Hours) Vital Signs Temp Pulse Pulse Resp BP Pulse Ox O2 Del Method 07/21/23 16:19 68 07/21/23 15:15 36.6 C 73 18 118/65 96 Room Air 07/21/23 11:44 37.0 C 73 18 121/61 96 Room Air 07/21/23 08:41 66 07/21/23 08:05 36.8 C 70 17 111/61 97 Room Air 07/21/23 07:50 Room Air
[2023-07-21] MEDS: diazePAM 2 MG TABLET PO SCH (22:00)
[2023-07-22] MEDS: POLYETHYLENE (MIRALAX) 17 GM PACK PO SCH (09:49)
--- NOTE | 2023-07-22 16:52 | Hospitalist Progress Note ---
Date of Service July 22, 2023 Assessment & Plan (1) Sepsis: Plan: 72-year-old lady with PMH of chronic diastolic dysfunction [2023 TTE with EF of 60 to 65%], hypotension on midodrine, HLD, COPD, pulmonary nodule, NAFLD cirrhosis, IBS constipation predominant, chronic anemia [baseline hemoglobin of 8], Parkinson disease, cognitive impairment, chronic pain, anxiety/mood disorder, malignant melanoma, recent hip fracture surgery currently on Eliquis anticoagulation, ambulatory dysfunction, sacral decubitus wound, past tobacco abuse had following significant recent admissions: 06/06 - 06/10: Traumatic right hip fracture status post repair. Discharged to rehab. 07/01 - 07/05: Traumatic left hip fracture status post repair. Palliative care evaluated given poor progress at rehab. Patient/family elected rehab trial with a plan to touch base with specialist after 2 weeks. Consideration for hospice if no improvement as per patient. Midodrine started for hypotension during confinement. This time, patient was noted to be febrile at rehab facility/no abdominal pain or shortness of breath or cough or chest pain. Sacral wound was noted to be getting worse per daughter. Hence she was sent to the ED for evaluation. She is being managed for the following: Complicated UTI: Admitting urine culture positive for Enterococcus faecalis Infected sacral decubitus wound: Sacral wound was noted to be getting worse per daughter prior to arrival. Wound care nurse consulted Sepsis POA: Temperature and respiratory rate elevated at presentation. Likely secondary to Cx UTI. Procalcitonin and lactate WNL at presentation. Bacteremia: Likely secondary to UTI. Admitting blood culture positive for Enterococcus faecalis Patient was noted to be febrile at rehab facility and also was noted to have worsening sacral wound. Patient febrile at presentation with increased respiratory rate. Urine culture growing gram urine culture from 07/16 growing Enterococcus faecalis Blood culture 4 out of 4 from July 16 growing Enterococcus faecalis as well Repeat blood culture negative so far Evaluated by infectious disease; recommend vancomycin for total of 2 weeks. PICC line Consent taken over the phone with patient's daughter. PICC line placed on 07/21 Transient metabolic encephalopathy: noted [employer] per HnP. secondary to illness, narcotics and multiple neuropsychotropic medications for chronic pain contributory. Now oriented. Hold parameters for sedation/confusion for multiple neuropsychotropic medications and narcotics. Decrease diazepam RTC dose. Hypoxemia without SOB symptoms likely from COPD IBS constipation predominant, maintain bowel regimen given need for opiates pain meds. Goals of Care Discussion: Discussed with palliative care 5/6, patient and her daughter wants to go back to [facility] and try rehab, if it does not help or she worsens she wants comfort care and hospice. Other chronic medical conditions: Continue with/resume home meds as and when able Hypotension on midodrine, possibly related to Parkinson's disease chronic diastolic dysfunction (60 to 65%, TTE 2023), compensated valvular heart disease (moderate , trace MR) hyperlipidemia, on statin Rx NAFLD cirrhosis, no overt decompensation chronic anemia, hemoglobin at baseline cognitive impairment as per records anxiety/mood disorder, at baseline hx malignant melanoma as per records recent hip fracture surgery currently on Eliquis anticoagulation ambulatory dysfunction past tobacco abuse DVT prophylaxis. Eliquis DNR Patient daughter Ms. Fela Clarke, contact #[phone]. Time spent evaluating patient, direct bedside care, chart review, placing orders, interpretation of diagnostic studies, discussion with consultants, patient, and family members, as well as other required patient management activities is 50 minutes Text document was generated using [employer] voice recognition software. It may contain grammatical or spelling errors. Kindly contact undersigned for clarification of any documentation item in question. Admission and Anticipated Discharge Date Admission Date: July 17, 2023 Subjective She is comfortable lying in the bed; not in distress Denies any pain at this moment I discussed with her regarding PICC line; she is agreeable for placement of PICC line Review of Systems Review of Systems: All systems reviewed & are unremarkable except as noted in Subjective Physical Exam Physical Exam: GENERAL: Comfortable, chronically ill, no respiratory distress CHEST : Decreased breath sounds, no tenderness HEART : RRR, systolic murmur ABDOMEN: no distention, nontender, EXTREMITIES : Bilateral LE swelling, hip tenderness, no other conspicuous deformities noted NEUROLOGIC : Coherent, no facial asymmetry, chronic RUE tremors Results & Data Results & Data Vital Signs (Past 12 Hours) Vital Signs Temp Pulse Pulse Resp BP Pulse Ox O2 Del Method 07/22/23 15:00 71 07/22/23 12:20 36.6 C 62 16 119/70 96 Room Air 07/22/23 11:19 67 07/22/23 07:46 Room Air 07/22/23 05:37 36.9 C 68 18 138/80 95 Room Air
[2023-07-23] MEDS: VANCOMYCIN LEVEL ONE (04:40)
[2023-07-23 05:13] LABS: Basophils # (auto) 0.04 K/uL (0.00-0.20); Basophils % (auto) 0.6 %; Eosinophils # (auto) 0.13 K/uL (0.00-0.50); Eosinophils % (auto) 1.8 %; Hematocrit (blood only) 29.2 % (37.0-47.0); Hemoglobin 8.9 g/dl (12.0-16.0); Immature Granulocytes # (auto) 0.03 K/uL (0.01-0.20); Immature Granulocytes % (auto) 0.4 %; Lymphocytes % (auto) 25.1 %; Mean Corpuscular Hemoglobin 26.9 pg (25.0-34.0); Mean Corpuscular Hgb Conc 30.5 g/dL (32.0-36.0); Mean Corpuscular Volume 88.2 fL (80.0-100.0); Mean Platelet Volume 10.1 fL (9.4-12.4); Monocytes # (auto) 0.61 K/uL (0.11-0.59); Monocytes % (auto) 8.5 %; Neutrophils # (auto) 4.56 K/uL (1.40-6.50); Neutrophils % (auto) 63.6 %; Platelet Count 458 K/uL (130-400); RDW Coefficient of Variation 14.1 % (11.5-14.5); Red Blood Count 3.31 M/uL (4.20-5.40); White Blood Count 7.17 K/ul (4.8-10.8)
[2023-07-23 05:24] LABS: BUN Creatinine Ratio 16.1 (10-20); Calcium 9.1 mg/dl (8.6-10.3); Creatinine Clr Calc Pharmacy 88.4 ml/min; Est GFR (African American) 107.2 ml/min; Est GFR (Non-African American) 92.5 ml/min; Potassium 3.3 mmol/L (3.5-5.1)
[2023-07-23] MEDS: ERGOCALCIFEROL 1250 MCG (50,000 UNITS) CAP PO SCH (08:18)
--- NOTE | 2023-07-23 10:24 | Pharmacy Report ---
Pharmacy PK ABX Note - Date of Service July 23, 2023 - Assessment and Plan Assessment 07/22: reviewed vancomycin level which is predicting a therapeutic AUC/SANDY. Continue current regimen. ID recommending 2 weeks total of IV vancomycin. 07/19: * Vancomycin level obtained this morning (15.9 mcg/mL), indicating that Vanc 1gm IV q12h remains the appropriate dose. * Renal function has been stable. * ID consult pending. 07/17: * 72 year old F receiving vancomycin for treatment of E. faecalis bacteremia. Ampicillin allergy noted (rash) * Pertinent microbiologic data includes: 06/16 blood cultures w GPC in chains. BCID2 w E. faecalis w/o vanco resistance gene noted * Vancomycin 35 mg/kg ordered and administered yesterday. Etiology 2nd incorrect weight in computer. Dr. Sampson notified and event report entered. * SCr is stable at this time Plan Vancomycin * Continue vanc 1000 mg IV q12h * Regimen is predicted to achieve/maintain target AUC/SANDY of 400-600 mg/L.hr * Recommend vancomycin trough/serum creatinine twice weekly on discharge. Pharmacy will continue to follow and will adjust dose/frequency as necessary. Thank you. Pharmacy has transitioned to AUC monitoring for vancomycin. AUC/SANDY is the preferred PK/PD target and is associated with decreased risk of nephrotoxicity compared to traditional trough targets.
[2023-07-23] MEDS: POTASSIUM CHLORIDE PWD 20 MEQ PACK PO SCH (12:19)
--- NOTE | 2023-07-23 16:24 | Discharge Summary ---
Date of Service July 23, 2023 Admission HPI Per Admitting Provider History obtained from patient, family, and records. Medical history significant for chronic diastolic dysfunction (60 to 65%, TTE 2023), valvular heart disease (moderate , trace MR), hypotension on midodrine, hyperlipidemia, COPD, pulmonary nodule as per records, NAFLD cirrhosis, IBS constipation predominant, chronic anemia (baseline hemoglobin of 8), Parkinson disease as per records, cognitive impairment as per records, chronic pain, anxiety/mood disorder, malignant melanoma as per records, recent hip fracture surgery currently on Eliquis anticoagulation, ambulatory dysfunction, sacral decubitus wound, past tobacco abuse. Monthly admissions since May 2023. 06/06-06/10 Patient admitted for right hip fracture status post surgery. Patient discharged to rehab. 07/11-07/05 Patient readmitted for traumatic left hip fracture status post surgery. Palliative care consulted to discuss goals of care given poor progress at rehab. Patient/family elected rehab trial and to touch base with specialist after 2 weeks. Consideration for hospice if no improvement as per patient. Midodrine started for hypotension during confinement. Patient noted to be febrile at rehab facility today. Denies abdominal pain. Patient cannot recall last bowel movement. No unusual chest pain, SOB symptoms, cough. Sacral wound getting worse as per daughter. Patient somewhat sleepy, blood pressure 80s, oxygen 80s as per report. Cefepime administered at the ER. Medical History as above Surgical History : Ex lap for endometriosis, cholecystectomy, ovarian cyst removal, tonsillectomy/adenectomy Family History : Colon cancer, heart disease, stomach cancer, depression, breast cancer, vaginal cancer, hip fracture surgery Personal/Social history : Past tobacco/alcohol abuse, disabled Admission Exam Per Admitting Provider GENERAL: Comfortable, chronically ill, no respiratory distress SKIN: Pallor, warm HEENT: Pale palpebral conjunctivae, no ptosis, dry buccal mucosa, nasal cannula in place NECK : Supple, no tenderness CHEST : Decreased breath sounds, no tenderness HEART : RRR, systolic murmur ABDOMEN: Some distention, nontender BACK : Decubiti wound not examined EXTREMITIES : Bilateral LE swelling, hip tenderness, no other conspicuous deformities noted NEUROLOGIC : Coherent, no facial asymmetry, chronic RUE tremors Principal Diagnosis Complicated UTI: Sacral decubitus wound: Sepsis POA:. Bacteremia Discharge Exam GENERAL: Comfortable, chronically ill, no respiratory distress CHEST : Decreased breath sounds, no tenderness HEART : RRR, systolic murmur ABDOMEN: no distention, nontender, EXTREMITIES : Bilateral LE swelling, hip tenderness, no other conspicuous deformities noted NEUROLOGIC : Coherent, no facial asymmetry, chronic RUE tremors Discharge Data Allergies Allergy/AdvReac Type Severity Reaction Status Date / Time ampicillin Allergy Mild RASH Verified 07/02/23 17:16 Bactrim Allergy Unknown UNKNOWN - Verified 10/22/15 08:03 CAN'T REMEMBER sulfamethoxazole Allergy Unknown UNKNOWN - Verified 07/02/23 17:16 CAN'T REMEMBER trimethoprim Allergy Unknown UNKNOWN - Verified 07/02/23 17:16 CAN'T REMEMBER lactose AdvReac Verified 07/03/23 15:52 Consultations 07/17/23 20:57 ED Decision to Admit Stat 07/18/23 14:33 Consult Infectious Diseases Routine 07/19/23 12:41 Consult Palliative Care Routine Ordered Studies 07/17/23 19:45 CT Abd and Pelvis [CT abd pelvis wo con] Stat Hospital Course (1) Sepsis: 72-year-old lady with PMH of chronic diastolic dysfunction [2023 TTE with EF of 60 to 65%], hypotension on midodrine, HLD, COPD, pulmonary nodule, NAFLD cirrhosis, IBS constipation predominant, chronic anemia [baseline hemoglobin of 8], Parkinson disease, cognitive impairment, chronic pain, anxiety/mood disorder, malignant melanoma, recent hip fracture surgery currently on Eliquis anticoagulation, ambulatory dysfunction, sacral decubitus wound, past tobacco abuse had following significant recent admissions: 06/06 - 06/10: Traumatic right hip fracture status post repair. Discharged to rehab. 07/01 - 07/05: Traumatic left hip fracture status post repair. Palliative care evaluated given poor progress at rehab. Patient/family elected rehab trial with a plan to touch base with specialist after 2 weeks. Consideration for hospice if no improvement as per patient. Midodrine started for hypotension during confinement. This time, patient was noted to be febrile at rehab facility/no abdominal pain or shortness of breath or cough or chest pain. Sacral wound was noted to be getting worse per daughter. Hence she was sent to the ED for evaluation. She was managed for following condition during the hospitalization: Complicated UTI: Admitting urine culture positive for Enterococcus faecalis Infected sacral decubitus wound: Sacral wound was noted to be getting worse per daughter prior to arrival. Wound care instruction provided at the time of the discharge Bacteremia: Likely secondary to UTI. Admitting blood culture positive for Enterococcus faecalis. Evaluated by infectious disease. Recommended vancomycin for total of 2 weeks. PICC line was placed. Vancomycin dosing was confirmed with pharmacy. Patient to have CBC, BMP and vancomycin trough to be obtained twice a week Acute urinary retention; Sky catheter was placed on the day of the discharge. Trial of void to be done in 1 week. Patient to follow-up with urology if trial of void is unsuccessful in 1 week. Valium dosing was gradually decreased throughout the hospitalization and patient was discharged on 1 mg 3 times a day. Goals of care discussion was done with patient's daughter multiple times during the hospitalization. Patient has multiple hospitalization recently with fractures of right and left hip within a month's interval which has led her to be bedbound resulting in complications like sacral wound, UTI and altered mentation. Plan is to discharge her back to rehab and monitor her progress in next few weeks. If she does not progress well; hospice evaluation is to be considered. Patient's daughter agrees with the plan. All questions answered. Please note the above document was generated using voice recognition software. It may contain grammatical, syntax or spelling errors. Any formal questions or concerns about the content, text or information contained within the body of this dictation should be directly addressed to the provider for clarification Total Time Total Time Spent Total Time Spent (In Minutes): 45 Total Time Includes: Examination of the Patient, Discharge Planning, Medication Reconciliation, Communication With Other Providers and Other Discharge Plan Discharge Items Patient Disposition: Transfer [facility] Reason For Visit: HYPOTENSION Discharge Diagnosis: Complicated UTI Infected sacral decubitus wound Sepsis POA Bacteremia Activity: Resume your previous activity Non-emergency contact: Primary Care Provider Call non-emergency contact if: you have any medication questions and your symptoms worsen Follow-up/Referrals: Christie Morris DO [Primary Care Provider] - Diet: Regular Addtl Attending Provider Instructions: You were admitted to the hospital due to UTI and sepsis. You are treated with IV antibiotic during the hospitalization. You are prescribed following antibiotic through the PICC line for next 9 days; IV vancomycin 1000 mg twice a day. Obtain CBC, BMP, vancomycin trough on Wednesday and . The lab work should be reviewed by the physician onsite or faxed over to the primary care doctor. PICC line should be removed after completion of the antibiotics. Sky catheter has been placed due to urinary retention. Please do trial of void in 7 days ( July 29, 2023). If there is unsuccessful trial of void; please make an appointment with urology and Sky catheter which should be changed every 4 weeks( next Change is August 18) Wound care instructions: Clean sacrum with saline and pat dry. Apply Aquacel Ag to open areas and secure with optifoams. Change daily or as needed for increased drainage. Recommend follow up with Wound Care upon discharge. Turn the patient every 2 hours Valium dose has been decreased to 1 mg 3 times a day. Pending Studies at Discharge: No Stand-Alone Forms: My [facility] Skilled Items Patient informed of condition?: Yes DNR: Yes Discharge Level of Care: Skilled Communicable Disease: No Discharge Prognosis: Stable Lines: PICC Urinary Catheter: Yes Medications and DC Order Prescriptions: New diazepam 2 mg Tablet 1 mg PO TID Qty: 10 0RF vancomycin in 0.9 % sodium chl 1 gram/250 mL solution 1 g IV Q12H 8 Days Continued primidone 50 mg Tablet 100 mg PO BID Rx Instructions: 2 tabs morning and noon citalopram 40 mg Tablet 40 mg PO PM alendronate [Fosamax] 70 mg Tablet 70 mg PO WK Rx Instructions: WEDNESDAY aspirin [Aspir-81] 81 mg Tablet,Delayed Release (Dr/Ec) 81 mg PO QAM Hold Instructions: until completed with Eliquis simvastatin 40 mg Tablet 40 mg PO HS Patient Comments: PHARMACY REFILLED SIMVASTATIN , GOING TO FINISH SIMVISTATIN AND THEN START THE NEW PRESCRIPTION gabapentin 300 mg Capsule 300 mg PO HS gabapentin 100 mg Capsule 100 mg PO BID vitamin E 400 unit Capsule 400 unit PO PM Patient Comments: WITH DINNER primidone 50 mg Tablet 150 mg PO HS dicyclomine 10 mg Capsule 10 mg PO QID albuterol sulfate 90 mcg/actuation Hfa Aerosol Inhaler 1 inh INHALATION Q4H PRN (Reason: SOB/WHEEZING) Trelegy Ellipta 200-62.5-25 mcg Blister With Device 1 inh INHALATION DAILY topiramate [Topamax] 25 mg Tablet 25 mg PO QAM cholecalciferol (vitamin D3) 1,250 mcg (50,000 unit) Tablet 1,250 mcg PO UD Rx Instructions: take in the morning every WEDNESDAY FOR 8 WEEKS...END DATE 09/03/23 calcium carbonate [Calcium 600] 600 mg calcium (1,500 mg) Tablet 600 mg PO AMHS menthol-zinc oxide [Calmoseptine] 0.44-20.6 % Ointment 1 applic TOPICAL BID Rx Instructions: apply to buttocks and sacrum every shift for wound care for 2 weeks...end 07/29/23 cetirizine 10 mg tablet 10 mg PO QAM magnesium hydroxide [Milk of Magnesia] 400 mg/5 mL Suspension See Rx Instructions .ROUTE .COMPLEX PRN (Reason: Constipation) Rx Instructions: No strength given on MAY from [facility]. Original Directions: Give 30ml by mouth as needed for constipation if no BM after 3 days. Administer on 09-14 shift. Fleet Enema 19-7 gram/118 mL Enema 118 ml ND DAILY PRN (Reason: Constipation) Rx Instructions: Give on 09-14 shift on day 4 if no BM after Dulcolax topiramate 50 mg tablet 50 mg PO HS folic acid 0.8 mg Capsule 0.8 mg PO QAM docusate sodium 100 mg Capsule 100 mg PO BID Qty: 60 0RF midodrine 2.5 mg Tablet 2.5 mg PO TID@0800,1200,1700 Qty: 90 0RF ferrous sulfate 325 mg (65 mg iron) Tablet,Delayed Release (Dr/Ec) 325 mg PO QAM Qty: 30 0RF Eliquis 2.5 mg Tablet 2.5 mg PO BID 14 Days Qty: 0 0RF Rx Instructions: take until 08/04/23 2359 Changed oxycodone 5 mg Tablet 5 mg PO Q12H PRN (Reason: pain) Qty: 20 0RF acetaminophen [Tylenol Extra Strength] 500 mg tablet 500 mg PO TID MDD 3gm/24hr Qty: 0 0RF bisacodyl [Dulcolax (bisacodyl)] 10 mg Suppository 10 mg ND DAILY Qty: 0 0RF Rx Instructions: Give on 05-23 shift on day 3 of no BM after MOM Discontinued diazepam 5 mg Tablet 5 mg PO QID Discharge Orders: Discharge Order (Routine); Ordered 07/23/23 Ordered By: Dimitrios Montanez Admission Data Admit Date/Time: 07/17/23 23:17 Attending Provider: Dimitrios Montanez Admit Provider: Chay Pemberton Primary Care Provider: Christie Morris Other Providers: Chay Pemberton; Gigi Guzman; Kavita Rahman; Steven Kaur I.; Toney Ruelas II; Leti Boggs; Matt Blanco; iWlton Gustafson; Prisca Golden; Kenny Robles; Kiran Pan; Rodger Roberts; Gissel Jack; [place] Other Interventions: Discharge Summary Assessment (RN) Last Done: 07/23/23 16:04
== END 2023-07-23 16:09 | DRG 871 ==
LOC: ED 18:46 → SUATTDRO 23:17 → 4W 23:17